=== PATIENT | female | born 1970 | race Caucasian/White ===

== ENCOUNTER → 2016-11-18 | Outpatient (CLI) | payer OTHER ==
[2016-11-18 16:31] LABS: CHLORIDE,CL 104 mmol/L (98-110); SODIUM,NA 137 mmol/L (136-146)
== END ==
LOC: MW.CHFP 15:36
PROVIDERS: ATTEND Nurse Practitioner Family
DX: R10.9 Unspecified abdominal pain (principal)
CPT/HCPCS: 36415; 80053; 85025; 86677

== ENCOUNTER 2016-12-17 18:25 | Emergency (ER) | payer OTHER ==
[2016-12-17 18:40] VITALS: BP 137/93
[2016-12-17] MEDS ORDERED: traMADol 50 MG Tab PO ONE (19:25)
--- NOTE | 2016-12-17 19:26 | EDM.PDOC ---
ED HPI Skin/Rash - General Chief Complaint: Skin Complaint Stated Complaint: PT HAS SWOLLEN RT FOOT Time Seen by Provider: 12/17/16 19:21 - History of Present Illness INITIAL COMMENTS - FREE TEXT/NARRATIVE: HISTORY AND PHYSICAL: History of present illness: The patient is a 46-year-old female with a history of diabetes using both insulin and oral meds who presents with complaints of right foot pain after she stepped on a sharp piece of wood 2 days ago while she was in the park walking barefoot. Patient states she's up-to-date on her tetanus shot and when this occurred she pulled a piece of wood out of her foot and did not step on any glass or metal that she is aware of. She complains of pain at the site and is concerned that it is getting infected. She has no systemic complaints of fever chills streaking up her leg or lower leg pain. She said initially looked scab- like and then looked more red. Review of systems: As per history of present illness and below otherwise all systems reviewed and negative. Past medical history: As per history of present illness and as reviewed below otherwise noncontributory. Surgical history: As per history of present illness and as reviewed below otherwise noncontributory. Social history: No reported history of drug or alcohol abuse. Family history: As per history of present illness and as reviewed below otherwise noncontributory. Physical exam: General: Well-developed well-nourished female who is nontoxic and speaking clearly and easily in ED. Vital signs have been noted by me HEENT: Atraumatic, normocephalic, negative for conjunctival pallor or scleral icterus, mucous membranes moist, throat clear, neck supple, nontender, trachea midline. Lungs: Clear to auscultation, breath sounds equal bilaterally, chest nontender. Heart: S1S2, regular, negative for clicks, rubs, or JVD. Abdomen: Soft, nondistended, nontender. NABS Pelvis: Stable nontender. Genitourinary: Deferred. Rectal: Deferred. Extremities: Atraumatic except for the soft tissue sole surface of the mid foot near the arch where there is a 0.75 cm open wound with surrounding erythema and a slight area of red streaking that does not extend up to the proximal foot. There is no soft tissue tenderness or crepitus and no foreign body palpated. There is tenderness in this region and the remainder of the foot is within normal limits. The legs are, negative for cords or calf pain. Neurovascular unremarkable. Neuro: Awake, alert, oriented. Cranial nerves II through XII unremarkable. Cerebellum unremarkable. Motor and sensory unremarkable throughout. Exam nonfocal. Diagnostics: X-ray right foot Accu-Chek Please note that after I ordered the x-ray the patient had a phone conversation with her and now will refuse the x-ray. She's aware of my concerns and accepts those. Therapeutics: Tramadol wound care Impression: Puncture wound to right foot with cellulitis Definitive disposition and diagnosis as appropriate pending reevaluation and review of above. - Related Data Allergies Allergy/AdvReac Type Severity Reaction Status Date / Time hydroxyzine HCl Allergy Hives Verified 12/17/16 18:40 [From Vistaril] hydroxyzine pamoate Allergy Hives Verified 12/17/16 18:40 [From Vistaril] ketorolac tromethamine Allergy Hives Verified 12/17/16 18:40 [From Toradol] coconuts Allergy unknown Uncoded 07/02/16 13:21 Home Meds: Ambulatory Orders Medication Instructions Recorded Confirmed metFORMIN [Glucophage] 1,000 mg PO BID 06/12/14 10/16/16 Ondansetron [Zofran ODT] 1 tab PO ASDIRECTED PRN 08/06/15 10/16/16 Rizatriptan Benzoate [Maxalt] 10 mg PO ASDIRECTED PRN 08/06/15 10/16/16 Diclofenac Sodium [Voltaren 1% Gel] 1 applic TOP ASDIRECTED PRN 10/16/16 Lidocaine/Prilocaine 1 applic TOP ASDIRECTED PRN 10/16/16 10/16/16 [Lidocaine-Prilocaine Cream] Lisinopril 10 mg PO DAILY 10/16/16 10/16/16 Orphenadrine Citrate 100 mg PO BID PRN 10/16/16 10/16/16 Tresiba Flex Touch 40 units SUBCUT DAILY 10/16/16 atorvaSTATin Calcium [Atorvastatin 1 tab PO BEDTIME 10/16/16 10/16/16 Calcium] rOPINIRole [Requip] 1 mg PO BEDTIME 10/16/16 10/16/16 traZODone HCl [Trazodone HCl] 100 mg PO BEDTIME PRN 10/16/16 10/16/16 Acetaminophen/HYDROcodone [Soso 1 - 2 tab PO Q4H PRN #80 tablet 10/21/16 325-10 MG] Past Medical History - Past Health History Medical/Surgical History: Denies Medical/Surgical History Cardiovascular History: Reports: High cholesterol, Hypertension Respiratory History: Reports: None, TB Other Respiratory History: states "treated for tuberculin positive test in 2002 - no lung lesions Gastrointestinal History: Reports: GERD Genitourinary History: Reports: None [employer] History: Reports: Musculoskeletal History: Reports: Other (see below) Other Musculoskeletal History: chronic shoulder pain Neurological History: Reports: Migraines Psychiatric History: Reports: Depression Endocrine/Metabolic History: Reports: Diabetes, type II Hematologic History: Reports: None Dermatologic History: Reports: None - Infectious Disease History Infectious Disease History: Reports: TB Other Infectious Disease History: TB 2001 - Past Surgical History Head Surgeries/Procedures: Reports: None HEENT Surgical History: Reports: Adenoidectomy, Tonsillectomy Female Surgical History: Reports: Hysterectomy, Tubal ligation Musculoskeletal Surgical History: Reports: Arthroscopic knee Other Musculoskeletal Surgeries/Procedures:: 2x knee surgery left Social & Family History - Family History Family Medical History: Noncontributory - Tobacco Use Smoking Status *Q: Current Every Day Smoker Years of Tobacco use: 10 Packs/Tins Daily: 0.5 Month Tobacco Last Used: smokes 1/2 pk of cigarettes per day Second Hand Smoke Exposure: No - Caffeine Use Caffeine Use: Reports: Soda, Tea - Alcohol Use Days Per Week of Alcohol Use: 0 - Recreational Drug Use Recreational Drug Use: No ED ROS GENERAL - Review of Systems Review Of Systems: ROS reveals no pertinent complaints other than HPI. ED EXAM, SKIN/RASH Exam: See Below (See dictation) Course - Vital Signs Last Recorded V/S: Last Vital Signs Temp 37.1 C 12/17/16 18:37 Pulse 107 H 12/17/16 18:37 Resp 16 12/17/16 18:37 BP 137/93 H 12/17/16 18:37 Pulse Ox 96 12/17/16 18:37 - Orders/Labs/Meds Orders: Active Orders 24 hr Category Date Time Status Blood Glucose Check, Bedside [RC] ONETIME Care 04/13/17 19:26 Active Communication Order [RC] STAT Care 12/17/16 19:29 Active Foot 2V Rt [CR] Stat Exams 12/17/16 19:25 Stop Req Meds: Medications Discontinued Medications Generic Name Dose Route Start Last Admin Trade Name Magali PRN Reason Stop Dose Admin Bacitracin 1 dose 12/17/16 19:29 Bacitracin Oint 1 Gm TOP 12/17/16 19:30 ONETIME ONE Tramadol HCl 50 mg 12/17/16 19:25 Ultram PO 12/17/16 19:26 ONETIME ONE Departure - Departure Time of Disposition: 20:07 Disposition: Home, Self-Care 01 Condition: good Clinical Impression: Cellulitis Qualifiers: Site of cellulitis: extremity Site of cellulitis of extremity: lower extremity Laterality: right Qualified Code(s): L03.115 - Cellulitis of right lower limb Puncture wound of foot Qualifiers: Encounter type: initial encounter Laterality: right Qualified Code(s): S91.331A - Puncture wound without foreign body, right foot, initial encounter Forms: ED Department Discharge Additional Instructions: The following information is given to patients seen in the emergency department who are being discharged to home. This information is to outline your options for follow-up care. We provide all patients seen in our emergency department with a follow-up referral. The need for follow-up, as well as the timing and circumstances, are variable depending upon the specifics of your emergency department visit. If you don't have a primary care physician on staff, we will provide you with a referral. We always advise you to contact your personal physician following an emergency department visit to inform them of the circumstance of the visit and for follow-up with them and/or the need for any referrals to a consulting specialist. The emergency department will also refer you to a specialist when appropriate. This referral assures that you have the opportunity for followup care with a specialist. All of these measure are taken in an effort to provide you with optimal care, which includes your followup. Under all circumstances we always encourage you to contact your private physician who remains a resource for coordinating your care. When calling for followup care, please make the office aware that this follow-up is from your recent emergency room visit. If for any reason you are refused follow-up, please contact the [facility] emergency department at and ask to speak to the emergency department charge nurse. [facility]- [facility] [address] [place] [address] [id number] [facility] Specialty clinic- Podiatry [address] [place] [id number] Fax: [phone] Dr Merline Bailey [address] [address] Please call and followup with primary care or one of our beverage specialist using resources given to above. Please take antibiotics until they're finished and keep area clean and dry oozing [id number] bacitracin or Neosporin. Return to ER as needed and as discussed. Please note that the redness may increase over the next 24 hours but then should start to decrease once the antibiotics start working. Please monitor your blood sugar at home and followup in the clinic if it starts to become more elevated - My Orders Last 24 Hours: My Active Orders 12/17/16 19:25 Foot 2V Rt [CR] Stat 12/17/16 19:26 Blood Glucose Check, Bedside [RC] ONETIME 12/17/16 19:29 Communication Order [RC] STAT - Assessment/Plan Last 24 Hours: My Active Orders 12/17/16 19:25 Foot 2V Rt [CR] Stat 12/17/16 19:26 Blood Glucose Check, Bedside [RC] ONETIME 12/17/16 19:29 Communication Order [RC] STAT
[2016-12-17] MEDS ORDERED: Bacitracin Oint 1 GM U/D Packet TOP ONE (19:29)
== END 2016-12-17 20:38 | disposition home or self-care (01) ==
LOC: MW.ED 18:25
DX: L03.115 Cellulitis of right lower limb (principal); S91.331A Puncture wound without foreign body, right foot, initial encounter; E11.9 Type 2 diabetes mellitus without complications; E78.00 Pure hypercholesterolemia, unspecified; I10 Essential (primary) hypertension; F17.210 Nicotine dependence, cigarettes, uncomplicated; K21.9 Gastro-esophageal reflux disease without esophagitis; F32.9 Major depressive disorder, single episode, unspecified; Z90.710 Acquired absence of both cervix and uterus; Z98.890 Other specified postprocedural states; Z79.4 Long term (current) use of insulin; Z88.5 Allergy status to narcotic agent; Z88.8 Allergy status to other drugs, medicaments and biological substances; Z91.018 Allergy to other foods; X58.XXXA Exposure to other specified factors, initial encounter
CPT/HCPCS: 82962; 99283; A9270

== ENCOUNTER 2017-01-03 19:13 | Emergency (ER) | payer OTHER ==
[2017-01-03] MEDS ORDERED: Morphine 2 MG/ML Syringe IVPUSH ONE (19:27)
[2017-01-03] MEDS ORDERED: Ondansetron 4 MG/2 ML SDV IVPUSH ONE (19:27)
[2017-01-03] MEDS ORDERED: Sodium Chloride 0.9% 1,000 ML IV ONE (19:27)
--- NOTE | 2017-01-03 19:43 | EDM.PDOC ---
ED HPI LOWER BACK PAIN/INJURY - General Chief Complaint: Back Pain or Injury Stated Complaint: LT SIDE HIP PAIN/BACK Time Seen by Provider: 01/03/17 19:25 Source of Information: Reports: Patient History Limitations: Reports: No limitations - History of Present Illness INITIAL COMMENTS - FREE TEXT/NARRATIVE: History of present illness: [46-year-old female coming in complaining of back pain. Patient indicates this is acute on chronic situation and that she has not had a sciatic flare for approximately 3 years. Patient does have significant chronic pain issues and indicated that she had steroid injections in her back approximately 3 years ago which has given her pain relief until now. Of note patient has significant pain medication allergies as well as currently has a prescription for opiate analgesics.] Review of systems: As per history of present illness and below otherwise all systems reviewed and negative. Past medical history: As per history of present illness and as reviewed below otherwise noncontributory. Surgical history: As per history of present illness and as reviewed below otherwise noncontributory. Social history: No reported history of drug or alcohol abuse. Family history: As per history of present illness and as reviewed below otherwise noncontributory. Physical exam: HEENT: Atraumatic, normocephalic, pupils reactive, negative for conjunctival pallor or scleral icterus, mucous membranes moist, throat clear, neck supple, nontender, trachea midline. Lungs: Clear to auscultation, breath sounds equal bilaterally, chest nontender. Heart: S1S2, regular, negative for clicks, rubs, or JVD. Abdomen: Soft, nondistended, nontender. Negative for masses or hepatosplenomegaly. Negative for costovertebral tenderness. Pelvis: Stable nontender. Genitourinary: Deferred. Rectal: Deferred. Extremities: Atraumatic, negative for cords or calf pain. Neurovascular unremarkable. Neuro: Awake, alert, oriented. Cranial nerves II through XII unremarkable. Cerebellum unremarkable. Motor and sensory unremarkable throughout. Exam nonfocal. Global assessment was benign save some significant guarding when attempting to evaluate range of motion in bilateral lower extremities. Patient indicates is to painful to fully evaluate with active and/or passive range of motion. Diagnostics: [] Therapeutics: [Morphine, Zofran, Neurontin] Impression: [Chronic low back pain with acute flare/sciatic] Plan: [Followup with PCP] Definitive disposition and diagnosis as appropriate pending reevaluation and review of above. - Related Data Allergies/ADRs: Allergies Allergy/AdvReac Type Severity Reaction Status Date / Time hydroxyzine HCl Allergy Hives Verified 01/03/17 19:20 [From Vistaril] hydroxyzine pamoate Allergy Hives Verified 01/03/17 19:20 [From Vistaril] ketorolac tromethamine Allergy Hives Verified 01/03/17 19:20 [From Toradol] coconuts Allergy unknown Uncoded 07/02/16 13:21 Home Meds: Home Meds metFORMIN [Glucophage] 1,000 mg PO BID 06/12/14 [History] Ondansetron [Zofran ODT] 1 tab PO ASDIRECTED PRN 08/06/15 [History] Rizatriptan Benzoate [Maxalt] 10 mg PO ASDIRECTED PRN 08/06/15 [History] Diclofenac Sodium [Voltaren 1% Gel] 1 applic TOP ASDIRECTED PRN 10/16/16 [ History] Lidocaine/Prilocaine [Lidocaine-Prilocaine Cream] 1 applic TOP ASDIRECTED PRN [History] Lisinopril 10 mg PO DAILY 10/16/16 [History] Orphenadrine Citrate 100 mg PO BID PRN 10/16/16 [History] Tresiba Flex Touch 40 units SUBCUT DAILY 10/16/16 [History] atorvaSTATin Calcium [Atorvastatin Calcium] 1 tab PO BEDTIME 10/16/16 [History] rOPINIRole [Requip] 1 mg PO BEDTIME 10/16/16 [History] traZODone HCl [Trazodone HCl] 100 mg PO BEDTIME PRN 10/16/16 [History] Acetaminophen/HYDROcodone [[place] 325-10 MG] 1 - 2 tab PO Q4H PRN #80 tablet [Rx] Gabapentin [Neurontin] 100 mg PO TID #30 capsule 01/03/17 [Rx] Past Medical History - Past Health History Medical/Surgical History: Denies Medical/Surgical History Cardiovascular History: Reports: High cholesterol, Hypertension Respiratory History: Reports: None, TB Other Respiratory History: states "treated for tuberculin positive test in 2002 - no lung lesions Gastrointestinal History: Reports: GERD Genitourinary History: Reports: None [employer] History: Reports: Musculoskeletal History: Reports: Other (see below) Other Musculoskeletal History: chronic shoulder pain Neurological History: Reports: Migraines Psychiatric History: Reports: Depression Endocrine/Metabolic History: Reports: Diabetes, type II Hematologic History: Reports: None Dermatologic History: Reports: None - Infectious Disease History Infectious Disease History: Reports: TB Other Infectious Disease History: TB 2001 - Past Surgical History Head Surgeries/Procedures: Reports: None HEENT Surgical History: Reports: Adenoidectomy, Tonsillectomy Female Surgical History: Reports: Hysterectomy, Tubal ligation Musculoskeletal Surgical History: Reports: Arthroscopic knee Other Musculoskeletal Surgeries/Procedures:: 2x knee surgery left Social & Family History - Family History Family Medical History: Noncontributory - Tobacco Use Smoking Status *Q: Current Every Day Smoker Years of Tobacco use: 10 Packs/Tins Daily: 1 Month Tobacco Last Used: smokes 1/2 pk of cigarettes per day Second Hand Smoke Exposure: No - Caffeine Use Caffeine Use: Reports: Soda, Tea - Alcohol Use Days Per Week of Alcohol Use: 0 - Recreational Drug Use Recreational Drug Use: No ED ROS GENERAL - Review of Systems Review Of Systems: See Below (See history of present illness) ED EXAM,LOWER BACK PAIN/INJURY - Physical Exam Exam: See Below (History of present illness) Course - Vital Signs Last Recorded V/S: Last Vital Signs Temp 36.7 C 01/03/17 20:35 Pulse 83 01/03/17 20:35 Resp 18 01/03/17 20:35 BP 135/71 01/03/17 20:35 Pulse Ox 96 01/03/17 20:35 - Orders/Labs/Meds Meds: Medications Discontinued Medications Generic Name Dose Route Start Last Admin Trade Name Magali PRN Reason Stop Dose Admin Gabapentin 300 mg 01/03/17 21:01 01/03/17 21:34 Neurontin PO 01/03/17 21:02 300 mg ONETIME ONE Administration Sodium Chloride 1,000 mls @ 999 mls/hr 01/03/17 19:27 01/03/17 19:41 Normal Saline IV 01/03/17 20:27 999 mls/hr STAT ONE Administration Morphine Sulfate 2 mg 01/03/17 19:27 01/03/17 19:45 Morphine IVPUSH 01/03/17 19:28 2 mg ONETIME ONE Administration Ondansetron HCl 8 mg 01/03/17 19:27 01/03/17 19:45 Zofran IVPUSH 01/03/17 19:28 8 mg ONETIME ONE Administration Orphenadrine Citrate 60 mg 01/03/17 19:45 01/03/17 20:04 Norflex IM 01/03/17 19:46 60 mg NOW STA Administration Departure - Departure Time of Disposition: 22:30 Disposition: Home, Self-Care 01 Condition: good Clinical Impression: Back pain with left-sided sciatica Instructions: Back Pain, Adult, [id number] Forms: ED Department Discharge Additional Instructions: The following information is given to patients seen in the emergency department who are being discharged to home. This information is to outline your options for follow-up care. We provide all patients seen in our emergency department with a follow-up referral. The need for follow-up, as well as the timing and circumstances, are variable depending upon the specifics of your emergency department visit. If you don't have a primary care physician on staff, we will provide you with a referral. We always advise you to contact your personal physician following an emergency department visit to inform them of the circumstance of the visit and for follow-up with them and/or the need for any referrals to a consulting specialist. The emergency department will also refer you to a specialist when appropriate. This referral assures that you have the opportunity for follow-up care with a specialist. All of these measure are taken in an effort to provide you with optimal care, which includes your follow-up. Under all circumstances we always encourage you to contact your private physician who remains a resource for coordinating your care. When calling for follow-up care, please make the office aware that this follow-up is from your recent emergency room visit. If for any reason you are refused follow-up, please contact the [facility] Emergency Department at and asked to speak to the emergency department charge nurse. Take medication as directed Follow up with primary care provider one to 2 days Return to ED as needed as discussed
[2017-01-03] MEDS ORDERED: Gabapentin 300 MG Cap PO ONE (21:01)
[2017-01-03 22:49] VITALS: BP 142/102
== END 2017-01-03 22:46 | disposition home or self-care (01) ==
LOC: MW.ED 19:13
DX: M54.32 Sciatica, left side (principal); E78.00 Pure hypercholesterolemia, unspecified; I10 Essential (primary) hypertension; K21.9 Gastro-esophageal reflux disease without esophagitis; F32.9 Major depressive disorder, single episode, unspecified; E11.9 Type 2 diabetes mellitus without complications; F17.210 Nicotine dependence, cigarettes, uncomplicated; Z79.899 Other long term (current) drug therapy; Z98.890 Other specified postprocedural states; Z90.710 Acquired absence of both cervix and uterus; Z98.51 Tubal ligation status; Z88.8 Allergy status to other drugs, medicaments and biological substances; Z88.5 Allergy status to narcotic agent; Z91.018 Allergy to other foods; Z79.84 Long term (current) use of oral hypoglycemic drugs
CPT/HCPCS: 96361; 96372; 96374; 96375; 99283; A9270; J2270; J2360; J2405; J7040; 99284

== ENCOUNTER → 2017-01-12 | Outpatient (CLI) | payer OTHER ==
--- NOTE | 2017-01-13 15:45 | MR ---
EXAM DATE: 01/12/17 PATIENT'S AGE: 46 Patient: JOE LERNER Facility: [place], [place] Site . Site : 1970 Study: MRI Spine Lumbar [id number] 5:25:15 PM Ordering Physician: Sadia Pérez Final Report: Indication: Low back pain. Comparison: None. Technique: Sagittal T1, T2, and STIR sequences. Axial T1 and T2 weighted sequences. Findings: Trace degenerative anterolisthesis of L4 on L5 measures approximately 4 mm. Otherwise, normal vertebral body alignment. No acute fractures. No vertebral body loss of height. No ligamentous injury. Normal marrow signal. Normal conus terminates at L1. T12-L1 L1-2: No spinal canal or neural foraminal narrowing. L2-3: No spinal canal or neural foraminal narrowing. L3-4: No spinal canal or neural foraminal narrowing. L3-4: Mild disc degeneration. Shallow left foraminal to extra foraminal disc herniation measuring approximately 3 mm in short axis. No narrowing of spinal canal. Mild narrowing of the left neural foramen. No narrowing of the right neural foramen. L4-5: Grade 1 anterolisthesis. Disc degeneration with posterior disc bulge. Combined with ligamentum flavum facet hypertrophy, there is moderate severe narrowing of spinal canal. Oblique orientation of the bilateral neural foramina with mild narrowing of the right neural foramen. No narrowing of the left neural foramen. Mild bilateral facet arthropathy. Small right facet joint effusion which may indicate joint instability. L5-S1: No spinal canal or neural foraminal narrowing. Mild bilateral facet arthropathy. Normal paraspinal soft tissues. Impression: 1. Mild degenerative anterolisthesis of L4 on L5. 2. Otherwise, normal alignment. No fractures. 3. At L3-4, shallow left foraminal/foraminal disc herniation. Mild narrowing of the left neural foramen. 4. At L4-5, disk degeneration with posterior disk bulge. Moderate to severe narrowing of the spinal canal. Mild narrowing of the right neural foramen. 5. No spinal canal or neural foramina narrowing at the remaining levels Dictated by Yunior Alford MD @ Jan 12 2017 5:40PM (Electronic Signature) Report Signed by Proxy. [facility]ERS[facility] HOSPITALCarmen
== END ==
LOC: MW.MRI 16:43
PROVIDERS: ATTEND Anesthesiology
DX: M54.5 Low back pain (principal); M51.86 Other intervertebral disc disorders, lumbar region
CPT/HCPCS: 72148; 72148-26

== ENCOUNTER 2017-01-19 11:40 | Day surgery (SDC) | payer OTHER ==
[~2017-01-19 11:40] MED LIST: Betamethasone Acetate/Betamethasone Sod Phosphate 30 MG/5 ML MDV ONE; Lidocaine 2% 5 ML SDV ONE; Ropivacaine 0.5% 5 MG/ML 30 ML SDV ONE
[2017-01-19] MEDS ORDERED: Iopamidol 408 MG/ML 200 ML SDV IV ONE (14:34)
--- NOTE | 2017-01-19 19:00 | OR ---
SURGEON: Elisa Mccullough D.O. DATE OF PROCEDURE: 01/19/2017 OR STAFF PRESENT: 1. Maryse Lancaster RN. 2. Babak Person RN. 3. RT Afia. WOUND CLASSIFICATION: I. PREOPERATIVE DIAGNOSES: 1. Lumbar radiculopathy, left lower extremity. 2. Lumbar herniated disk. 3. Lumbar spinal stenosis. POSTOPERATIVE DIAGNOSES: 1. Lumbar radiculopathy, left lower extremity. 2. Lumbar herniated disk. 3. Lumbar spinal stenosis. PROCEDURE PERFORMED: 1. Lumbar epidural steroid injection, interlaminar at L3-4. 2. Fluoroscopic guidance for needle placement. 3. Local with oral Valium for sedation. SCREENING QUESTIONS: The patient answered "no" to all of the following questions: 1. Are you allergic to latex? 2. Do you have a bleeding disorder? 3. Do you have any current local or systemic infections? 4. Are you taking any anti-inflammatories or blood thinners? 5. Do you have any joint replacements, heart valve replacements, or a pacemaker? DESCRIPTION OF PROCEDURE: The patient had the procedure thoroughly explained including all possible risks, benefits and alternatives. Consent was signed in my clinic indicating understanding and willingness to proceed. The patient presented to [facility] and was escorted to the dressing room to disrobe and change into a hospital gown. Preoperative vital signs were taken and stable. The patient reported that Valium was taken prior to the procedure. The patient was brought back to the procedure room and placed in the prone position on the procedure room table. A pillow was placed under the hips in order to flatten the lumbar lordosis. The back was prepped with ChloraPrep and sterilely draped. All personnel in the operating room were dressed in appropriate attire including surgical scrubs, head and shoe covers. This was to ensure sterility while in the treatment room. During the time fluoroscopy was in use, all personnel in the operating room wore lead whaley with thyroid collars. Sterile technique was used throughout the procedure. The patient was awake and conversant throughout the procedure. There was no evidence of infection at the site of needle insertion. Skeletal landmarks were identified under fluoroscopy for the lumbar epidural. Skin was anesthetized with 2% lidocaine with a sterile 27-gauge 1.5 inch needle. Then a 20-gauge Tuohy epidural needle was placed in the epidural space with loss of resistance technique under fluoroscopic guidance. No heme, cerebrospinal fluid, or paresthesias were noted. Isovue-200 contrast dye was injected in 0.2 cubic centimeter increments and seen to outline the epidural space in both AP and lateral views. There was no intravascular flow pattern observed under live fluoroscopy. Then 12 milligrams of Celestone was slowly injected after negative aspiration. The patient tolerated the procedure well. Vital signs were stable during and after the procedure. The staff escorted the patient to the recovery area and the patient was released in stable condition after a brief stay in the recovery room monitored by the nurse. The patient was given both oral and written discharge and follow up instructions with recommendation to follow up given for 2-3 weeks. The patient voiced understanding including understanding of those signs and symptoms that would require emergency care. The patient knows how to contact the office if there are any additional problems or questions in the meantime. PREOPERATIVE PAIN: 10/10. POSTOPERATIVE PAIN: 6/10. FOLLOWUP: Follow up in the Pain Clinic in 2 weeks. CAREN / FRANCISCO JAVIER /[id number]
== END 2017-01-19 13:17 | disposition home or self-care (01) ==
LOC: MW.SDS 11:40
PROVIDERS: ATTEND Anesthesiology
DX: M51.16 Intervertebral disc disorders with radiculopathy, lumbar region (principal); M48.06 Spinal stenosis, lumbar region; Z88.8 Allergy status to other drugs, medicaments and biological substances; Z91.018 Allergy to other foods; F32.9 Major depressive disorder, single episode, unspecified; Z79.891 Long term (current) use of opiate analgesic; E78.00 Pure hypercholesterolemia, unspecified; E11.9 Type 2 diabetes mellitus without complications; Z79.899 Other long term (current) drug therapy; Z90.710 Acquired absence of both cervix and uterus; Z98.890 Other specified postprocedural states; Z98.51 Tubal ligation status; F17.210 Nicotine dependence, cigarettes, uncomplicated; Z72.0 Tobacco use; Z77.22 Contact with and (suspected) exposure to environmental tobacco smoke (acute) (chronic)
CPT/HCPCS: 62323; J0702; J2795; Q9966

== ENCOUNTER 2017-02-02 10:47 | Day surgery (SDC) | payer OTHER ==
[~2017-02-02 10:47] MED LIST changes: +Iopamidol 408 MG/ML 50 ML SDV ONE
--- NOTE | 2017-02-02 19:12 | OR ---
SURGEON: Elisa Mccullough D.O. DATE OF PROCEDURE: 02/02/2017 OR STAFF PRESENT: 1. Trina Bella. 2. Maryse Lancaster. PULP MAKER: Yudelka Sherwood. WOUND CLASSIFICATION: I. PREOPERATIVE DIAGNOSES: 1. Lumbar herniated disk. 2. Lumbar radiculopathy. POSTOPERATIVE DIAGNOSES: 1. Lumbar herniated disk. 2. Lumbar radiculopathy. PROCEDURE PERFORMED: 1. Lumbar intralaminar epidural at L3-4. 2. Fluoroscopic guidance for needle placement. 3. Local with oral Valium for sedation. SCREENING QUESTIONS: The patient answered "no" to all of the following questions: 1. Are you allergic to latex? 2. Do you have a bleeding disorder? 3. Do you have any current local or systemic infections? 4. Are you taking any anti-inflammatories or blood thinners? 5. Do you have any joint replacements, heart valve replacements, or a pacemaker? DESCRIPTION OF PROCEDURE: The patient had the procedure thoroughly explained including all possible risks, benefits and alternatives. Consent was signed in my clinic indicating understanding and willingness to proceed. The patient presented to [facility] and was escorted to the dressing room to disrobe and change into a hospital gown. Preoperative vital signs were taken and stable. The patient reported that Valium was taken prior to the procedure. The patient was brought back to the procedure room and placed in the prone position on the procedure room table. A pillow was placed under the hips in order to flatten the lumbar lordosis. The back was prepped with ChloraPrep and sterilely draped. All personnel in the operating room were dressed in appropriate attire including surgical scrubs, head and shoe covers. This was to ensure sterility while in the treatment room. During the time fluoroscopy was in use, all personnel in the operating room wore lead whaley with thyroid collars. Sterile technique was used throughout the procedure. The patient was awake and conversant throughout the procedure. There was no evidence of infection at the site of needle insertion. Skeletal landmarks were identified under fluoroscopy for the lumbar epidural. Skin was anesthetized with 2% lidocaine with a sterile 27-gauge 1.5 inch needle. Then a 20-gauge Tuohy epidural needle was placed in the epidural space with loss of resistance technique under fluoroscopic guidance. No heme, cerebrospinal fluid, or paresthesias were noted. Isovue-200 contrast dye was injected in 0.2 cubic centimeter increments and seen to outline the epidural space in both AP and lateral views. There was no intravascular flow pattern observed under live fluoroscopy. Then 12 milligrams of Celestone was slowly injected after negative aspiration. The patient tolerated the procedure well. Vital signs were stable during and after the procedure. The staff escorted the patient to the recovery area and the patient was released in stable condition after a brief stay in the recovery room monitored by the nurse. The patient was given both oral and written discharge and follow up instructions with recommendation to follow up given for 2-3 weeks. The patient voiced understanding including understanding of those signs and symptoms that would require emergency care. The patient knows how to contact the office if there are any additional problems or questions in the meantime. PREOPERATIVE PAIN: 8/10. POSTOPERATIVE PAIN: 3/10. PLAN: Followup in the Pain Clinic in one month. HOGOPAL / FRANCISCO JAVIER /[id number]
== END 2017-02-02 14:06 | disposition home or self-care (01) ==
LOC: MW.SDS 10:47
PROVIDERS: ATTEND Anesthesiology
DX: M51.16 Intervertebral disc disorders with radiculopathy, lumbar region (principal); M48.06 Spinal stenosis, lumbar region; G89.29 Other chronic pain; M54.2 Cervicalgia; F17.200 Nicotine dependence, unspecified, uncomplicated; F41.9 Anxiety disorder, unspecified; F32.9 Major depressive disorder, single episode, unspecified; E11.9 Type 2 diabetes mellitus without complications; E78.00 Pure hypercholesterolemia, unspecified; M75.40 Impingement syndrome of unspecified shoulder; G47.00 Insomnia, unspecified; G43.909 Migraine, unspecified, not intractable, without status migrainosus; M75.111 Incomplete rotator cuff tear or rupture of right shoulder, not specified as traumatic; G25.81 Restless legs syndrome; I10 Essential (primary) hypertension; M19.011 Primary osteoarthritis, right shoulder; Z88.8 Allergy status to other drugs, medicaments and biological substances; Z88.6 Allergy status to analgesic agent; Z79.84 Long term (current) use of oral hypoglycemic drugs; Z91.19 Patient's noncompliance with other medical treatment and regimen; Z90.710 Acquired absence of both cervix and uterus; Z98.51 Tubal ligation status; Z79.899 Other long term (current) drug therapy; Z79.891 Long term (current) use of opiate analgesic; Z98.890 Other specified postprocedural states
CPT/HCPCS: 62323; J0702; J2795; Q9966

== ENCOUNTER 2017-02-27 17:44 | Emergency (ER) | payer OTHER ==
[2017-02-27] MEDS ORDERED: Ondansetron 4 MG/2 ML SDV IVPUSH ONE ×2 (18:32→19:24)
[2017-02-27] MEDS ORDERED: Sodium Chloride 0.9% 1,000 ML IV ONE ×2 (18:32→19:24)
--- NOTE | 2017-02-27 18:33 | EDM.PDOC ---
ED HPI GENERAL MEDICAL PROBLEM - General Chief Complaint: Gastrointestinal Problem Stated Complaint: VOMITING/DIABETIC Time Seen by Provider: 02/27/17 18:20 Source of Information: Reports: Patient History Limitations: Reports: No Limitations - History of Present Illness INITIAL COMMENTS - FREE TEXT/NARRATIVE: HISTORY AND PHYSICAL: History of present illness: [Comes emergency room complaining of not feeling well for the past 3 days. She' s been vomiting for 3 days and just overall not feeling well. She has some generalized muscle aches and pains. She has a history of type 2 diabetes for which she takes metformin and Lantus. Her sugars have been running in the 200s for the past couple of days. She complains of nausea at this time. She denies any overt pain but is experiencing generalized aches to her upper or lower extremities back and trunk. She has not taken any medications for her symptoms. One episode of diarrhea earlier today. None since. Is not drinking much fluids due to the nausea. She took zofran that she had at home for nausea which did not help. She follows regularly with Dorie Espinosa.] Review of systems: As per history of present illness and below otherwise all systems reviewed and negative. Past medical history: As per history of present illness and as reviewed below otherwise noncontributory. Surgical history: As per history of present illness and as reviewed below otherwise noncontributory. Social history: No reported history of drug or alcohol abuse. Family history: As per history of present illness and as reviewed below otherwise noncontributory. Physical exam: Gen.: Well-developed well-nourished female in no acute distress. She appears to not be feeling well and is not in any significant pain that is appreciated. HEENT: Atraumatic, normocephalic. Oral mucous membranes moist. throat clear, neck supple, no lymphadenopathy. Lungs: Clear to auscultation, breath sounds equal bilaterally. No wheezing crackles or rales. Heart: S1S2, regular rate and rhythm. No murmur.. Abdomen: Soft, nondistended, nontender. Negative for masses guarding and rebound. Negative for costovertebral tenderness. Pelvis: Stable nontender. Genitourinary: Deferred. Rectal: Deferred. Extremities: Atraumatic, negative for cords or calf pain. No cyanosis or edema to feet or lower legs. Neurovascular unremarkable. Neuro: Awake, alert, oriented. Motor and sensory unremarkable throughout. Exam nonfocal. Skin: Appears flushed. Warm dry pink and intact. Diagnostics: [CBC, CMP, UA, lipase, urine Hcg] Therapeutics: [2 L normal saline, Zofran 4 mg IV x2] Impression: [nausea and vomiting Type 2 diabetes] Plan: [Discussed with patient that her lab results show a cause for her nausea or vomiting. Recommend rest, push fluids, take Zofran as needed. He is in agreement with today's plan of her questions are answered and concerns addressed.. Rx for Zofran ODT 4 mg #10 sig 1 by mouth 3 times a day when necessary nausea and vomiting 0 refills sent to [facility].] Definitive disposition and diagnosis as appropriate pending reevaluation and review of above. generalized Pain Score (Numeric/FACES): 8 - Related Data Allergies Allergy/AdvReac Type Severity Reaction Status Date / Time hydroxyzine HCl Allergy Hives Verified 02/27/17 17:52 [From Vistaril] hydroxyzine pamoate Allergy Hives Verified 02/27/17 17:52 [From Vistaril] ketorolac tromethamine Allergy Hives Verified 02/27/17 17:52 [From Toradol] Home Meds: Home Meds metFORMIN [Glucophage] 1,000 mg PO BID 06/12/14 [History] Ondansetron [Zofran ODT] 1 tab PO ASDIRECTED PRN 08/06/15 [History] Rizatriptan Benzoate [Maxalt] 10 mg PO ASDIRECTED PRN 08/06/15 [History] Diclofenac Sodium [Voltaren 1% Gel] 1 applic TOP ASDIRECTED PRN 10/16/16 [ History] Lidocaine/Prilocaine [Lidocaine-Prilocaine Cream] 1 applic TOP ASDIRECTED PRN [History] Lisinopril 10 mg PO DAILY 10/16/16 [History] Orphenadrine Citrate 100 mg PO BID PRN 10/16/16 [History] Tresiba Flex Touch 40 units SUBCUT DAILY 10/16/16 [History] atorvaSTATin Calcium [Atorvastatin Calcium] 1 tab PO BEDTIME 10/16/16 [History] rOPINIRole [Requip] 1 mg PO BEDTIME 10/16/16 [History] traZODone HCl [Trazodone HCl] 100 mg PO BEDTIME PRN 10/16/16 [History] Acetaminophen/HYDROcodone [[place] 325-10 MG] 1 - 2 tab PO Q4H PRN #80 tablet [Rx] Gabapentin [Neurontin] 100 mg PO TID #30 capsule 01/03/17 [Rx] Past Medical History - Past Health History Medical/Surgical History: Denies Medical/Surgical History Cardiovascular History: Reports: High Cholesterol, Hypertension Respiratory History: Reports: None, TB Other Respiratory History: reports treatment for positive tuberculin test in 2002 - no lung lesions Gastrointestinal History: Reports: GERD Genitourinary History: Reports: None 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: Reports: Musculoskeletal History: Reports: None Other Musculoskeletal History: chronic shoulder pain Neurological History: Reports: Migraines Psychiatric History: Reports: Anxiety Endocrine/Metabolic History: Reports: Diabetes, Type II Hematologic History: Reports: None Dermatologic History: Reports: None - Infectious Disease History Infectious Disease History: Reports: TB Other Infectious Disease History: TB 2001 - Past Surgical History Head Surgeries/Procedures: Reports: None HEENT Surgical History: Reports: Adenoidectomy, Tonsillectomy Female Surgical History: Reports: Hysterectomy, Tubal Ligation Musculoskeletal Surgical History: Reports: Arthroscopic Knee, Shoulder Surgery Social & Family History - Family History Family Medical History: Noncontributory - Tobacco Use Smoking Status *Q: Current Every Day Smoker Years of Tobacco use: 10 Packs/Tins Daily: 0.5 Month Tobacco Last Used: smokes 1/2 pk of cigarettes per day Second Hand Smoke Exposure: No - Caffeine Use Caffeine Use: Reports: Soda Caffeine Use Comment: 3-4drinks/day - Alcohol Use Days Per Week of Alcohol Use: 0 - Recreational Drug Use Recreational Drug Use: No ED ROS GENERAL - Review of Systems Review Of Systems: ROS reveals no pertinent complaints other than HPI. ED EXAM, GI/ABD - Physical Exam Exam: See Below Course - Vital Signs Last Recorded V/S: Last Vital Signs Temp 98 F 02/27/17 21:06 Pulse 80 02/27/17 21:06 Resp 20 02/27/17 21:06 BP 141/87 H 02/27/17 21:06 Pulse Ox 99 02/27/17 21:06 - Orders/Labs/Meds Labs: Laboratory Tests 02/27/17 02/27/17 02/27/17 Range/Units 17:52 17:57 17:57 WBC 11.85 H (4.0-11.0) K/uL RBC 4.84 (4.30-5.90) M/uL Hgb 15.3 (12.0-16.0) g/dL Hct 45.2 (36.0-46.0) % MCV 93.4 (80.0-98.0) fL MCH 31.6 (27.0-32.0) pg MCHC 33.8 (31.0-37.0) g/dL RDW Std Deviation 43.7 (28.0-62.0) fl RDW Coeff of Haley 13 (11.0-15.0) % Plt Count 386 (150-400) K/uL MPV 10.20 (7.40-12.00) fL Neut % (Auto) 62.9 (48.0-80.0) % Lymph % (Auto) 29.9 (16.0-40.0) % [place] % (Auto) 6.9 (0.0-15.0) % Eos % (Auto) 0.2 (0.0-7.0) % Baso % (Auto) 0.1 (0.0-1.5) % Neut # (Auto) 7.5 H (1.4-5.7) K/uL Lymph # (Auto) 3.5 H (0.6-2.4) K/uL [place] # (Auto) 0.8 (0.0-0.8) K/uL Eos # (Auto) 0.0 (0.0-0.7) K/uL Baso # (Auto) 0.0 (0.0-0.1) K/uL Sodium 140 (136-146) mmol/L Potassium 3.8 (3.5-5.1) mmol/L Chloride 106 (98-110) mmol/L Carbon Dioxide 21 (21-31) mmol/L BUN 15 (6.0-23.0) mg/dL Creatinine 0.9 (0.6-1.5) mg/dL Est Cr Clr Drug Dosing 65.30 mL/min Estimated GFR (MDRD) > 60.0 ml/min Glucose 207 H (60-110) mg/dL POC Glucose 206 H (60-110) mg/dL Calcium 9.5 (8.8-10.8) mg/dL Total Bilirubin 0.3 (0.1-1.5) mg/dL AST 12 (5-40) IU/L ALT 17 (8-54) IU/L Alkaline Phosphatase 47 (40-150) Total Protein 7.5 (6.0-8.0) g/dL Albumin 4.2 (3.5-5.0) g/dL Globulin 3.3 (2.0-3.5) g/dL Albumin/Globulin Ratio 1.3 (1.3-2.8) Lipase 16 (7-80) U/L Urine Color Urine Appearance Urine pH (5.0-8.0) Ur Specific [place] (1.001-1.035) Urine Protein (NEGATIVE) mg/dL Urine Glucose (UA) (NEGATIVE) mg/dL Urine Ketones (NEGATIVE) mg/dL Urine Occult Blood (NEGATIVE) Urine Nitrite (NEGATIVE) Urine Bilirubin (NEGATIVE) Urine Ictotest Urine Urobilinogen (<2.0) EU/dL Ur Leukocyte Esterase (NEGATIVE) Urine RBC (0-2/HPF) Urine WBC (0-5/HPF) Ur Epithelial Cells (NONE-FEW) Amorphous Sediment (NEGATIVE) Urine Bacteria (NEGATIVE) Urine HCG, Qual (NEGATIVE) 02/27/17 02/27/17 Range/Units 18:05 18:05 WBC (4.0-11.0) K/uL RBC (4.30-5.90) M/uL Hgb (12.0-16.0) g/dL Hct (36.0-46.0) % MCV (80.0-98.0) fL MCH (27.0-32.0) pg MCHC (31.0-37.0) g/dL RDW Std Deviation (28.0-62.0) fl RDW Coeff of Haley (11.0-15.0) % Plt Count (150-400) K/uL MPV (7.40-12.00) fL Neut % (Auto) (48.0-80.0) % Lymph % (Auto) (16.0-40.0) % [place] % (Auto) (0.0-15.0) % Eos % (Auto) (0.0-7.0) % Baso % (Auto) (0.0-1.5) % Neut # (Auto) (1.4-5.7) K/uL Lymph # (Auto) (0.6-2.4) K/uL [place] # (Auto) (0.0-0.8) K/uL Eos # (Auto) (0.0-0.7) K/uL Baso # (Auto) (0.0-0.1) K/uL Sodium (136-146) mmol/L Potassium (3.5-5.1) mmol/L Chloride (98-110) mmol/L Carbon Dioxide (21-31) mmol/L BUN (6.0-23.0) mg/dL Creatinine (0.6-1.5) mg/dL Est Cr Clr Drug Dosing mL/min Estimated GFR (MDRD) ml/min Glucose (60-110) mg/dL POC Glucose (60-110) mg/dL Calcium (8.8-10.8) mg/dL Total Bilirubin (0.1-1.5) mg/dL AST (5-40) IU/L ALT (8-54) IU/L Alkaline Phosphatase (40-150) Total Protein (6.0-8.0) g/dL Albumin (3.5-5.0) g/dL Globulin (2.0-3.5) g/dL Albumin/Globulin Ratio (1.3-2.8) Lipase (7-80) U/L Urine Color YELLOW Urine Appearance CLOUDY Urine pH 6.0 (5.0-8.0) Ur Specific [place] >= 1.030 (1.001-1.035) Urine Protein TRACE (NEGATIVE) mg/dL Urine Glucose (UA) 500 H (NEGATIVE) mg/dL Urine Ketones NEGATIVE (NEGATIVE) mg/dL Urine Occult Blood NEGATIVE (NEGATIVE) Urine Nitrite NEGATIVE (NEGATIVE) Urine Bilirubin SMALL H (NEGATIVE) Urine Ictotest NEGATIVE Urine Urobilinogen 0.2 (<2.0) EU/dL Ur Leukocyte Esterase NEGATIVE (NEGATIVE) Urine RBC 0-3 (0-2/HPF) Urine WBC 0-2 (0-5/HPF) Ur Epithelial Cells FEW (NONE-FEW) Amorphous Sediment MANY (NEGATIVE) Urine Bacteria FEW (NEGATIVE) Urine HCG, Qual NEGATIVE (NEGATIVE) Meds: Medications Discontinued Medications Generic Name Dose Route Start Last Admin Trade Name Freq PRN Reason Stop Dose Admin Sodium Chloride 1,000 mls @ 999 mls/hr 02/27/17 18:32 02/27/17 18:43 Normal Saline IV 02/27/17 19:32 999 mls/hr STAT ONE Administration Sodium Chloride 1,000 mls @ 999 mls/hr 02/27/17 19:24 02/27/17 19:38 Normal Saline IV 02/27/17 20:24 999 mls/hr STAT ONE Administration Ondansetron HCl 4 mg 02/27/17 18:32 02/27/17 18:43 Zofran IVPUSH 02/27/17 18:33 4 mg ONETIME ONE Administration Ondansetron HCl 4 mg 02/27/17 19:24 02/27/17 19:38 Zofran IVPUSH 02/27/17 19:25 4 mg ONETIME ONE Administration Promethazine HCl 25 mg 02/27/17 20:44 02/27/17 20:56 Phenergan IM 02/27/17 20:45 25 mg ONETIME ONE Administration Departure - Departure Time of Disposition: 21:00 Disposition: Home, Self-Care 01 Clinical Impression: Nausea & vomiting Qualifiers: Vomiting type: unspecified Vomiting Intractability: non-intractable Qualified Code(s): R11.2 - Nausea with vomiting, unspecified - Discharge Information Instructions: Nausea and Vomiting, Adult Referrals: Aby Espinosa BENEFIT AUTHORIZER [Primary Care Provider] - Forms: ED Department Discharge
[2017-02-27 18:42] LABS: CHLORIDE,CL 106 mmol/L (98-110); SODIUM,NA 140 mmol/L (136-146)
[2017-02-27] MEDS ORDERED: Promethazine 25 MG/ML SDV IM ONE (20:44)
[2017-02-27 21:07] VITALS: BP 141/87
== END 2017-02-27 21:06 | disposition home or self-care (01) ==
LOC: MW.ED 17:44
DX: R11.2 Nausea with vomiting, unspecified (principal); E11.9 Type 2 diabetes mellitus without complications; E78.00 Pure hypercholesterolemia, unspecified; I10 Essential (primary) hypertension; K21.9 Gastro-esophageal reflux disease without esophagitis; G43.909 Migraine, unspecified, not intractable, without status migrainosus; F41.9 Anxiety disorder, unspecified; F17.210 Nicotine dependence, cigarettes, uncomplicated; Z88.8 Allergy status to other drugs, medicaments and biological substances; Z79.84 Long term (current) use of oral hypoglycemic drugs; Z79.899 Other long term (current) drug therapy; Z90.710 Acquired absence of both cervix and uterus
CPT/HCPCS: 36415; 80053; 81001; 81025; 82962; 83690; 85025; 96361; 96372; 96374; 96376; 99284; J2405; J2550; J7040

== ENCOUNTER 2017-06-04 08:08 | Emergency (ER) | payer OTHER ==
[2017-06-04] MEDS ORDERED: ALPRAZolam 0.5 MG Tab PO ONE (08:52)
--- NOTE | 2017-06-04 09:01 | EDM.PDOC ---
ED HPI GENERAL MEDICAL PROBLEM - General Chief Complaint: General Stated Complaint: ANXIETY ATTACK Time Seen by Provider: 06/04/17 08:47 Source of Information: Reports: Patient History Limitations: Reports: No Limitations - History of Present Illness INITIAL COMMENTS - FREE TEXT/NARRATIVE: HISTORY AND PHYSICAL: History of present illness: [47-year-old female with a history of anxiety and extensive tobacco abuse now complaining of attack of her anxiety. Patient is out of her medications. She has not overdosed or herself in any way she has no intent to.] Review of systems: As per history of present illness and below otherwise all systems reviewed and negative. Past medical history: As per history of present illness and as reviewed below otherwise noncontributory. Surgical history: As per history of present illness and as reviewed below otherwise noncontributory. Social history: No reported history of drug or alcohol abuse. Family history: As per history of present illness and as reviewed below otherwise noncontributory. Physical exam: Mildly anxious appearing 47-year-old female who appears much older than her stated age. No acute distress alert communicative cheerful but visibly mild anxiety supple Lungs regular rhythm nontender abdomen nonfocal HEENT: Atraumatic, normocephalic, pupils reactive, negative for conjunctival pallor or scleral icterus, mucous membranes moist, throat clear, neck supple, nontender, trachea midline. Lungs: Clear to auscultation, breath sounds equal bilaterally, chest nontender. Heart: S1S2, regular, negative for clicks, rubs, or JVD. Abdomen: Soft, nondistended, nontender. Negative for masses or hepatosplenomegaly. Negative for costovertebral tenderness. Pelvis: Stable nontender. Genitourinary: Deferred. Rectal: Deferred. Extremities: Atraumatic, negative for cords or calf pain. Neurovascular unremarkable. Neuro: Awake, alert, oriented. Cranial nerves II through XII unremarkable. Cerebellum unremarkable. Motor and sensory unremarkable throughout. Exam nonfocal. Diagnostics: [] Therapeutics: [Xanax by mouth] Impression: [] Plan: [Patient with clearly identifiable mild exacerbation of anxiety. She is alert communicative and functional with a nonfocal exam. She simply ran out of her medications and has not made up her vision to get a new prescription. Single dose of Xanax given in ED. Patient will follow up with [facility] today. She and her significant other agree with outpatient follow-up and strict return precautions given Definitive disposition and diagnosis as appropriate pending reevaluation and review of above. - Related Data Allergies Allergy/AdvReac Type Severity Reaction Status Date / Time coconut Allergy Difficulty Verified 06/04/17 08:26 Breathing hydroxyzine HCl Allergy Hives Verified 02/27/17 17:52 [From Vistaril] hydroxyzine pamoate Allergy Hives Verified 02/27/17 17:52 [From Vistaril] ketorolac tromethamine Allergy Hives Verified 02/27/17 17:52 [From Toradol] Home Meds: Home Meds metFORMIN [Glucophage] 1,000 mg PO BID 06/12/14 [History] Ondansetron [Zofran ODT] 1 tab PO ASDIRECTED PRN 08/06/15 [History] Rizatriptan Benzoate [Maxalt] 10 mg PO ASDIRECTED PRN 08/06/15 [History] Diclofenac Sodium [Voltaren 1% Gel] 1 applic TOP ASDIRECTED PRN 10/16/16 [ History] Lidocaine/Prilocaine [Lidocaine-Prilocaine Cream] 1 applic TOP ASDIRECTED PRN [History] Lisinopril 10 mg PO DAILY 10/16/16 [History] Orphenadrine Citrate 100 mg PO BID PRN 10/16/16 [History] Tresiba Flex Touch 40 units SUBCUT DAILY 10/16/16 [History] atorvaSTATin Calcium [Atorvastatin Calcium] 1 tab PO BEDTIME 10/16/16 [History] rOPINIRole [Requip] 1 mg PO BEDTIME 10/16/16 [History] traZODone HCl [Trazodone HCl] 100 mg PO BEDTIME PRN 10/16/16 [History] Gabapentin [Neurontin] 100 mg PO TID #30 capsule 01/03/17 [Rx] Insulin Aspart [Novolog Flexpen] 1 unit SUBCNJ ASDIRECTED 06/04/17 [History] Past Medical History - Past Health History Medical/Surgical History: Denies Medical/Surgical History Cardiovascular History: Reports: High Cholesterol, Hypertension Respiratory History: Reports: None, TB Other Respiratory History: reports treatment for positive tuberculin test in 2002 - no lung lesions Gastrointestinal History: Reports: GERD Genitourinary History: Reports: None [employer] History: Reports: Musculoskeletal History: Reports: None Other Musculoskeletal History: chronic shoulder pain Neurological History: Reports: Migraines Psychiatric History: Reports: Anxiety Endocrine/Metabolic History: Reports: Diabetes, Type II Hematologic History: Reports: None Dermatologic History: Reports: None - Infectious Disease History Infectious Disease History: Reports: TB Other Infectious Disease History: TB 2001 - Past Surgical History Head Surgeries/Procedures: Reports: None HEENT Surgical History: Reports: Adenoidectomy, Tonsillectomy Female Surgical History: Reports: Hysterectomy, Tubal Ligation Musculoskeletal Surgical History: Reports: Arthroscopic Knee, Shoulder Surgery Social & Family History - Family History Family Medical History: Noncontributory - Tobacco Use Smoking Status *Q: Current Every Day Smoker Years of Tobacco use: 10 Packs/Tins Daily: 0.5 Month Tobacco Last Used: smokes 1/2 pk of cigarettes per day Second Hand Smoke Exposure: No - Caffeine Use Caffeine Use: Reports: Soda Caffeine Use Comment: 3-4drinks/day - Alcohol Use Days Per Week of Alcohol Use: 0 - Recreational Drug Use Recreational Drug Use: No ED ROS GENERAL - Review of Systems Review Of Systems: See Below (History of present illness) ED EXAM, GENERAL - Physical Exam Exam: See Below (History of present illness) Course - Vital Signs Last Recorded V/S: Last Vital Signs Temp 36.1 C 06/04/17 08:17 Pulse 113 H 06/04/17 08:17 Resp 16 06/04/17 08:17 BP 102/73 06/04/17 08:17 Pulse Ox 99 06/04/17 08:17 - Orders/Labs/Meds Meds: Medications Discontinued Medications Generic Name Dose Route Start Last Admin Trade Name Magali PRN Reason Stop Dose Admin Alprazolam 1 mg 06/04/17 08:52 Xanax PO 06/04/17 08:53 NOW ONE Departure - Departure Time of Disposition: 08:54 Disposition: Home, Self-Care 01 Condition: Good Clinical Impression: Anxiety - Discharge Information Referrals: Aby Espinosa, [employer]OR[employer] INTERN [Primary Care Provider] - Additional Instructions: As you know you suffer from an anxiety disorder. It's important to discuss this with your Dr. to have some plan in place to address attacks of anxiety. We have given you a single dose of Xanax this morning. Follow-up with your doctor today for reevaluation and to discuss ongoing therapy as needed. Return immediately for new severe or worsening symptoms
[2017-06-04 09:26] VITALS: BP 112/77
== END 2017-06-04 09:10 | disposition home or self-care (01) ==
LOC: MW.ED 08:08
DX: F41.9 Anxiety disorder, unspecified (principal); E11.9 Type 2 diabetes mellitus without complications; I10 Essential (primary) hypertension; E78.00 Pure hypercholesterolemia, unspecified; F17.210 Nicotine dependence, cigarettes, uncomplicated; K21.9 Gastro-esophageal reflux disease without esophagitis; G43.909 Migraine, unspecified, not intractable, without status migrainosus; Z79.84 Long term (current) use of oral hypoglycemic drugs; Z91.018 Allergy to other foods; Z88.6 Allergy status to analgesic agent; Z88.8 Allergy status to other drugs, medicaments and biological substances; Z79.899 Other long term (current) drug therapy; Z79.4 Long term (current) use of insulin
CPT/HCPCS: 99283; A9270

== ENCOUNTER 2017-06-22 06:52 | Emergency (ER) | payer OTHER ==
--- NOTE | 2017-06-22 07:28 | EDM.PDOC ---
ED HPI GENERAL MEDICAL PROBLEM - General Chief Complaint: Diabetic Complaint Stated Complaint: AMBULANCE Time Seen by Provider: 06/22/17 07:21 - History of Present Illness INITIAL COMMENTS - FREE TEXT/NARRATIVE: HISTORY AND PHYSICAL: History of present illness: Patient's 47-year-old female with history insulin diabetes presents with a concern of hypoglycemic episode paramedics were called patient's decreased level consciousness noted a blood sugar that was in the 40s A give glucagon upon arrival here her blood sugar now is 120 she's awake alert slightly cold denies any other concern Review of systems: As per history of present illness and below otherwise all systems reviewed and negative. Past medical history: As per history of present illness and as reviewed below otherwise noncontributory. Surgical history: As per history of present illness and as reviewed below otherwise noncontributory. Social history: No reported history of drug or alcohol abuse. Family history: As per history of present illness and as reviewed below otherwise noncontributory. Physical exam: HEENT: Atraumatic, normocephalic, pupils reactive, negative for conjunctival pallor or scleral icterus, mucous membranes moist, throat clear, neck supple, nontender, trachea midline. Lungs: Clear to auscultation, breath sounds equal bilaterally, chest nontender. Heart: S1S2, regular, negative for clicks, rubs, or JVD. Abdomen: Soft, nondistended, nontender. Negative for masses or hepatosplenomegaly. Negative for costovertebral tenderness. Pelvis: Stable nontender. Genitourinary: Deferred. Rectal: Deferred. Extremities: Atraumatic, negative for cords or calf pain. Neurovascular unremarkable. Neuro: Awake, alert, oriented. Cranial nerves II through XII unremarkable. Cerebellum unremarkable. Motor and sensory unremarkable throughout. Exam nonfocal. Diagnostics: CBC CMP Therapeutics: Normal saline 1 L bolus Impression: #1 hypoglycemic episode (insulin reaction) Definitive disposition and diagnosis as appropriate pending reevaluation and review of above. Treatments FOIL SPINNER: Reports: Glucagon - Related Data Allergies Allergy/AdvReac Type Severity Reaction Status Date / Time coconut Allergy Difficulty Verified 06/04/17 08:26 Breathing hydroxyzine HCl Allergy Hives Verified 02/27/17 17:52 [From Vistaril] hydroxyzine pamoate Allergy Hives Verified 02/27/17 17:52 [From Vistaril] ketorolac tromethamine Allergy Hives Verified 02/27/17 17:52 [From Toradol] Home Meds: Home Meds metFORMIN [Glucophage] 1,000 mg PO BID 06/12/14 [History] Ondansetron [Zofran ODT] 1 tab PO ASDIRECTED PRN 08/06/15 [History] Rizatriptan Benzoate [Maxalt] 10 mg PO ASDIRECTED PRN 08/06/15 [History] Diclofenac Sodium [Voltaren 1% Gel] 1 applic TOP ASDIRECTED PRN 10/16/16 [ History] Lidocaine/Prilocaine [Lidocaine-Prilocaine Cream] 1 applic TOP ASDIRECTED PRN [History] Lisinopril 10 mg PO DAILY 10/16/16 [History] Orphenadrine Citrate 100 mg PO BID PRN 10/16/16 [History] Tresiba Flex Touch 40 units SUBCUT DAILY 10/16/16 [History] atorvaSTATin Calcium [Atorvastatin Calcium] 1 tab PO BEDTIME 10/16/16 [History] rOPINIRole [Requip] 1 mg PO BEDTIME 10/16/16 [History] traZODone HCl [Trazodone HCl] 100 mg PO BEDTIME PRN 10/16/16 [History] Gabapentin [Neurontin] 100 mg PO TID #30 capsule 01/03/17 [Rx] Insulin Aspart [Novolog Flexpen] 1 unit SUBCNJ ASDIRECTED 06/04/17 [History] Past Medical History - Past Health History Medical/Surgical History: Denies Medical/Surgical History Cardiovascular History: Reports: High Cholesterol, Hypertension Respiratory History: Reports: TB Other Respiratory History: reports treatment for positive tuberculin test in 2002 - no lung lesions Gastrointestinal History: Reports: GERD Genitourinary History: Reports: None 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: Musculoskeletal History: Reports: None Other Musculoskeletal History: chronic shoulder pain Neurological History: Reports: Migraines Psychiatric History: Reports: Anxiety Endocrine/Metabolic History: Reports: Diabetes, Type II Hematologic History: Reports: None Dermatologic History: Reports: None - Infectious Disease History Infectious Disease History: Reports: Chicken Pox, TB Other Infectious Disease History: TB 2001 - Past Surgical History Head Surgeries/Procedures: Reports: None HEENT Surgical History: Reports: Adenoidectomy, Tonsillectomy Female Surgical History: Reports: Hysterectomy, Tubal Ligation Musculoskeletal Surgical History: Reports: Arthroscopic Knee, Shoulder Surgery, Other (See Below) Other Musculoskeletal Surgeries/Procedures:: L4 - L5 fusion one month ago Social & Family History - Family History Family Medical History: Noncontributory Neurological: Reports: Migraines Psychiatric: Reports: Anxiety Endocrine/Metabolic: Reports: Diabetes, type II - Tobacco Use Smoking Status *Q: Current Every Day Smoker Years of Tobacco use: 20 Packs/Tins Daily: 0.5 Month Tobacco Last Used: smokes 1/2 pk of cigarettes per day Second Hand Smoke Exposure: No - Caffeine Use Caffeine Use: Reports: Coffee Caffeine Use Comment: 3-4drinks/day - Alcohol Use Days Per Week of Alcohol Use: 0 - Recreational Drug Use Recreational Drug Use: No ED ROS GENERAL - Review of Systems Review Of Systems: ROS reveals no pertinent complaints other than HPI. ED EXAM GENERAL NO PERIP PULSE - Physical Exam Exam: See Below (See dictation) Course - Vital Signs Last Recorded V/S: Last Vital Signs Temp 35.8 C 06/22/17 07:00 Pulse 93 06/22/17 07:00 Resp 22 H 06/22/17 07:00 BP 130/80 06/22/17 07:00 Pulse Ox 94 L 06/22/17 07:00 Departure - Departure Time of Disposition: 07:27 Disposition: Home, Self-Care 01 Condition: Good Clinical Impression: Hypoglycemia, Adverse reaction to drug - Discharge Information Referrals: PCP,None [Primary Care Provider] - Additional Instructions: The following information is given to patients seen in the emergency department who are being discharged to home. This information is to outline your options for follow-up care. We provide all patients seen in our emergency department with a follow-up referral. The need for follow-up, as well as the timing and circumstances, are variable depending upon the specifics of your emergency department visit. If you don't have a primary care physician on staff, we will provide you with a referral. We always advise you to contact your personal physician following an emergency department visit to inform them of the circumstance of the visit and for follow-up with them and/or the need for any referrals to a consulting specialist. The emergency department will also refer you to a specialist when appropriate. This referral assures that you have the opportunity for followup care with a specialist. All of these measure are taken in an effort to provide you with optimal care, which includes your followup. Under all circumstances we always encourage you to contact your private physician who remains a resource for coordinating your care. When calling for followup care, please make the office aware that this follow-up is from your recent emergency room visit. If for any reason you are refused follow-up, please contact the [facility] emergency department at and asked to speak to the emergency department charge nurse. Accu-Chek 4 times a day eat regularly as discussed follow-up primary medical doctor 24-48hours return as needed as discussed
[2017-06-22] MEDS ORDERED: Ondansetron 4 MG/2 ML SDV IVPUSH ONE (07:37)
[2017-06-22] MEDS ORDERED: Sodium Chloride 0.9% 1,000 ML IV STA (07:37)
[2017-06-22 08:13] LABS: CHLORIDE,CL 105 mmol/L (98-110); SODIUM,NA 139 mmol/L (136-146)
[2017-06-22 10:09] VITALS: BP 124/76
== END 2017-06-22 09:55 | disposition home or self-care (01) ==
LOC: MW.ED 06:52
DX: E11.649 Type 2 diabetes mellitus with hypoglycemia without coma (principal); T38.3X5A Adverse effect of insulin and oral hypoglycemic [antidiabetic] drugs, initial encounter; I10 Essential (primary) hypertension; E78.00 Pure hypercholesterolemia, unspecified; K21.9 Gastro-esophageal reflux disease without esophagitis; F17.210 Nicotine dependence, cigarettes, uncomplicated; Z90.710 Acquired absence of both cervix and uterus; Z98.1 Arthrodesis status; Z98.890 Other specified postprocedural states; Z79.4 Long term (current) use of insulin; Z79.899 Other long term (current) drug therapy; Z88.6 Allergy status to analgesic agent; Z88.8 Allergy status to other drugs, medicaments and biological substances; Z91.018 Allergy to other foods
CPT/HCPCS: 80053; 81001; 82962; 85025; 96360; 99284; J2405; J7040; 99283

== ENCOUNTER 2017-06-26 02:46 | Observation (INO) | payer OTHER ==
[2017-06-26] MEDS ORDERED: 50% Dextrose in Water 50 ML Syringe ONE ×2 (02:59→03:51)
[2017-06-26] MEDS: Dextrose 5%-0.9% NaCl 1,000 ML IV SCH ×2 (03:07→12:46)
--- NOTE | 2017-06-26 03:10 | EDM.PDOC ---
ED HPI GENERAL MEDICAL PROBLEM - General Chief Complaint: Neurological Problem Stated Complaint: SEIZURE Time Seen by Provider: 06/26/17 03:07 Source of Information: Reports: Patient - History of Present Illness INITIAL COMMENTS - FREE TEXT/NARRATIVE: HISTORY AND PHYSICAL: History of present illness: [Talia Eagle was found on the floor tonight after taking her insulin, her was in bed and awoke from sleep found her face down on the floor, last seen at 10:30 while she is taking her blood sugar and insulin. She was able to stand and transfer herself to the bed although twitching of hands and feet, shortly after she was nonverbal, Accu-Chek revealed a glucose of less than 20. One amp of D50 was provided she immediately woke up and began to answer questions No fever nausea vomiting chills sweats no chest pain shortness breath headache dizziness palpitation about a urine symptoms ] Review of systems: As per history of present illness and below otherwise all systems reviewed and negative. Past medical history: As per history of present illness and as reviewed below otherwise noncontributory. Surgical history: As per history of present illness and as reviewed below otherwise noncontributory. Social history: No reported history of drug or alcohol abuse. Family history: As per history of present illness and as reviewed below otherwise noncontributory. Physical exam: HEENT: Atraumatic, normocephalic, pupils reactive, negative for conjunctival pallor or scleral icterus, mucous membranes moist, throat clear, neck supple, nontender, trachea midline. Lungs: Clear to auscultation, breath sounds equal bilaterally, chest nontender. Heart: S1S2, regular, negative for clicks, rubs, or JVD. Abdomen: Soft, nondistended, nontender. Negative for masses or hepatosplenomegaly. Negative for costovertebral tenderness. Pelvis: Stable nontender. Genitourinary: Deferred. Rectal: Deferred. Extremities: Atraumatic, negative for cords or calf pain. Neurovascular unremarkable. Neuro: Awake, alert, oriented. Cranial nerves II through XII unremarkable. Cerebellum unremarkable. Motor and sensory unremarkable throughout. Exam nonfocal. Diagnostics: [Lab as below EKG Chest 1 view ] Therapeutics: [D5 normal saline 1 25 mL per hour One amp D50 provided on arrival ] Impression: [Hypoglycemia Insulin reaction ] Definitive disposition and diagnosis as appropriate pending reevaluation and review of above. Generalized Pain Score (Numeric/FACES): 10 - Related Data Allergies Allergy/AdvReac Type Severity Reaction Status Date / Time coconut Allergy Difficulty Verified 06/26/17 02:57 Breathing hydroxyzine HCl Allergy Hives Verified 06/26/17 02:57 [From Vistaril] hydroxyzine pamoate Allergy Hives Verified 06/26/17 02:57 [From Vistaril] ketorolac tromethamine Allergy Hives Verified 06/26/17 02:57 [From Toradol] Home Meds: Home Meds Ondansetron [Zofran ODT] 1 tab PO ASDIRECTED PRN 08/06/15 [History] Rizatriptan Benzoate [Maxalt] 10 mg PO ASDIRECTED PRN 08/06/15 [History] Lisinopril 10 mg PO DAILY 10/16/16 [History] rOPINIRole [Requip] 1 mg PO BEDTIME 10/16/16 [History] traZODone HCl [Trazodone HCl] 100 mg PO BEDTIME PRN 10/16/16 [History] Insulin Aspart [Novolog Flexpen] 1 unit SUBCNJ ASDIRECTED 06/04/17 [History] ALPRAZolam [Alprazolam ER] 0.5 mg PO ASDIRECTED PRN 06/22/17 [History] Baclofen 10 mg PO ASDIRECTED PRN 06/22/17 [History] Cholecalciferol (Vitamin D3) [Vitamin D3] 1,000 unit PO DAILY 06/22/17 [History] ClonazePAM [KlonoPIN] 0.5 mg PO BID 06/22/17 [History] Gabapentin [Neurontin] 300 mg PO TID 06/22/17 [History] Hydrocodone/Acetaminophen [Hydrocodon-Acetaminophen 5-325] 1 - 2 tab PO Q4HR PRN 06/22/17 [History] Ibuprofen 800 mg PO ASDIRECTED PRN 06/22/17 [History] Insulin Glarg,Human.Rec.Analog [LantUS Solostar] 40 units SUBCUT DAILY 06/22/17 [History] PARoxetine [Paxil] 20 mg PO DAILY 06/22/17 [History] Rosuvastatin [Crestor] 10 mg PO DAILY 06/22/17 [History] busPIRone [Buspar] 10 mg PO DAILY 06/22/17 [History] Past Medical History - Past Health History Medical/Surgical History: Denies Medical/Surgical History Cardiovascular History: Reports: High Cholesterol, Hypertension Respiratory History: Reports: TB Other Respiratory History: reports treatment for positive tuberculin test in 2002 - no lung lesions Gastrointestinal History: Reports: GERD Genitourinary History: Reports: 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: Musculoskeletal History: Reports: None Other Musculoskeletal History: chronic shoulder pain Neurological History: Reports: Migraines Psychiatric History: Reports: Anxiety Endocrine/Metabolic History: Reports: Diabetes, Type II Hematologic History: Reports: None Dermatologic History: Reports: None - Infectious Disease History Infectious Disease History: Reports: Chicken Pox, TB Other Infectious Disease History: TB 2001 - Past Surgical History Head Surgeries/Procedures: Reports: None HEENT Surgical History: Reports: Adenoidectomy, Tonsillectomy Female Surgical History: Reports: Hysterectomy, Tubal Ligation Musculoskeletal Surgical History: Reports: Arthroscopic Knee, Shoulder Surgery, Other (See Below) Other Musculoskeletal Surgeries/Procedures:: L4 - L5 fusion one month ago Social & Family History - Family History Family Medical History: Noncontributory Neurological: Reports: Migraines Psychiatric: Reports: Anxiety Endocrine/Metabolic: Reports: Diabetes, type II - Tobacco Use Smoking Status *Q: Current Every Day Smoker Years of Tobacco use: 20 Packs/Tins Daily: 0.5 Month Tobacco Last Used: smokes 1/2 pk of cigarettes per day Second Hand Smoke Exposure: No - Caffeine Use Caffeine Use: Reports: Coffee Caffeine Use Comment: 3-4drinks/day - Alcohol Use Days Per Week of Alcohol Use: 0 - Recreational Drug Use Recreational Drug Use: No ED ROS GENERAL - Review of Systems Review Of Systems: ROS reveals no pertinent complaints other than HPI. ED EXAM, GENERAL - Physical Exam Exam: See Below Course - Vital Signs Last Recorded V/S: Last Vital Signs Temp 36.8 C 06/26/17 02:49 Pulse 87 06/26/17 03:55 Resp 20 06/26/17 03:55 BP 125/66 06/26/17 03:55 Pulse Ox 98 06/26/17 03:55 - Orders/Labs/Meds Orders: Active Orders 24 hr Category Date Time Status EKG Documentation Completion [RC] STAT Care 06/26/17 03:01 Active Chest 1V Frontal [CR] Stat Exams 06/26/17 03:01 Taken UA W/MICROSCOPIC [URIN] Stat Lab 06/26/17 03:01 Uncollected Dextrose 5%-0.9% NaCl [Dextrose 5%-Normal Saline] 1,000 Med 06/26/17 03:15 Active ml IV ASDIRECTED Sodium Chloride 0.9% [Normal Saline] 1,000 ml Med 06/26/17 03:15 Active IV STAT Medication Orders Sodium Chloride (Normal Saline) 1,000 mls @ 125 mls/hr IV STAT CARRIE Dextrose/Sodium Chloride (Dextrose 5%-Normal Saline) 1,000 mls @ 125 mls/hr IV ASDIRECTED CARRIE Last Admin: 06/26/17 03:07 Dose: 125 mls/hr Labs: Laboratory Tests 06/26/17 06/26/17 06/26/17 Range/Units 02:58 03:00 03:00 WBC 19.74 H (4.0-11.0) K/uL RBC 4.15 L (4.30-5.90) M/uL Hgb 13.1 (12.0-16.0) g/dL Hct 39.8 (36.0-46.0) % MCV 95.9 (80.0-98.0) fL MCH 31.6 (27.0-32.0) pg MCHC 32.9 (31.0-37.0) g/dL RDW Std Deviation 50.7 (28.0-62.0) fl RDW Coeff of Haley 15 (11.0-15.0) % Plt Count 458 H (150-400) K/uL MPV 9.30 (7.40-12.00) fL Add Manual Diff YES Neutrophils % (Manual) 50 (48.0-80.0) % Band Neutrophils % 3 % Lymphocytes % (Manual) 40 (16.0-40.0) % Monocytes % (Manual) 7 (0.0-15.0) % Nucleated RBC % 0.0 /100WBC Absolute Seg Neuts 9.9 H (1.4-5.7) Band Neutrophils # 0.6 Lymphocytes # (Manual) 7.9 H (0.6-2.4) Monocytes # (Manual) 1.4 H (0.0-0.8) Nucleated RBCs # 0 K/uL Sodium 142 (136-146) mmol/L Potassium 3.2 L (3.5-5.1) mmol/L Chloride 108 (98-110) mmol/L Carbon Dioxide 22 (21-31) mmol/L BUN 15 (6.0-23.0) mg/dL Creatinine 0.7 (0.6-1.5) mg/dL Est Cr Clr Drug Dosing 80.27 mL/min Estimated GFR (MDRD) > 60.0 ml/min Glucose 21 L* (60-110) mg/dL POC Glucose < 20 L (60-110) mg/dL Calcium 9.4 (8.8-10.8) mg/dL Total Bilirubin 0.2 (0.1-1.5) mg/dL AST 15 (5-40) IU/L ALT 13 (8-54) IU/L Alkaline Phosphatase 44 (40-150) Total Protein 7.4 (6.0-8.0) g/dL Albumin 4.1 (3.5-5.0) g/dL Globulin 3.3 (2.0-3.5) g/dL Albumin/Globulin Ratio 1.2 L (1.3-2.8) 06/26/17 Range/Units 03:15 WBC (4.0-11.0) K/uL RBC (4.30-5.90) M/uL Hgb (12.0-16.0) g/dL Hct (36.0-46.0) % MCV (80.0-98.0) fL MCH (27.0-32.0) pg MCHC (31.0-37.0) g/dL RDW Std Deviation (28.0-62.0) fl RDW Coeff of Haley (11.0-15.0) % Plt Count (150-400) K/uL MPV (7.40-12.00) fL Add Manual Diff Neutrophils % (Manual) (48.0-80.0) % Band Neutrophils % % Lymphocytes % (Manual) (16.0-40.0) % Monocytes % (Manual) (0.0-15.0) % Nucleated RBC % /100WBC Absolute Seg Neuts (1.4-5.7) Band Neutrophils # Lymphocytes # (Manual) (0.6-2.4) Monocytes # (Manual) (0.0-0.8) Nucleated RBCs # K/uL Sodium (136-146) mmol/L Potassium (3.5-5.1) mmol/L Chloride (98-110) mmol/L Carbon Dioxide (21-31) mmol/L BUN (6.0-23.0) mg/dL Creatinine (0.6-1.5) mg/dL Est Cr Clr Drug Dosing mL/min Estimated GFR (MDRD) ml/min Glucose (60-110) mg/dL POC Glucose 170 H (60-110) mg/dL Calcium (8.8-10.8) mg/dL Total Bilirubin (0.1-1.5) mg/dL AST (5-40) IU/L ALT (8-54) IU/L Alkaline Phosphatase (40-150) Total Protein (6.0-8.0) g/dL Albumin (3.5-5.0) g/dL Globulin (2.0-3.5) g/dL Albumin/Globulin Ratio (1.3-2.8) Meds: Medications Generic Name Dose Route Start Last Admin Trade Name Freq PRN Reason Stop Dose Admin Sodium Chloride 1,000 mls @ 125 mls/hr 06/26/17 03:15 Normal Saline IV STAT CARRIE Dextrose/Sodium Chloride 1,000 mls @ 125 mls/hr 06/26/17 03:15 06/26/17 03:07 Dextrose 5%-Normal Saline IV 125 mls/hr ASDIRECTED CARRIE Administration Discontinued Medications Generic Name Dose Route Start Last Admin Trade Name Freq PRN Reason Stop Dose Admin Dextrose/Water Confirm 06/26/17 02:59 06/26/17 03:05 Dextrose 50% In Water Administered 06/26/17 03:00 50 ml Dose Administration 50 ml .ROUTE .STK-MED ONE Dextrose/Water 50 ml 06/26/17 03:22 06/26/17 03:24 Dextrose 50% In Water IVPUSH 06/26/17 03:23 Not Given ONETIME ONE Dextrose/Water Confirm 06/26/17 03:51 06/26/17 03:54 Dextrose 50% In Water Administered 06/26/17 03:52 50 ml Dose Administration 50 ml .ROUTE .STK-MED ONE Dextrose/Water 50 ml 06/26/17 03:53 06/26/17 03:55 Dextrose 50% In Water IVPUSH 06/26/17 03:54 Not Given ONETIME ONE Departure - Departure Time of Disposition: 04:00 Disposition: Refer to Observation Condition: Fair Clinical Impression: Insulin reaction - Discharge Information Referrals: Aby Espinosa NP [Primary Care Provider] - Forms: ED Department Discharge - My Orders Last 24 Hours: My Active Orders 06/26/17 03:01 EKG Documentation Completion [RC] STAT Chest 1V Frontal [CR] Stat UA W/MICROSCOPIC [URIN] Stat 06/26/17 03:15 Dextrose 5%-0.9% NaCl [Dextrose 5%-Normal Saline] 1,000 ml IV ASDIRECTED Sodium Chloride 0.9% [Normal Saline] 1,000 ml IV STAT - Assessment/Plan Last 24 Hours: My Active Orders 06/26/17 03:01 EKG Documentation Completion [RC] STAT Chest 1V Frontal [CR] Stat UA W/MICROSCOPIC [URIN] Stat 06/26/17 03:15 Dextrose 5%-0.9% NaCl [Dextrose 5%-Normal Saline] 1,000 ml IV ASDIRECTED Sodium Chloride 0.9% [Normal Saline] 1,000 ml IV STAT
[2017-06-26] MEDS ORDERED: Sodium Chloride 0.9% 1,000 ML IV SCH (03:15)
[2017-06-26] MEDS ORDERED: 50% Dextrose in Water 50 ML Syringe IVPUSH ONE ×3 (03:22→04:31)
[2017-06-26 03:34] LABS: CHLORIDE,CL 108 mmol/L (98-110); SODIUM,NA 142 mmol/L (136-146)
[2017-06-26] MEDS ORDERED: Sodium Chloride 0.9% 1,000 ML IV ONE (05:21)
[2017-06-26] MEDS: 50% Dextrose in Water 50 ML Syringe IVPUSH SCH ×2 (05:37→07:09)
[2017-06-26 06:19] LABS: CHLORIDE,CL 111 mmol/L (98-110); SODIUM,NA 141 mmol/L (136-146)
[2017-06-26] MEDS ORDERED: Ondansetron 4 MG/2 ML SDV IVPUSH PRN (06:54)
[2017-06-26] MEDS ORDERED: cefTRIAXone 1,000 MG VIAL IVPUSH SCH (07:00)
--- NOTE | 2017-06-26 07:04 | PCM.HP ---
H&P History of Present Illness - General Admit Problem/Dx: Admission Diagnosis/Problem Admission Diagnosis/Problem Insulin reaction due to improper use of drug - History of Present Illness Initial Comments - Free Text/Narative: 47 yo female with pmh of DM who was found face down on the floor by who was sleeping in Bed. She was transfered to bed then became unresponsive. She was last known to be awake at 10:30 when she was taking her insulin. Accucheck showed blood sugar of 20 and was given an amp of D50 and became responsive. While in the ED she has required several boluses of D50. She has had intermittent episodes of lethargy. She reports she takes 42 units of lantus at night and sliding scale novolog with meals. She does not remember taking her insulin last night or whether she ate dinner. She denies any pain, fevers or chills. She had a spinal fusion surgery last April. Nurses noted small draining ulcer at base of back surgical wound. She has not noted any drainage or wound from the site herself. Generalized Pain Score (Numeric/FACES): 10 - Related Data Allergies/Adverse Reactions: Allergies Allergy/AdvReac Type Severity Reaction Status Date / Time coconut Allergy Difficulty Verified 06/26/17 02:57 Breathing hydroxyzine HCl Allergy Hives Verified 06/26/17 02:57 [From Vistaril] hydroxyzine pamoate Allergy Hives Verified 06/26/17 02:57 [From Vistaril] ketorolac tromethamine Allergy Hives Verified 06/26/17 02:57 [From Toradol] Home Medications: Home Meds Ondansetron [Zofran ODT] 1 tab PO ASDIRECTED PRN 08/06/15 [History] Rizatriptan Benzoate [Maxalt] 10 mg PO ASDIRECTED PRN 08/06/15 [History] Lisinopril 10 mg PO DAILY 10/16/16 [History] rOPINIRole [Requip] 1 mg PO BEDTIME 10/16/16 [History] traZODone HCl [Trazodone HCl] 100 mg PO BEDTIME PRN 10/16/16 [History] Insulin Aspart [Novolog Flexpen] 1 unit SUBCNJ ASDIRECTED 06/04/17 [History] ALPRAZolam [Alprazolam ER] 0.5 mg PO ASDIRECTED PRN 06/22/17 [History] Baclofen 10 mg PO ASDIRECTED PRN 06/22/17 [History] Cholecalciferol (Vitamin D3) [Vitamin D3] 1,000 unit PO DAILY 06/22/17 [History] ClonazePAM [KlonoPIN] 0.5 mg PO BID 06/22/17 [History] Gabapentin [Neurontin] 300 mg PO TID 06/22/17 [History] Hydrocodone/Acetaminophen [Hydrocodon-Acetaminophen 5-325] 1 - 2 tab PO Q4HR PRN 06/22/17 [History] Ibuprofen 800 mg PO ASDIRECTED PRN 06/22/17 [History] Insulin Glarg,Human.Rec.Analog [LantUS Solostar] 40 units SUBCUT DAILY 06/22/17 [History] PARoxetine [Paxil] 20 mg PO DAILY 06/22/17 [History] Rosuvastatin [Crestor] 10 mg PO DAILY 06/22/17 [History] busPIRone [Buspar] 10 mg PO DAILY 06/22/17 [History] Past Medical History - Past Health History Medical/Surgical History: Denies Medical/Surgical History HEENT History: Reports: None Cardiovascular History: Reports: High Cholesterol, Hypertension Respiratory History: Reports: TB Other Respiratory History: reports treatment for positive tuberculin test in 2002 - no lung lesions Gastrointestinal History: Reports: GERD Genitourinary History: Reports: None 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: Musculoskeletal History: Reports: None Other Musculoskeletal History: chronic shoulder pain Neurological History: Reports: Migraines Psychiatric History: Reports: Anxiety Endocrine/Metabolic History: Reports: Diabetes, Type II Hematologic History: Reports: None Dermatologic History: Reports: None - Infectious Disease History Infectious Disease History: Reports: Chicken Pox, TB Other Infectious Disease History: TB 2001 - Past Surgical History Head Surgeries/Procedures: Reports: None HEENT Surgical History: Reports: Adenoidectomy, Tonsillectomy Female Surgical History: Reports: Hysterectomy, Tubal Ligation Musculoskeletal Surgical History: Reports: Arthroscopic Knee, Shoulder Surgery, Other (See Below) Other Musculoskeletal Surgeries/Procedures:: L4 - L5 fusion one month ago Social & Family History - Family History Family Medical History: Noncontributory Neurological: Reports: Migraines Psychiatric: Reports: Anxiety Endocrine/Metabolic: Reports: Diabetes, type II - Tobacco Use Smoking Status *Q: Current Every Day Smoker Years of Tobacco use: 10 Packs/Tins Daily: 1 Used Tobacco, but Quit: No Month Tobacco Last Used: smokes 1/2 pk of cigarettes per day Second Hand Smoke Exposure: Yes - Caffeine Use Caffeine Use: Reports: None Caffeine Use Comment: 3-4drinks/day - Alcohol Use Days Per Week of Alcohol Use: 0 - Recreational Drug Use Recreational Drug Use: No H&P Review of Systems - Review of Systems: Review Of Systems: ROS reveals no pertinent complaints other than HPI. Exam - Exam Exam: See Below - Vital Signs Vital Signs: Last Vital Signs Temp 36.9 C 06/26/17 05:07 Pulse 88 06/26/17 04:49 Resp 20 06/26/17 06:00 BP 120/90 06/26/17 06:00 Pulse Ox 99 06/26/17 06:00 Weight: 74.5 kg - Exam General: Alert, Cooperative HEENT: Mucosa Moist & Bow Lungs: Clear to Auscultation, Normal Respiratory Effort Cardiovascular: Regular Rate, Regular Rhythm GI/Abdominal Exam: Soft, Non-Tender, No Distention Back Exam: Other (about 3 mm wide and 3mm deep wound at end of surgical scar that has some purulent drainage) Neurological: No: Focal Deficit - Patient Data Lab Results Last 24 hrs: Laboratory Results - last 24 hr 06/26/17 06/26/17 06/26/17 Range/Units 04:14 05:08 05:32 Sodium (136-146) mmol/L Potassium (3.5-5.1) mmol/L Chloride (98-110) mmol/L Carbon Dioxide (21-31) mmol/L BUN (6.0-23.0) mg/dL Creatinine (0.6-1.5) mg/dL Est Cr Clr Drug Dosing mL/min Estimated GFR (MDRD) ml/min Glucose (60-110) mg/dL POC Glucose 87 113 H 64 (60-110) mg/dL Calcium (8.8-10.8) mg/dL Urine Color Urine Appearance Urine pH (5.0-8.0) Ur Specific [place] (1.001-1.035) Urine Protein (NEGATIVE) mg/dL Urine Glucose (UA) (NEGATIVE) mg/dL Urine Ketones (NEGATIVE) mg/dL Urine Occult Blood (NEGATIVE) Urine Nitrite (NEGATIVE) Urine Bilirubin (NEGATIVE) Urine Urobilinogen (<2.0) EU/dL Ur Leukocyte Esterase (NEGATIVE) Urine RBC (0-2/HPF) Urine WBC (0-5/HPF) Ur Epithelial Cells (NONE-FEW) Urine Bacteria (NEGATIVE) Urine Opiates Screen (NEGATIVE) Ur Oxycodone Screen (NEGATIVE) Urine Methadone Screen (NEGATIVE) Ur Barbiturates Screen (NEGATIVE) Ur Phencyclidine Scrn (NEGATIVE) Ur Amphetamine Screen (NEGATIVE) U Methamphetamines Scrn (NEGATIVE) U Benzodiazepines Scrn (NEGATIVE) U Cocaine Metab Screen (NEGATIVE) U Marijuana (THC) Screen (NEGATIVE) 06/26/17 06/26/17 06/26/17 Range/Units 05:45 05:45 05:56 Sodium 141 (136-146) mmol/L Potassium 4.0 (3.5-5.1) mmol/L Chloride 111 H (98-110) mmol/L Carbon Dioxide 22 (21-31) mmol/L BUN 12 (6.0-23.0) mg/dL Creatinine 0.7 (0.6-1.5) mg/dL Est Cr Clr Drug Dosing 79.57 mL/min Estimated GFR (MDRD) > 60.0 ml/min Glucose 132 H (60-110) mg/dL POC Glucose (60-110) mg/dL Calcium 8.5 L (8.8-10.8) mg/dL Urine Color YELLOW Urine Appearance CLEAR Urine pH 6.0 (5.0-8.0) Ur Specific [place] 1.010 (1.001-1.035) Urine Protein NEGATIVE (NEGATIVE) mg/dL Urine Glucose (UA) 100 H (NEGATIVE) mg/dL Urine Ketones NEGATIVE (NEGATIVE) mg/dL Urine Occult Blood NEGATIVE (NEGATIVE) Urine Nitrite NEGATIVE (NEGATIVE) Urine Bilirubin NEGATIVE (NEGATIVE) Urine Urobilinogen 0.2 (<2.0) EU/dL Ur Leukocyte Esterase NEGATIVE (NEGATIVE) Urine RBC 0-1 (0-2/HPF) Urine WBC 0-2 (0-5/HPF) Ur Epithelial Cells FEW (NONE-FEW) Urine Bacteria FEW (NEGATIVE) Urine Opiates Screen NEGATIVE (NEGATIVE) Ur Oxycodone Screen NEGATIVE (NEGATIVE) Urine Methadone Screen NEGATIVE (NEGATIVE) Ur Barbiturates Screen NEGATIVE (NEGATIVE) Ur Phencyclidine Scrn NEGATIVE (NEGATIVE) Ur Amphetamine Screen NEGATIVE (NEGATIVE) U Methamphetamines Scrn NEGATIVE (NEGATIVE) U Benzodiazepines Scrn NEGATIVE (NEGATIVE) U Cocaine Metab Screen NEGATIVE (NEGATIVE) U Marijuana (THC) Screen NEGATIVE (NEGATIVE) 06/26/17 06/26/17 Range/Units 06:05 06:31 Sodium (136-146) mmol/L Potassium (3.5-5.1) mmol/L Chloride (98-110) mmol/L Carbon Dioxide (21-31) mmol/L BUN (6.0-23.0) mg/dL Creatinine (0.6-1.5) mg/dL Est Cr Clr Drug Dosing mL/min Estimated GFR (MDRD) ml/min Glucose (60-110) mg/dL POC Glucose 119 H 91 (60-110) mg/dL Calcium (8.8-10.8) mg/dL Urine Color Urine Appearance Urine pH (5.0-8.0) Ur Specific [place] (1.001-1.035) Urine Protein (NEGATIVE) mg/dL Urine Glucose (UA) (NEGATIVE) mg/dL Urine Ketones (NEGATIVE) mg/dL Urine Occult Blood (NEGATIVE) Urine Nitrite (NEGATIVE) Urine Bilirubin (NEGATIVE) Urine Urobilinogen (<2.0) EU/dL Ur Leukocyte Esterase (NEGATIVE) Urine RBC (0-2/HPF) Urine WBC (0-5/HPF) Ur Epithelial Cells (NONE-FEW) Urine Bacteria (NEGATIVE) Urine Opiates Screen (NEGATIVE) Ur Oxycodone Screen (NEGATIVE) Urine Methadone Screen (NEGATIVE) Ur Barbiturates Screen (NEGATIVE) Ur Phencyclidine Scrn (NEGATIVE) Ur Amphetamine Screen (NEGATIVE) U Methamphetamines Scrn (NEGATIVE) U Benzodiazepines Scrn (NEGATIVE) U Cocaine Metab Screen (NEGATIVE) U Marijuana (THC) Screen (NEGATIVE) Result Diagrams: 06/26/17 03:00 06/26/17 05:56 *Q Meaningful Use (ADM) - VTE *Q VTE Criteria *Q: - Stroke *Q Stroke Criteria *Q: - AMI *Q AMI Criteria *Q: Problem List Initiated/Reviewed/Updated: Yes Orders Last 24hrs: Active Orders 24 hr Category Date Time Status Antiembolic Devices [RC] PER UNIT ROUTINE Care 06/26/17 06:55 Active Communication Order [RC] ASDIRECTED Care 06/26/17 05:30 Active Communication Order [RC] ROUTINE Care 06/26/17 05:26 Active Intake and Output [RC] QSHIFT Care 06/26/17 06:54 Active Oxygen Therapy [RC] PRN Care 06/26/17 06:54 Active VTE/DVT Education [RC] PER UNIT ROUTINE Care 06/26/17 06:54 Active Vital Signs [RC] Q4H Care 06/26/17 06:54 Active NPO Now [Nothing per Oral Now Diet] [DIET] Diet 06/26/17 Breakfast Active BASIC METABOLIC PANEL,BMP [CHEM] AM Lab 06/27/17 05:11 Ordered CBC WITH AUTO DIFF [HEME] AM Lab 06/27/17 05:11 Ordered Dextrose 50% in Water Med 06/26/17 05:30 Active 50 ml IVPUSH ASDIRECTED Enoxaparin [Lovenox] Med 06/26/17 09:00 Ordered 40 mg SUBCUT DAILY Ondansetron [Zofran] Med 06/26/17 06:54 Ordered 4 mg IVPUSH Q4H PRN cefTRIAXone [Rocephin] Med 06/26/17 07:00 Ordered 1,000 mg IVPUSH Q24H Sequential Compression Device [OM.PC] Per Unit Routine Oth 06/26/17 06:54 Ordered Resuscitation Status Routine Resus Stat 06/26/17 06:54 Ordered Medication Orders Ceftriaxone Sodium (Rocephin) 1,000 mg IVPUSH Q24H [facility] Dextrose/Water (Dextrose 50% In Water) 50 ml IVPUSH ASDIRECTED [facility] Last Admin: 06/26/17 05:37 Dose: 50 ml Enoxaparin Sodium (Lovenox) 40 mg SUBCUT DAILY [facility] Sodium Chloride (Normal Saline) 1,000 mls @ 125 mls/hr IV STAT [facility] Dextrose/Sodium Chloride (Dextrose 5%-Normal Saline) 1,000 mls @ 125 mls/hr IV ASDIRECTED [facility] Last Admin: 06/26/17 03:07 Dose: 125 mls/hr Ondansetron HCl (Zofran) 4 mg IVPUSH Q4H PRN PRN Reason: Nausea Assessment/Plan Comment:: 47 yo female who presents with hypoglycemia, likely from unintentional insulin overdose. We will keep on D5 NS with frequent accuchecks. Rocephin was given for small draining back abscess. We will hold sedating home medications.
[2017-06-26] MEDS: cefTRIAXone 1 GM in Premix Bag 1 BAG IV SCH (09:04)
[2017-06-26] MEDS: Enoxaparin 40 MG/0.4 ML Syringe SUBCUT SCH (09:04)
[2017-06-26] MEDS: ACETAMINOPHEN PO PRN ×2 (12:07→20:49)
[2017-06-26] MEDS: TRAMADOL HCL PO PRN ×2 (12:07→20:49)
[2017-06-27 06:24] LABS: CHLORIDE,CL 105 mmol/L (98-110); SODIUM,NA 138 mmol/L (136-146)
[2017-06-27 07:12] VITALS: BP 125/77
[2017-06-27] MEDS: cefTRIAXone 1 GM in Premix Bag 1 BAG IV SCH (08:07)
--- NOTE | 2017-06-27 08:08 | PCM.DCSUM1 ---
Discharge Summary - Discharge Data Discharge Date: 06/27/17 Discharge Disposition: Home, Self-Care 01 Condition: Good - Patient Summary/Data Hospital Course: Admission diagnosis Hypoglycemia Skin abscess of back Hospital course: 47 yo female who was found on floor by . Presented to ED unresposive with blood sugar of 20. She became responsive after receiving amp of D50. She was placed on D5 normal salin and watch in ICU and required several boluses of D50 on admission. Her insulin was held during her hospital stay. PAtient believes she likely gave herself to much novolg on her sliding scale. She was watch overnight and today patient is requesting discharge. She was instructed to half her lantus to 20 units and check her blood sugars more frequently until follow up with [facility]. She was given Rocephin for small abscess/ulcer that was located at posterior end of surgical scar on her back. She was discharged on Keflex - Discharge Plan Prescriptions/Med Rec: Cephalexin [Keflex] 500 mg PO Q12H #10 cap Home Medications: Home Meds Ondansetron [Zofran ODT] 8 mg PO ASDIRECTED PRN 08/06/15 [History] Rizatriptan Benzoate [Maxalt] 10 mg PO ASDIRECTED PRN 08/06/15 [History] Lisinopril 10 mg PO DAILY 10/16/16 [History] rOPINIRole [Requip] 1 mg PO BEDTIME 10/16/16 [History] traZODone HCl [Trazodone HCl] 100 mg PO BEDTIME PRN 10/16/16 [History] Insulin Aspart [Novolog Flexpen] 1 unit SUBCNJ ASDIRECTED 06/04/17 [History] Baclofen 10 mg PO TID PRN 06/22/17 [History] Cholecalciferol (Vitamin D3) [Vitamin D3] 1,000 unit PO DAILY 06/22/17 [History] ClonazePAM [KlonoPIN] 1 tab PO BID PRN 06/22/17 [History] Gabapentin [Neurontin] 600 mg PO TID 06/22/17 [History] Hydrocodone/Acetaminophen [Hydrocodon-Acetaminophen 5-325] 1 - 2 tab PO Q4HR PRN 06/22/17 [History] Ibuprofen 800 mg PO ASDIRECTED PRN 06/22/17 [History] PARoxetine [Paxil] 20 mg PO DAILY 06/22/17 [History] Rosuvastatin [Crestor] 10 mg PO DAILY 06/22/17 [History] busPIRone [Buspar] 10 mg PO DAILY 06/22/17 [History] Cyclobenzaprine [Flexeril] 10 mg PO BEDTIME 06/26/17 [History] Gabapentin [Neurontin] 600 mg PO TID 06/26/17 [History] Ondansetron HCl [Zofran] 8 mg PO 06/26/17 [History] Rizatriptan Benzoate [Rizatriptan] 10 mg PO ASDIRECTED PRN 06/26/17 [History] traMADol Hcl/Acetaminophen [Ultracet Tablet] 37.5 - 325 mg PO ASDIRECTED PRN [History] Cephalexin [Keflex] 500 mg PO Q12H #10 cap 06/27/17 [Rx] Insulin Glarg,Human.Rec.Analog [LantUS Solostar] 20 units SUBCUT DAILY #0 [Rx] Forms: ED Department Discharge Referrals: Aby Espinosa, GANG [employer] OPERATOR [Primary Care Provider] - - Patient Data Vitals - Most Recent: Last Vital Signs Temp 36.2 C 06/27/17 04:00 Pulse 88 06/26/17 04:49 Resp 20 06/27/17 07:00 BP 125/77 06/27/17 07:00 Pulse Ox 95 06/27/17 07:00 Weight - Most Recent: 74 kg I&O - Last 24 hours: Intake & Output 06/26/17 06/27/17 06/27/17 22:59 06:59 14:59 Intake Total 1640 Output Total 1500 Balance 140 Lab Results - Last 24 hrs: Laboratory Results - last 24 hr 06/26/17 06/26/17 06/26/17 Range/Units 08:20 09:03 10:02 WBC (4.0-11.0) K/uL RBC (4.30-5.90) M/uL Hgb (12.0-16.0) g/dL Hct (36.0-46.0) % MCV (80.0-98.0) fL MCH (27.0-32.0) pg MCHC (31.0-37.0) g/dL RDW Std Deviation (28.0-62.0) fl RDW Coeff of Haley (11.0-15.0) % Plt Count (150-400) K/uL MPV (7.40-12.00) fL Neut % (Auto) (48.0-80.0) % Lymph % (Auto) (16.0-40.0) % Ponce % (Auto) (0.0-15.0) % Eos % (Auto) (0.0-7.0) % Baso % (Auto) (0.0-1.5) % Neut # (Auto) (1.4-5.7) K/uL Lymph # (Auto) (0.6-2.4) K/uL Ponce # (Auto) (0.0-0.8) K/uL Eos # (Auto) (0.0-0.7) K/uL Baso # (Auto) (0.0-0.1) K/uL Nucleated RBC % /100WBC Nucleated RBCs # K/uL Sodium (136-146) mmol/L Potassium (3.5-5.1) mmol/L Chloride (98-110) mmol/L Carbon Dioxide (21-31) mmol/L BUN (6.0-23.0) mg/dL Creatinine (0.6-1.5) mg/dL Est Cr Clr Drug Dosing mL/min Estimated GFR (MDRD) ml/min Glucose (60-110) mg/dL POC Glucose 179 H 197 H 139 H (60-110) mg/dL Calcium (8.8-10.8) mg/dL 06/26/17 06/26/17 06/26/17 Range/Units 11:56 13:43 16:18 WBC (4.0-11.0) K/uL RBC (4.30-5.90) M/uL Hgb (12.0-16.0) g/dL Hct (36.0-46.0) % MCV (80.0-98.0) fL MCH (27.0-32.0) pg MCHC (31.0-37.0) g/dL RDW Std Deviation (28.0-62.0) fl RDW Coeff of Haley (11.0-15.0) % Plt Count (150-400) K/uL MPV (7.40-12.00) fL Neut % (Auto) (48.0-80.0) % Lymph % (Auto) (16.0-40.0) % Ponce % (Auto) (0.0-15.0) % Eos % (Auto) (0.0-7.0) % Baso % (Auto) (0.0-1.5) % Neut # (Auto) (1.4-5.7) K/uL Lymph # (Auto) (0.6-2.4) K/uL Ponce # (Auto) (0.0-0.8) K/uL Eos # (Auto) (0.0-0.7) K/uL Baso # (Auto) (0.0-0.1) K/uL Nucleated RBC % /100WBC Nucleated RBCs # K/uL Sodium (136-146) mmol/L Potassium (3.5-5.1) mmol/L Chloride (98-110) mmol/L Carbon Dioxide (21-31) mmol/L BUN (6.0-23.0) mg/dL Creatinine (0.6-1.5) mg/dL Est Cr Clr Drug Dosing mL/min Estimated GFR (MDRD) ml/min Glucose (60-110) mg/dL POC Glucose 128 H 200 H 151 H (60-110) mg/dL Calcium (8.8-10.8) mg/dL 06/26/17 06/26/17 06/26/17 Range/Units 17:31 20:02 22:03 WBC (4.0-11.0) K/uL RBC (4.30-5.90) M/uL Hgb (12.0-16.0) g/dL Hct (36.0-46.0) % MCV (80.0-98.0) fL MCH (27.0-32.0) pg MCHC (31.0-37.0) g/dL RDW Std Deviation (28.0-62.0) fl RDW Coeff of Haley (11.0-15.0) % Plt Count (150-400) K/uL MPV (7.40-12.00) fL Neut % (Auto) (48.0-80.0) % Lymph % (Auto) (16.0-40.0) % Ponce % (Auto) (0.0-15.0) % Eos % (Auto) (0.0-7.0) % Baso % (Auto) (0.0-1.5) % Neut # (Auto) (1.4-5.7) K/uL Lymph # (Auto) (0.6-2.4) K/uL Ponce # (Auto) (0.0-0.8) K/uL Eos # (Auto) (0.0-0.7) K/uL Baso # (Auto) (0.0-0.1) K/uL Nucleated RBC % /100WBC Nucleated RBCs # K/uL Sodium (136-146) mmol/L Potassium (3.5-5.1) mmol/L Chloride (98-110) mmol/L Carbon Dioxide (21-31) mmol/L BUN (6.0-23.0) mg/dL Creatinine (0.6-1.5) mg/dL Est Cr Clr Drug Dosing mL/min Estimated GFR (MDRD) ml/min Glucose (60-110) mg/dL POC Glucose 121 H 170 H 138 H (60-110) mg/dL Calcium (8.8-10.8) mg/dL 06/27/17 06/27/17 06/27/17 Range/Units 01:56 05:43 05:43 WBC 12.30 H (4.0-11.0) K/uL RBC 4.19 L (4.30-5.90) M/uL Hgb 13.1 (12.0-16.0) g/dL Hct 39.7 (36.0-46.0) % MCV 94.7 (80.0-98.0) fL MCH 31.3 (27.0-32.0) pg MCHC 33.0 (31.0-37.0) g/dL RDW Std Deviation 50.6 (28.0-62.0) fl RDW Coeff of Haley 15 (11.0-15.0) % Plt Count 384 (150-400) K/uL MPV 9.20 (7.40-12.00) fL Neut % (Auto) 67.1 (48.0-80.0) % Lymph % (Auto) 22.9 (16.0-40.0) % Ponce % (Auto) 8.4 (0.0-15.0) % Eos % (Auto) 1.5 (0.0-7.0) % Baso % (Auto) 0.1 (0.0-1.5) % Neut # (Auto) 8.3 H (1.4-5.7) K/uL Lymph # (Auto) 2.8 H (0.6-2.4) K/uL Ponce # (Auto) 1.0 H (0.0-0.8) K/uL Eos # (Auto) 0.2 (0.0-0.7) K/uL Baso # (Auto) 0.0 (0.0-0.1) K/uL Nucleated RBC % 0.0 /100WBC Nucleated RBCs # 0 K/uL Sodium 138 (136-146) mmol/L Potassium 3.8 (3.5-5.1) mmol/L Chloride 105 (98-110) mmol/L Carbon Dioxide 24 (21-31) mmol/L BUN 6 (6.0-23.0) mg/dL Creatinine 0.6 (0.6-1.5) mg/dL Est Cr Clr Drug Dosing 92.83 mL/min Estimated GFR (MDRD) > 60.0 ml/min Glucose 126 H (60-110) mg/dL POC Glucose 98 (60-110) mg/dL Calcium 8.9 (8.8-10.8) mg/dL 06/27/17 Range/Units 06:17 WBC (4.0-11.0) K/uL RBC (4.30-5.90) M/uL Hgb (12.0-16.0) g/dL Hct (36.0-46.0) % MCV (80.0-98.0) fL MCH (27.0-32.0) pg MCHC (31.0-37.0) g/dL RDW Std Deviation (28.0-62.0) fl RDW Coeff of Haley (11.0-15.0) % Plt Count (150-400) K/uL MPV (7.40-12.00) fL Neut % (Auto) (48.0-80.0) % Lymph % (Auto) (16.0-40.0) % Ponce % (Auto) (0.0-15.0) % Eos % (Auto) (0.0-7.0) % Baso % (Auto) (0.0-1.5) % Neut # (Auto) (1.4-5.7) K/uL Lymph # (Auto) (0.6-2.4) K/uL Ponce # (Auto) (0.0-0.8) K/uL Eos # (Auto) (0.0-0.7) K/uL Baso # (Auto) (0.0-0.1) K/uL Nucleated RBC % /100WBC Nucleated RBCs # K/uL Sodium (136-146) mmol/L Potassium (3.5-5.1) mmol/L Chloride (98-110) mmol/L Carbon Dioxide (21-31) mmol/L BUN (6.0-23.0) mg/dL Creatinine (0.6-1.5) mg/dL Est Cr Clr Drug Dosing mL/min Estimated GFR (MDRD) ml/min Glucose (60-110) mg/dL POC Glucose 208 H (60-110) mg/dL Calcium (8.8-10.8) mg/dL Med Orders - Current: Current Medications Dextrose/Water (Dextrose 50% In Water) 50 ml IVPUSH ASDIRECTED [facility] Last Admin: 06/26/17 07:09 Dose: 50 ml Enoxaparin Sodium (Lovenox) 40 mg SUBCUT DAILY [facility] Last Admin: 06/26/17 09:04 Dose: 40 mg Ceftriaxone Sodium/Dextrose 1 (gm/ Premix) 50 mls @ 100 mls/hr IV Q24H [facility] Last Admin: 06/26/17 09:04 Dose: 100 mls/hr Ondansetron HCl (Zofran) 4 mg IVPUSH Q4H PRN PRN Reason: Nausea Tramadol Hcl/Acetaminophen 37.5/325 Mg 1 each PO ASDIRECTED PRN PRN Reason: Pain Last Admin: 06/26/17 20:49 Dose: 1 each Discontinued Medications Ceftriaxone Sodium (Rocephin) 1,000 mg IVPUSH Q24H [facility] Last Admin: 06/26/17 09:43 Dose: Not Given Dextrose/Water (Dextrose 50% In Water) Confirm Administered Dose 50 ml .ROUTE .STK-MED ONE Stop: 06/26/17 03:00 Last Admin: 06/26/17 03:05 Dose: 50 ml Dextrose/Water (Dextrose 50% In Water) 50 ml IVPUSH ONETIME ONE Stop: 06/26/17 03:23 Last Admin: 06/26/17 03:24 Dose: Not Given Dextrose/Water (Dextrose 50% In Water) Confirm Administered Dose 50 ml .ROUTE .STK-MED ONE Stop: 06/26/17 03:52 Last Admin: 06/26/17 03:54 Dose: 50 ml Dextrose/Water (Dextrose 50% In Water) 50 ml IVPUSH ONETIME ONE Stop: 06/26/17 03:54 Last Admin: 06/26/17 03:55 Dose: Not Given Dextrose/Water (Dextrose 50% In Water) 25 ml IVPUSH ONETIME ONE Stop: 06/26/17 04:32 Last Admin: 06/26/17 04:34 Dose: 25 ml Sodium Chloride (Normal Saline) 1,000 mls @ 125 mls/hr IV STAT [facility] Dextrose/Sodium Chloride (Dextrose 5%-Normal Saline) 1,000 mls @ 125 mls/hr IV ASDIRECTED [facility] Last Admin: 06/26/17 12:46 Dose: 125 mls/hr Sodium Chloride (Normal Saline) 1,000 mls @ 999 mls/hr IV .BOLUS ONE Stop: 06/26/17 06:21 Last Admin: 06/26/17 05:37 Dose: 999 mls/hr *Q Meaningful Use (DIS) - VTE *Q VTE Criteria *Q: - Stroke *Q Stroke Criteria *Q: - AMI *Q AMI Criteria *Q:
[2017-06-27] MEDS: Enoxaparin 40 MG/0.4 ML Syringe SUBCUT SCH (08:13)
--- NOTE | 2017-06-27 19:05 | CR ---
EXAM DATE: 06/26/17 PATIENT'S AGE: 47 Patient: JOE LERNER Facility: [place], [place] Site . Site : 1970 Study: XRay Chest [id number]/21/2017 3:48:35 AM Ordering Physician: Edd Alvarado Final Report: INDICATION: Chest pain, shortness of breath TECHNIQUE: Chest 1 view. COMPARISON: 04/05/2017 FINDINGS: Cardiovascular and mediastinum: Heart size and vasculature are normal in caliber and appearance. Mediastinum is within normal limits. Lungs and pleural space: Low lung volumes. Lungs are clear. No sign of infiltrate or mass. No sign of pleural effusion. No pneumothorax. Bones and soft tissues: No significant findings. IMPRESSION: Low lung volumes, otherwise unremarkable chest. Dictated by Turner Martino MD @ 06/26/2017 3:50:11 AM Dictated by: Turner Martino MD @ 06/26/2017 03:50:18 (Electronic Signature) Report Signed by Proxy. [facility] SYSTEMCarmen
== END 2017-06-27 10:50 | disposition home or self-care (01) ==
LOC: MW.ED 02:46 → MW.ICU 04:00
PROVIDERS: ADMIT Internal Medicine; ATTEND Internal Medicine
DX: E11.649 Type 2 diabetes mellitus with hypoglycemia without coma (principal); I10 Essential (primary) hypertension; E78.00 Pure hypercholesterolemia, unspecified; F41.9 Anxiety disorder, unspecified; F17.210 Nicotine dependence, cigarettes, uncomplicated; Z86.11 Personal history of tuberculosis; Z79.4 Long term (current) use of insulin; Z79.899 Other long term (current) drug therapy; Z88.8 Allergy status to other drugs, medicaments and biological substances; Z91.018 Allergy to other foods; Z98.51 Tubal ligation status; Z90.710 Acquired absence of both cervix and uterus; Z90.89 Acquired absence of other organs; Z98.890 Other specified postprocedural states
CPT/HCPCS: 36415; 71010; 80048; 80053; 80305; 81001; 82962; 85025; 93005; 96361; 96365; 96372; 96375; 96376; 99285; G0378; J0696; J1650; J7040; J7042; J7060; 96374; 99284

== ENCOUNTER 2017-08-19 09:08 | Emergency (ER) | payer OTHER ==
[2017-08-19] MEDS ORDERED: Sodium Chloride 0.9% 1,000 ML IV ONE (09:43)
--- NOTE | 2017-08-19 09:46 | EDM.PDOC ---
ED HPI GENERAL MEDICAL PROBLEM - General Chief Complaint: General Stated Complaint: DIABETIC, HASNT SLEPT IN 6 DAYS AND FEELING DIZZY Time Seen by Provider: 08/19/17 09:45 Source of Information: Reports: Patient - History of Present Illness INITIAL COMMENTS - FREE TEXT/NARRATIVE: HISTORY AND PHYSICAL: History of present illness: []Patient presents with insomnia for up to 6 days, she does not appear excessively tired there are no bags under her eyes she is allergic complains of some mild dizziness but again does not appear dizzy her balance and coordination are stable no fever nausea vomiting diarrhea constipation chest pain shortness breath headache dizziness or palpitation no bowel or urine symptoms Eyes excessive caffeine intake or illicit drugs Chronic history is at baseline Patient generally has insomnia and takes trazodone for both depression and insomnia, she states this is been on effective for her from the insomnia standpoint Review of systems: As per history of present illness and below otherwise all systems reviewed and negative. Past medical history: As per history of present illness and as reviewed below otherwise noncontributory. Surgical history: As per history of present illness and as reviewed below otherwise noncontributory. Social history: No reported history of drug or alcohol abuse. Family history: As per history of present illness and as reviewed below otherwise noncontributory. Physical exam: HEENT: Atraumatic, normocephalic, pupils reactive, negative for conjunctival pallor or scleral icterus, mucous membranes moist, throat clear, neck supple, nontender, trachea midline. Lungs: Clear to auscultation, breath sounds equal bilaterally, chest nontender. Heart: S1S2, regular, negative for clicks, rubs, or JVD. Abdomen: Soft, nondistended, nontender. Negative for masses or hepatosplenomegaly. Negative for costovertebral tenderness. Pelvis: Stable nontender. Genitourinary: Deferred. Rectal: Deferred. Extremities: Atraumatic, negative for cords or calf pain. Neurovascular unremarkable. Neuro: Awake, alert, oriented. Cranial nerves II through XII unremarkable. Cerebellum unremarkable. Motor and sensory unremarkable throughout. Exam nonfocal. Diagnostics: [Lab as below ] Therapeutics: [1 L normal saline bolus Lunesta 2 mg by mouth daily at bedtime when necessary #3 no refill Follow-up with primary care Patient is not driving herself today her niece will be taking her home ] Impression: [Insomnia Chronic history at baseline] Definitive disposition and diagnosis as appropriate pending reevaluation and review of above. - Related Data Allergies Allergy/AdvReac Type Severity Reaction Status Date / Time coconut Allergy Difficulty Verified 08/19/17 09:29 Breathing hydroxyzine HCl Allergy Hives Verified 08/19/17 09:29 [From Vistaril] hydroxyzine pamoate Allergy Hives Verified 08/19/17 09:29 [From Vistaril] ketorolac tromethamine Allergy Hives Verified 08/19/17 09:29 [From Toradol] Home Meds: Home Meds Ondansetron [Zofran ODT] 8 mg PO ASDIRECTED PRN 08/06/15 [History] Rizatriptan Benzoate [Maxalt] 10 mg PO ASDIRECTED PRN 08/06/15 [History] Lisinopril 10 mg PO DAILY 10/16/16 [History] rOPINIRole [Requip] 1 mg PO BEDTIME 10/16/16 [History] traZODone HCl [Trazodone HCl] 100 mg PO BEDTIME PRN 10/16/16 [History] Insulin Aspart [Novolog Flexpen] 1 unit SUBCNJ ASDIRECTED 06/04/17 [History] Baclofen 10 mg PO TID PRN 06/22/17 [History] Cholecalciferol (Vitamin D3) [Vitamin D3] 1,000 unit PO DAILY 06/22/17 [History] ClonazePAM [KlonoPIN] 1 tab PO BID PRN 06/22/17 [History] Gabapentin [Neurontin] 600 mg PO TID 06/22/17 [History] Hydrocodone/Acetaminophen [Hydrocodon-Acetaminophen 5-325] 1 - 2 tab PO Q4HR PRN 06/22/17 [History] Ibuprofen 800 mg PO ASDIRECTED PRN 06/22/17 [History] PARoxetine [Paxil] 20 mg PO DAILY 06/22/17 [History] Rosuvastatin [Crestor] 10 mg PO DAILY 06/22/17 [History] busPIRone [Buspar] 10 mg PO DAILY 06/22/17 [History] Cyclobenzaprine [Flexeril] 10 mg PO BEDTIME 06/26/17 [History] Gabapentin [Neurontin] 600 mg PO TID 06/26/17 [History] Ondansetron HCl [Zofran] 8 mg PO DAILY 06/26/17 [History] Rizatriptan Benzoate [Rizatriptan] 10 mg PO ASDIRECTED PRN 06/26/17 [History] traMADol Hcl/Acetaminophen [Ultracet Tablet] 37.5 - 325 mg PO ASDIRECTED PRN [History] Cephalexin [Keflex] 500 mg PO Q12H #10 cap 06/27/17 [Rx] Insulin Glarg,Human.Rec.Analog [LantUS Solostar] 20 units SUBCUT DAILY #0 [Rx] Past Medical History - Past Health History Medical/Surgical History: Denies Medical/Surgical History HEENT History: Reports: None Cardiovascular History: Reports: None Respiratory History: Reports: TB Other Respiratory History: reports treatment for positive tuberculin test in 2002 - no lung lesions Gastrointestinal History: Reports: None Genitourinary History: Reports: None [employer] History: Reports: Musculoskeletal History: Reports: None Other Musculoskeletal History: chronic shoulder pain Neurological History: Reports: Migraines Psychiatric History: Reports: Anxiety Endocrine/Metabolic History: Reports: Diabetes, Type II Hematologic History: Reports: None Immunologic History: Reports: None Oncologic (Cancer) History: Reports: None Dermatologic History: Reports: None - Infectious Disease History Infectious Disease History: Reports: TB, Other (See Below) Other Infectious Disease History: 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 - Past Surgical History HEENT Surgical History: Reports: None Cardiovascular Surgical History: Reports: None Respiratory Surgical History: Reports: None GI Surgical History: Reports: None Female Surgical History: Reports: Hysterectomy, Tubal Ligation Neurological Surgical History: Reports: None Musculoskeletal Surgical History: Reports: Arthroscopic Knee, Shoulder Surgery, Other (See Below) Other Musculoskeletal Surgeries/Procedures:: L4 - L5 fusion one month ago Oncologic Surgical History: Reports: None Social & Family History - Family History Family Medical History: Noncontributory Neurological: Reports: Migraines Psychiatric: Reports: Anxiety Endocrine/Metabolic: Reports: Diabetes, type II - Tobacco Use Smoking Status *Q: Current Every Day Smoker Years of Tobacco use: 10 Packs/Tins Daily: 1 Used Tobacco, but Quit: No Month Tobacco Last Used: smokes 1/2 pk of cigarettes per day Second Hand Smoke Exposure: Yes - Caffeine Use Caffeine Use: Reports: Soda Caffeine Use Comment: 3-4drinks/day - Alcohol Use Days Per Week of Alcohol Use: 0 - Recreational Drug Use Recreational Drug Use: No ED ROS GENERAL - Review of Systems Review Of Systems: ROS reveals no pertinent complaints other than HPI. ED EXAM, GENERAL - Physical Exam Exam: See Below Course - Vital Signs Last Recorded V/S: Last Vital Signs Temp 96.2 F 08/19/17 09:32 Pulse 79 08/19/17 09:32 Resp 18 08/19/17 09:32 BP 176/103 H 08/19/17 09:32 Pulse Ox 96 08/19/17 09:32 - Orders/Labs/Meds Orders: Active Orders 24 hr Category Date Time Status COMPREHENSIVE METABOLIC PN,CMP [CHEM] Stat Lab 08/19/17 09:51 Received LIPASE [CHEM] Stat Lab 08/19/17 09:51 Received TROPONIN I [CHEM] Stat Lab 08/19/17 09:51 Received Sodium Chloride 0.9% [Normal Saline] 1,000 ml Med 08/19/17 09:43 Active IV STAT Medication Orders Sodium Chloride (Normal Saline) 1,000 mls @ 999 mls/hr IV STAT ONE Stop: 08/19/17 10:43 Last Admin: 08/19/17 09:55 Dose: 999 mls/hr Labs: Laboratory Tests 08/19/17 08/19/17 08/19/17 Range/Units 09:36 09:40 09:51 WBC 15.39 H (4.0-11.0) K/uL RBC 4.67 (4.30-5.90) M/uL Hgb 14.7 (12.0-16.0) g/dL Hct 43.9 (36.0-46.0) % MCV 94.0 (80.0-98.0) fL MCH 31.5 (27.0-32.0) pg MCHC 33.5 (31.0-37.0) g/dL RDW Std Deviation 46.0 (28.0-62.0) fl RDW Coeff of Haley 14 (11.0-15.0) % Plt Count 413 H (150-400) K/uL MPV 9.90 (7.40-12.00) fL Neut % (Auto) 56.7 (48.0-80.0) % Lymph % (Auto) 32.9 (16.0-40.0) % Eaton % (Auto) 9.2 (0.0-15.0) % Eos % (Auto) 1.1 (0.0-7.0) % Baso % (Auto) 0.1 (0.0-1.5) % Neut # (Auto) 8.7 H (1.4-5.7) K/uL Lymph # (Auto) 5.1 H (0.6-2.4) K/uL Eaton # (Auto) 1.4 H (0.0-0.8) K/uL Eos # (Auto) 0.2 (0.0-0.7) K/uL Baso # (Auto) 0.0 (0.0-0.1) K/uL Nucleated RBC % 0.0 /100WBC Nucleated RBCs # 0 K/uL POC Glucose 108 (60-110) mg/dL Urine Color YELLOW Urine Appearance CLEAR Urine pH 6.0 (5.0-8.0) Ur Specific [place] 1.025 (1.001-1.035) Urine Protein NEGATIVE (NEGATIVE) mg/dL Urine Glucose (UA) 250 H (NEGATIVE) mg/dL Urine Ketones NEGATIVE (NEGATIVE) mg/dL Urine Occult Blood NEGATIVE (NEGATIVE) Urine Nitrite NEGATIVE (NEGATIVE) Urine Bilirubin NEGATIVE (NEGATIVE) Urine Urobilinogen 0.2 (<2.0) EU/dL Ur Leukocyte Esterase NEGATIVE (NEGATIVE) Urine RBC 0-1 (0-2/HPF) Urine WBC 0-1 (0-5/HPF) Ur Epithelial Cells FEW (NONE-FEW) Urine Bacteria RARE (NEGATIVE) Meds: Medications Generic Name Dose Route Start Last Admin Trade Name Freq PRN Reason Stop Dose Admin Sodium Chloride 1,000 mls @ 999 mls/hr 08/19/17 09:43 08/19/17 09:55 Normal Saline IV 08/19/17 10:43 999 mls/hr STAT ONE Administration Departure - Departure Time of Disposition: 10:26 Disposition: Home, Self-Care 01 Condition: Good Clinical Impression: Insomnia - Discharge Information Referrals: PCP,None [Primary Care Provider] - Forms: ED Department Discharge Additional Instructions: Medication as prescribed Return if symptoms persist or worsen Follow-up with primary care in 2 weeks sooner as needed The following information is given to patients seen in the emergency department who are being discharged to home. This information is to outline your options for follow-up care. We provide all patients seen in our emergency department with a follow-up referral. The need for follow-up, as well as the timing and circumstances, are variable depending upon the specifics of your emergency department visit. If you don't have a primary care physician on staff, we will provide you with a referral. We always advise you to contact your personal physician following an emergency department visit to inform them of the circumstance of the visit and for follow-up with them and/or the need for any referrals to a consulting specialist. The emergency department will also refer you to a specialist when appropriate. This referral assures that you have the opportunity for follow-up care with a specialist. All of these measure are taken in an effort to provide you with optimal care, which includes your follow-up. Under all circumstances we always encourage you to contact your private physician who remains a resource for coordinating your care. When calling for follow-up care, please make the office aware that this follow-up is from your recent emergency room visit. If for any reason you are refused follow-up, please contact the [facility] emergency department at and asked to speak to the emergency department charge nurse. - My Orders Last 24 Hours: My Active Orders 08/19/17 09:43 Sodium Chloride 0.9% [Normal Saline] 1,000 ml IV STAT 08/19/17 09:51 COMPREHENSIVE METABOLIC PN,CMP [CHEM] Stat LIPASE [CHEM] Stat TROPONIN I [CHEM] Stat - Assessment/Plan Last 24 Hours: My Active Orders 08/19/17 09:43 Sodium Chloride 0.9% [Normal Saline] 1,000 ml IV STAT 08/19/17 09:51 COMPREHENSIVE METABOLIC PN,CMP [CHEM] Stat LIPASE [CHEM] Stat TROPONIN I [CHEM] Stat
[2017-08-19 10:23] LABS: CHLORIDE,CL 108 mmol/L (98-110); SODIUM,NA 140 mmol/L (136-146)
[2017-08-19 10:57] VITALS: BP 182/105
== END 2017-08-19 10:42 | disposition home or self-care (01) ==
LOC: MW.ED 09:08
DX: G47.00 Insomnia, unspecified (principal); E11.9 Type 2 diabetes mellitus without complications; F17.210 Nicotine dependence, cigarettes, uncomplicated; Z79.4 Long term (current) use of insulin; Z79.899 Other long term (current) drug therapy; Z88.6 Allergy status to analgesic agent; Z88.8 Allergy status to other drugs, medicaments and biological substances
CPT/HCPCS: 36415; 80053; 81001; 82962; 83690; 84484; 85025; 96360; 99283; J7040

== ENCOUNTER 2017-11-13 01:29 | Observation (INO) | payer OTHER ==
[2017-11-13] MEDS ORDERED: Sodium Chloride 0.9% 2.5 ML Syringe FLUSH PRN (01:48)
[2017-11-13] MEDS ORDERED: Sodium Chloride 0.9% 10 ML Syringe FLUSH PRN (01:48)
--- NOTE | 2017-11-13 01:54 | EDM.PDOC ---
ED HPI GENERAL MEDICAL PROBLEM - General Chief Complaint: Diabetic Complaint Stated Complaint: SUGAR LEVELS Time Seen by Provider: 11/13/17 01:40 - History of Present Illness INITIAL COMMENTS - FREE TEXT/NARRATIVE: HISTORY AND PHYSICAL: History of present illness: The patient is a 47-year-old female with a known history of hypertension hypercholesterolemia anxiety chronic pain issues and diabetes who presents with her family after she was noted to have very high blood sugars earlier this evening in the 400s and then about an hour and a half ago she was noted to have a very low blood sugar. According to the significant other at bedside she probably took a large dose of insulin for the high blood sugar and when he checked today was low so he gave her a sugar pill orally. He says this is not a typical for her blood sugar to be all over the place and she has not had very good control. She is currently following in our family practice clinic. Earlier today she was having some nausea and some intermittent vomiting with the high blood sugars and he thinks she may have had some diarrhea but had no recent falls or trauma. She is not complaining specifically of any pain. He is also concerned that she may have taken her medications that she uses for anxiety and pain and the way he answers questions regarding that he says that "she probably took too much again". He says that she has a history of redoing it with her meds as well as with the insulin. Her blood sugar has been poorly controlled over the last several weeks to months. She has a history of chronic back pain for which she has had surgery before and he says that is improved. She is also had a total hysterectomy and has no chance for . She has not had any upper respiratory symptoms or fever that he is aware of but the patient here in the ED prefers to either stare off into space or close her eyes and be unresponsive to my questions. She currently is moving all extremities and is maintaining her airway Please note that the patient's significant other at bedside is unsure of her current med list but does state that she takes "40 or 50 different medications" and he is unsure of how much insulin she gave herself earlier this evening. Review of systems: As per history of present illness and below otherwise all systems reviewed and negative. Past medical history: As per history of present illness and as reviewed below otherwise noncontributory. Surgical history: As per history of present illness and as reviewed below otherwise noncontributory. Social history: No reported history of drug or alcohol abuse. Family history: As per history of present illness and as reviewed below otherwise noncontributory. Physical exam: Gen.: Patient is mildly overweight and vital signs are noted by me. The patient is very purposeful on my evaluation crossing her legs laying back sitting up and will occasionally answer questions with our nurses staff but will not talk to me. Continue her airway HEENT: Atraumatic, normocephalic, pupils reactive and mid range, negative for conjunctival pallor or scleral icterus, mucous membranes moist, throat clear, neck supple, nontender, trachea midline. Lungs: Clear to auscultation, breath sounds equal bilaterally, chest nontender. No worker breathing stridor or wheezing Heart: S1S2, regular, negative for clicks, rubs, or JVD. Abdomen: Soft, nondistended, nontender. Negative for masses or hepatosplenomegaly. Negative for costovertebral tenderness. Pelvis: Stable nontender. Genitourinary: Deferred. Rectal: Deferred. Extremities: Atraumatic, negative for cords or calf pain. Neurovascular unremarkable. Neuro: Awake, alert intermittently depending on the interviewer. Moving all extremities spontaneously and purposefully Motor and sensory unremarkable throughout. Exam nonfocal. Evaluation is difficult due to patient's lack of cooperation with this interviewer Skin: Normal turgor no evidence of any diaphoresis Diagnostics: EKG CBC CMP serum ketones TSH EtOH level UDS UA chest x-ray Accu-Chek Therapeutics: IV O2 monitor IV fluids Our nursing division supervisor was able to pull a current med list and the most recent clinic appointment not from the computer in the clinic. The patient was seen in our clinic on November 05 and had presented for reassessment of a thumb infection. According to the providers note he is trying to reduce her various medications as she has been on long-acting meds for a longer period of time. She's been taking meds for sleep disorder muscle spasm restless leg syndrome generalized anxiety disorders. According to the note because she was stating that she could not get to sleep because of being anxious at night he had asked her to increase her meds for restless leg syndrome as well as taking her short acting benzodiazepine 2 hours before going to bed. According to the note her bilateral thumb infection had been resolved but she was again complaining of the restless leg anxiety insomnia and muscle spasms and he was working to work on her polypharmacy. 0330: Case was discussed with Dr. Rubio and he agrees with observation admission for altered mental status likely secondary to taking too much of her medications and erratic blood sugars at home per history. Testing results with the significant other at bedside and is aware of the admission. The patient remained stable in the ED and is arousable but prefers to sleep and her vitals are stable Impression: Episode of hypoglycemia resolved prior to admission, altered mental status likely secondary to polypharmacy Definitive disposition and diagnosis as appropriate pending reevaluation and review of above. - Related Data Allergies Allergy/AdvReac Type Severity Reaction Status Date / Time coconut Allergy Difficulty Verified 08/19/17 09:29 Breathing hydroxyzine HCl Allergy Hives Verified 08/19/17 09:29 [From Vistaril] hydroxyzine pamoate Allergy Hives Verified 08/19/17 09:29 [From Vistaril] ketorolac tromethamine Allergy Hives Verified 08/19/17 09:29 [From Toradol] Home Meds: Home Meds Ondansetron [Zofran ODT] 8 mg PO ASDIRECTED PRN 08/06/15 [History] Rizatriptan Benzoate [Maxalt] 10 mg PO ASDIRECTED PRN 08/06/15 [History] Lisinopril 10 mg PO DAILY 10/16/16 [History] rOPINIRole [Requip] 1 mg PO BEDTIME 10/16/16 [History] traZODone HCl [Trazodone HCl] 100 mg PO BEDTIME PRN 10/16/16 [History] Insulin Aspart [Novolog Flexpen] 1 unit SUBCNJ ASDIRECTED 06/04/17 [History] Baclofen 10 mg PO TID PRN 06/22/17 [History] Cholecalciferol (Vitamin D3) [Vitamin D3] 1,000 unit PO DAILY 06/22/17 [History] ClonazePAM [KlonoPIN] 1 tab PO BID PRN 06/22/17 [History] Gabapentin [Neurontin] 600 mg PO TID 06/22/17 [History] Hydrocodone/Acetaminophen [Hydrocodon-Acetaminophen 5-325] 1 - 2 tab PO Q4HR PRN 06/22/17 [History] Ibuprofen 800 mg PO ASDIRECTED PRN 06/22/17 [History] PARoxetine [Paxil] 20 mg PO DAILY 06/22/17 [History] Rosuvastatin [Crestor] 10 mg PO DAILY 06/22/17 [History] busPIRone [Buspar] 10 mg PO DAILY 06/22/17 [History] Cyclobenzaprine [Flexeril] 10 mg PO BEDTIME 06/26/17 [History] Gabapentin [Neurontin] 600 mg PO TID 06/26/17 [History] Ondansetron HCl [Zofran] 8 mg PO DAILY 06/26/17 [History] Rizatriptan Benzoate [Rizatriptan] 10 mg PO ASDIRECTED PRN 06/26/17 [History] traMADol Hcl/Acetaminophen [Ultracet Tablet] 37.5 - 325 mg PO ASDIRECTED PRN [History] Cephalexin [Keflex] 500 mg PO Q12H #10 cap 06/27/17 [Rx] Insulin Glarg,Human.Rec.Analog [LantUS Solostar] 20 units SUBCUT DAILY #0 [Rx] Past Medical History - Past Health History Medical/Surgical History: Denies Medical/Surgical History HEENT History: Reports: None Cardiovascular History: Reports: None Respiratory History: Reports: TB Other Respiratory History: reports treatment for positive tuberculin test in 2002 - no lung lesions Gastrointestinal History: Reports: None Genitourinary History: Reports: None [employer] History: Reports: Musculoskeletal History: Reports: None Other Musculoskeletal History: chronic shoulder pain Neurological History: Reports: Migraines Psychiatric History: Reports: Anxiety Endocrine/Metabolic History: Reports: Diabetes, Type II Hematologic History: Reports: None Immunologic History: Reports: None Oncologic (Cancer) History: Reports: None Dermatologic History: Reports: None - Infectious Disease History Infectious Disease History: Reports: TB, Other (See Below) Other Infectious Disease History: 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 - Past Surgical History HEENT Surgical History: Reports: None Cardiovascular Surgical History: Reports: None Respiratory Surgical History: Reports: None GI Surgical History: Reports: None Female Surgical History: Reports: Hysterectomy, Tubal Ligation Neurological Surgical History: Reports: None Musculoskeletal Surgical History: Reports: Arthroscopic Knee, Shoulder Surgery, Other (See Below) Other Musculoskeletal Surgeries/Procedures:: L4 - L5 fusion one month ago Oncologic Surgical History: Reports: None Social & Family History - Family History Family Medical History: Noncontributory Neurological: Reports: Migraines Psychiatric: Reports: Anxiety Endocrine/Metabolic: Reports: Diabetes, type II - Tobacco Use Smoking Status *Q: Current Every Day Smoker Years of Tobacco use: 10 Packs/Tins Daily: 1 Used Tobacco, but Quit: No Month Tobacco Last Used: smokes 1/2 pk of cigarettes per day Second Hand Smoke Exposure: Yes - Caffeine Use Caffeine Use: Reports: Soda Caffeine Use Comment: 3-4drinks/day - Alcohol Use Days Per Week of Alcohol Use: 0 - Recreational Drug Use Recreational Drug Use: No ED ROS GENERAL - Review of Systems Review Of Systems: ROS reveals no pertinent complaints other than HPI. ED EXAM GENERAL NO PERIP PULSE - Physical Exam Exam: See Below (See dictation) Course - Vital Signs Last Recorded V/S: Last Vital Signs Temp 36.4 C 11/13/17 01:44 Pulse 73 11/13/17 03:16 Resp 15 11/13/17 03:16 BP 92/55 L 11/13/17 03:16 Pulse Ox 95 11/13/17 03:16 - Orders/Labs/Meds Orders: Active Orders 24 hr Category Date Time Status Patient Status [ADT] Stat ADT 11/13/17 03:25 Active Blood Glucose Check, Bedside [RC] ONETIME Care 11/13/17 01:47 Active Cardiac Monitoring [RC] . DIRECTED Care 11/13/17 01:45 Active EKG Documentation Completion [RC] STAT Care 11/13/17 01:45 Active Oxygen Therapy, ED [RC] ASDIRECTED Care 11/13/17 01:45 Active Pulse Oximetry [RC] ASDIRECTED Care 11/13/17 01:45 Active Chest 1V Frontal [CR] Stat Exams 11/13/17 01:47 Taken Head wo Cont [CT] Stat Exams 11/13/17 01:58 Taken Sodium Chloride 0.9% [Normal Saline] 1,000 ml Med 11/13/17 02:00 Active IV ASDIRECTED Sodium Chloride 0.9% [Saline Flush] Med 11/13/17 01:48 Active 10 ml FLUSH ASDIRECTED PRN Sodium Chloride 0.9% [Saline Flush] Med 11/13/17 01:48 Active 2.5 ml FLUSH ASDIRECTED PRN Saline Lock Insert [OM.PC] Stat Oth 11/13/17 01:45 Ordered Medication Orders Sodium Chloride (Normal Saline) 1,000 mls @ 100 mls/hr IV ASDIRECTED CARRIE Last Admin: 11/13/17 01:58 Dose: 100 mls/hr Sodium Chloride (Saline Flush) 10 ml FLUSH ASDIRECTED PRN PRN Reason: Keep Vein Open Sodium Chloride (Saline Flush) 2.5 ml FLUSH ASDIRECTED PRN PRN Reason: Keep Vein Open Labs: Laboratory Tests 11/13/17 11/13/17 11/13/17 Range/Units 01:19 01:19 01:19 WBC 12.33 H (4.0-11.0) K/uL RBC 4.62 (4.30-5.90) M/uL Hgb 14.1 (12.0-16.0) g/dL Hct 42.7 (36.0-46.0) % MCV 92.4 (80.0-98.0) fL MCH 30.5 (27.0-32.0) pg MCHC 33.0 (31.0-37.0) g/dL RDW Std Deviation 39.9 (28.0-62.0) fl RDW Coeff of Haley 12 (11.0-15.0) % Plt Count 291 (150-400) K/uL MPV 9.70 (7.40-12.00) fL Neut % (Auto) 57.3 (48.0-80.0) % Lymph % (Auto) 32.4 (16.0-40.0) % [place] % (Auto) 8.8 (0.0-15.0) % Eos % (Auto) 1.3 (0.0-7.0) % Baso % (Auto) 0.2 (0.0-1.5) % Neut # (Auto) 7.1 H (1.4-5.7) K/uL Lymph # (Auto) 4.0 H (0.6-2.4) K/uL [place] # (Auto) 1.1 H (0.0-0.8) K/uL Eos # (Auto) 0.2 (0.0-0.7) K/uL Baso # (Auto) 0.0 (0.0-0.1) K/uL Sodium 141 (136-145) mmol/L Potassium 3.6 (3.5-5.1) mmol/L Chloride 104 (98-107) mmol/L Carbon Dioxide 28.5 (21.0-32.0) mmol/L BUN 14 (7.0-18.0) mg/dL Creatinine 0.9 (0.6-1.0) mg/dL Est Cr Clr Drug Dosing 62.43 mL/min Estimated GFR (MDRD) > 60.0 ml/min Glucose 79 (74-106) mg/dL POC Glucose (60-110) mg/dL Calcium 8.8 (8.5-10.1) mg/dL Total Bilirubin 0.1 L (0.2-1.0) mg/dL AST 12 L (15-37) IU/L ALT 22 (14-63) IU/L Alkaline Phosphatase 46 (46-116) U/L Total Protein 6.9 (6.4-8.2) g/dL Albumin 3.3 L (3.4-5.0) g/dL Globulin 3.6 H (2.0-3.5) g/dL Albumin/Globulin Ratio 0.9 L (1.3-2.8) TSH 3rd Generation 0.88 (0.36-3.74) uIU/mL Urine Color Urine Appearance Urine pH (5.0-8.0) Ur Specific [place] (1.001-1.035) Urine Protein (NEGATIVE) mg/dL Urine Glucose (UA) (NEGATIVE) mg/dL Urine Ketones (NEGATIVE) mg/dL Urine Occult Blood (NEGATIVE) Urine Nitrite (NEGATIVE) Urine Bilirubin (NEGATIVE) Urine Urobilinogen (<2.0) EU/dL Ur Leukocyte Esterase (NEGATIVE) Urine RBC (0-2/HPF) Urine WBC (0-5/HPF) Ur Epithelial Cells (NONE-FEW) Urine Bacteria (NEGATIVE) Urine Mucus (NONE-MOD) Urine Opiates Screen (NEGATIVE) Ur Oxycodone Screen (NEGATIVE) Urine Methadone Screen (NEGATIVE) Ur Barbiturates Screen (NEGATIVE) Ur Phencyclidine Scrn (NEGATIVE) Ur Amphetamine Screen (NEGATIVE) U Methamphetamines Scrn (NEGATIVE) U Benzodiazepines Scrn (NEGATIVE) U Cocaine Metab Screen (NEGATIVE) U Marijuana (THC) Screen (NEGATIVE) Ethyl Alcohol < 3.0 mg/dL Ketones NEGATIVE (NEG) 11/13/17 11/13/17 11/13/17 Range/Units 01:39 01:53 02:41 WBC (4.0-11.0) K/uL RBC (4.30-5.90) M/uL Hgb (12.0-16.0) g/dL Hct (36.0-46.0) % MCV (80.0-98.0) fL MCH (27.0-32.0) pg MCHC (31.0-37.0) g/dL RDW Std Deviation (28.0-62.0) fl RDW Coeff of Haley (11.0-15.0) % Plt Count (150-400) K/uL MPV (7.40-12.00) fL Neut % (Auto) (48.0-80.0) % Lymph % (Auto) (16.0-40.0) % [place] % (Auto) (0.0-15.0) % Eos % (Auto) (0.0-7.0) % Baso % (Auto) (0.0-1.5) % Neut # (Auto) (1.4-5.7) K/uL Lymph # (Auto) (0.6-2.4) K/uL [place] # (Auto) (0.0-0.8) K/uL Eos # (Auto) (0.0-0.7) K/uL Baso # (Auto) (0.0-0.1) K/uL Sodium (136-145) mmol/L Potassium (3.5-5.1) mmol/L Chloride (98-107) mmol/L Carbon Dioxide (21.0-32.0) mmol/L BUN (7.0-18.0) mg/dL Creatinine (0.6-1.0) mg/dL Est Cr Clr Drug Dosing mL/min Estimated GFR (MDRD) ml/min Glucose (74-106) mg/dL POC Glucose 73 71 74 (60-110) mg/dL Calcium (8.5-10.1) mg/dL Total Bilirubin (0.2-1.0) mg/dL AST (15-37) IU/L ALT (14-63) IU/L Alkaline Phosphatase (46-116) U/L Total Protein (6.4-8.2) g/dL Albumin (3.4-5.0) g/dL Globulin (2.0-3.5) g/dL Albumin/Globulin Ratio (1.3-2.8) TSH 3rd Generation (0.36-3.74) uIU/mL Urine Color Urine Appearance Urine pH (5.0-8.0) Ur Specific [place] (1.001-1.035) Urine Protein (NEGATIVE) mg/dL Urine Glucose (UA) (NEGATIVE) mg/dL Urine Ketones (NEGATIVE) mg/dL Urine Occult Blood (NEGATIVE) Urine Nitrite (NEGATIVE) Urine Bilirubin (NEGATIVE) Urine Urobilinogen (<2.0) EU/dL Ur Leukocyte Esterase (NEGATIVE) Urine RBC (0-2/HPF) Urine WBC (0-5/HPF) Ur Epithelial Cells (NONE-FEW) Urine Bacteria (NEGATIVE) Urine Mucus (NONE-MOD) Urine Opiates Screen (NEGATIVE) Ur Oxycodone Screen (NEGATIVE) Urine Methadone Screen (NEGATIVE) Ur Barbiturates Screen (NEGATIVE) Ur Phencyclidine Scrn (NEGATIVE) Ur Amphetamine Screen (NEGATIVE) U Methamphetamines Scrn (NEGATIVE) U Benzodiazepines Scrn (NEGATIVE) U Cocaine Metab Screen (NEGATIVE) U Marijuana (THC) Screen (NEGATIVE) Ethyl Alcohol mg/dL Ketones (NEG) 11/13/17 11/13/17 Range/Units 02:45 02:45 WBC (4.0-11.0) K/uL RBC (4.30-5.90) M/uL Hgb (12.0-16.0) g/dL Hct (36.0-46.0) % MCV (80.0-98.0) fL MCH (27.0-32.0) pg MCHC (31.0-37.0) g/dL RDW Std Deviation (28.0-62.0) fl RDW Coeff of Haley (11.0-15.0) % Plt Count (150-400) K/uL MPV (7.40-12.00) fL Neut % (Auto) (48.0-80.0) % Lymph % (Auto) (16.0-40.0) % [place] % (Auto) (0.0-15.0) % Eos % (Auto) (0.0-7.0) % Baso % (Auto) (0.0-1.5) % Neut # (Auto) (1.4-5.7) K/uL Lymph # (Auto) (0.6-2.4) K/uL [place] # (Auto) (0.0-0.8) K/uL Eos # (Auto) (0.0-0.7) K/uL Baso # (Auto) (0.0-0.1) K/uL Sodium (136-145) mmol/L Potassium (3.5-5.1) mmol/L Chloride (98-107) mmol/L Carbon Dioxide (21.0-32.0) mmol/L BUN (7.0-18.0) mg/dL Creatinine (0.6-1.0) mg/dL Est Cr Clr Drug Dosing mL/min Estimated GFR (MDRD) ml/min Glucose (74-106) mg/dL POC Glucose (60-110) mg/dL Calcium (8.5-10.1) mg/dL Total Bilirubin (0.2-1.0) mg/dL AST (15-37) IU/L ALT (14-63) IU/L Alkaline Phosphatase (46-116) U/L Total Protein (6.4-8.2) g/dL Albumin (3.4-5.0) g/dL Globulin (2.0-3.5) g/dL Albumin/Globulin Ratio (1.3-2.8) TSH 3rd Generation (0.36-3.74) uIU/mL Urine Color YELLOW Urine Appearance CLEAR Urine pH 5.5 (5.0-8.0) Ur Specific [place] >= 1.030 (1.001-1.035) Urine Protein TRACE (NEGATIVE) mg/dL Urine Glucose (UA) NEGATIVE (NEGATIVE) mg/dL Urine Ketones NEGATIVE (NEGATIVE) mg/dL Urine Occult Blood NEGATIVE (NEGATIVE) Urine Nitrite NEGATIVE (NEGATIVE) Urine Bilirubin SMALL H (NEGATIVE) Urine Urobilinogen 0.2 (<2.0) EU/dL Ur Leukocyte Esterase NEGATIVE (NEGATIVE) Urine RBC 0-1 (0-2/HPF) Urine WBC 0-2 (0-5/HPF) Ur Epithelial Cells FEW (NONE-FEW) Urine Bacteria FEW (NEGATIVE) Urine Mucus FEW (NONE-MOD) Urine Opiates Screen NEGATIVE (NEGATIVE) Ur Oxycodone Screen NEGATIVE (NEGATIVE) Urine Methadone Screen POSITIVE (NEGATIVE) Ur Barbiturates Screen NEGATIVE (NEGATIVE) Ur Phencyclidine Scrn POSITIVE (NEGATIVE) Ur Amphetamine Screen NEGATIVE (NEGATIVE) U Methamphetamines Scrn NEGATIVE (NEGATIVE) U Benzodiazepines Scrn POSITIVE (NEGATIVE) U Cocaine Metab Screen NEGATIVE (NEGATIVE) U Marijuana (THC) Screen NEGATIVE (NEGATIVE) Ethyl Alcohol mg/dL Ketones (NEG) Meds: Medications Generic Name Dose Route Start Last Admin Trade Name Freq PRN Reason Stop Dose Admin Sodium Chloride 1,000 mls @ 100 mls/hr 11/13/17 02:00 11/13/17 01:58 Normal Saline IV 100 mls/hr ASDIRECTED CARRIE Administration Sodium Chloride 10 ml 11/13/17 01:48 Saline Flush FLUSH ASDIRECTED PRN Keep Vein Open Sodium Chloride 2.5 ml 11/13/17 01:48 Saline Flush FLUSH ASDIRECTED PRN Keep Vein Open Departure - Departure Time of Disposition: 03:34 Disposition: Refer to Observation Condition: Good (Altered mental status) Clinical Impression: Hypoglycemia, Polypharmacy Altered mental status Qualifiers: Altered mental status type: unspecified Qualified Code(s): R41.82 - Altered mental status, unspecified - Discharge Information Referrals: PCP,None [Primary Care Provider] - Forms: ED Department Discharge - My Orders Last 24 Hours: My Active Orders 11/13/17 01:45 Cardiac Monitoring [RC] . DIRECTED EKG Documentation Completion [RC] STAT Oxygen Therapy, ED [RC] ASDIRECTED Pulse Oximetry [RC] ASDIRECTED Saline Lock Insert [OM.PC] Stat 11/13/17 01:47 Blood Glucose Check, Bedside [RC] ONETIME Chest 1V Frontal [CR] Stat 11/13/17 01:48 Sodium Chloride 0.9% [Saline Flush] 10 ml FLUSH ASDIRECTED PRN Sodium Chloride 0.9% [Saline Flush] 2.5 ml FLUSH ASDIRECTED PRN 11/13/17 01:58 Head wo Cont [CT] Stat 11/13/17 02:00 Sodium Chloride 0.9% [Normal Saline] 1,000 ml IV ASDIRECTED 11/13/17 03:25 Patient Status [ADT] Stat - Assessment/Plan Last 24 Hours: My Active Orders 11/13/17 01:45 Cardiac Monitoring [RC] . DIRECTED EKG Documentation Completion [RC] STAT Oxygen Therapy, ED [RC] ASDIRECTED Pulse Oximetry [RC] ASDIRECTED Saline Lock Insert [OM.PC] Stat 11/13/17 01:47 Blood Glucose Check, Bedside [RC] ONETIME Chest 1V Frontal [CR] Stat 11/13/17 01:48 Sodium Chloride 0.9% [Saline Flush] 10 ml FLUSH ASDIRECTED PRN Sodium Chloride 0.9% [Saline Flush] 2.5 ml FLUSH ASDIRECTED PRN 11/13/17 01:58 Head wo Cont [CT] Stat 11/13/17 02:00 Sodium Chloride 0.9% [Normal Saline] 1,000 ml IV ASDIRECTED 11/13/17 03:25 Patient Status [ADT] Stat
[2017-11-13] MEDS: Sodium Chloride 0.9% 1,000 ML IV SCH ×2 (01:58→04:17)
[2017-11-13 02:36] LABS: CHLORIDE,CL 104 mmol/L (98-107); SODIUM,NA 141 mmol/L (136-145)
[2017-11-13] MEDS ORDERED: Insulin Aspart 100 Units/ML 3 ML Pen SUBCUT SCH (07:30)
--- NOTE | 2017-11-13 09:17 | PCM.HP ---
H&P History of Present Illness - General Date of Service: 11/13/17 Admit Problem/Dx: Admission Diagnosis/Problem Admission Diagnosis/Problem Hypoglycemia Source of Information: Patient History Limitations: Reports: Altered Mental Status - History of Present Illness Initial Comments - Free Text/Narative: Please note this is a admission history and physical as well as a dictation summary Admission H&P: This is a 47-year-old female patient whom I actually follow as a primary care physician any outpatient setting. Patient states that she realized she had a high elevation in her blood glucose levels of greater than 400 last night around 9 PM at that point in time she took both her short acting insulin she believes about 15-20 units she cannot recall along with her long acting insulin of 46 units. Patient also stated that she got confused as far as her restless leg syndrome medication is concerned and took 3 tablets instead of 2. Patient denies taking any of the short acting and long-acting benzodiazepines that she has also been prescribed, patient states that she also took a Flexeril last night. Patient has been advised when in clinic last week to reduce the number of medications that she takes, and that the goal was to decrease her poly- pharmacy that she had been on for quite some time as she has had multiple episodes of confusion when taking her medications. Blood glucose in the emergency department was 73, patient was noted to be confused and not answering a lot of the questions that the ED physician had been asking her. Discharge Summary Date of admission: 11/13/2017 Date of discharge: 11/13/2017 Admitting diagnosis: #1. Altered mental status secondary to likely polypharmacy #2. Possible hypoglycemia episode secondary to large amount of insulin unit intake #3. Leukocytosis likely secondary to the recent cellulitic infection managed outpatient #4. #5. Discharge diagnoses: #1. Altered mental status secondary to polypharmacy now resolved #2. Significant past medical history of polypharmacy, diabetes2, musculoskeletal pain, anxiety, depression, recent cellulitic infection resulting in mild leukocytosis #3. #4. #5. Consultations: None Procedures: None Hospitalization course: Patient was admitted secondary to altered mental status due to appear to be a likely polypharmacy. Patient's urine tox screen was assessed and it was positive for medications that the patient has been prescribed. Patient 1 assessed in the a.m. said that she confused her nighttime dose of her restless leg syndrome medication and took too much, she also states that she had a high blood sugar level at night and ended up taking both her short acting and long-acting insulin at once and stated that her thought that she was hypoglycemic. Patient no longer altered, doing well, denies any shortness of breath, fevers, chills, nausea, vomiting, diarrhea, constipation or any other dysfunction at the moment. Patient has been counseled on the need to reduce her polypharmacy, and she'll follow-up with me in outpatient this upcoming week to further assess her polypharmacy, and also re- emphasize the importance of taking her medication at the appropriate time. Disposition on discharge: Home Condition on discharge: Stable Discharge medications: Continuation of home medication aside from Flexeril which was discontinued Follow-up instructions: Follow-up with primary care physician Dr. Ayala - Related Data Allergies/Adverse Reactions: Allergies Allergy/AdvReac Type Severity Reaction Status Date / Time coconut Allergy Difficulty Verified 08/19/17 09:29 Breathing hydroxyzine HCl Allergy Hives Verified 08/19/17 09:29 [From Vistaril] hydroxyzine pamoate Allergy Hives Verified 08/19/17 09:29 [From Vistaril] ketorolac tromethamine Allergy Hives Verified 08/19/17 09:29 [From Toradol] Home Medications: Home Meds Ondansetron [Zofran ODT] 8 mg PO TID PRN 08/06/15 [History] Lisinopril 10 mg PO DAILY 10/16/16 [History] rOPINIRole [Requip] 2 mg PO BEDTIME 10/16/16 [History] Insulin Aspart [Novolog Flexpen] 1 unit SUBCNJ ASDIRECTED 06/04/17 [History] Baclofen 10 mg PO TID PRN 06/22/17 [History] ClonazePAM [KlonoPIN] 1 tab PO DAILY PRN 06/22/17 [History] PARoxetine [Paxil] 20 mg PO DAILY 06/22/17 [History] busPIRone [Buspar] 5 mg PO DAILY 06/22/17 [History] Gabapentin [Neurontin] 300 mg PO TID 06/26/17 [History] Rizatriptan Benzoate [Rizatriptan] 10 mg PO TID PRN 06/26/17 [History] traMADol Hcl/Acetaminophen [Ultracet Tablet] 37.5 - 325 mg PO Q4H PRN 06/26/17 [ History] Insulin Glarg,Human.Rec.Analog [LantUS Solostar] 40 units SUBCUT BEDTIME [History] Omeprazole 40 mg PO DAILY 11/13/17 [History] Past Medical History - Past Health History Medical/Surgical History: Denies Medical/Surgical History HEENT History: Reports: None Cardiovascular History: Reports: None Respiratory History: Reports: TB Other Respiratory History: reports treatment for positive tuberculin test in 2002 - no lung lesions Gastrointestinal History: Reports: None Genitourinary History: Reports: None 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: Musculoskeletal History: Reports: None Other Musculoskeletal History: chronic shoulder pain Neurological History: Reports: Migraines Psychiatric History: Reports: Anxiety Endocrine/Metabolic History: Reports: Diabetes, Type II Hematologic History: Reports: None Immunologic History: Reports: None Oncologic (Cancer) History: Reports: None Dermatologic History: Reports: None - Infectious Disease History Infectious Disease History: Reports: TB, Other (See Below) Other Infectious Disease History: 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 - Past Surgical History HEENT Surgical History: Reports: None Cardiovascular Surgical History: Reports: None Respiratory Surgical History: Reports: None GI Surgical History: Reports: None Female Surgical History: Reports: Hysterectomy, Tubal Ligation Neurological Surgical History: Reports: None Musculoskeletal Surgical History: Reports: Arthroscopic Knee, Shoulder Surgery, Other (See Below) Other Musculoskeletal Surgeries/Procedures:: L4 - L5 fusion one month ago Oncologic Surgical History: Reports: None Social & Family History - Family History Family Medical History: Noncontributory Neurological: Reports: Migraines Psychiatric: Reports: Anxiety Endocrine/Metabolic: Reports: Diabetes, type II - Tobacco Use Smoking Status *Q: Unknown Ever Smoked Years of Tobacco use: 10 Packs/Tins Daily: 1 Used Tobacco, but Quit: No Month Tobacco Last Used: smokes 1/2 pk of cigarettes per day Tobacco Use Comment: Client was lethargic upon arrival, unable to accurately obtain information. Second Hand Smoke Exposure: Yes - Caffeine Use Caffeine Use: Reports: Soda Caffeine Use Comment: Client was lethargic upon arrival, unable to accurately obtain information. - Alcohol Use Days Per Week of Alcohol Use: 0 - Recreational Drug Use Recreational Drug Use: No H&P Review of Systems - Review of Systems: Review Of Systems: ROS reveals no pertinent complaints other than HPI. Exam - Exam Exam: See Below - Vital Signs Vital Signs: Last Vital Signs Temp 36.7 C 11/13/17 07:50 Pulse 84 11/13/17 07:50 Resp 18 11/13/17 07:50 BP 150/65 H 11/13/17 07:50 Pulse Ox 95 11/13/17 07:50 Weight: 75.5 kg - Exam General: Other (Altered mental status) Lungs: Clear to Auscultation, Normal Respiratory Effort Cardiovascular: Regular Rate, Regular Rhythm GI/Abdominal Exam: Normal Bowel Sounds Extremities: Normal Range of Motion - Patient Data Result Diagrams: 11/13/17 01:19 11/13/17 01:19 *Q Meaningful Use (ADM) - VTE *Q VTE Criteria *Q: - Stroke *Q Stroke Criteria *Q: - AMI *Q AMI Criteria *Q: Problem List Initiated/Reviewed/Updated: Yes Orders Last 24hrs: Active Orders 24 hr Category Date Time Status Blood Glucose Check, Bedside [RC] TIDAC Care 11/13/17 06:30 Active Telemetry Monitoring [Cardiac Monitoring] [RC] Q8H Care 11/13/17 03:44 Active [place] [employer] Diet [DIET] Diet 11/13/17 Breakfast Active Insulin Aspart [NovoLOG] Med 11/13/17 07:30 Active See Protocol SUBCUT TIDAC Medication Orders Sodium Chloride (Normal Saline) 1,000 mls @ 100 mls/hr IV ASDIRECTED [facility] Last Admin: 11/13/17 04:17 Dose: 100 mls/hr Infusion: 11/13/17 04:17 Dose: 100 mls/hr Admin: 11/13/17 01:58 Dose: 100 mls/hr Insulin Aspart (Novolog) 0 unit SUBCUT TIDAC CARRIE PRN Reason: Protocol Last Admin: 11/13/17 06:31 Dose: Not Given Sodium Chloride (Saline Flush) 10 ml FLUSH ASDIRECTED PRN PRN Reason: Keep Vein Open Sodium Chloride (Saline Flush) 2.5 ml FLUSH ASDIRECTED PRN PRN Reason: Keep Vein Open Assessment/Plan Comment:: 47-year-old female presenting with altered mental status likely secondary to polypharmacy, confusion of medication, and possibly increased insulin dose secondary to hyperglycemia seen by the patient on her glucose monitor while at home. Patient was admitted for observation to ensure the a altered mental status is resolved. She'll get a CBC, CMP in the a.m., she'll get a urine tox screen to ensure no illicit drug use, shall monitor the blood glucose levels to ensure no hypoglycemia.
[2017-11-13 12:11] VITALS: BP 124/74
--- NOTE | 2017-11-15 10:55 | CT ---
EXAM DATE: 11/13/17 PATIENT'S AGE: 47 Patient: JOE LERNER Facility: [place], [place] Site . Site : 1970 Study: CT Head [id number]/10/2018 2:43:48 AM Ordering Physician: Tg Knight Final Report: INDICATION: AMS TECHNIQUE: CT Head without contrast. COMPARISON: None. FINDINGS: There is no sign of intracranial hemorrhage or mass effect. The rowland-white differentiation is preserved. No abnormal intra-axial or extra-axial fluid collection. No acute disease of the visualized paranasal sinuses and mastoid air cells. No fracture evident. No scalp hematoma/laceration. IMPRESSION: No acute intracranial process. Dictated by: Lan Carlin MD @ 11/13/2017 02:46:39 (Electronic Signature) Report Signed by Proxy. [facility]
--- NOTE | 2017-11-15 10:56 | CR ---
EXAM DATE: 11/13/17 PATIENT'S AGE: 47 Patient: JOE LERNER Facility: [place], [place] Site . Site : 1970 Study: XRay Chest [id number]/10/2018 2:45:05 AM Ordering Physician: Doctor Montgomery Final Report: INDICATION: AMS TECHNIQUE: Chest 1 view COMPARISON: July 08, 2017 FINDINGS: Cardiovascular and mediastinum: Heart size and vasculature are normal in caliber and appearance. Mediastinum is within normal limits. Lungs and pleural space: No focal consolidation. No sign of pleural effusion. No pneumothorax. Bones and soft tissues: No significant findings. IMPRESSION: No acute cardiopulmonary disease. Dictated by Lan Carlin MD @ 11/13/2017 2:47:21 AM Dictated by: Lan Carlin MD @ 11/13/2017 02:48:10 (Electronic Signature) Report Signed by Proxy. [email or web address]
== END 2017-11-13 12:30 | disposition home or self-care (01) ==
LOC: MW.ED 01:29 → MW.MS 03:25
PROVIDERS: ADMIT Family Medicine; ATTEND Family Medicine
DX: R41.82 Altered mental status, unspecified (principal); T38.3X5A Adverse effect of insulin and oral hypoglycemic [antidiabetic] drugs, initial encounter; E11.9 Type 2 diabetes mellitus without complications; F41.9 Anxiety disorder, unspecified; F32.9 Major depressive disorder, single episode, unspecified; G25.81 Restless legs syndrome; F17.210 Nicotine dependence, cigarettes, uncomplicated; M19.019 Primary osteoarthritis, unspecified shoulder; J30.9 Allergic rhinitis, unspecified; F34.1 Dysthymic disorder; E78.00 Pure hypercholesterolemia, unspecified; G47.00 Insomnia, unspecified; K21.9 Gastro-esophageal reflux disease without esophagitis; Z91.018 Allergy to other foods; Z88.8 Allergy status to other drugs, medicaments and biological substances; Z79.899 Other long term (current) drug therapy; Z79.4 Long term (current) use of insulin; Z79.891 Long term (current) use of opiate analgesic
CPT/HCPCS: 70450; 71045; 80053; 80305; 81001; 82009; 82962; 84443; 85025; 93005; 96360; 96361; 99285; G0480; J7040; G0378

== ENCOUNTER 2018-10-27 14:00 | Emergency (ER) | payer OTHER, BC ==
--- NOTE | 2018-10-27 14:06 | EDM.PDOC ---
ED HPI GENERAL MEDICAL PROBLEM - General Chief Complaint: Chest Pain Stated Complaint: HEART Time Seen by Provider: 10/27/18 14:06 Source of Information: Reports: Patient - History of Present Illness INITIAL COMMENTS - FREE TEXT/NARRATIVE: HISTORY AND PHYSICAL: History of present illness: [Patient presents with epigastric/chest pain which was episodic last night with no radiation arm neck or jaw no shortness of breath diaphoresis or no palpitation She is asymptomatic on arrival however her primary care has recommended that she come in for evaluation ] Review of systems: As per history of present illness and below otherwise all systems reviewed and negative. Past medical history: As per history of present illness and as reviewed below otherwise noncontributory. Surgical history: As per history of present illness and as reviewed below otherwise noncontributory. Social history: No reported history of drug or alcohol abuse. Family history: As per history of present illness and as reviewed below otherwise noncontributory. Physical exam: HEENT: Atraumatic, normocephalic, pupils reactive, negative for conjunctival pallor or scleral icterus, mucous membranes moist, throat clear, neck supple, nontender, trachea midline. Lungs: Clear to auscultation, breath sounds equal bilaterally, chest nontender. Heart: S1S2, regular, negative for clicks, rubs, or JVD. Abdomen: Soft, nondistended, nontender. Negative for masses or hepatosplenomegaly. Negative for costovertebral tenderness. Pelvis: Stable nontender. Genitourinary: Deferred. Rectal: Deferred. Extremities: Atraumatic, negative for cords or calf pain. Neurovascular unremarkable. Neuro: Awake, alert, oriented. Cranial nerves II through XII unremarkable. Cerebellum unremarkable. Motor and sensory unremarkable throughout. Exam nonfocal. Diagnostics: [CBC CMP troponin lipase UA EKG Chest 1 view Right upper quadrant ultrasound ] Therapeutics: insulin 5 units subcutaneous ] Impression: Hyperglycemia Pain resolved Patient does have history of anxiety which may have contributed Medical screening exam History Baseline definitive disposition and diagnosis as appropriate pending reevaluation and review of above. Left Chest Pain Score (Numeric/FACES): 2 - Related Data Allergies Allergy/AdvReac Type Severity Reaction Status Date / Time coconut Allergy Difficulty Verified 10/27/18 14:08 Breathing hydroxyzine HCl Allergy Hives Verified 10/27/18 14:08 [From Vistaril] hydroxyzine pamoate Allergy Hives Verified 10/27/18 14:08 [From Vistaril] ketorolac tromethamine Allergy Hives Verified 10/27/18 14:08 [From Toradol] Home Meds: Home Meds Insulin Aspart [Novolog Flexpen] 2 - 10 unit SQ TIDAC 06/04/17 [History] Insulin Glarg,Human.Rec.Analog [LantUS Solostar] 52 units SUBCUT BEDTIME [History] Baclofen 10 mg PO TID 10/27/18 [History] Cyclobenzaprine [Flexeril] 10 mg PO DAILY 10/27/18 [History] traMADol HCl [Tramadol HCl] 50 mg PO Q6H 10/27/18 [History] traZODone HCl [Trazodone HCl] 100 mg PO BEDTIME 10/27/18 [History] Past Medical History - Past Health History Medical/Surgical History: Denies Medical/Surgical History HEENT History: Reports: None Other HEENT History: wears glasses Cardiovascular History: Reports: None Respiratory History: Reports: TB Other Respiratory History: reports treatment for positive tuberculin test in 2002 - no lung lesions Gastrointestinal History: Reports: None Genitourinary History: Reports: 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: Musculoskeletal History: Reports: None Other Musculoskeletal History: chronic shoulder pain Neurological History: Reports: Migraines Psychiatric History: Reports: Anxiety Endocrine/Metabolic History: Reports: Diabetes, Type II Hematologic History: Reports: None Immunologic History: Reports: None Oncologic (Cancer) History: Reports: None Dermatologic History: Reports: None - Infectious Disease History Infectious Disease History: Reports: TB, Other (See Below) Other Infectious Disease History: 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 - Past Surgical History HEENT Surgical History: Reports: None Cardiovascular Surgical History: Reports: None Respiratory Surgical History: Reports: None GI Surgical History: Reports: None Female Surgical History: Reports: Hysterectomy, Tubal Ligation Neurological Surgical History: Reports: None Musculoskeletal Surgical History: Reports: Arthroscopic Knee, Shoulder Surgery, Other (See Below) Other Musculoskeletal Surgeries/Procedures:: L4 - L5 fusion one month ago Oncologic Surgical History: Reports: None Social & Family History - Family History Family Medical History: Noncontributory Neurological: Reports: Migraines Psychiatric: Reports: Anxiety Endocrine/Metabolic: Reports: Diabetes, type II - Caffeine Use Caffeine Use: Reports: Soda Caffeine Use Comment: Client was lethargic upon arrival, unable to accurately obtain information. ED ROS GENERAL - Review of Systems Review Of Systems: See Below ED EXAM, GENERAL - Physical Exam Exam: See Below Course - Vital Signs Last Recorded V/S: Last Vital Signs Temp 97.2 F 10/27/18 14:04 Pulse 96 10/27/18 14:04 Resp 18 10/27/18 14:04 BP 147/92 H 10/27/18 14:04 Pulse Ox 94 L 10/27/18 14:04 - Orders/Labs/Meds Orders: Active Orders 24 hr Category Date Time Status EKG Documentation Completion [RC] STAT Care 10/27/18 14:06 Active UA RFX ALEXANDRA AND CULT IF INDIC [URIN] Stat Lab 10/27/18 14:05 Ordered Labs: Laboratory Tests 10/27/18 10/27/18 Range/Units 14:27 14:27 WBC 10.61 (4.0-11.0) K/uL RBC 4.73 (4.30-5.90) M/uL Hgb 14.6 (12.0-16.0) g/dL Hct 42.7 (36.0-46.0) % MCV 90.3 (80.0-98.0) fL MCH 30.9 (27.0-32.0) pg MCHC 34.2 (31.0-37.0) g/dL RDW Std Deviation 41.7 (28.0-62.0) fl RDW Coeff of Haley 13 (11.0-15.0) % Plt Count 326 (150-400) K/uL MPV 10.20 (7.40-12.00) fL Neut % (Auto) 64.0 (48.0-80.0) % Lymph % (Auto) 29.0 (16.0-40.0) % [place] % (Auto) 6.0 (0.0-15.0) % Eos % (Auto) 0.8 (0.0-7.0) % Baso % (Auto) 0.2 (0.0-1.5) % Neut # (Auto) 6.8 H (1.4-5.7) K/uL Lymph # (Auto) 3.1 H (0.6-2.4) K/uL [place] # (Auto) 0.6 (0.0-0.8) K/uL Eos # (Auto) 0.1 (0.0-0.7) K/uL Baso # (Auto) 0.0 (0.0-0.1) K/uL Nucleated RBC % 0.0 /100WBC Nucleated RBCs # 0 K/uL Sodium 133 L (136-145) mmol/L Potassium 4.0 (3.5-5.1) mmol/L Chloride 98 (98-107) mmol/L Carbon Dioxide 25.8 (21.0-32.0) mmol/L BUN 12 (7.0-18.0) mg/dL Creatinine 0.8 (0.6-1.0) mg/dL Est Cr Clr Drug Dosing TNP Estimated GFR (MDRD) > 60.0 ml/min Glucose 361 H (74-106) mg/dL Calcium 8.6 (8.5-10.1) mg/dL Total Bilirubin 0.4 (0.2-1.0) mg/dL AST 15 (15-37) IU/L ALT 23 (14-63) IU/L Alkaline Phosphatase 48 (46-116) U/L Troponin I < 0.050 (0.000-0.056) ng/mL Total Protein 7.0 (6.4-8.2) g/dL Albumin 3.3 L (3.4-5.0) g/dL Globulin 3.7 (2.6-4.0) g/dL Albumin/Globulin Ratio 0.9 (0.9-1.6) Lipase 80 (73-393) U/L Meds: Medications Discontinued Medications Generic Name Dose Route Start Last Admin Trade Name Freq PRN Reason Stop Dose Admin Al Hydroxide/Mg Hydroxide 15 0 ml 10/27/18 15:10 10/27/18 15:36 ml/ Metoclopramide HCl 5 mg/ PO 10/27/18 15:11 1 each Lidocaine HCl 5 ml ONETIME ONE Administration Insulin Human Isoph/Insulin Regular 5 unit 10/27/18 15:41 10/27/18 16:04 Novolin 70-30 SUBCUT 10/27/18 15:42 5 unit ONETIME ONE Administration Departure - Departure Time of Disposition: 16:16 Disposition: Home, Self-Care 01 Condition: Good Clinical Impression: Hyperglycemia, Encounter for medical screening examination - Discharge Information Referrals: PCP,Unknown [Primary Care Provider] - Forms: ED Department Discharge Additional Instructions: The following information is given to patients seen in the emergency department who are being discharged to home. This information is to outline your options for follow-up care. We provide all patients seen in our emergency department with a follow-up referral. The need for follow-up, as well as the timing and circumstances, are variable depending upon the specifics of your emergency department visit. If you don't have a primary care physician on staff, we will provide you with a referral. We always advise you to contact your personal physician following an emergency department visit to inform them of the circumstance of the visit and for follow-up with them and/or the need for any referrals to a consulting specialist. The emergency department will also refer you to a specialist when appropriate. This referral assures that you have the opportunity for follow-up care with a specialist. All of these measure are taken in an effort to provide you with optimal care, which includes your follow-up. Under all circumstances we always encourage you to contact your private physician who remains a resource for coordinating your care. When calling for follow-up care, please make the office aware that this follow-up is from your recent emergency room visit. If for any reason you are refused follow-up, please contact the [facility] emergency department at and asked to speak to the emergency department charge nurse. - My Orders Last 24 Hours: My Active Orders 10/27/18 14:05 UA RFX ALEXANDRA AND CULT IF INDIC [URIN] Stat 10/27/18 14:06 EKG Documentation Completion [RC] STAT - Assessment/Plan Last 24 Hours: My Active Orders 10/27/18 14:05 UA RFX ALEXANDRA AND CULT IF INDIC [URIN] Stat 10/27/18 14:06 EKG Documentation Completion [RC] STAT
--- NOTE | 2018-10-27 14:59 | US ---
EXAMINATION: Right upper quadrant ultrasound HISTORY: Pain COMPARISON: None TECHNIQUE: Grayscale and color Doppler imaging obtained of the right upper quadrant. FINDINGS: The liver appears minimally increased in generalized echotexture without a focal hepatic mass. Gallbladder wall thickness is normal. No pericholecystic fluid or shadowing gallstones. Common bile duct measures 4 mm. Right kidney measures 10.2 cm [id number] without evidence of hydronephrosis. The sonographic Combs sign is negative. IMPRESSION: 1. Minimal/mild fatty infiltration of liver, otherwise unremarkable right upper quadrant.
[2018-10-27] MEDS ORDERED: Alum Hydrox/Mag Hydrox/Simeth 15 ML, Metoclopramide 5 MG, Lidocaine 2% 5 ML PO ONE ×3 (15:10)
--- NOTE | 2018-10-27 15:26 | CR ---
EXAMINATION: Portable chest radiograph. HISTORY: Pain. FINDINGS: The trachea is midline. The cardiomediastinal silhouette is within normal limits. No pulmonary infiltrates, effusions or pneumothorax. Osseous structures appear unremarkable. IMPRESSION: No acute cardiopulmonary process.
[2018-10-27 15:30] LABS: CHLORIDE,CL 98 mmol/L (98-107); SODIUM,NA 133 mmol/L (136-145)
[2018-10-27] MEDS ORDERED: Insulin NPH/Insulin Regular,Human 70-30 100 Units/ML 10 ML Vial SUBCUT ONE (15:41)
[2018-10-27 17:06] VITALS: BP 129/69
== END 2018-10-27 16:55 | disposition home or self-care (01) ==
LOC: MW.ED 14:00
DX: E11.65 Type 2 diabetes mellitus with hyperglycemia (principal); Z79.4 Long term (current) use of insulin; Z91.018 Allergy to other foods; Z88.6 Allergy status to analgesic agent; Z79.899 Other long term (current) drug therapy
CPT/HCPCS: 36415; 71045; 76705; 80053; 83690; 84484; 85025; 93005; 99285; A9270; J1815; 99283

== ENCOUNTER 2020-06-23 21:18 | Inpatient (IN) | payer OTHER ==
[2020-06-23] MEDS ORDERED: Ondansetron 4 MG/2 ML SDV IVPUSH ONE (21:55)
[2020-06-23] MEDS ORDERED: Morphine 4 MG/ML Syringe IVPUSH ONE (21:55)
[2020-06-23] MEDS ORDERED: Lactated Ringers 1,000 ML IV ONE ×2 (21:57)
[2020-06-23 22:21] LABS: BLOOD UREA NITROGEN,BUN 9 mg/dL (7.0-18.0); CARBON DIOXIDE,CO2 26.7 mmol/L (21.0-32.0); CHLORIDE,CL 96 mmol/L (98-107); GLUCOSE RANDOM 299 mg/dL (74-106); POTASSIUM,K 3.5 mmol/L (3.5-5.1); SODIUM,NA 133 mmol/L (136-145)
[2020-06-23] MEDS ORDERED: cefTRIAXone 2 GM in Premix Bag 1 BAG IV ONE (22:33)
[2020-06-23] MEDS ORDERED: metroNIDAZOLE/Normal Saline 500 MG in Premix Bag 1 BAG IV ONE (22:34)
[2020-06-23] MEDS ORDERED: Iopamidol 755 MG/ML 500 ML Multipack Bottle IVPUSH STA (23:00)
[2020-06-23] MEDS ORDERED: HYDROmorphone 1 MG/ML Syringe IVPUSH ONE (23:07)
--- NOTE | 2020-06-23 23:23 | CT ---
INDICATION: Right lower quadrant abdominal pain. TECHNIQUE: Multiple axial images were obtained from the diaphragm to the symphysis pubis after administration of 80 mL of Isovue-370 intravenously. Sagittal and coronal re-formatted images were obtained. COMPARISON: None. FINDINGS: The visualized portion of the lung bases are clear. There is no focal liver lesion. The spleen, pancreas, gallbladder and adrenal glands are unremarkable. There is no mass or hydronephrosis in the kidneys. There is no evidence of a bowel obstruction. There is enlarged appendix with surrounding inflammation in the right lower quadrant consistent with an acute appendicitis. The appendix measures up to 1.2 cm in diameter. There is a small amount of fluid in the right pericolic gutter and in the pelvis. There is an air-fluid level in the ascending colon. There is no free intraperitoneal air. There is no definite abscess seen. The abdominal aorta he is normal in caliber. There are atherosclerotic calcifications. There is no adenopathy. There is fusion at L4-5. There are degenerative changes in the spine. IMPRESSION: Acute appendicitis with enlarged appendix in right lower quadrant and surrounding inflammation. Fluid in the right pericolic gutter. No abscess or free intraperitoneal air seen. Please note that all CT scans at this facility use dose modulation, iterative reconstruction, and/or weight-based dosing when appropriate to reduce radiation dose to as low as reasonably achievable. Dictated by Jacob Zhang MD @ Jun 23 2020 11:15PM Signed by Dr. Jacob Zhang @ Jun 23 2020 11:21PM
[2020-06-24] MEDS ORDERED: Acetaminophen 325 MG Tab PO PRN (00:03)
[2020-06-24] MEDS ORDERED: diphenhydrAMINE 50 MG/ML SDV IVPUSH PRN (00:05)
[2020-06-24] MEDS ORDERED: 50% Dextrose in Water 50 ML Syringe IV PRN (00:09)
[2020-06-24] MEDS ORDERED: Glucagon,Human Recombinant 1 MG Vial IM PRN (00:09)
[2020-06-24] MEDS ORDERED: HYDROmorphone 1 MG/ML Syringe IVPUSH ONE (00:44)
[2020-06-24] MEDS: Ondansetron 4 MG/2 ML SDV IVPUSH PRN ×4 (00:56→21:50)
[2020-06-24 00:58] LABS: HEMOGLOBIN A1C 11.2 % (4.5-6.2)
[2020-06-24] MEDS: Lactated Ringers 1,000 ML IV SCH ×2 (01:24→08:32)
[2020-06-24] MEDS: HYDROmorphone 1 MG/ML Syringe IVPUSH PRN ×8 (02:56→23:41)
--- NOTE | 2020-06-24 03:03 | EDM.PDOC ---
ED HPI GENERAL MEDICAL PROBLEM - General Chief Complaint: Abdominal Pain Stated Complaint: SICK Time Seen by Provider: 06/23/20 21:48 - History of Present Illness INITIAL COMMENTS - FREE TEXT/NARRATIVE: CHIEF COMPLAINT(S): Abdominal pain HISTORY OF PRESENT ILLNESS: This is a 50-year-old woman with a past medical history of who comes to the emergency department with a chief complaint of abdominal pain. The patient states that for the past 3 days she has been experiencing right lower quadrant pain which has worsened. She describes her pain as sharp and 10 out of 10 without any radiation. She states that initially was intermittent but now it is constant. She states that she has had associated nausea and vomiting without any bilious emesis or hematemesis. She states that she has not been able to tolerate p.o. or medication. She denies any vaginal bleeding or discharge. She denies any history of ovarian cyst. She denies any fevers or chills. She states that she is worried about appendicitis REVIEW OF SYSTEMS: Constitutional: Denies fever, chills. Eyes: Denies eye pain Ears, Nose, Mouth, & Throat: Denies earache Cardiovascular: Denies chest pain Respiratory: Denies shortness of breath Gastrointestinal: Positive for right lower quadrant abdominal pain, nausea, vomiting. Denies diarrhea, hematochezia, hematemesis, bilious emesis Genitourinary: Denies hematuria, vaginal bleeding, vaginal discharge Skin:Denies a rash Neurological: Denies blurred vision Psychiatric: Denies depression PAST MEDICAL HISTORY: As per history of present illness and as reviewed below otherwise noncontributory. SURGICAL HISTORY: As per history of present illness and as reviewed below otherwise noncontributory. SOCIAL HISTORY: As per history of present illness and as reviewed below otherwise noncontributory. FAMILY HISTORY: As per history of present illness and as reviewed below otherwise noncontributory. EXAMINATION OF ORGAN SYSTEMS/BODY AREAS: Constitutional: Blood pressure was 141/81, heart rate 110, respiratory rate 18 with an oxygen saturation 95% on room air. Temperature 36.0 oral General: Middle-aged woman who does appear to be in pain. Psychiatric: Appropriate mood and affect. Eyes: No scleral icterus or conjunctival erythema ENMT: Dry mucous membranes. No pharyngeal erythema Cardiovascular: Tachycardic but regular no gallops, murmurs, or rubs. Bilateral upper extremity pulses symmetric and intact. No peripheral edema. No JVD. Respiratory: Lungs clear to auscultation bilaterally. No wheezes, rales, or rhonchi. Gastrointestinal: Soft, tenderness to palpation in the right lower quadrant with positive McBurney sign. Nondistended. Guarding. Normoactive bowel sounds Genitourinary: No suprapubic tenderness Musculoskeletal: Normal range of motion. Skin: No lesions or abrasions. Neurological: Alert, GCS 15 MEDICAL DECISION MAKING AND COURSE IN THE ED WITH INTERPRETATION/REVIEW OF DIAGNOSTIC STUDIES: This is a 50-year-old woman with a past medical history of diabetes mellitus who comes to the emergency department with 3 days of worsening right lower quadrant abdominal pain with a positive McBurney sign who is tachycardic. At this time I do suspect the possibility of acute appendicitis. We will obtain a CT abdomen pelvis with IV contrast. We will provide the patient with the equivalent of 30 cc/kg of lactated Ringer's bolus and provide the patient with morphine IV 4 mg for pain control. Will obtain CBC, CMP, [id number] glucose and place the patient on cardiac monitoring and pulse oximetry. We will obtain a urinalysis, lactic acid. We will also obtain pr esurgical labs. Laboratory: CBC reveals a leukocytosis of 21.1 with neutrophilic predominance. Coags are within normal limits. Lactic acid is 1.6. CMP reveals hyponatremia at 133, hypochloremia at 96 without metabolic acidosis. There is no anion gap. There is hyperglycemia. Urinaylysis was a clean catch and was negative for leukocyte esterase, negative for nitrites, and negative for blood. Interpretation: negative. After labs I did order blood cultures and started the patient on ceftriaxone and Flagyl for presumed intra-abdominal infection as she is meeting SIRS criteria and there is concern for sepsis. We will obtain a lactic acid in 2 hours after initial. At this time I did have to redose the patient with Dilaudid 1 mg IV for pain control. The radiological images were viewed by myself along with reading the report from the radiologist. CT abdomen pelvis with contrast reveals acute appendicitis with enlarged appendix in the right lower quadrant and surrounding inflammation. There is fluid in the right pericolic gutter but no abscess or free intraperitoneal air is seen. After imaging I did discuss results with the patient. I contacted general surgery Dr. Avila who accepted the patient for admission. She did request a hemoglobin A1c. The patient will be taken to surgery in the morning. Given screening for surgery I did obtain a coronavirus swab which was found to be negative. Repeat lactic acid is 1.3. DISPOSITION: Patient was [facility] in stable condition CONDITION: Serious PROCEDURES: None FINAL IMPRESSION(S)/DIAGNOSES: 1. Acute appendicitis 2. Acute sepsis secondary to #1 Torey Thomas M.D. rlq Pain Score (Numeric/FACES): 8 - Related Data Allergies Allergy/AdvReac Type Severity Reaction Status Date / Time coconut Allergy Difficulty Verified 06/24/20 01:19 Breathing hydroxyzine HCl Allergy Hives Verified 06/24/20 01:19 [From Vistaril] hydroxyzine pamoate Allergy Hives Verified 06/24/20 01:19 [From Vistaril] ketorolac tromethamine Allergy Hives Verified 06/24/20 01:19 [From Toradol] Home Meds: Home Meds Insulin Aspart [Novolog Flexpen] 20 unit SQ TIDAC 06/04/17 [History] Insulin Glarg,Human.Rec.Analog [LantUS Solostar] 52 units SUBCUT BEDTIME 11/13/17 [History] traMADol HCl [Tramadol HCl] 50 mg PO Q6H PRN 10/27/18 [History] traZODone HCl [Trazodone HCl] 100 mg PO BEDTIME 10/27/18 [History] Non-Formulary Medication [NF Drug] 06/23/20 [History] lisinopriL [Lisinopril] 10 mg PO DAILY 06/23/20 [History] Past Medical History - Past Health History Medical/Surgical History: Denies Medical/Surgical History HEENT History: Reports: None Other HEENT History: wears glasses Cardiovascular History: Reports: High Cholesterol, Hypertension Respiratory History: Reports: TB Other Respiratory History: reports treatment for positive tuberculin test in 2002 - no lung lesions Gastrointestinal History: Reports: None Genitourinary History: Reports: None 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 MANAGER 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 Musculoskeletal History: Reports: Other (See Below) Other Musculoskeletal History: chronic shoulder pain Neurological History: Reports: Migraines Psychiatric History: Reports: Anxiety, Panic Attack Endocrine/Metabolic History: Reports: Diabetes, Type II Hematologic History: Reports: None Immunologic History: Reports: None Oncologic (Cancer) History: Reports: None Dermatologic History: Reports: None - Infectious Disease History Infectious Disease History: Reports: TB Other Infectious Disease History: 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 - Past Surgical History HEENT Surgical History: Reports: None Cardiovascular Surgical History: Reports: None Respiratory Surgical History: Reports: None GI Surgical History: Reports: None Female Surgical History: Reports: Hysterectomy Neurological Surgical History: Reports: None Musculoskeletal Surgical History: Reports: Arthroscopic Knee, Shoulder Surgery, Other (See Below) Other Musculoskeletal Surgeries/Procedures:: L4 - L5 fusion 4 years ago Oncologic Surgical History: Reports: None Social & Family History - Family History Family Medical History: Noncontributory Neurological: Reports: Migraines Psychiatric: Reports: Anxiety Endocrine/Metabolic: Reports: Diabetes, type II - Tobacco Use Tobacco Use Status *Q: Current Some Day Tobacco User Years of Tobacco use: 10 Packs/Tins Daily: 0.5 Used Tobacco, but Quit: No Second Hand Smoke Exposure: Yes - Caffeine Use Caffeine Use: Reports: None Caffeine Use Comment: Client was lethargic upon arrival, unable to accurately obtain information. - Recreational Drug Use Recreational Drug Use: No ED ROS GENERAL - Review of Systems Review Of Systems: See Below ED EXAM, GENERAL - Physical Exam Exam: See Below Course - Vital Signs Last Recorded V/S: Last Vital Signs Temp 37.3 C 06/24/20 01:12 Pulse 116 H 06/24/20 01:12 Resp 18 06/24/20 01:12 BP 120/79 06/24/20 01:12 Pulse Ox 96 06/24/20 01:12 - Orders/Labs/Meds Orders: Active Orders 24 hr Category Date Time Status Cardiac Monitoring [RC] . DIRECTED Care 06/23/20 21:55 Active Pulse Oximetry [RC] ASDIRECTED Care 06/23/20 21:55 Active CULTURE BLOOD [BC] Stat Lab 06/23/20 23:00 Received CULTURE BLOOD [BC] Stat Lab 06/23/20 23:10 Received Blood Culture x2 Reflex Set [OM.PC] Stat Oth 06/23/20 22:33 Ordered Medication Orders Acetaminophen (Tylenol) 650 mg PO Q6H PRN PRN Reason: Fever Dextrose/Water (Dextrose 50% In Water) 50 ml IV ASDIRECTED PRN PRN Reason: Hypoglycemia Diphenhydramine HCl (Benadryl) 50 mg IVPUSH Q6H PRN PRN Reason: Itching Glucagon (Glucagen) 1 mg IM ASDIRECTED PRN PRN Reason: Hypoglycemia Hydromorphone HCl (Dilaudid) 0.5 mg IVPUSH Q1H PRN PRN Reason: Pain Last Admin: 06/24/20 02:56 Dose: 0.5 mg Documented by: JUNIOR Piperacillin Sod/Tazobactam (Sod 3.375 gm/ Sodium Chloride) 50 mls @ 100 mls/hr IV Q6H CARRIE Lactated Ringer's (Ringers, Lactated) 1,000 mls @ 150 mls/hr IV ASDIRECTED CARRIE Last Admin: 06/24/20 01:24 Dose: 150 mls/hr Documented by: NIKKI Influenza Virus Vaccine (Afluria Quad (3yr Up)) 60 mcg IM .ONCE ONE Stop: 06/24/20 10:01 Insulin Aspart (Novolog) 0 unit SUBCUT TIDAC [facility]; Protocol Ondansetron HCl (Zofran) 4 mg IVPUSH Q6H PRN PRN Reason: Nausea/Vomiting Last Admin: 06/24/20 00:56 Dose: 4 mg Documented by: SHAHNAZ Labs: Laboratory Tests 06/23/20 06/23/20 06/23/20 Range/Units 19:47 19:47 19:47 WBC 21.10 H (4.0-11.0) K/uL RBC 4.99 (4.30-5.90) M/uL Hgb 15.7 (12.0-16.0) g/dL Hct 46.1 H (36.0-46.0) % MCV 92.4 (80.0-98.0) fL MCH 31.5 (27.0-32.0) pg MCHC 34.1 (31.0-37.0) g/dL RDW Std Deviation 41.7 (28.0-62.0) fl RDW Coeff of Haley 13 (11.0-15.0) % Plt Count 340 (150-400) K/uL MPV 10.30 (7.40-12.00) fL Neut % (Auto) 79.1 (48.0-80.0) % Lymph % (Auto) 11.8 L (16.0-40.0) % Crawford % (Auto) 9.1 (0.0-15.0) % Eos % (Auto) 0.0 (0.0-7.0) % Baso % (Auto) 0.0 (0.0-1.5) % Neut # (Auto) 16.7 H (1.4-5.7) K/uL Lymph # (Auto) 2.5 H (0.6-2.4) K/uL Crawford # (Auto) 1.9 H (0.0-0.8) K/uL Eos # (Auto) 0.0 (0.0-0.7) K/uL Baso # (Auto) 0.0 (0.0-0.1) K/uL Nucleated RBC % 0.0 /100WBC Nucleated RBCs # 0 K/uL INR 1.06 Lactate 1.6 (0.20-2.00) mmol/L Sodium (136-145) mmol/L Potassium (3.5-5.1) mmol/L Chloride (98-107) mmol/L Carbon Dioxide (21.0-32.0) mmol/L BUN (7.0-18.0) mg/dL Creatinine (0.6-1.0) mg/dL Est Cr Clr Drug Dosing mL/min Estimated GFR (MDRD) ml/min Glucose (74-106) mg/dL Calcium (8.5-10.1) mg/dL Total Bilirubin (0.2-1.0) mg/dL AST (15-37) IU/L ALT (14-63) IU/L Alkaline Phosphatase (46-116) U/L Total Protein (6.4-8.2) g/dL Albumin (3.4-5.0) g/dL Globulin (2.6-4.0) g/dL Albumin/Globulin Ratio (0.9-1.6) Urine Color Urine Appearance Urine pH (5.0-8.0) Ur Specific Hannah (1.001-1.035) Urine Protein (NEGATIVE) mg/dL Urine Glucose (UA) (NEGATIVE) mg/dL Urine Ketones (NEGATIVE) mg/dL Urine Occult Blood (NEGATIVE) Urine Nitrite (NEGATIVE) Urine Bilirubin (NEGATIVE) Urine Urobilinogen (<2.0) EU/dL Ur Leukocyte Esterase (NEGATIVE) SARS-CoV-2 RNA (JUAN) (NEGATIVE) Blood Type Antibody Screen 06/23/20 06/23/20 06/23/20 Range/Units 19:47 22:14 23:10 WBC (4.0-11.0) K/uL RBC (4.30-5.90) M/uL Hgb (12.0-16.0) g/dL Hct (36.0-46.0) % MCV (80.0-98.0) fL MCH (27.0-32.0) pg MCHC (31.0-37.0) g/dL RDW Std Deviation (28.0-62.0) fl RDW Coeff of Haley (11.0-15.0) % Plt Count (150-400) K/uL MPV (7.40-12.00) fL Neut % (Auto) (48.0-80.0) % Lymph % (Auto) (16.0-40.0) % Crawford % (Auto) (0.0-15.0) % Eos % (Auto) (0.0-7.0) % Baso % (Auto) (0.0-1.5) % Neut # (Auto) (1.4-5.7) K/uL Lymph # (Auto) (0.6-2.4) K/uL Crawford # (Auto) (0.0-0.8) K/uL Eos # (Auto) (0.0-0.7) K/uL Baso # (Auto) (0.0-0.1) K/uL Nucleated RBC % /100WBC Nucleated RBCs # K/uL INR Lactate (0.20-2.00) mmol/L Sodium 133 L (136-145) mmol/L Potassium 3.5 (3.5-5.1) mmol/L Chloride 96 L (98-107) mmol/L Carbon Dioxide 26.7 (21.0-32.0) mmol/L BUN 9 (7.0-18.0) mg/dL Creatinine 0.9 (0.6-1.0) mg/dL Est Cr Clr Drug Dosing 71.56 mL/min Estimated GFR (MDRD) > 60.0 ml/min Glucose 299 H (74-106) mg/dL Calcium 8.8 (8.5-10.1) mg/dL Total Bilirubin 0.7 (0.2-1.0) mg/dL AST 6 L (15-37) IU/L ALT 21 (14-63) IU/L Alkaline Phosphatase 49 (46-116) U/L Total Protein 7.5 (6.4-8.2) g/dL Albumin 3.7 (3.4-5.0) g/dL Globulin 3.8 (2.6-4.0) g/dL Albumin/Globulin Ratio 1.0 (0.9-1.6) Urine Color YELLOW Urine Appearance CLEAR Urine pH 6.5 (5.0-8.0) Ur Specific Hannah <= 1.005 (1.001-1.035) Urine Protein NEGATIVE (NEGATIVE) mg/dL Urine Glucose (UA) 500 H (NEGATIVE) mg/dL Urine Ketones 40 H (NEGATIVE) mg/dL Urine Occult Blood NEGATIVE (NEGATIVE) Urine Nitrite NEGATIVE (NEGATIVE) Urine Bilirubin NEGATIVE (NEGATIVE) Urine Urobilinogen 0.2 (<2.0) EU/dL Ur Leukocyte Esterase NEGATIVE (NEGATIVE) SARS-CoV-2 RNA (JUAN) (NEGATIVE) Blood Type A POSITIVE Antibody Screen NEGATIVE 06/23/20 Range/Units 23:30 WBC (4.0-11.0) K/uL RBC (4.30-5.90) M/uL Hgb (12.0-16.0) g/dL Hct (36.0-46.0) % MCV (80.0-98.0) fL MCH (27.0-32.0) pg MCHC (31.0-37.0) g/dL RDW Std Deviation (28.0-62.0) fl RDW Coeff of Haley (11.0-15.0) % Plt Count (150-400) K/uL MPV (7.40-12.00) fL Neut % (Auto) (48.0-80.0) % Lymph % (Auto) (16.0-40.0) % Crawford % (Auto) (0.0-15.0) % Eos % (Auto) (0.0-7.0) % Baso % (Auto) (0.0-1.5) % Neut # (Auto) (1.4-5.7) K/uL Lymph # (Auto) (0.6-2.4) K/uL Crawford # (Auto) (0.0-0.8) K/uL Eos # (Auto) (0.0-0.7) K/uL Baso # (Auto) (0.0-0.1) K/uL Nucleated RBC % /100WBC Nucleated RBCs # K/uL INR Lactate (0.20-2.00) mmol/L Sodium (136-145) mmol/L Potassium (3.5-5.1) mmol/L Chloride (98-107) mmol/L Carbon Dioxide (21.0-32.0) mmol/L BUN (7.0-18.0) mg/dL Creatinine (0.6-1.0) mg/dL Est Cr Clr Drug Dosing mL/min Estimated GFR (MDRD) ml/min Glucose (74-106) mg/dL Calcium (8.5-10.1) mg/dL Total Bilirubin (0.2-1.0) mg/dL AST (15-37) IU/L ALT (14-63) IU/L Alkaline Phosphatase (46-116) U/L Total Protein (6.4-8.2) g/dL Albumin (3.4-5.0) g/dL Globulin (2.6-4.0) g/dL Albumin/Globulin Ratio (0.9-1.6) Urine Color Urine Appearance Urine pH (5.0-8.0) Ur Specific Hannah (1.001-1.035) Urine Protein (NEGATIVE) mg/dL Urine Glucose (UA) (NEGATIVE) mg/dL Urine Ketones (NEGATIVE) mg/dL Urine Occult Blood (NEGATIVE) Urine Nitrite (NEGATIVE) Urine Bilirubin (NEGATIVE) Urine Urobilinogen (<2.0) EU/dL Ur Leukocyte Esterase (NEGATIVE) SARS-CoV-2 RNA (JUAN) NEGATIVE (NEGATIVE) Blood Type Antibody Screen Meds: Medications Generic Name Dose Route Start Last Admin Trade Name Freq PRN Reason Stop Dose Admin Acetaminophen 650 mg 06/24/20 00:03 Tylenol PO Q6H PRN Fever Dextrose/Water 50 ml 06/24/20 00:09 Dextrose 50% In Water IV ASDIRECTED PRN Hypoglycemia Diphenhydramine HCl 50 mg 06/24/20 00:05 Benadryl IVPUSH Q6H PRN Itching Glucagon 1 mg 10/19/20 00:09 Glucagen IM ASDIRECTED PRN Hypoglycemia Hydromorphone HCl 0.5 mg 06/24/20 00:05 06/24/20 02:56 Dilaudid IVPUSH 0.5 mg Q1H PRN Administration Pain Piperacillin Sod/Tazobactam 50 mls @ 100 mls/hr 06/24/20 05:00 Sod 3.375 gm/ Sodium Chloride IV Q6H [facility] Lactated Ringer's 1,000 mls @ 150 mls/hr 06/24/20 00:15 06/24/20 01:24 Ringers, Lactated IV 150 mls/hr ASDIRECTED [facility] Administration Influenza Virus Vaccine 60 mcg 06/24/20 10:00 Afluria Quad 2020-21 (3yr Up) IM 06/24/20 10:01 .ONCE ONE Insulin Aspart 0 unit 06/24/20 07:30 Novolog SUBCUT TIDAC [facility] Protocol Ondansetron HCl 4 mg 06/24/20 00:04 06/24/20 00:56 Zofran IVPUSH 4 mg Q6H PRN Administration Nausea/Vomiting Discontinued Medications Generic Name Dose Route Start Last Admin Trade Name Freq PRN Reason Stop Dose Admin Hydromorphone HCl 1 mg 06/23/20 23:07 06/23/20 23:10 Dilaudid IVPUSH 06/23/20 23:08 1 mg ONETIME ONE Administration Hydromorphone HCl 1 mg 06/24/20 00:44 06/24/20 00:52 Dilaudid IVPUSH 06/24/20 00:45 1 mg ONETIME ONE Administration Lactated Ringer's 1,000 mls @ 999 mls/hr 06/23/20 21:57 06/23/20 22:22 Ringers, Lactated IV 06/23/20 22:57 999 mls/hr .BOLUS ONE Administration Lactated Ringer's 1,000 mls @ 999 mls/hr 06/23/20 21:57 06/23/20 22:30 Ringers, Lactated IV 06/23/20 22:57 999 mls/hr .BOLUS ONE Administration Ceftriaxone Sodium/Dextrose 2 50 mls @ 100 mls/hr 06/23/20 22:33 06/23/20 23:03 gm/ Premix IV 06/23/20 23:02 100 mls/hr ONETIME ONE Administration Metronidazole 500 mg/ Premix 100 mls @ 100 mls/hr 06/23/20 22:34 06/23/20 23:02 IV 06/23/20 23:33 100 mls/hr ONETIME ONE Administration Influenza Virus Vaccine 1 each 06/24/20 01:40 Pharmacy To Dose - Influenza Vaccine IM 06/24/20 01:41 ONETIME ONE Iopamidol 80 ml 06/23/20 23:00 06/23/20 23:01 Isovue Multipack-370 (76%) IVPUSH 06/23/20 23:01 80 ml ONETIME STA Administration Morphine Sulfate 4 mg 06/23/20 21:55 06/23/20 22:23 Morphine IVPUSH 06/23/20 21:56 4 mg ONETIME ONE Administration Ondansetron HCl 4 mg 06/23/20 21:55 06/23/20 22:23 Zofran IVPUSH 06/23/20 21:56 4 mg ONETIME ONE Administration Departure - Departure Time of Disposition: 23:31 Disposition: Admitted As Inpatient 68 Condition: Serious Clinical Impression: Appendicitis Qualifiers: Appendicitis type: acute appendicitis Acute appendicitis type: with localized peritonitis Appendicitis gangrene presence: unspecified whether gangrene present Appendicitis perforation presence: without perforation Appendicitis abscess presence: without abscess Qualified Code(s): K35.30 - Acute appendicitis with localized peritonitis, without perforation or gangrene - Discharge Information Sepsis Event Note (ED) - Evaluation Sepsis Screening Result: No Definite Risk - Focused Exam Vital Signs: Vital Signs Temp Pulse Resp BP Pulse Ox 06/23/20 22:26 99 18 132/83 95 06/23/20 21:37 36.0 C L 110 H 18 141/81 H 95 - My Orders Last 24 Hours: My Active Orders 06/23/20 21:55 Cardiac Monitoring [RC] . DIRECTED Pulse Oximetry [RC] ASDIRECTED 06/23/20 22:33 Blood Culture x2 Reflex Set [OM.PC] Stat 06/23/20 23:00 CULTURE BLOOD [BC] Stat 06/23/20 23:10 CULTURE BLOOD [BC] Stat - Assessment/Plan Last 24 Hours: My Active Orders 06/23/20 21:55 Cardiac Monitoring [RC] . DIRECTED Pulse Oximetry [RC] ASDIRECTED 06/23/20 22:33 Blood Culture x2 Reflex Set [OM.PC] Stat 06/23/20 23:00 CULTURE BLOOD [BC] Stat 06/23/20 23:10 CULTURE BLOOD [BC] Stat
[2020-06-24] MEDS: Piperacillin/Tazobactam 3.375 GM in Sodium Chloride 0.9% 50 ML IV SCH ×4 (05:05→22:14)
[2020-06-24 05:42] LABS: BLOOD UREA NITROGEN,BUN 7 mg/dL (7.0-18.0); CARBON DIOXIDE,CO2 26.6 mmol/L (21.0-32.0); CHLORIDE,CL 99 mmol/L (98-107); GLUCOSE RANDOM 283 mg/dL (74-106); POTASSIUM,K 3.6 mmol/L (3.5-5.1); SODIUM,NA 136 mmol/L (136-145)
[2020-06-24] MEDS: Insulin Aspart 100 Units/ML 3 ML Pen SUBCUT SCH ×5 (07:00→17:21)
[2020-06-24] MEDS ORDERED: Lidocaine 2% 5 ML SDV ONE (07:21)
[2020-06-24] MEDS ORDERED: Glycopyrrolate 0.2 MG/ML SDV ONE (07:21)
[2020-06-24] MEDS ORDERED: Propofol 200 MG/20 ML SDV ONE (07:21)
[2020-06-24] MEDS ORDERED: Ondansetron 4 MG/2 ML SDV ONE (07:21)
[2020-06-24] MEDS ORDERED: Rocuronium Bromide 50 MG/5 ML Syringe ONE (07:22)
[2020-06-24] MEDS ORDERED: Midazolam 1 MG/ML 2 ML SDV ONE (07:22)
[2020-06-24] MEDS ORDERED: fentaNYL 250 MCG/5 ML SDV ONE (07:22)
--- NOTE | 2020-06-24 07:46 | PCM.PREANE ---
Preanesthetic Assessment - Anesthesia/Transfusion/Family Hx Anesthesia History: Prior Anesthesia Without Reaction Family History of Anesthesia Reaction: No Transfusion History: No Prior Transfusion(s) Intubation History: Unknown - Review of Systems General: No Symptoms Pulmonary: No Symptoms Cardiovascular: No Symptoms Gastrointestinal: Abdominal Pain Neurological: No Symptoms Other: Reports: None - Physical Assessment Vital Signs: Last Vital Signs Temp 36.6 C 06/24/20 07:32 Pulse 84 06/24/20 07:32 Resp 16 06/24/20 07:32 BP 94/56 L 06/24/20 07:32 Pulse Ox 95 06/24/20 07:32 Height: 5 ft 2 in Weight: 62.097 kg ASA Class: 3E Mental Status: Alert & Oriented x3 Airway Class: Mallampati = 2 Dentition: Reports: Edentulous (upper), Missing Tooth/Teeth (4 front teeth left) Thyro-Mental Finger Breadths: 3 Mouth Opening Finger Breadths: 3 ROM/Head Extension: Limited/Partial Lungs: Clear to Auscultation, Normal Respiratory Effort Cardiovascular: Regular Rate, Regular Rhythm - Lab Values: Laboratory Last Values WBC 20.62 K/uL (4.0-11.0) H 06/24/20 04:48 RBC 4.33 M/uL (4.30-5.90) 06/24/20 04:48 Hgb 13.3 g/dL (12.0-16.0) 06/24/20 04:48 Hct 40.3 % (36.0-46.0) 06/24/20 04:48 MCV 93.1 fL (80.0-98.0) 06/24/20 04:48 MCH 30.7 pg (27.0-32.0) 06/24/20 04:48 MCHC 33.0 g/dL (31.0-37.0) 06/24/20 04:48 RDW Std Deviation 42.5 fl (28.0-62.0) 06/24/20 04:48 RDW Coeff of Haley 13 % (11.0-15.0) 06/24/20 04:48 Plt Count 280 K/uL (150-400) 06/24/20 04:48 MPV 10.60 fL (7.40-12.00) 06/24/20 04:48 Neut % (Auto) 83.5 % (48.0-80.0) H 06/24/20 04:48 Lymph % (Auto) 8.0 % (16.0-40.0) L 06/24/20 04:48 [place] % (Auto) 8.5 % (0.0-15.0) 06/24/20 04:48 Eos % (Auto) 0.0 % (0.0-7.0) 06/24/20 04:48 Baso % (Auto) 0.0 % (0.0-1.5) 06/24/20 04:48 Neut # (Auto) 17.2 K/uL (1.4-5.7) H 06/24/20 04:48 Lymph # (Auto) 1.6 K/uL (0.6-2.4) 06/24/20 04:48 [place] # (Auto) 1.8 K/uL (0.0-0.8) H 06/24/20 04:48 Eos # (Auto) 0.0 K/uL (0.0-0.7) 06/24/20 04:48 Baso # (Auto) 0.0 K/uL (0.0-0.1) 06/24/20 04:48 Nucleated RBC % 0.0 /100WBC 06/24/20 04:48 Nucleated RBCs # 0 K/uL 06/24/20 04:48 INR 1.06 06/23/20 19:47 Lactate 1.3 mmol/L (0.20-2.00) 06/23/20 23:45 Sodium 136 mmol/L (136-145) 06/24/20 04:48 Potassium 3.6 mmol/L (3.5-5.1) 06/24/20 04:48 Chloride 99 mmol/L (98-107) 06/24/20 04:48 Carbon Dioxide 26.6 mmol/L (21.0-32.0) 06/24/20 04:48 BUN 7 mg/dL (7.0-18.0) 06/24/20 04:48 Creatinine 0.7 mg/dL (0.6-1.0) 06/24/20 04:48 Est Cr Clr Drug Dosing 77.73 mL/min 06/24/20 04:48 Estimated GFR (MDRD) > 60.0 ml/min 06/24/20 04:48 Glucose 283 mg/dL (74-106) H 06/24/20 04:48 POC Glucose 267 mg/dL (60-110) H 06/24/20 06:39 Hemoglobin A1c 11.2 % (4.5-6.2) H 06/24/20 00:35 Calcium 8.4 mg/dL (8.5-10.1) L 06/24/20 04:48 Total Bilirubin 0.7 mg/dL (0.2-1.0) 06/24/20 04:48 AST 6 IU/L (15-37) L 06/24/20 04:48 ALT 18 IU/L (14-63) 06/24/20 04:48 Alkaline Phosphatase 40 U/L (46-116) L 06/24/20 04:48 Total Protein 6.0 g/dL (6.4-8.2) L 06/24/20 04:48 Albumin 2.9 g/dL (3.4-5.0) L 06/24/20 04:48 Globulin 3.1 g/dL (2.6-4.0) 06/24/20 04:48 Albumin/Globulin Ratio 0.9 (0.9-1.6) 06/24/20 04:48 Urine Color YELLOW 06/23/20 23:10 Urine Appearance CLEAR 06/23/20 23:10 Urine pH 6.5 (5.0-8.0) 06/23/20 23:10 Ur Specific [place] <= 1.005 (1.001-1.035) 06/23/20 23:10 Urine Protein NEGATIVE mg/dL (NEGATIVE) 06/23/20 23:10 Urine Glucose (UA) 500 mg/dL (NEGATIVE) H 06/23/20 23:10 Urine Ketones 40 mg/dL (NEGATIVE) H 06/23/20 23:10 Urine Occult Blood NEGATIVE (NEGATIVE) 06/23/20 23:10 Urine Nitrite NEGATIVE (NEGATIVE) 06/23/20 23:10 Urine Bilirubin NEGATIVE (NEGATIVE) 06/23/20 23:10 Urine Urobilinogen 0.2 EU/dL (<2.0) 06/23/20 23:10 Ur Leukocyte Esterase NEGATIVE (NEGATIVE) 06/23/20 23:10 SARS-CoV-2 RNA (JUAN) NEGATIVE (NEGATIVE) 06/23/20 23:30 Blood Type A POSITIVE 06/23/20 22:14 Antibody Screen NEGATIVE 06/23/20 22:14 - Allergies Allergies/Adverse Reactions: Allergies Allergy/AdvReac Type Severity Reaction Status Date / Time coconut Allergy Difficulty Verified 06/24/20 01:19 Breathing hydroxyzine HCl Allergy Hives Verified 06/24/20 01:19 [From Vistaril] hydroxyzine pamoate Allergy Hives Verified 06/24/20 01:19 [From Vistaril] ketorolac tromethamine Allergy Hives Verified 06/24/20 01:19 [From Toradol] - Blood Blood Available: No - Anesthesia Plan Pre-Op Medication Ordered: None - Acknowledgements Anesthesia Type Planned: General Anesthesia Pt an Appropriate Candidate for the Planned Anesthesia: Yes Alternatives and Risks of Anesthesia Discussed w Pt/Guardian: Yes Pt/Guardian Understands and Agrees with Anesthesia Plan: Yes PreAnesthesia Questionnaire - Past Health History Medical/Surgical History: Denies Medical/Surgical History HEENT History: Reports: None Other HEENT History: wears glasses Cardiovascular History: Reports: High Cholesterol, Hypertension Respiratory History: Reports: TB Other Respiratory History: reports treatment for positive tuberculin test in 2002 - no lung lesions Gastrointestinal History: Reports: Other (See Below) (acute appendicitis) Genitourinary History: Reports: None [employer] History: Reports: Other OB/BYN History: x2 Musculoskeletal History: Reports: Other (See Below) Other Musculoskeletal History: chronic shoulder pain Neurological History: Reports: Migraines Psychiatric History: Reports: Anxiety, Panic Attack Endocrine/Metabolic History: Reports: Diabetes, Type II (A1c around 11 per patient) Hematologic History: Reports: None Immunologic History: Reports: None Oncologic (Cancer) History: Reports: None Dermatologic History: Reports: None - Infectious Disease History Infectious Disease History: Reports: TB Other Infectious Disease History: 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 - Past Surgical History HEENT Surgical History: Reports: None Cardiovascular Surgical History: Reports: None Respiratory Surgical History: Reports: None GI Surgical History: Reports: None Female Surgical History: Reports: Hysterectomy, Tubal Ligation Neurological Surgical History: Reports: None Musculoskeletal Surgical History: Reports: Arthroscopic Knee (bilateral), Shoulder Surgery (right), Other (See Below) Other Musculoskeletal Surgeries/Procedures:: L4 - L5 fusion 4 years ago Oncologic Surgical History: Reports: None - SUBSTANCE USE Tobacco Use Status *Q: Current Some Day Tobacco User Tobacco Use Within Last Twelve Months: Cigarettes Second Hand Smoke Exposure: Yes Recreational Drug Use History: No - HOME MEDS Home Medications: Home Meds Insulin Aspart [Novolog Flexpen] 20 unit SQ TIDAC 06/04/17 [History] Insulin Glarg,Human.Rec.Analog [LantUS Solostar] 52 units SUBCUT BEDTIME 11/13/17 [History] traMADol HCl [Tramadol HCl] 50 mg PO Q6H PRN 10/27/18 [History] traZODone HCl [Trazodone HCl] 100 mg PO BEDTIME 10/27/18 [History] Non-Formulary Medication [NF Drug] 06/23/20 [History] lisinopriL [Lisinopril] 10 mg PO DAILY 06/23/20 [History] - CURRENT (IN HOUSE) MEDS Current Meds: Current Medications Acetaminophen (Tylenol) 650 mg PO Q6H PRN PRN Reason: Fever Dextrose/Water (Dextrose 50% In Water) 50 ml IV ASDIRECTED PRN PRN Reason: Hypoglycemia Diphenhydramine HCl (Benadryl) 50 mg IVPUSH Q6H PRN PRN Reason: Itching Glucagon (Glucagen) 1 mg IM ASDIRECTED PRN PRN Reason: Hypoglycemia Hydromorphone HCl (Dilaudid) 0.5 mg IVPUSH Q1H PRN PRN Reason: Pain Last Admin: 06/24/20 07:03 Dose: 0.5 mg Documented by: Piperacillin Sod/Tazobactam (Sod 3.375 gm/ Sodium Chloride) 50 mls @ 100 mls/hr IV Q6H CARRIE Last Admin: 06/24/20 05:05 Dose: 100 mls/hr Documented by: Lactated Ringer's (Ringers, Lactated) 1,000 mls @ 150 mls/hr IV ASDIRECTED CARRIE Last Admin: 06/24/20 01:24 Dose: 150 mls/hr Documented by: Influenza Virus Vaccine (Afluria Quad 2019- (3yr Up)) 60 mcg IM .ONCE ONE Stop: 06/24/20 10:01 Insulin Aspart (Novolog) 0 unit SUBCUT TIDAC [facility]; Protocol Last Admin: 06/24/20 07:00 Dose: 3 units Documented by: Ondansetron HCl (Zofran) 4 mg IVPUSH Q6H PRN PRN Reason: Nausea/Vomiting Last Admin: 06/24/20 07:10 Dose: 4 mg Documented by: Discontinued Medications Fentanyl (Sublimaze) Confirm Administered Dose 250 mcg .ROUTE .STK-MED ONE Stop: 06/24/20 07:23 Glycopyrrolate (Robinul) Confirm Administered Dose 0.4 mg .ROUTE .STK-MED ONE Stop: 06/24/20 07:22 Hydromorphone HCl (Dilaudid) 1 mg IVPUSH ONETIME ONE Stop: 06/23/20 23:08 Last Admin: 06/23/20 23:10 Dose: 1 mg Documented by: Hydromorphone HCl (Dilaudid) 1 mg IVPUSH ONETIME ONE Stop: 06/24/20 00:45 Last Admin: 06/24/20 00:52 Dose: 1 mg Documented by: Lactated Ringer's (Ringers, Lactated) 1,000 mls @ 999 mls/hr IV .BOLUS ONE Stop: 06/23/20 22:57 Last Admin: 06/23/20 22:22 Dose: 999 mls/hr Documented by: Lactated Ringer's (Ringers, Lactated) 1,000 mls @ 999 mls/hr IV .BOLUS ONE Stop: 06/23/20 22:57 Last Admin: 06/23/20 22:30 Dose: 999 mls/hr Documented by: Ceftriaxone Sodium/Dextrose 2 (gm/ Premix) 50 mls @ 100 mls/hr IV ONETIME ONE Stop: 06/23/20 23:02 Last Admin: 06/23/20 23:03 Dose: 100 mls/hr Documented by: Metronidazole 500 mg/ Premix 100 mls @ 100 mls/hr IV ONETIME ONE Stop: 06/23/20 23:33 Last Admin: 06/23/20 23:02 Dose: 100 mls/hr Documented by: Influenza Virus Vaccine (Pharmacy To Dose - Influenza Vaccine) 1 each IM ONETIME ONE Stop: 06/24/20 01:41 Iopamidol (Isovue Multipack-370 (76%)) 80 ml IVPUSH ONETIME STA Stop: 06/23/20 23:01 Last Admin: 06/23/20 23:01 Dose: 80 ml Documented by: Lidocaine (Xylocaine-Mpf 2%) Confirm Administered Dose 5 ml .ROUTE .STK-MED ONE Stop: 06/24/20 07:22 Midazolam HCl (Versed 1 Mg/Ml) Confirm Administered Dose 2 mg .ROUTE .STK-MED ONE Stop: 06/24/20 07:23 Morphine Sulfate (Morphine) 4 mg IVPUSH ONETIME ONE Stop: 06/23/20 21:56 Last Admin: 06/23/20 22:23 Dose: 4 mg Documented by: Ondansetron HCl (Zofran) 4 mg IVPUSH ONETIME ONE Stop: 06/23/20 21:56 Last Admin: 06/23/20 22:23 Dose: 4 mg Documented by: Ondansetron HCl (Zofran) Confirm Administered Dose 4 mg .ROUTE .STK-MED ONE Stop: 06/24/20 07:22 Propofol (Diprivan 20 Ml) Confirm Administered Dose 200 mg .ROUTE .STK-MED ONE Stop: 06/24/20 07:22 Rocuronium [place] (Rocuronium [place]) Confirm Administered Dose 50 mg .ROUTE .STK-MED ONE Stop: 06/24/20 07:23
--- NOTE | 2020-06-24 08:06 | PCM.HP.2 ---
H&P History of Present Illness - General Date of Service: 06/24/20 Admit Problem/Dx: Admission Diagnosis/Problem Admission Diagnosis/Problem Acute appendicitis Source of Information: Patient History Limitations: Reports: No Limitations - History of Present Illness Initial Comments - Free Text/Narative: Patient is a 50 year old female with uncontrolled DM, chronic pain, anxiety, smoker who presented with RLQ abdominal pain. It started 2 days ago. It was sharp and located in the lower abdomen. She c/o chills at home but denied fevers. She then developed nausea and vomiting. She vomited multiple times and presented to the ER. She was tachycardic on arrival to the ER. She was given IVF. Labs revealed hypoglycemia as well as an elevated WBC of 21K. Hgb A1C was 11. Lactate was normal. She did not have an anion gap. Her CT scan showed acute appendicitis with a large amount of inflammation around the appendix and fluid along the right side of the abdomen. She was admitted for further resuscitation and IV antibiotics. This am her WBC is slightly lower. UOP is adequate. Still slightly tachycardic with HR in 90s. rlq Pain Score (Numeric/FACES): 8 - Related Data Allergies/Adverse Reactions: Allergies Allergy/AdvReac Type Severity Reaction Status Date / Time coconut Allergy Difficulty Verified 06/24/20 01:19 Breathing hydroxyzine HCl Allergy Hives Verified 06/24/20 01:19 [From Vistaril] hydroxyzine pamoate Allergy Hives Verified 06/24/20 01:19 [From Vistaril] ketorolac tromethamine Allergy Hives Verified 06/24/20 01:19 [From Toradol] Home Medications: Home Meds Insulin Aspart [Novolog Flexpen] 20 unit SQ TIDAC 06/04/17 [History] Insulin Glarg,Human.Rec.Analog [LantUS Solostar] 52 units SUBCUT BEDTIME 11/13/17 [History] traMADol HCl [Tramadol HCl] 50 mg PO Q6H PRN 10/27/18 [History] traZODone HCl [Trazodone HCl] 100 mg PO BEDTIME 10/27/18 [History] Non-Formulary Medication [NF Drug] 06/23/20 [History] lisinopriL [Lisinopril] 10 mg PO DAILY 06/23/20 [History] Past Medical History - Past Health History Medical/Surgical History: Denies Medical/Surgical History HEENT History: Reports: None Other HEENT History: wears glasses Cardiovascular History: Reports: High Cholesterol, Hypertension Respiratory History: Reports: TB Other Respiratory History: reports treatment for positive tuberculin test in 2002 - no lung lesions Gastrointestinal History: Reports: Other (See Below) (acute appendicitis) Genitourinary History: Reports: None PHARMACISTS History: Reports: Other OB/BYN History: x2 Musculoskeletal History: Reports: Other (See Below) Other Musculoskeletal History: chronic shoulder pain Neurological History: Reports: Migraines Psychiatric History: Reports: Anxiety, Panic Attack Endocrine/Metabolic History: Reports: Diabetes, Type II (A1c around 11 per patient) Hematologic History: Reports: None Immunologic History: Reports: None Oncologic (Cancer) History: Reports: None Dermatologic History: Reports: None - Infectious Disease History Infectious Disease History: Reports: TB Other Infectious Disease History: 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 - Past Surgical History HEENT Surgical History: Reports: None Cardiovascular Surgical History: Reports: None Respiratory Surgical History: Reports: None GI Surgical History: Reports: None Female Surgical History: Reports: Hysterectomy, Tubal Ligation Neurological Surgical History: Reports: None Musculoskeletal Surgical History: Reports: Arthroscopic Knee (bilateral), Shoulder Surgery (right), Other (See Below) Other Musculoskeletal Surgeries/Procedures:: L4 - L5 fusion 4 years ago Oncologic Surgical History: Reports: None Social & Family History - Family History Family Medical History: Noncontributory Neurological: Reports: Migraines Psychiatric: Reports: Anxiety Endocrine/Metabolic: Reports: Diabetes, type II - Tobacco Use Tobacco Use Status *Q: Current Some Day Tobacco User Years of Tobacco use: 10 Packs/Tins Daily: 0.5 Used Tobacco, but Quit: No Second Hand Smoke Exposure: Yes - Caffeine Use Caffeine Use: Reports: None Caffeine Use Comment: Client was lethargic upon arrival, unable to accurately obtain information. - Recreational Drug Use Recreational Drug Use: No H&P Review of Systems - Review of Systems: Review Of Systems: Comprehensive ROS is negative, except as noted in HPI. Exam - Exam Exam: See Below - Vital Signs Vital Signs: Last Vital Signs Temp 36.6 C 06/24/20 07:32 Pulse 84 06/24/20 07:32 Resp 16 06/24/20 07:32 BP 94/56 L 06/24/20 07:32 Pulse Ox 95 06/24/20 07:32 Weight: 62.097 kg - Exam Quality Assessment: Supplemental Oxygen General: Alert, Oriented HEENT: Conjunctiva Clear, Mucosa Moist & [place], Posterior Pharynx Clear, Other (poor dentition ) Neck: Supple, Trachea Midline Lungs: Clear to Auscultation, Normal Respiratory Effort Cardiovascular: Regular Rate, Regular Rhythm GI/Abdominal Exam: Soft, No Distention, No Mass, Guarding (RLQ), Rebound (RLQ), Tender (RLQ) Back Exam: Normal Inspection Extremities: Normal Inspection - Patient Data Lab Results Last 24 hrs: Laboratory Results - last 24 hr 06/23/20 06/23/20 06/23/20 Range/Units 19:47 19:47 19:47 WBC 21.10 H (4.0-11.0) K/uL RBC 4.99 (4.30-5.90) M/uL Hgb 15.7 (12.0-16.0) g/dL Hct 46.1 H (36.0-46.0) % MCV 92.4 (80.0-98.0) fL MCH 31.5 (27.0-32.0) pg MCHC 34.1 (31.0-37.0) g/dL RDW Std Deviation 41.7 (28.0-62.0) fl RDW Coeff of Haley 13 (11.0-15.0) % Plt Count 340 (150-400) K/uL MPV 10.30 (7.40-12.00) fL Neut % (Auto) 79.1 (48.0-80.0) % Lymph % (Auto) 11.8 L (16.0-40.0) % [place] % (Auto) 9.1 (0.0-15.0) % Eos % (Auto) 0.0 (0.0-7.0) % Baso % (Auto) 0.0 (0.0-1.5) % Neut # (Auto) 16.7 H (1.4-5.7) K/uL Lymph # (Auto) 2.5 H (0.6-2.4) K/uL [place] # (Auto) 1.9 H (0.0-0.8) K/uL Eos # (Auto) 0.0 (0.0-0.7) K/uL Baso # (Auto) 0.0 (0.0-0.1) K/uL Nucleated RBC % 0.0 /100WBC Nucleated RBCs # 0 K/uL INR 1.06 Lactate 1.6 (0.20-2.00) mmol/L Sodium (136-145) mmol/L Potassium (3.5-5.1) mmol/L Chloride (98-107) mmol/L Carbon Dioxide (21.0-32.0) mmol/L BUN (7.0-18.0) mg/dL Creatinine (0.6-1.0) mg/dL Est Cr Clr Drug Dosing mL/min Estimated GFR (MDRD) ml/min Glucose (74-106) mg/dL POC Glucose (60-110) mg/dL Hemoglobin A1c (4.5-6.2) % Calcium (8.5-10.1) mg/dL Total Bilirubin (0.2-1.0) mg/dL AST (15-37) IU/L ALT (14-63) IU/L Alkaline Phosphatase (46-116) U/L Total Protein (6.4-8.2) g/dL Albumin (3.4-5.0) g/dL Globulin (2.6-4.0) g/dL Albumin/Globulin Ratio (0.9-1.6) Urine Color Urine Appearance Urine pH (5.0-8.0) Ur Specific [place] (1.001-1.035) Urine Protein (NEGATIVE) mg/dL Urine Glucose (UA) (NEGATIVE) mg/dL Urine Ketones (NEGATIVE) mg/dL Urine Occult Blood (NEGATIVE) Urine Nitrite (NEGATIVE) Urine Bilirubin (NEGATIVE) Urine Urobilinogen (<2.0) EU/dL Ur Leukocyte Esterase (NEGATIVE) SARS-CoV-2 RNA (JUAN) (NEGATIVE) Blood Type Antibody Screen 06/23/20 06/23/20 06/23/20 Range/Units 19:47 22:14 23:10 WBC (4.0-11.0) K/uL RBC (4.30-5.90) M/uL Hgb (12.0-16.0) g/dL Hct (36.0-46.0) % MCV (80.0-98.0) fL MCH (27.0-32.0) pg MCHC (31.0-37.0) g/dL RDW Std Deviation (28.0-62.0) fl RDW Coeff of Haley (11.0-15.0) % Plt Count (150-400) K/uL MPV (7.40-12.00) fL Neut % (Auto) (48.0-80.0) % Lymph % (Auto) (16.0-40.0) % [place] % (Auto) (0.0-15.0) % Eos % (Auto) (0.0-7.0) % Baso % (Auto) (0.0-1.5) % Neut # (Auto) (1.4-5.7) K/uL Lymph # (Auto) (0.6-2.4) K/uL [place] # (Auto) (0.0-0.8) K/uL Eos # (Auto) (0.0-0.7) K/uL Baso # (Auto) (0.0-0.1) K/uL Nucleated RBC % /100WBC Nucleated RBCs # K/uL INR Lactate (0.20-2.00) mmol/L Sodium 133 L (136-145) mmol/L Potassium 3.5 (3.5-5.1) mmol/L Chloride 96 L (98-107) mmol/L Carbon Dioxide 26.7 (21.0-32.0) mmol/L BUN 9 (7.0-18.0) mg/dL Creatinine 0.9 (0.6-1.0) mg/dL Est Cr Clr Drug Dosing 71.56 mL/min Estimated GFR (MDRD) > 60.0 ml/min Glucose 299 H (74-106) mg/dL POC Glucose (60-110) mg/dL Hemoglobin A1c (4.5-6.2) % Calcium 8.8 (8.5-10.1) mg/dL Total Bilirubin 0.7 (0.2-1.0) mg/dL AST 6 L (15-37) IU/L ALT 21 (14-63) IU/L Alkaline Phosphatase 49 (46-116) U/L Total Protein 7.5 (6.4-8.2) g/dL Albumin 3.7 (3.4-5.0) g/dL Globulin 3.8 (2.6-4.0) g/dL Albumin/Globulin Ratio 1.0 (0.9-1.6) Urine Color YELLOW Urine Appearance CLEAR Urine pH 6.5 (5.0-8.0) Ur Specific [place] <= 1.005 (1.001-1.035) Urine Protein NEGATIVE (NEGATIVE) mg/dL Urine Glucose (UA) 500 H (NEGATIVE) mg/dL Urine Ketones 40 H (NEGATIVE) mg/dL Urine Occult Blood NEGATIVE (NEGATIVE) Urine Nitrite NEGATIVE (NEGATIVE) Urine Bilirubin NEGATIVE (NEGATIVE) Urine Urobilinogen 0.2 (<2.0) EU/dL Ur Leukocyte Esterase NEGATIVE (NEGATIVE) SARS-CoV-2 RNA (JUAN) (NEGATIVE) Blood Type A POSITIVE Antibody Screen NEGATIVE 06/23/20 06/23/20 06/24/20 Range/Units 23:30 23:45 00:04 WBC (4.0-11.0) K/uL RBC (4.30-5.90) M/uL Hgb (12.0-16.0) g/dL Hct (36.0-46.0) % MCV (80.0-98.0) fL MCH (27.0-32.0) pg MCHC (31.0-37.0) g/dL RDW Std Deviation (28.0-62.0) fl RDW Coeff of Haley (11.0-15.0) % Plt Count (150-400) K/uL MPV (7.40-12.00) fL Neut % (Auto) (48.0-80.0) % Lymph % (Auto) (16.0-40.0) % [place] % (Auto) (0.0-15.0) % Eos % (Auto) (0.0-7.0) % Baso % (Auto) (0.0-1.5) % Neut # (Auto) (1.4-5.7) K/uL Lymph # (Auto) (0.6-2.4) K/uL [place] # (Auto) (0.0-0.8) K/uL Eos # (Auto) (0.0-0.7) K/uL Baso # (Auto) (0.0-0.1) K/uL Nucleated RBC % /100WBC Nucleated RBCs # K/uL INR Lactate 1.3 (0.20-2.00) mmol/L Sodium (136-145) mmol/L Potassium (3.5-5.1) mmol/L Chloride (98-107) mmol/L Carbon Dioxide (21.0-32.0) mmol/L BUN (7.0-18.0) mg/dL Creatinine (0.6-1.0) mg/dL Est Cr Clr Drug Dosing mL/min Estimated GFR (MDRD) ml/min Glucose (74-106) mg/dL POC Glucose 256 H (60-110) mg/dL Hemoglobin A1c (4.5-6.2) % Calcium (8.5-10.1) mg/dL Total Bilirubin (0.2-1.0) mg/dL AST (15-37) IU/L ALT (14-63) IU/L Alkaline Phosphatase (46-116) U/L Total Protein (6.4-8.2) g/dL Albumin (3.4-5.0) g/dL Globulin (2.6-4.0) g/dL Albumin/Globulin Ratio (0.9-1.6) Urine Color Urine Appearance Urine pH (5.0-8.0) Ur Specific [place] (1.001-1.035) Urine Protein (NEGATIVE) mg/dL Urine Glucose (UA) (NEGATIVE) mg/dL Urine Ketones (NEGATIVE) mg/dL Urine Occult Blood (NEGATIVE) Urine Nitrite (NEGATIVE) Urine Bilirubin (NEGATIVE) Urine Urobilinogen (<2.0) EU/dL Ur Leukocyte Esterase (NEGATIVE) SARS-CoV-2 RNA (JUAN) NEGATIVE (NEGATIVE) Blood Type Antibody Screen 06/24/20 06/24/20 06/24/20 Range/Units 00:35 04:48 04:48 WBC 20.62 H (4.0-11.0) K/uL RBC 4.33 (4.30-5.90) M/uL Hgb 13.3 (12.0-16.0) g/dL Hct 40.3 (36.0-46.0) % MCV 93.1 (80.0-98.0) fL MCH 30.7 (27.0-32.0) pg MCHC 33.0 (31.0-37.0) g/dL RDW Std Deviation 42.5 (28.0-62.0) fl RDW Coeff of Haley 13 (11.0-15.0) % Plt Count 280 (150-400) K/uL MPV 10.60 (7.40-12.00) fL Neut % (Auto) 83.5 H (48.0-80.0) % Lymph % (Auto) 8.0 L (16.0-40.0) % [place] % (Auto) 8.5 (0.0-15.0) % Eos % (Auto) 0.0 (0.0-7.0) % Baso % (Auto) 0.0 (0.0-1.5) % Neut # (Auto) 17.2 H (1.4-5.7) K/uL Lymph # (Auto) 1.6 (0.6-2.4) K/uL [place] # (Auto) 1.8 H (0.0-0.8) K/uL Eos # (Auto) 0.0 (0.0-0.7) K/uL Baso # (Auto) 0.0 (0.0-0.1) K/uL Nucleated RBC % 0.0 /100WBC Nucleated RBCs # 0 K/uL INR Lactate (0.20-2.00) mmol/L Sodium 136 (136-145) mmol/L Potassium 3.6 (3.5-5.1) mmol/L Chloride 99 (98-107) mmol/L Carbon Dioxide 26.6 (21.0-32.0) mmol/L BUN 7 (7.0-18.0) mg/dL Creatinine 0.7 (0.6-1.0) mg/dL Est Cr Clr Drug Dosing 77.73 mL/min Estimated GFR (MDRD) > 60.0 ml/min Glucose 283 H (74-106) mg/dL POC Glucose (60-110) mg/dL Hemoglobin A1c 11.2 H (4.5-6.2) % Calcium 8.4 L (8.5-10.1) mg/dL Total Bilirubin 0.7 (0.2-1.0) mg/dL AST 6 L (15-37) IU/L ALT 18 (14-63) IU/L Alkaline Phosphatase 40 L (46-116) U/L Total Protein 6.0 L (6.4-8.2) g/dL Albumin 2.9 L (3.4-5.0) g/dL Globulin 3.1 (2.6-4.0) g/dL Albumin/Globulin Ratio 0.9 (0.9-1.6) Urine Color Urine Appearance Urine pH (5.0-8.0) Ur Specific [place] (1.001-1.035) Urine Protein (NEGATIVE) mg/dL Urine Glucose (UA) (NEGATIVE) mg/dL Urine Ketones (NEGATIVE) mg/dL Urine Occult Blood (NEGATIVE) Urine Nitrite (NEGATIVE) Urine Bilirubin (NEGATIVE) Urine Urobilinogen (<2.0) EU/dL Ur Leukocyte Esterase (NEGATIVE) SARS-CoV-2 RNA (JUAN) (NEGATIVE) Blood Type Antibody Screen 06/24/20 Range/Units 06:39 WBC (4.0-11.0) K/uL RBC (4.30-5.90) M/uL Hgb (12.0-16.0) g/dL Hct (36.0-46.0) % MCV (80.0-98.0) fL MCH (27.0-32.0) pg MCHC (31.0-37.0) g/dL RDW Std Deviation (28.0-62.0) fl RDW Coeff of Haley (11.0-15.0) % Plt Count (150-400) K/uL MPV (7.40-12.00) fL Neut % (Auto) (48.0-80.0) % Lymph % (Auto) (16.0-40.0) % [place] % (Auto) (0.0-15.0) % Eos % (Auto) (0.0-7.0) % Baso % (Auto) (0.0-1.5) % Neut # (Auto) (1.4-5.7) K/uL Lymph # (Auto) (0.6-2.4) K/uL [place] # (Auto) (0.0-0.8) K/uL Eos # (Auto) (0.0-0.7) K/uL Baso # (Auto) (0.0-0.1) K/uL Nucleated RBC % /100WBC Nucleated RBCs # K/uL INR Lactate (0.20-2.00) mmol/L Sodium (136-145) mmol/L Potassium (3.5-5.1) mmol/L Chloride (98-107) mmol/L Carbon Dioxide (21.0-32.0) mmol/L BUN (7.0-18.0) mg/dL Creatinine (0.6-1.0) mg/dL Est Cr Clr Drug Dosing mL/min Estimated GFR (MDRD) ml/min Glucose (74-106) mg/dL POC Glucose 267 H (60-110) mg/dL Hemoglobin A1c (4.5-6.2) % Calcium (8.5-10.1) mg/dL Total Bilirubin (0.2-1.0) mg/dL AST (15-37) IU/L ALT (14-63) IU/L Alkaline Phosphatase (46-116) U/L Total Protein (6.4-8.2) g/dL Albumin (3.4-5.0) g/dL Globulin (2.6-4.0) g/dL Albumin/Globulin Ratio (0.9-1.6) Urine Color Urine Appearance Urine pH (5.0-8.0) Ur Specific [place] (1.001-1.035) Urine Protein (NEGATIVE) mg/dL Urine Glucose (UA) (NEGATIVE) mg/dL Urine Ketones (NEGATIVE) mg/dL Urine Occult Blood (NEGATIVE) Urine Nitrite (NEGATIVE) Urine Bilirubin (NEGATIVE) Urine Urobilinogen (<2.0) EU/dL Ur Leukocyte Esterase (NEGATIVE) SARS-CoV-2 RNA (JUAN) (NEGATIVE) Blood Type Antibody Screen Result Diagrams: 06/24/20 04:48 06/24/20 04:48 Sepsis Event Note - Evaluation Sepsis Screening Result: No Definite Risk - Focused Exam Vital Signs: Vital Signs Temp Temp Pulse Resp BP Pulse Ox 06/24/20 07:32 36.6 C 84 16 94/56 L 95 06/24/20 05:00 36.7 C 95 18 100/56 L 97 06/24/20 01:12 37.3 C 116 H 18 120/79 96 06/24/20 00:40 98 18 128/82 97 06/23/20 22:26 99 18 132/83 95 06/23/20 21:37 36.0 C L 110 H 18 141/81 H 95 - Problem List (1) Appendicitis SNOMED Code(s): 04400413 ICD Code: K37 - UNSPECIFIED APPENDICITIS Status: Acute Current Visit: Yes Qualifiers: Appendicitis type: acute appendicitis Acute appendicitis type: with localized peritonitis Appendicitis gangrene presence: unspecified whether gangrene present Appendicitis perforation presence: without perforation Appendicitis abscess presence: without abscess Qualified Code(s): K35.30 - A cute appendicitis with localized peritonitis, without perforation or gangrene Problem List Initiated/Reviewed/Updated: Yes Orders Last 24hrs: Active Orders 24 hr Category Date Time Status Admission Status [Patient Status] [ADT] Stat ADT 06/23/20 23:31 Active Cardiac Monitoring [RC] . DIRECTED Care 06/23/20 21:55 Active Glucose [Blood Glucose Check, Bedside] [RC] TIDAC Care 06/24/20 06:30 Active Influenza Vaccine Charge [RC] .DISCHARGE Care 06/24/20 01:40 Active Pulse Oximetry [RC] ASDIRECTED Care 06/23/20 21:55 Active Vital Signs [RC] Q4H Care 06/24/20 00:30 Active NPO [Nothing Per Oral Diet] [DIET] Diet 06/24/20 Breakfast Active CULTURE BLOOD [BC] Stat Lab 06/23/20 23:00 Received CULTURE BLOOD [BC] Stat Lab 06/23/20 23:10 Received Acetaminophen [TylenoL] Med 06/24/20 00:03 Active 650 mg PO Q6H PRN Dextrose 50% in Water Med 06/24/20 00:09 Active 50 ml IV ASDIRECTED PRN FLU Vacc [id number] 36MOS UP/PF [Afluria Quad 2020-21 ( Med 06/24/20 10:00 Once 3YR UP)] 60 mcg IM .ONCE ONE Glucagon,Human Recombinant [GlucaGen] Med 06/24/20 00:09 Active 1 mg IM ASDIRECTED PRN HYDROmorphone [Dilaudid] Med 06/24/20 00:05 Active 0.5 mg IVPUSH Q1H PRN Insulin Aspart [NovoLOG] Med 06/24/20 07:30 Active See Protocol SUBCUT TIDAC Lactated Ringers [Ringers, Lactated] 1,000 ml Med 06/24/20 00:15 Active IV ASDIRECTED Ondansetron [Zofran] Med 06/24/20 00:04 Active 4 mg IVPUSH Q6H PRN Piperacillin/Tazobactam [Piperacil-Tazobact] 3.375 gm Med 06/24/20 05:00 Active Sodium Chloride 0.9% [Normal Saline] 50 ml IV Q6H diphenhydrAMINE [Benadryl] Med 06/24/20 00:05 Active 50 mg IVPUSH Q6H PRN Blood Culture x2 Reflex Set [OM.PC] Stat Oth 06/23/20 22:33 Ordered Medication Orders Acetaminophen (Tylenol) 650 mg PO Q6H PRN PRN Reason: Fever Dextrose/Water (Dextrose 50% In Water) 50 ml IV ASDIRECTED PRN PRN Reason: Hypoglycemia Diphenhydramine HCl (Benadryl) 50 mg IVPUSH Q6H PRN PRN Reason: Itching Glucagon (Glucagen) 1 mg IM ASDIRECTED PRN PRN Reason: Hypoglycemia Hydromorphone HCl (Dilaudid) 0.5 mg IVPUSH Q1H PRN PRN Reason: Pain Last Admin: 06/24/20 07:03 Dose: 0.5 mg Documented by: Admin: 06/24/20 02:56 Dose: 0.5 mg Documented by: JUNIOR Piperacillin Sod/Tazobactam (Sod 3.375 gm/ Sodium Chloride) 50 mls @ 100 mls/hr IV Q6H [facility] Last Admin: 06/24/20 05:05 Dose: 100 mls/hr Documented by: NIKKI Lactated Ringer's (Ringers, Lactated) 1,000 mls @ 150 mls/hr IV ASDIRECTED [facility] Last Admin: 06/24/20 01:24 Dose: 150 mls/hr Documented by: NIKKI Influenza Virus Vaccine (Afluria Quad 2020-21 (3yr Up)) 60 mcg IM .ONCE ONE Stop: 06/24/20 10:01 Insulin Aspart (Novolog) 0 unit SUBCUT TIDAC [facility]; Protocol Last Admin: 06/24/20 07:00 Dose: 3 units Documented by: NIKKI Ondansetron HCl (Zofran) 4 mg IVPUSH Q6H PRN PRN Reason: Nausea/Vomiting Last Admin: 06/24/20 07:10 Dose: 4 mg Documented by: Admin: 06/24/20 00:56 Dose: 4 mg Documented by: SHAHNAZ Assessment/Plan Comment:: The patient and I discussed the need for surgery. I will attempt this laparoscopically but convert to open should I be unable to complete this safely. The patient and I discussed the risks including bleeding, infection, or damage to surrounding structures. I explained that she is at high risk for any complications due to her uncontrolled diabetes and smoking. She told me that she has a chantix and is ready to quit smoking. She verbalized understanding and wishes to proceed.
[2020-06-24] MEDS ORDERED: Bupivacaine 0.5% 10 ML SDV ONE (08:33)
[2020-06-24] MEDS ORDERED: Succinylcholine/Sod PF 100 MG/5 ML SYRINGE IV ONE (09:04)
[2020-06-24] MEDS ORDERED: Sodium Chloride 0.9% 20 ML ONE (09:26)
[2020-06-24] MEDS ORDERED: FLU Vacc QS2020-21 36MOS UP/PF 60 MCG/0.5 ML Syringe IM ONE (10:00)
[2020-06-24] MEDS ORDERED: HYDROmorphone 2 MG/ML Syringe ONE ×2 (10:01→11:10)
[2020-06-24] MEDS ORDERED: ceFAZolin 1 GM Vial ONE (10:16)
[2020-06-24] MEDS ORDERED: Sugammadex Sodium 200 MG/2 ML VIAL ONE (10:30)
--- NOTE | 2020-06-24 10:53 | PCM.OPNOTE ---
- General Post-Op/Procedure Note Date of Surgery/Procedure: 06/24/20 Operative Procedure(s): Laparoscopic appendectomy Findings: Ruptured appendicitis associated with abscess and localized peritonitis. Pre Op Diagnosis: Appendicitis Post-Op Diagnosis: Ruptured appendicitis associated with abscess and localized peritonitis. Anesthesia Technique: General ET Tube Primary Surgeon: Tabatha Meredith Fluid Replacement, Intraop: 1,000 Output, Urine Amount: 155 EBL in mLs: 5 Condition: Good Free Text/Narrative:: Intake & Output 06/23/20 06/24/20 06/24/20 22:59 06:59 14:59 Intake Total 50 Output Total 400 Balance -350
--- NOTE | 2020-06-24 11:06 | PCM.CONS ---
H&P History of Present Illness - General Date of Service: 06/24/20 Admit Problem/Dx: Admission Diagnosis/Problem Admission Diagnosis/Problem Acute appendicitis Source of Information: Patient, Old Records History Limitations: Reports: No Limitations - History of Present Illness Initial Comments - Free Text/Narative: This 50 year old female with pmh of HTN, uncontrolled DM type 2, anxiety and tobacco abuse presented to the ED with complaints of RLQ. She was found to have perforated appendix, general surgery Dr Meredith consulted and took patient to the OR. Hospitalist service consulted for medical management of uncontrolled DM. Dhaval just arrived to the unit from PACU. She is alert and oriented, sleepy. She denies pain. No chest pain or SOB. She reports BS are being watched closely by PCP and DM educator. She was recently started on Trulicity as an outpatient. She is taking Lantus 40 units at bedtime with 10 units Novolog with each meal. She states she was supposed to increase to 80 units of Lantus but has not done so yet. She was first diagnosed in 2004 and was managed on Metformin, but since then has been uncontrolled and needing insulin. Most recent A1c 11.2%. Labwork significant for leukocytosis and elevated BS 200-300s. rlq Pain Score (Numeric/FACES): 8 - Related Data Allergies/Adverse Reactions: Allergies Allergy/AdvReac Type Severity Reaction Status Date / Time coconut Allergy Difficulty Verified 06/24/20 01:19 Breathing hydroxyzine HCl Allergy Hives Verified 06/24/20 01:19 [From Vistaril] hydroxyzine pamoate Allergy Hives Verified 06/24/20 01:19 [From Vistaril] ketorolac tromethamine Allergy Hives Verified 06/24/20 01:19 [From Toradol] Home Medications: Home Meds Insulin Aspart [Novolog Flexpen] 20 unit SQ TIDAC 06/04/17 [History] Insulin Glarg,Human.Rec.Analog [LantUS Solostar] 52 units SUBCUT BEDTIME 11/13/17 [History] traMADol HCl [Tramadol HCl] 50 mg PO Q6H PRN 10/27/18 [History] traZODone HCl [Trazodone HCl] 100 mg PO BEDTIME 10/27/18 [History] Non-Formulary Medication [NF Drug] 06/23/20 [History] lisinopriL [Lisinopril] 10 mg PO DAILY 06/23/20 [History] Past Medical History - Past Health History Medical/Surgical History: Denies Medical/Surgical History HEENT History: Reports: None Other HEENT History: wears glasses Cardiovascular History: Reports: High Cholesterol, Hypertension Respiratory History: Reports: TB Other Respiratory History: reports treatment for positive tuberculin test in 2002 - no lung lesions Gastrointestinal History: Reports: Other (See Below) (acute appendicitis) Genitourinary History: Reports: None 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 MANAGER History: Reports: Other OB/BYN History: x2 Musculoskeletal History: Reports: Other (See Below) Other Musculoskeletal History: chronic shoulder pain Neurological History: Reports: Migraines Psychiatric History: Reports: Anxiety, Panic Attack Endocrine/Metabolic History: Reports: Diabetes, Type II (A1c around 11 per patie nt) Hematologic History: Reports: None Immunologic History: Reports: None Oncologic (Cancer) History: Reports: None Dermatologic History: Reports: None - Infectious Disease History Infectious Disease History: Reports: TB Other Infectious Disease History: 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 - Past Surgical History HEENT Surgical History: Reports: None Cardiovascular Surgical History: Reports: None Respiratory Surgical History: Reports: None GI Surgical History: Reports: None Female Surgical History: Reports: Hysterectomy, Tubal Ligation Neurological Surgical History: Reports: None Musculoskeletal Surgical History: Reports: Arthroscopic Knee (bilateral), Shoulder Surgery (right), Other (See Below) Other Musculoskeletal Surgeries/Procedures:: L4 - L5 fusion 4 years ago Oncologic Surgical History: Reports: None Social & Family History - Family History Family Medical History: Noncontributory Neurological: Reports: Migraines Psychiatric: Reports: Anxiety Endocrine/Metabolic: Reports: Diabetes, type II - Tobacco Use Tobacco Use Status *Q: Current Some Day Tobacco User Years of Tobacco use: 10 Packs/Tins Daily: 0.5 Used Tobacco, but Quit: No Second Hand Smoke Exposure: Yes - Caffeine Use Caffeine Use: Reports: None Caffeine Use Comment: Client was lethargic upon arrival, unable to accurately obtain information. - Recreational Drug Use Recreational Drug Use: No H&P Review of Systems - Review of Systems: Review Of Systems: See Below General: Reports: No Symptoms. Denies: Fever, Chills, Weakness Pulmonary: Reports: No Symptoms. Denies: Shortness of Breath Cardiovascular: Reports: No Symptoms. Denies: Chest Pain Gastrointestinal: Reports: Abdominal Pain (currently no pain post operatively) Genitourinary: Reports: No Symptoms. Denies: Dysuria, Frequency, Burning Skin: Reports: No Symptoms Psychiatric: Reports: No Symptoms Neurological: Reports: No Symptoms Hematologic/Lymphatic: Reports: No Symptoms Immunologic: Reports: No Symptoms Exam - Exam Exam: See Below - Vital Signs Vital Signs: Last Vital Signs Temp 98 F 06/24/20 07:32 Pulse 84 06/24/20 07:32 Resp 16 06/24/20 07:32 BP 94/56 L 06/24/20 07:32 Pulse Ox 95 06/24/20 07:32 Weight: 62.097 kg - Exam General: Alert, Oriented, Cooperative HEENT: Conjunctiva Clear, Posterior Pharynx Clear, Other (missing broken teeth) Lungs: Clear to Auscultation, Normal Respiratory Effort Cardiovascular: Regular Rate, Regular Rhythm GI/Abdominal Exam: Normal Bowel Sounds, Soft Extremities: Normal Inspection, Normal Range of Motion, Non-Tender, No Pedal Edema Neuro Extensive - Mental Status: Alert, Oriented x3 Neuro Extensive - Motor, Sensory, Reflexes: CN II-XII Intact Psychiatric: Alert, Normal Affect, Normal Mood - Patient Data Lab Results Last 24 hrs: Laboratory Results - last 24 hr 06/23/20 06/23/20 06/23/20 Range/Units 19:47 19:47 19:47 WBC 21.10 H (4.0-11.0) K/uL RBC 4.99 (4.30-5.90) M/uL Hgb 15.7 (12.0-16.0) g/dL Hct 46.1 H (36.0-46.0) % MCV 92.4 (80.0-98.0) fL MCH 31.5 (27.0-32.0) pg MCHC 34.1 (31.0-37.0) g/dL RDW Std Deviation 41.7 (28.0-62.0) fl RDW Coeff of Haley 13 (11.0-15.0) % Plt Count 340 (150-400) K/uL MPV 10.30 (7.40-12.00) fL Neut % (Auto) 79.1 (48.0-80.0) % Lymph % (Auto) 11.8 L (16.0-40.0) % [place] % (Auto) 9.1 (0.0-15.0) % Eos % (Auto) 0.0 (0.0-7.0) % Baso % (Auto) 0.0 (0.0-1.5) % Neut # (Auto) 16.7 H (1.4-5.7) K/uL Lymph # (Auto) 2.5 H (0.6-2.4) K/uL [place] # (Auto) 1.9 H (0.0-0.8) K/uL Eos # (Auto) 0.0 (0.0-0.7) K/uL Baso # (Auto) 0.0 (0.0-0.1) K/uL Nucleated RBC % 0.0 /100WBC Nucleated RBCs # 0 K/uL INR 1.06 Lactate 1.6 (0.20-2.00) mmol/L Sodium (136-145) mmol/L Potassium (3.5-5.1) mmol/L Chloride (98-107) mmol/L Carbon Dioxide (21.0-32.0) mmol/L BUN (7.0-18.0) mg/dL Creatinine (0.6-1.0) mg/dL Est Cr Clr Drug Dosing mL/min Estimated GFR (MDRD) ml/min Glucose (74-106) mg/dL POC Glucose (60-110) mg/dL Hemoglobin A1c (4.5-6.2) % Calcium (8.5-10.1) mg/dL Total Bilirubin (0.2-1.0) mg/dL AST (15-37) IU/L ALT (14-63) IU/L Alkaline Phosphatase (46-116) U/L Total Protein (6.4-8.2) g/dL Albumin (3.4-5.0) g/dL Globulin (2.6-4.0) g/dL Albumin/Globulin Ratio (0.9-1.6) Urine Color Urine Appearance Urine pH (5.0-8.0) Ur Specific Dike (1.001-1.035) Urine Protein (NEGATIVE) mg/dL Urine Glucose (UA) (NEGATIVE) mg/dL Urine Ketones (NEGATIVE) mg/dL Urine Occult Blood (NEGATIVE) Urine Nitrite (NEGATIVE) Urine Bilirubin (NEGATIVE) Urine Urobilinogen (<2.0) EU/dL Ur Leukocyte Esterase (NEGATIVE) SARS-CoV-2 RNA (JUAN) (NEGATIVE) Blood Type Antibody Screen 06/23/20 06/23/20 06/23/20 Range/Units 19:47 22:14 23:10 WBC (4.0-11.0) K/uL RBC (4.30-5.90) M/uL Hgb (12.0-16.0) g/dL Hct (36.0-46.0) % MCV (80.0-98.0) fL MCH (27.0-32.0) pg MCHC (31.0-37.0) g/dL RDW Std Deviation (28.0-62.0) fl RDW Coeff of Haley (11.0-15.0) % Plt Count (150-400) K/uL MPV (7.40-12.00) fL Neut % (Auto) (48.0-80.0) % Lymph % (Auto) (16.0-40.0) % [place] % (Auto) (0.0-15.0) % Eos % (Auto) (0.0-7.0) % Baso % (Auto) (0.0-1.5) % Neut # (Auto) (1.4-5.7) K/uL Lymph # (Auto) (0.6-2.4) K/uL [place] # (Auto) (0.0-0.8) K/uL Eos # (Auto) (0.0-0.7) K/uL Baso # (Auto) (0.0-0.1) K/uL Nucleated RBC % /100WBC Nucleated RBCs # K/uL INR Lactate (0.20-2.00) mmol/L Sodium 133 L (136-145) mmol/L Potassium 3.5 (3.5-5.1) mmol/L Chloride 96 L (98-107) mmol/L Carbon Dioxide 26.7 (21.0-32.0) mmol/L BUN 9 (7.0-18.0) mg/dL Creatinine 0.9 (0.6-1.0) mg/dL Est Cr Clr Drug Dosing 71.56 mL/min Estimated GFR (MDRD) > 60.0 ml/min Glucose 299 H (74-106) mg/dL POC Glucose (60-110) mg/dL Hemoglobin A1c (4.5-6.2) % Calcium 8.8 (8.5-10.1) mg/dL Total Bilirubin 0.7 (0.2-1.0) mg/dL AST 6 L (15-37) IU/L ALT 21 (14-63) IU/L Alkaline Phosphatase 49 (46-116) U/L Total Protein 7.5 (6.4-8.2) g/dL Albumin 3.7 (3.4-5.0) g/dL Globulin 3.8 (2.6-4.0) g/dL Albumin/Globulin Ratio 1.0 (0.9-1.6) Urine Color YELLOW Urine Appearance CLEAR Urine pH 6.5 (5.0-8.0) Ur Specific Dike <= 1.005 (1.001-1.035) Urine Protein NEGATIVE (NEGATIVE) mg/dL Urine Glucose (UA) 500 H (NEGATIVE) mg/dL Urine Ketones 40 H (NEGATIVE) mg/dL Urine Occult Blood NEGATIVE (NEGATIVE) Urine Nitrite NEGATIVE (NEGATIVE) Urine Bilirubin NEGATIVE (NEGATIVE) Urine Urobilinogen 0.2 (<2.0) EU/dL Ur Leukocyte Esterase NEGATIVE (NEGATIVE) SARS-CoV-2 RNA (JUAN) (NEGATIVE) Blood Type A POSITIVE Antibody Screen NEGATIVE 06/23/20 06/23/20 06/24/20 Range/Units 23:30 23:45 00:04 WBC (4.0-11.0) K/uL RBC (4.30-5.90) M/uL Hgb (12.0-16.0) g/dL Hct (36.0-46.0) % MCV (80.0-98.0) fL MCH (27.0-32.0) pg MCHC (31.0-37.0) g/dL RDW Std Deviation (28.0-62.0) fl RDW Coeff of Haley (11.0-15.0) % Plt Count (150-400) K/uL MPV (7.40-12.00) fL Neut % (Auto) (48.0-80.0) % Lymph % (Auto) (16.0-40.0) % [place] % (Auto) (0.0-15.0) % Eos % (Auto) (0.0-7.0) % Baso % (Auto) (0.0-1.5) % Neut # (Auto) (1.4-5.7) K/uL Lymph # (Auto) (0.6-2.4) K/uL [place] # (Auto) (0.0-0.8) K/uL Eos # (Auto) (0.0-0.7) K/uL Baso # (Auto) (0.0-0.1) K/uL Nucleated RBC % /100WBC Nucleated RBCs # K/uL INR Lactate 1.3 (0.20-2.00) mmol/L Sodium (136-145) mmol/L Potassium (3.5-5.1) mmol/L Chloride (98-107) mmol/L Carbon Dioxide (21.0-32.0) mmol/L BUN (7.0-18.0) mg/dL Creatinine (0.6-1.0) mg/dL Est Cr Clr Drug Dosing mL/min Estimated GFR (MDRD) ml/min Glucose (74-106) mg/dL POC Glucose 256 H (60-110) mg/dL Hemoglobin A1c (4.5-6.2) % Calcium (8.5-10.1) mg/dL Total Bilirubin (0.2-1.0) mg/dL AST (15-37) IU/L ALT (14-63) IU/L Alkaline Phosphatase (46-116) U/L Total Protein (6.4-8.2) g/dL Albumin (3.4-5.0) g/dL Globulin (2.6-4.0) g/dL Albumin/Globulin Ratio (0.9-1.6) Urine Color Urine Appearance Urine pH (5.0-8.0) Ur Specific Dike (1.001-1.035) Urine Protein (NEGATIVE) mg/dL Urine Glucose (UA) (NEGATIVE) mg/dL Urine Ketones (NEGATIVE) mg/dL Urine Occult Blood (NEGATIVE) Urine Nitrite (NEGATIVE) Urine Bilirubin (NEGATIVE) Urine Urobilinogen (<2.0) EU/dL Ur Leukocyte Esterase (NEGATIVE) SARS-CoV-2 RNA (JUAN) NEGATIVE (NEGATIVE) Blood Type Antibody Screen 06/24/20 06/24/20 06/24/20 Range/Units 00:35 04:48 04:48 WBC 20.62 H (4.0-11.0) K/uL RBC 4.33 (4.30-5.90) M/uL Hgb 13.3 (12.0-16.0) g/dL Hct 40.3 (36.0-46.0) % MCV 93.1 (80.0-98.0) fL MCH 30.7 (27.0-32.0) pg MCHC 33.0 (31.0-37.0) g/dL RDW Std Deviation 42.5 (28.0-62.0) fl RDW Coeff of Haley 13 (11.0-15.0) % Plt Count 280 (150-400) K/uL MPV 10.60 (7.40-12.00) fL Neut % (Auto) 83.5 H (48.0-80.0) % Lymph % (Auto) 8.0 L (16.0-40.0) % [place] % (Auto) 8.5 (0.0-15.0) % Eos % (Auto) 0.0 (0.0-7.0) % Baso % (Auto) 0.0 (0.0-1.5) % Neut # (Auto) 17.2 H (1.4-5.7) K/uL Lymph # (Auto) 1.6 (0.6-2.4) K/uL [place] # (Auto) 1.8 H (0.0-0.8) K/uL Eos # (Auto) 0.0 (0.0-0.7) K/uL Baso # (Auto) 0.0 (0.0-0.1) K/uL Nucleated RBC % 0.0 /100WBC Nucleated RBCs # 0 K/uL INR Lactate (0.20-2.00) mmol/L Sodium 136 (136-145) mmol/L Potassium 3.6 (3.5-5.1) mmol/L Chloride 99 (98-107) mmol/L Carbon Dioxide 26.6 (21.0-32.0) mmol/L BUN 7 (7.0-18.0) mg/dL Creatinine 0.7 (0.6-1.0) mg/dL Est Cr Clr Drug Dosing 77.73 mL/min Estimated GFR (MDRD) > 60.0 ml/min Glucose 283 H (74-106) mg/dL POC Glucose (60-110) mg/dL Hemoglobin A1c 11.2 H (4.5-6.2) % Calcium 8.4 L (8.5-10.1) mg/dL Total Bilirubin 0.7 (0.2-1.0) mg/dL AST 6 L (15-37) IU/L ALT 18 (14-63) IU/L Alkaline Phosphatase 40 L (46-116) U/L Total Protein 6.0 L (6.4-8.2) g/dL Albumin 2.9 L (3.4-5.0) g/dL Globulin 3.1 (2.6-4.0) g/dL Albumin/Globulin Ratio 0.9 (0.9-1.6) Urine Color Urine Appearance Urine pH (5.0-8.0) Ur Specific Dike (1.001-1.035) Urine Protein (NEGATIVE) mg/dL Urine Glucose (UA) (NEGATIVE) mg/dL Urine Ketones (NEGATIVE) mg/dL Urine Occult Blood (NEGATIVE) Urine Nitrite (NEGATIVE) Urine Bilirubin (NEGATIVE) Urine Urobilinogen (<2.0) EU/dL Ur Leukocyte Esterase (NEGATIVE) SARS-CoV-2 RNA (JUAN) (NEGATIVE) Blood Type Antibody Screen 06/24/20 Range/Units 06:39 WBC (4.0-11.0) K/uL RBC (4.30-5.90) M/uL Hgb (12.0-16.0) g/dL Hct (36.0-46.0) % MCV (80.0-98.0) fL MCH (27.0-32.0) pg MCHC (31.0-37.0) g/dL RDW Std Deviation (28.0-62.0) fl RDW Coeff of Haley (11.0-15.0) % Plt Count (150-400) K/uL MPV (7.40-12.00) fL Neut % (Auto) (48.0-80.0) % Lymph % (Auto) (16.0-40.0) % [place] % (Auto) (0.0-15.0) % Eos % (Auto) (0.0-7.0) % Baso % (Auto) (0.0-1.5) % Neut # (Auto) (1.4-5.7) K/uL Lymph # (Auto) (0.6-2.4) K/uL [place] # (Auto) (0.0-0.8) K/uL Eos # (Auto) (0.0-0.7) K/uL Baso # (Auto) (0.0-0.1) K/uL Nucleated RBC % /100WBC Nucleated RBCs # K/uL INR Lactate (0.20-2.00) mmol/L Sodium (136-145) mmol/L Potassium (3.5-5.1) mmol/L Chloride (98-107) mmol/L Carbon Dioxide (21.0-32.0) mmol/L BUN (7.0-18.0) mg/dL Creatinine (0.6-1.0) mg/dL Est Cr Clr Drug Dosing mL/min Estimated GFR (MDRD) ml/min Glucose (74-106) mg/dL POC Glucose 267 H (60-110) mg/dL Hemoglobin A1c (4.5-6.2) % Calcium (8.5-10.1) mg/dL Total Bilirubin (0.2-1.0) mg/dL AST (15-37) IU/L ALT (14-63) IU/L Alkaline Phosphatase (46-116) U/L Total Protein (6.4-8.2) g/dL Albumin (3.4-5.0) g/dL Globulin (2.6-4.0) g/dL Albumin/Globulin Ratio (0.9-1.6) Urine Color Urine Appearance Urine pH (5.0-8.0) Ur Specific Dike (1.001-1.035) Urine Protein (NEGATIVE) mg/dL Urine Glucose (UA) (NEGATIVE) mg/dL Urine Ketones (NEGATIVE) mg/dL Urine Occult Blood (NEGATIVE) Urine Nitrite (NEGATIVE) Urine Bilirubin (NEGATIVE) Urine Urobilinogen (<2.0) EU/dL Ur Leukocyte Esterase (NEGATIVE) SARS-CoV-2 RNA (JUAN) (NEGATIVE) Blood Type Antibody Screen Result Diagrams: 06/24/20 04:48 06/24/20 04:48 Sepsis Event Note - Evaluation Sepsis Screening Result: No Definite Risk - Focused Exam Vital Signs: Vital Signs Temp Pulse Resp BP Pulse Ox 06/24/20 07:32 98 F 84 16 94/56 L 95 06/24/20 05:00 98.1 F 95 18 100/56 L 97 06/24/20 01:12 99.1 F 116 H 18 120/79 96 06/24/20 00:40 98 18 128/82 97 Consult PN Assessment/Plan POD#: 0 Procedures: Procedures ASSAY OF AMYLASE (02/07/15) ASSAY OF LIPASE (10/27/18) ASSAY OF MAGNESIUM (02/07/15) ASSAY OF TROPONIN QUANT (10/27/18) ASSAY THYROID STIM HORMONE (10/04/19) BLOOD GASES ANY COMBINATION (02/08/15) EDWIN DNA DIR PROBE (05/17/19) CHEST X-RAY 1 VIEW FRONTAL (06/26/17) CHEST X-RAY 2VW FRONTAL&LATL (07/08/17) CHORIONIC GONADOTROPIN ASSAY (01/07/15) COMPLETE CBC AUTOMATED (04/05/17) COMPLETE CBC W/AUTO DIFF WBC (05/03/20) COMPREHEN METABOLIC PANEL (04/23/20) CT HEAD/BRAIN W/O DYE (07/10/18) CULTURE OTHR SPECIMN AEROBIC (10/20/17) DRUG TEST PRSMV DIR OPT OBS (04/23/20) ECHO EXAM OF ABDOMEN (10/27/18) ELECTROCARDIOGRAM TRACING (10/27/18) EMERGENCY DEPT VISIT (10/27/18) EMERGENCY DEPT VISIT (07/10/18) EMERGENCY DEPT VISIT (11/13/17) EMERGENCY DEPT VISIT (08/19/17) EMERGENCY DEPT VISIT (06/26/17) EMERGENCY DEPT VISIT (06/22/17) EMERGENCY DEPT VISIT (06/04/17) EMERGENCY DEPT VISIT (02/27/17) EMERGENCY DEPT VISIT (01/03/17) EMERGENCY DEPT VISIT (07/02/16) EMERGENCY DEPT VISIT (08/28/15) EMERGENCY DEPT VISIT (01/07/15) EMERGENCY DEPT VISIT (06/12/14) MIRIAM VAG DNA DIR PROBE (05/17/19) GASTRIC EMPTYING IMAG STUDY (02/11/15) GLUCOSE BLOOD TEST (07/10/18) GLYCOSYLATED HEMOGLOBIN TEST (04/23/20) HELICOBACTER PYLORI ANTIBODY (11/18/16) HOT OR COLD PACKS THERAPY (12/27/14) HYDRATE IV INFUSION ADD-ON (11/13/17) HYDRATION IV INFUSION INIT (07/10/18) INCISION OF TENDON & MUSCLE (10/21/16) INFLUENZA ASSAY W/OPTIC (10/20/17) LIPID PANEL (04/23/20) MANUAL THERAPY 1/> REGIONS (01/25/15) MASSAGE THERAPY (01/25/15) METABOLIC PANEL TOTAL CA (12/23/17) MRI JOINT UPR EXTREM W/O DYE (06/17/20) MRI LUMBAR SPINE W/O DYE (01/12/17) NJX INTERLAMINAR LMBR/SAC (02/02/17) OFFICE/OUTPATIENT VISIT EST (05/27/20) PT EVAL LOW COMPLEX 20 MIN (06/30/17) PT EVALUATION (12/27/14) ROUTINE VENIPUNCTURE (05/03/20) SHOULDER ARTHROSCOPY/SURGERY (10/21/16) SMEAR WET MOUNT SALINE/INK (08/10/16) TEST FOR ACETONE/KETONES (07/10/18) THER/PROPH/DIAG INJ IV PUSH (02/27/17) THER/PROPH/DIAG INJ SC/IM (07/10/18) THER/PROPH/DIAG IV INF INIT (06/26/17) THERAPEUTIC ACTIVITIES (12/27/14) THERAPEUTIC EXERCISES (03/26/17) TRICHOMONAS VAGIN DIR PROBE (05/17/19) TX/PRO/DX INJ NEW DRUG ADDON (06/26/17) TX/PRO/DX INJ SAME DRUG SOCIAL WORK NURSE (06/26/17) ULTRASOUND THERAPY (03/26/17) UR ALBUMIN SEMIQUANTITATIVE (04/23/20) URINALYSIS AUTO W/O SCOPE (10/04/19) URINALYSIS AUTO W/SCOPE (01/20/19) URINE CULTURE/COLONY COUNT (01/20/19) URINE TEST (02/27/17) VIT D 1 25-DIHYDROXY (04/05/17) WITHDRAWAL OF ARTERIAL BLOOD (02/08/15) X-RAY EXAM ABDOMEN 1 VIEW (10/04/19) X-RAY EXAM CHEST 1 VIEW (10/27/18) X-RAY EXAM L-S SPINE 2/3 VWS (12/07/17) X-RAY EXAM NECK SPINE 2-3 VW (08/01/19) X-RAY EXAM OF ANKLE (07/18/16) X-RAY EXAM OF ELBOW (01/09/20) X-RAY EXAM OF SHOULDER (05/27/20) (1) Chronic pain SNOMED Code(s): 85478058 Code(s): G89.29 - OTHER CHRONIC PAIN Current Visit: Yes (2) DM type 2 (diabetes mellitus, type 2) SNOMED Code(s): 93401295 Code(s): E11.9 - TYPE 2 DIABETES MELLITUS WITHOUT COMPLICATIONS Current Visit: Yes Qualifiers: Diabetes mellitus terminologist insulin use: with terminologist use Diabetes mellitus complication status: with hyperglycemia Qualified Code(s): E11.65 - Type 2 diabetes mellitus with hyperglycemia; Z79.4 - 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 terminal 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) use of insulin (3) Appendicitis SNOMED Code(s): 61324955 Code(s): K37 - UNSPECIFIED APPENDICITIS Current Visit: Yes Qualifiers: Appendicitis type: acute appendicitis Acute appendicitis type: with localized peritonitis Appendicitis gangrene presence: unspecified whether gangrene present Appendicitis perforation presence: without perforation Appendicitis abscess presence: without abscess Qualified Code(s): K35.30 - Acute appendicitis with localized peritonitis, without perforation or gangrene (4) Anxiety SNOMED Code(s): 39979585 Code(s): F41.9 - ANXIETY DISORDER, UNSPECIFIED Current Visit: No Problem List Initiated/Reviewed/Updated: Yes My Orders Last 24 Hours: My Active Orders 06/24/20 11:03 Consult to [facility]op Puncher [Consult to Diabetic Nurse Specialist] [CONS] Routine 06/24/20 11:30 Insulin Aspart [NovoLOG] 5 unit SUBCUT TIDAC 06/24/20 21:00 Insulin Glarg,Human.Rec.Analog [LantUS Solostar] 50 units SUBCUT BEDTIME Plan: This 50 year old female admitted with perforated appendicitis, Hospitalist consulted to DM management. 1. Appendicitis - Orders per Dr Meredith 2. Uncontrolled DM type 2 - Will monitor BS TIDAC - 5 units insulin with low dose SSI with meals - Lantus 35 units bedtime, will increase as diet increases - Need to get sugars below 180 - Continue Trulicity on Wednesdays - Consult DM educator, I did speak with Nighat today to review previous recommendations. Also spoke with PCP Dr. Miller so he is aware of admission. VTE prophylaxis: Would recommended when deemed appropriate
--- NOTE | 2020-06-24 11:26 | PCM.POSTAN ---
POST ANESTHESIA ASSESSMENT - MENTAL STATUS Mental Status: Alert, Oriented - VITAL SIGNS Vital Signs: Last Vital Signs Temp 37.7 C 06/24/20 10:40 Pulse 86 06/24/20 11:20 Resp 14 06/24/20 11:20 BP 106/58 L 06/24/20 11:20 Pulse Ox 96 06/24/20 11:20 - RESPIRATORY Respiratory Status: Respiratory Rate WNL, Airway Patent, O2 Saturation Stable - CARDIOVASCULAR CV Status: Pulse Rate WNL, Blood Pressure Stable - GASTROINTESTINAL GI Status: No Symptoms - PAIN Pain Score: 4 - POST OP HYDRATION Hydration Status: Adequate & Stable - OBSERVATIONS Free Text/Narrative:: No anesthesia problems
--- NOTE | 2020-06-24 15:01 | OR ---
SURGEON: TABATHA MEREDITH MD DATE OF PROCEDURE: 06/24/2020 PREOPERATIVE DIAGNOSIS: Acute appendicitis. POSTOPERATIVE DIAGNOSIS: Ruptured appendicitis with abscess and localized peritonitis. PRIMARY SURGEON: Tabatha Meredith MD TAIL END RIDER: coding assistant: Edgardo Schofield MD ANESTHESIA: General endotracheal anesthesia. FLUIDS: 1000 mL of crystalloid. ESTIMATED BLOOD LOSS: 5 mL. URINE OUTPUT: 155 mL. FINDINGS: Acute ruptured appendicitis with localized peritonitis and a small 1 cm associated abscess. No evidence of abscess formation or free fluid elsewhere. The patient did have omental adhesions in the pelvis due to a previous hysterectomy. COMPLICATIONS: None. INDICATIONS: The patient is a 50-year-old female who presented to the emergency room with abdominal pain, nausea, and vomiting. Workup revealed a leukocytosis with a left shift. CT scan revealed acute appendicitis. The patient was tachycardic on arrival. She was admitted to the floor for IV fluids and IV antibiotics. This morning, she is having adequate urine output and appears to be adequately resuscitated. Her tachycardia has improved. The patient and I discussed the pathophysiology of appendicitis and the need for an appendectomy. I consented her for a laparoscopic, possible open, appendectomy. I explained the procedure; the expected perioperative course; and the risks including bleeding, infection, or damage to surrounding structures. She verbalized understanding and wishes to proceed. PROCEDURE IN DETAIL: The patient was brought into the OR and placed on the OR table in supine position. A time-out was completed verifying the patient's name, age, date of , allergies, and procedure to be performed. General endotracheal anesthesia was induced. The left arm was tucked to the patient's side and a Vargas catheter placed. The abdomen was prepped and draped in usual standard fashion. I anesthetized an area 2 fingerbreadths below the left subcostal margin in the midclavicular line with 0.5% Marcaine plain. A 1 cm incision was made using an 11 blade. Electrocautery was used to achieve hemostasis. A 5 mm optical trocar was used to gain entry into the left upper quadrant under direct visualization. All layers of the abdominal wall were visualized upon entry. The abdomen was insufflated and a 5 mm 30-degree scope was inserted. I inspected the area underneath my initial trocar placement. No damage to surrounding structures was noted. A 5 mm trocar was placed just left and lateral to the umbilicus under direct visualization. A 12 mm trocar was placed in similar fashion in the left lower quadrant. The patient was placed into Trendelenburg position and airplaned slightly to the left. I turned my attention to the lower abdomen. The omentum was adhered to the proximal ascending colon, cecum, and right lower quadrant abdominal wall. Using suction and gentle blunt dissection, I was able to take the omentum down. I identified the tip of the appendix. It was adhered down into the pelvis. There were some adhesions in the pelvis due to the patient's previous hysterectomy. The adhesions of the tip of the appendix to the pelvis were taken down using blunt dissection. Once these were taken down, I was able to mobilize the appendix. The retroperitoneal attachments of the appendix to the cecum were taken down bluntly using an endoscopic Kittner. Once I could clearly see the base of my appendix, I inspected the cecum. There was some localized edema in the surrounding tissues. I identified my terminal ileum. Using a Harmonic scalpel, I then took the appendiceal mesentery down from distal to proximal. As I came to the base of the appendix, I entered a small abscess cavity. This was less than 1 cm in size. This was suctioned out. Upon close inspection, there was no evidence of a perforation at this site. The perforation appeared to be in the mid body of the appendix. The base of the appendix appeared healthy. The decision was made to transect across the base of the appendix using an endoscopic stapling device. The device was brought into the field, and I stapled and transected across the base of the appendix using a 45 mm blue load of leonor. The appendix was then placed in an Endo Catch bag and removed through the 12 mm port site. The 12 mm port was reinserted, and I inspected my operative field. The base of the appendix appeared healthy and the staple line intact. I irrigated the abdomen with 800 mL of normal saline mixed with Ancef. I then suctioned this out. The 12 mm trocar site was then closed with an interrupted 0 Vicryl suture using a Christiano-Lawrence device. The 5 mm trocars were then opened up allowing the abdomen to desufflate, and they were removed under direct visualization. I then closed the skin site with leonor. They were then covered with sterile dressings. The patient tolerated the procedure well. She was extubated and taken to PACU in stable condition. All counts were complete and correct at the end of the case. JAE / FRANCISCO JAVIER /[id number]
--- NOTE | 2020-06-24 16:53 | PCM.SURGPN ---
- General Info Date of Service: 06/24/20 Date of Surgery/Procedure: 06/24/20 POD#: 0 Functional Status: Reports: Pain Controlled, Tolerating Diet, Ambulating, Urinating. Denies: New Symptoms - Review of Systems General: Reports: No Symptoms HEENT: Reports: No Symptoms Pulmonary: Reports: No Symptoms Cardiovascular: Reports: No Symptoms Gastrointestinal: Reports: Flatus, Other (mild distension ) Genitourinary: Reports: No Symptoms Musculoskeletal: Reports: No Symptoms Skin: Reports: No Symptoms - Patient Data Vitals - Most Recent: Last Vital Signs Temp 37.7 C 06/24/20 10:40 Pulse 86 06/24/20 11:20 Resp 14 06/24/20 11:20 BP 106/58 L 06/24/20 11:20 Pulse Ox 96 06/24/20 11:20 Weight - Most Recent: 62.097 kg I&O - Last 24 Hours: Intake & Output 06/24/20 06/24/20 06/24/20 06:59 14:59 22:59 Intake Total 50 2150 Output Total 400 460 Balance -350 1690 Lab Results Last 24 Hrs: Laboratory Results - last 24 hr 06/23/20 06/23/20 06/23/20 Range/Units 19:47 19:47 19:47 WBC 21.10 H (4.0-11.0) K/uL RBC 4.99 (4.30-5.90) M/uL Hgb 15.7 (12.0-16.0) g/dL Hct 46.1 H (36.0-46.0) % MCV 92.4 (80.0-98.0) fL MCH 31.5 (27.0-32.0) pg MCHC 34.1 (31.0-37.0) g/dL RDW Std Deviation 41.7 (28.0-62.0) fl RDW Coeff of Haley 13 (11.0-15.0) % Plt Count 340 (150-400) K/uL MPV 10.30 (7.40-12.00) fL Neut % (Auto) 79.1 (48.0-80.0) % Lymph % (Auto) 11.8 L (16.0-40.0) % [place] % (Auto) 9.1 (0.0-15.0) % Eos % (Auto) 0.0 (0.0-7.0) % Baso % (Auto) 0.0 (0.0-1.5) % Neut # (Auto) 16.7 H (1.4-5.7) K/uL Lymph # (Auto) 2.5 H (0.6-2.4) K/uL [place] # (Auto) 1.9 H (0.0-0.8) K/uL Eos # (Auto) 0.0 (0.0-0.7) K/uL Baso # (Auto) 0.0 (0.0-0.1) K/uL Nucleated RBC % 0.0 /100WBC Nucleated RBCs # 0 K/uL INR 1.06 Lactate 1.6 (0.20-2.00) mmol/L Sodium (136-145) mmol/L Potassium (3.5-5.1) mmol/L Chloride (98-107) mmol/L Carbon Dioxide (21.0-32.0) mmol/L BUN (7.0-18.0) mg/dL Creatinine (0.6-1.0) mg/dL Est Cr Clr Drug Dosing mL/min Estimated GFR (MDRD) ml/min Glucose (74-106) mg/dL POC Glucose (60-110) mg/dL Hemoglobin A1c (4.5-6.2) % Calcium (8.5-10.1) mg/dL Total Bilirubin (0.2-1.0) mg/dL AST (15-37) IU/L ALT (14-63) IU/L Alkaline Phosphatase (46-116) U/L Total Protein (6.4-8.2) g/dL Albumin (3.4-5.0) g/dL Globulin (2.6-4.0) g/dL Albumin/Globulin Ratio (0.9-1.6) Urine Color Urine Appearance Urine pH (5.0-8.0) Ur Specific [place] (1.001-1.035) Urine Protein (NEGATIVE) mg/dL Urine Glucose (UA) (NEGATIVE) mg/dL Urine Ketones (NEGATIVE) mg/dL Urine Occult Blood (NEGATIVE) Urine Nitrite (NEGATIVE) Urine Bilirubin (NEGATIVE) Urine Urobilinogen (<2.0) EU/dL Ur Leukocyte Esterase (NEGATIVE) SARS-CoV-2 RNA (JUAN) (NEGATIVE) Blood Type Antibody Screen 06/23/20 06/23/20 06/23/20 Range/Units 19:47 22:14 23:10 WBC (4.0-11.0) K/uL RBC (4.30-5.90) M/uL Hgb (12.0-16.0) g/dL Hct (36.0-46.0) % MCV (80.0-98.0) fL MCH (27.0-32.0) pg MCHC (31.0-37.0) g/dL RDW Std Deviation (28.0-62.0) fl RDW Coeff of Haley (11.0-15.0) % Plt Count (150-400) K/uL MPV (7.40-12.00) fL Neut % (Auto) (48.0-80.0) % Lymph % (Auto) (16.0-40.0) % [place] % (Auto) (0.0-15.0) % Eos % (Auto) (0.0-7.0) % Baso % (Auto) (0.0-1.5) % Neut # (Auto) (1.4-5.7) K/uL Lymph # (Auto) (0.6-2.4) K/uL [place] # (Auto) (0.0-0.8) K/uL Eos # (Auto) (0.0-0.7) K/uL Baso # (Auto) (0.0-0.1) K/uL Nucleated RBC % /100WBC Nucleated RBCs # K/uL INR Lactate (0.20-2.00) mmol/L Sodium 133 L (136-145) mmol/L Potassium 3.5 (3.5-5.1) mmol/L Chloride 96 L (98-107) mmol/L Carbon Dioxide 26.7 (21.0-32.0) mmol/L BUN 9 (7.0-18.0) mg/dL Creatinine 0.9 (0.6-1.0) mg/dL Est Cr Clr Drug Dosing 71.56 mL/min Estimated GFR (MDRD) > 60.0 ml/min Glucose 299 H (74-106) mg/dL POC Glucose (60-110) mg/dL Hemoglobin A1c (4.5-6.2) % Calcium 8.8 (8.5-10.1) mg/dL Total Bilirubin 0.7 (0.2-1.0) mg/dL AST 6 L (15-37) IU/L ALT 21 (14-63) IU/L Alkaline Phosphatase 49 (46-116) U/L Total Protein 7.5 (6.4-8.2) g/dL Albumin 3.7 (3.4-5.0) g/dL Globulin 3.8 (2.6-4.0) g/dL Albumin/Globulin Ratio 1.0 (0.9-1.6) Urine Color YELLOW Urine Appearance CLEAR Urine pH 6.5 (5.0-8.0) Ur Specific [place] <= 1.005 (1.001-1.035) Urine Protein NEGATIVE (NEGATIVE) mg/dL Urine Glucose (UA) 500 H (NEGATIVE) mg/dL Urine Ketones 40 H (NEGATIVE) mg/dL Urine Occult Blood NEGATIVE (NEGATIVE) Urine Nitrite NEGATIVE (NEGATIVE) Urine Bilirubin NEGATIVE (NEGATIVE) Urine Urobilinogen 0.2 (<2.0) EU/dL Ur Leukocyte Esterase NEGATIVE (NEGATIVE) SARS-CoV-2 RNA (JUAN) (NEGATIVE) Blood Type A POSITIVE Antibody Screen NEGATIVE 06/23/20 06/23/20 06/24/20 Range/Units 23:30 23:45 00:04 WBC (4.0-11.0) K/uL RBC (4.30-5.90) M/uL Hgb (12.0-16.0) g/dL Hct (36.0-46.0) % MCV (80.0-98.0) fL MCH (27.0-32.0) pg MCHC (31.0-37.0) g/dL RDW Std Deviation (28.0-62.0) fl RDW Coeff of Haley (11.0-15.0) % Plt Count (150-400) K/uL MPV (7.40-12.00) fL Neut % (Auto) (48.0-80.0) % Lymph % (Auto) (16.0-40.0) % [place] % (Auto) (0.0-15.0) % Eos % (Auto) (0.0-7.0) % Baso % (Auto) (0.0-1.5) % Neut # (Auto) (1.4-5.7) K/uL Lymph # (Auto) (0.6-2.4) K/uL [place] # (Auto) (0.0-0.8) K/uL Eos # (Auto) (0.0-0.7) K/uL Baso # (Auto) (0.0-0.1) K/uL Nucleated RBC % /100WBC Nucleated RBCs # K/uL INR Lactate 1.3 (0.20-2.00) mmol/L Sodium (136-145) mmol/L Potassium (3.5-5.1) mmol/L Chloride (98-107) mmol/L Carbon Dioxide (21.0-32.0) mmol/L BUN (7.0-18.0) mg/dL Creatinine (0.6-1.0) mg/dL Est Cr Clr Drug Dosing mL/min Estimated GFR (MDRD) ml/min Glucose (74-106) mg/dL POC Glucose 256 H (60-110) mg/dL Hemoglobin A1c (4.5-6.2) % Calcium (8.5-10.1) mg/dL Total Bilirubin (0.2-1.0) mg/dL AST (15-37) IU/L ALT (14-63) IU/L Alkaline Phosphatase (46-116) U/L Total Protein (6.4-8.2) g/dL Albumin (3.4-5.0) g/dL Globulin (2.6-4.0) g/dL Albumin/Globulin Ratio (0.9-1.6) Urine Color Urine Appearance Urine pH (5.0-8.0) Ur Specific [place] (1.001-1.035) Urine Protein (NEGATIVE) mg/dL Urine Glucose (UA) (NEGATIVE) mg/dL Urine Ketones (NEGATIVE) mg/dL Urine Occult Blood (NEGATIVE) Urine Nitrite (NEGATIVE) Urine Bilirubin (NEGATIVE) Urine Urobilinogen (<2.0) EU/dL Ur Leukocyte Esterase (NEGATIVE) SARS-CoV-2 RNA (JUAN) NEGATIVE (NEGATIVE) Blood Type Antibody Screen 06/24/20 06/24/20 06/24/20 Range/Units 00:35 04:48 04:48 WBC 20.62 H (4.0-11.0) K/uL RBC 4.33 (4.30-5.90) M/uL Hgb 13.3 (12.0-16.0) g/dL Hct 40.3 (36.0-46.0) % MCV 93.1 (80.0-98.0) fL MCH 30.7 (27.0-32.0) pg MCHC 33.0 (31.0-37.0) g/dL RDW Std Deviation 42.5 (28.0-62.0) fl RDW Coeff of Haley 13 (11.0-15.0) % Plt Count 280 (150-400) K/uL MPV 10.60 (7.40-12.00) fL Neut % (Auto) 83.5 H (48.0-80.0) % Lymph % (Auto) 8.0 L (16.0-40.0) % [place] % (Auto) 8.5 (0.0-15.0) % Eos % (Auto) 0.0 (0.0-7.0) % Baso % (Auto) 0.0 (0.0-1.5) % Neut # (Auto) 17.2 H (1.4-5.7) K/uL Lymph # (Auto) 1.6 (0.6-2.4) K/uL [place] # (Auto) 1.8 H (0.0-0.8) K/uL Eos # (Auto) 0.0 (0.0-0.7) K/uL Baso # (Auto) 0.0 (0.0-0.1) K/uL Nucleated RBC % 0.0 /100WBC Nucleated RBCs # 0 K/uL INR Lactate (0.20-2.00) mmol/L Sodium 136 (136-145) mmol/L Potassium 3.6 (3.5-5.1) mmol/L Chloride 99 (98-107) mmol/L Carbon Dioxide 26.6 (21.0-32.0) mmol/L BUN 7 (7.0-18.0) mg/dL Creatinine 0.7 (0.6-1.0) mg/dL Est Cr Clr Drug Dosing 77.73 mL/min Estimated GFR (MDRD) > 60.0 ml/min Glucose 283 H (74-106) mg/dL POC Glucose (60-110) mg/dL Hemoglobin A1c 11.2 H (4.5-6.2) % Calcium 8.4 L (8.5-10.1) mg/dL Total Bilirubin 0.7 (0.2-1.0) mg/dL AST 6 L (15-37) IU/L ALT 18 (14-63) IU/L Alkaline Phosphatase 40 L (46-116) U/L Total Protein 6.0 L (6.4-8.2) g/dL Albumin 2.9 L (3.4-5.0) g/dL Globulin 3.1 (2.6-4.0) g/dL Albumin/Globulin Ratio 0.9 (0.9-1.6) Urine Color Urine Appearance Urine pH (5.0-8.0) Ur Specific [place] (1.001-1.035) Urine Protein (NEGATIVE) mg/dL Urine Glucose (UA) (NEGATIVE) mg/dL Urine Ketones (NEGATIVE) mg/dL Urine Occult Blood (NEGATIVE) Urine Nitrite (NEGATIVE) Urine Bilirubin (NEGATIVE) Urine Urobilinogen (<2.0) EU/dL Ur Leukocyte Esterase (NEGATIVE) SARS-CoV-2 RNA (JUAN) (NEGATIVE) Blood Type Antibody Screen 06/24/20 06/24/20 Range/Units 06:39 13:23 WBC (4.0-11.0) K/uL RBC (4.30-5.90) M/uL Hgb (12.0-16.0) g/dL Hct (36.0-46.0) % MCV (80.0-98.0) fL MCH (27.0-32.0) pg MCHC (31.0-37.0) g/dL RDW Std Deviation (28.0-62.0) fl RDW Coeff of Haley (11.0-15.0) % Plt Count (150-400) K/uL MPV (7.40-12.00) fL Neut % (Auto) (48.0-80.0) % Lymph % (Auto) (16.0-40.0) % [place] % (Auto) (0.0-15.0) % Eos % (Auto) (0.0-7.0) % Baso % (Auto) (0.0-1.5) % Neut # (Auto) (1.4-5.7) K/uL Lymph # (Auto) (0.6-2.4) K/uL [place] # (Auto) (0.0-0.8) K/uL Eos # (Auto) (0.0-0.7) K/uL Baso # (Auto) (0.0-0.1) K/uL Nucleated RBC % /100WBC Nucleated RBCs # K/uL INR Lactate (0.20-2.00) mmol/L Sodium (136-145) mmol/L Potassium (3.5-5.1) mmol/L Chloride (98-107) mmol/L Carbon Dioxide (21.0-32.0) mmol/L BUN (7.0-18.0) mg/dL Creatinine (0.6-1.0) mg/dL Est Cr Clr Drug Dosing mL/min Estimated GFR (MDRD) ml/min Glucose (74-106) mg/dL POC Glucose 267 H 196 H (60-110) mg/dL Hemoglobin A1c (4.5-6.2) % Calcium (8.5-10.1) mg/dL Total Bilirubin (0.2-1.0) mg/dL AST (15-37) IU/L ALT (14-63) IU/L Alkaline Phosphatase (46-116) U/L Total Protein (6.4-8.2) g/dL Albumin (3.4-5.0) g/dL Globulin (2.6-4.0) g/dL Albumin/Globulin Ratio (0.9-1.6) Urine Color Urine Appearance Urine pH (5.0-8.0) Ur Specific [place] (1.001-1.035) Urine Protein (NEGATIVE) mg/dL Urine Glucose (UA) (NEGATIVE) mg/dL Urine Ketones (NEGATIVE) mg/dL Urine Occult Blood (NEGATIVE) Urine Nitrite (NEGATIVE) Urine Bilirubin (NEGATIVE) Urine Urobilinogen (<2.0) EU/dL Ur Leukocyte Esterase (NEGATIVE) SARS-CoV-2 RNA (JUAN) (NEGATIVE) Blood Type Antibody Screen Med Orders - Current: Current Medications Acetaminophen (Tylenol) 650 mg PO Q6H PRN PRN Reason: Fever Dextrose/Water (Dextrose 50% In Water) 50 ml IV ASDIRECTED PRN PRN Reason: Hypoglycemia Diphenhydramine HCl (Benadryl) 50 mg IVPUSH Q6H PRN PRN Reason: Itching Glucagon (Glucagen) 1 mg IM ASDIRECTED PRN PRN Reason: Hypoglycemia Hydromorphone HCl (Dilaudid) 0.5 mg IVPUSH Q1H PRN PRN Reason: Pain Last Admin: 06/24/20 13:51 Dose: 0.5 mg Documented by: Piperacillin Sod/Tazobactam (Sod 3.375 gm/ Sodium Chloride) 50 mls @ 100 mls/hr IV Q6H CARRIE Last Admin: 06/24/20 13:03 Dose: 100 mls/hr Documented by: Insulin Aspart (Novolog) 0 unit SUBCUT TIDAC CARRIE; Protocol Last Admin: 06/24/20 13:53 Dose: 1 units Documented by: Insulin Aspart (Novolog) 5 unit SUBCUT TIDAC CARRIE Last Admin: 06/24/20 13:53 Dose: 5 units Documented by: Insulin Glargine (Lantus Solostar) 35 units SUBCUT BEDTIME CARRIE Ondansetron HCl (Zofran) 4 mg IVPUSH Q6H PRN PRN Reason: Nausea/Vomiting Last Admin: 06/24/20 15:50 Dose: 4 mg Documented by: Discontinued Medications Bupivacaine HCl (Sensorcaine-Mpf 0.5%) Confirm Administered Dose 20 ml .ROUTE .STK-MED ONE Stop: 06/24/20 08:34 Cefazolin Sodium (Ancef) Confirm Administered Dose 1 gm .ROUTE .STK-MED ONE Stop: 06/24/20 10:17 Fentanyl (Sublimaze) Confirm Administered Dose 250 mcg .ROUTE .STK-MED ONE Stop: 06/24/20 07:23 Glycopyrrolate (Robinul) Confirm Administered Dose 0.4 mg .ROUTE .STK-MED ONE Stop: 06/24/20 07:22 Hydromorphone HCl (Dilaudid) 1 mg IVPUSH ONETIME ONE Stop: 06/23/20 23:08 Last Admin: 06/23/20 23:10 Dose: 1 mg Documented by: Hydromorphone HCl (Dilaudid) 1 mg IVPUSH ONETIME ONE Stop: 06/24/20 00:45 Last Admin: 06/24/20 00:52 Dose: 1 mg Documented by: Hydromorphone HCl (Dilaudid) Confirm Administered Dose 2 mg .ROUTE .STK-MED ONE Stop: 06/24/20 10:02 Hydromorphone HCl (Dilaudid) Confirm Administered Dose 2 mg .ROUTE .STK-MED ONE Stop: 06/24/20 11:11 Lactated Ringer's (Ringers, Lactated) 1,000 mls @ 999 mls/hr IV .BOLUS ONE Stop: 06/23/20 22:57 Last Admin: 06/23/20 22:22 Dose: 999 mls/hr Documented by: Lactated Ringer's (Ringers, Lactated) 1,000 mls @ 999 mls/hr IV .BOLUS ONE Stop: 06/23/20 22:57 Last Admin: 06/23/20 22:30 Dose: 999 mls/hr Documented by: Ceftriaxone Sodium/Dextrose 2 (gm/ Premix) 50 mls @ 100 mls/hr IV ONETIME ONE Stop: 06/23/20 23:02 Last Admin: 06/23/20 23:03 Dose: 100 mls/hr Documented by: Metronidazole 500 mg/ Premix 100 mls @ 100 mls/hr IV ONETIME ONE Stop: 06/23/20 23:33 Last Admin: 06/23/20 23:02 Dose: 100 mls/hr Documented by: Lactated Ringer's (Ringers, Lactated) 1,000 mls @ 150 mls/hr IV ASDIRECTED CARRIE Last Admin: 06/24/20 08:32 Dose: 150 mls/hr Documented by: Sodium Chloride (Normal Saline) Confirm Administered Dose 20 mls @ as directed .ROUTE .STK-MED ONE Stop: 06/24/20 09:27 Acetaminophen (Ofirmev) Confirm Administered Dose 100 mls @ as directed .ROUTE .STK-MED ONE Stop: 06/24/20 10:50 Influenza Virus Vaccine (Pharmacy To Dose - Influenza Vaccine) 1 each IM ONETIME ONE Stop: 06/24/20 01:41 Influenza Virus Vaccine (Afluria Quad 2020-21 (3yr Up)) 60 mcg IM .ONCE ONE Stop: 06/24/20 10:01 Insulin Glargine (Lantus Solostar) 50 units SUBCUT BEDTIME CARRIE Iopamidol (Isovue Multipack-370 (76%)) 80 ml IVPUSH ONETIME STA Stop: 06/23/20 23:01 Last Admin: 06/23/20 23:01 Dose: 80 ml Documented by: Lidocaine (Xylocaine-Mpf 2%) Confirm Administered Dose 5 ml .ROUTE .STK-MED ONE Stop: 06/24/20 07:22 Midazolam HCl (Versed 1 Mg/Ml) Confirm Administered Dose 2 mg .ROUTE .STK-MED ONE Stop: 06/24/20 07:23 Morphine Sulfate (Morphine) 4 mg IVPUSH ONETIME ONE Stop: 06/23/20 21:56 Last Admin: 06/23/20 22:23 Dose: 4 mg Documented by: Ondansetron HCl (Zofran) 4 mg IVPUSH ONETIME ONE Stop: 06/23/20 21:56 Last Admin: 06/23/20 22:23 Dose: 4 mg Documented by: Ondansetron HCl (Zofran) Confirm Administered Dose 4 mg .ROUTE .STK-MED ONE Stop: 06/24/20 07:22 Propofol (Diprivan 20 Ml) Confirm Administered Dose 200 mg .ROUTE .STK-MED ONE Stop: 06/24/20 07:22 Rocuronium Allen (Rocuronium Allen) Confirm Administered Dose 50 mg .ROUTE .STK-MED ONE Stop: 06/24/20 07:23 Sugammadex Sodium (Bridion) Confirm Administered Dose 200 mg .ROUTE .STK-MED ONE Stop: 06/24/20 10:31 - Exam Wound/Incisions: Healing Well, Dressing Dry and Intact General: Alert, Oriented, Cooperative HEENT: Pupils Equal, Pupils Reactive Lungs: Normal Respiratory Effort Cardiovascular: Regular Rate GI/Abdominal Exam: Soft, Non-Tender, No Distention, Distended (mild distension ) Skin: Warm, Dry, Intact Sepsis Event Note - Evaluation Sepsis Screening Result: No Definite Risk - Focused Exam Vital Signs: Vital Signs Temp Pulse Resp BP Pulse Ox 06/24/20 11:20 86 14 106/58 L 96 06/24/20 11:15 86 15 103/52 L 95 06/24/20 11:10 89 14 105/54 L 97 06/24/20 11:05 91 18 107/58 L 95 06/24/20 11:00 94 16 115/62 97 06/24/20 10:55 100 19 118/60 93 L 06/24/20 10:50 104 H 18 130/75 97 06/24/20 10:45 105 H 25 H 135/74 97 06/24/20 10:40 37.7 C 105 H 18 133/73 97 06/24/20 07:32 36.6 C 84 16 94/56 L 95 06/24/20 05:00 36.7 C 95 18 100/56 L 97 - Problem List & Annotations (1) Appendicitis SNOMED Code(s): 46756461 Code(s): K37 - UNSPECIFIED APPENDICITIS Status: Acute Current Visit: Yes Qualifiers: Appendicitis type: acute appendicitis Acute appendicitis type: with localized peritonitis Appendicitis gangrene presence: unspecified whether gangrene present Appendicitis perforation presence: without perforation Appendicitis abscess presence: without abscess Qualified Code(s): K35.30 - Acute appendicitis with localized peritonitis, without perforation or gangrene - Problem List Review Problem List Initiated/Reviewed/Updated: Yes - My Orders Last 24 Hours: Active Orders 24 hr Category Date Time Status Admission Status [Patient Status] [ADT] Stat ADT 06/23/20 23:31 Active Cardiac Monitoring [RC] . DIRECTED Care 06/23/20 21:55 Active Glucose [Blood Glucose Check, Bedside] [RC] TIDAC Care 06/24/20 06:30 Active Influenza Vaccine Charge [RC] .DISCHARGE Care 06/24/20 01:40 Active Pulse Oximetry [RC] ASDIRECTED Care 06/23/20 21:55 Active Vital Signs [RC] Q4H Care 06/24/20 00:30 Active Consult to Pencil Maker [Consult to Diabetic Nurse Cons 06/24/20 11:03 Active Specialist] [CONS] Routine Clear Liquid Diet [DIET] Diet 06/24/20 Lunch Active CULTURE BLOOD [BC] Stat Lab 06/23/20 23:00 Received CULTURE BLOOD [BC] Stat Lab 06/23/20 23:10 Received Acetaminophen [TylenoL] Med 06/24/20 00:03 Active 650 mg PO Q6H PRN Dextrose 50% in Water Med 06/24/20 00:09 Active 50 ml IV ASDIRECTED PRN Glucagon,Human Recombinant [GlucaGen] Med 06/24/20 00:09 Active 1 mg IM ASDIRECTED PRN HYDROmorphone [Dilaudid] Med 06/24/20 00:05 Active 0.5 mg IVPUSH Q1H PRN Insulin Aspart [NovoLOG] Med 06/24/20 11:30 Active 5 unit SUBCUT TIDAC Insulin Aspart [NovoLOG] Med 06/24/20 07:30 Active See Protocol SUBCUT TIDAC Insulin Glarg,Human.Rec.Analog [LantUS Solostar] Med 06/24/20 21:00 Active 35 units SUBCUT BEDTIME Ondansetron [Zofran] Med 06/24/20 00:04 Active 4 mg IVPUSH Q6H PRN Piperacillin/Tazobactam [Piperacil-Tazobact] 3.375 gm Med 06/24/20 05:00 Active Sodium Chloride 0.9% [Normal Saline] 50 ml IV Q6H diphenhydrAMINE [Benadryl] Med 06/24/20 00:05 Active 50 mg IVPUSH Q6H PRN Blood Culture x2 Reflex Set [OM.PC] Stat Oth 06/23/20 22:33 Ordered Medication Orders Acetaminophen (Tylenol) 650 mg PO Q6H PRN PRN Reason: Fever Dextrose/Water (Dextrose 50% In Water) 50 ml IV ASDIRECTED PRN PRN Reason: Hypoglycemia Diphenhydramine HCl (Benadryl) 50 mg IVPUSH Q6H PRN PRN Reason: Itching Glucagon (Glucagen) 1 mg IM ASDIRECTED PRN PRN Reason: Hypoglycemia Hydromorphone HCl (Dilaudid) 0.5 mg IVPUSH Q1H PRN PRN Reason: Pain Last Admin: 06/24/20 13:51 Dose: 0.5 mg Documented by: Admin: 06/24/20 11:12 Dose: 0.5 mg Documented by: Admin: 06/24/20 07:03 Dose: 0.5 mg Documented by: Admin: 06/24/20 02:56 Dose: 0.5 mg Documented by: JUNIOR Piperacillin Sod/Tazobactam (Sod 3.375 gm/ Sodium Chloride) 50 mls @ 100 mls/hr IV Q6H CARRIE Last Admin: 06/24/20 13:03 Dose: 100 mls/hr Documented by: Infusion: 06/24/20 05:35 Dose: 100 mls/hr Documented by: Admin: 06/24/20 05:05 Dose: 100 mls/hr Documented by: [email or web address] Insulin Aspart (Novolog) 0 unit SUBCUT TIDAC CARRIE; Protocol Last Admin: 06/24/20 13:53 Dose: 1 units Documented by: Admin: 06/24/20 07:00 Dose: 3 units Documented by: [email or web address] Insulin Aspart (Novolog) 5 unit SUBCUT TIDAC CARRIE Last Admin: 06/24/20 13:53 Dose: 5 units Documented by: [email or web address] Insulin Glargine (Lantus Solostar) 35 units SUBCUT BEDTIME CARRIE Ondansetron HCl (Zofran) 4 mg IVPUSH Q6H PRN PRN Reason: Nausea/Vomiting Last Admin: 06/24/20 15:50 Dose: 4 mg Documented by: Admin: 06/24/20 07:10 Dose: 4 mg Documented by: Admin: 06/24/20 00:56 Dose: 4 mg Documented by: [email or web address] - Plan Plan (Free Text/Narrative):: Patient is doing well post op. Will keep clear liquids for now. Ok to discontinue IVF since patient is taking good po.
[2020-06-24] MEDS: Insulin Glargine,Human Rec. Analog 100 Units/ML 3 ML Pen SUBCUT SCH (20:40)
[2020-06-24] MEDS ORDERED: Insulin Glargine,Human Rec. Analog 100 Units/ML 3 ML Pen SUBCUT SCH (21:00)
[2020-06-24] MEDS: traZODone 50 MG Tab PO PRN (21:50)
[2020-06-25] MEDS: HYDROmorphone 1 MG/ML Syringe IVPUSH PRN ×3 (04:22→10:34)
[2020-06-25] MEDS: Piperacillin/Tazobactam 3.375 GM in Sodium Chloride 0.9% 50 ML IV SCH ×4 (04:25→22:23)
[2020-06-25] MEDS: Ondansetron 4 MG/2 ML SDV IVPUSH PRN ×3 (04:29→18:08)
[2020-06-25] MEDS: Insulin Aspart 100 Units/ML 3 ML Pen SUBCUT SCH ×6 (07:48→18:09)
--- NOTE | 2020-06-25 09:16 | PCM.CONSN ---
- General Info Date of Service: 06/25/20 Admission Dx/Problem (Free Text): Admission Diagnosis/Problem Admission Diagnosis/Problem Acute appendicitis Subjective Update: Doing well this morning, no chest pain or SOB. Abdominal pain is moderate, just received pain medications. Passing flatus and eager to eat. No other concerns. No feelings of hypoglycemia noted. Functional Status: Reports: Pain Controlled, Tolerating Diet, Ambulating, Urina ting - Review of Systems General: Reports: Fatigue (didn't sleep well) HEENT: Reports: No Symptoms Pulmonary: Reports: No Symptoms. Denies: Shortness of Breath Cardiovascular: Reports: No Symptoms. Denies: Chest Pain Gastrointestinal: Reports: Abdominal Pain. Denies: Nausea, Vomiting Genitourinary: Reports: No Symptoms. Denies: Dysuria, Frequency Musculoskeletal: Reports: No Symptoms Skin: Reports: No Symptoms Neurological: Reports: No Symptoms Psychiatric: Reports: No Symptoms - Patient Data Vitals - Most Recent: Last Vital Signs Temp 98.9 F 06/25/20 07:15 Pulse 79 06/25/20 07:15 Resp 14 06/25/20 07:15 BP 97/59 L 06/25/20 07:15 Pulse Ox 95 06/25/20 07:15 Weight - Most Recent: 62.097 kg I&O - Last 24 Hours: Intake & Output 06/24/20 06/25/20 06/25/20 22:59 06:59 14:59 Intake Total 850 750 Output Total 800 1500 Balance 50 -750 Lab Results Last 24 Hours: Laboratory Results - last 24 hr 06/24/20 06/24/20 06/24/20 Range/Units 13:23 17:16 20:39 POC Glucose 196 H 218 H 194 H (60-110) mg/dL 06/25/20 Range/Units 07:25 POC Glucose 96 (60-110) mg/dL [place] Results Last 24 Hours: Microbiology 06/23/20 23:10 Aerobic Blood Culture - Preliminary Blood - Venous - Lab Draw NO GROWTH AFTER 1 DAY Anaerobic Blood Culture - Preliminary NO GROWTH AFTER 1 DAY 06/23/20 23:00 Aerobic Blood Culture - Preliminary Blood - Venous NO GROWTH AFTER 1 DAY Anaerobic Blood Culture - Preliminary NO GROWTH AFTER 1 DAY Med Orders - Current: Current Medications Acetaminophen (Tylenol) 650 mg PO Q6H PRN PRN Reason: Fever Dextrose/Water (Dextrose 50% In Water) 50 ml IV ASDIRECTED PRN PRN Reason: Hypoglycemia Diphenhydramine HCl (Benadryl) 50 mg IVPUSH Q6H PRN PRN Reason: Itching Glucagon (Glucagen) 1 mg IM ASDIRECTED PRN PRN Reason: Hypoglycemia Hydromorphone HCl (Dilaudid) 0.5 mg IVPUSH Q1H PRN PRN Reason: Pain Last Admin: 06/25/20 07:54 Dose: 0.5 mg Documented by: Piperacillin Sod/Tazobactam (Sod 3.375 gm/ Sodium Chloride) 50 mls @ 100 mls/hr IV Q6H CARRIE Last Admin: 06/25/20 04:25 Dose: 100 mls/hr Documented by: Insulin Aspart (Novolog) 0 unit SUBCUT TIDAC [facility]; Protocol Last Admin: 06/25/20 07:48 Dose: Not Given Documented by: Insulin Aspart (Novolog) 5 unit SUBCUT TIDAC [facility] Last Admin: 06/25/20 07:49 Dose: 5 units Documented by: Insulin Glargine (Lantus Solostar) 35 units SUBCUT BEDTIME CARRIE Last Admin: 06/24/20 20:40 Dose: 35 units Documented by: Ondansetron HCl (Zofran) 4 mg IVPUSH Q6H PRN PRN Reason: Nausea/Vomiting Last Admin: 06/25/20 04:29 Dose: 4 mg Documented by: Trazodone HCl (Trazodone) 100 mg PO BEDTIME PRN PRN Reason: Insomnia Last Admin: 06/24/20 21:50 Dose: 100 mg Documented by: Discontinued Medications Bupivacaine HCl (Sensorcaine-Mpf 0.5%) Confirm Administered Dose 20 ml .ROUTE .STK-MED ONE Stop: 06/24/20 08:34 Cefazolin Sodium (Ancef) Confirm Administered Dose 1 gm .ROUTE .STK-MED ONE Stop: 06/24/20 10:17 Fentanyl (Sublimaze) Confirm Administered Dose 250 mcg .ROUTE .STK-MED ONE Stop: 06/24/20 07:23 Glycopyrrolate (Robinul) Confirm Administered Dose 0.4 mg .ROUTE .STK-MED ONE Stop: 06/24/20 07:22 Hydromorphone HCl (Dilaudid) 1 mg IVPUSH ONETIME ONE Stop: 06/23/20 23:08 Last Admin: 06/23/20 23:10 Dose: 1 mg Documented by: Hydromorphone HCl (Dilaudid) 1 mg IVPUSH ONETIME ONE Stop: 06/24/20 00:45 Last Admin: 06/24/20 00:52 Dose: 1 mg Documented by: Hydromorphone HCl (Dilaudid) Confirm Administered Dose 2 mg .ROUTE .STK-MED ONE Stop: 06/24/20 10:02 Hydromorphone HCl (Dilaudid) Confirm Administered Dose 2 mg .ROUTE .STK-MED ONE Stop: 06/24/20 11:11 Last Admin: 06/24/20 18:44 Dose: Not Given Documented by: Lactated Ringer's (Ringers, Lactated) 1,000 mls @ 999 mls/hr IV .BOLUS ONE Stop: 06/23/20 22:57 Last Admin: 06/23/20 22:22 Dose: 999 mls/hr Documented by: Lactated Ringer's (Ringers, Lactated) 1,000 mls @ 999 mls/hr IV .BOLUS ONE Stop: 06/23/20 22:57 Last Admin: 06/23/20 22:30 Dose: 999 mls/hr Documented by: Ceftriaxone Sodium/Dextrose 2 (gm/ Premix) 50 mls @ 100 mls/hr IV ONETIME ONE Stop: 06/23/20 23:02 Last Admin: 06/23/20 23:03 Dose: 100 mls/hr Documented by: Metronidazole 500 mg/ Premix 100 mls @ 100 mls/hr IV ONETIME ONE Stop: 06/23/20 23:33 Last Admin: 06/23/20 23:02 Dose: 100 mls/hr Documented by: Lactated Ringer's (Ringers, Lactated) 1,000 mls @ 150 mls/hr IV ASDIRECTED [facility] Last Admin: 06/24/20 08:32 Dose: 150 mls/hr Documented by: Sodium Chloride (Normal Saline) Confirm Administered Dose 20 mls @ as directed .ROUTE .STK-MED ONE Stop: 06/24/20 09:27 Acetaminophen (Ofirmev) Confirm Administered Dose 100 mls @ as directed .ROUTE .STK-MED ONE Stop: 06/24/20 10:50 Influenza Virus Vaccine (Pharmacy To Dose - Influenza Vaccine) 1 each IM ONETIME ONE Stop: 06/24/20 01:41 Influenza Virus Vaccine (Afluria Quad 2020-21 (3yr Up)) 60 mcg IM .ONCE ONE Stop: 06/24/20 10:01 Insulin Glargine (Lantus Solostar) 50 units SUBCUT BEDTIME CARRIE Iopamidol (Isovue Multipack-370 (76%)) 80 ml IVPUSH ONETIME STA Stop: 06/23/20 23:01 Last Admin: 06/23/20 23:01 Dose: 80 ml Documented by: Lidocaine (Xylocaine-Mpf 2%) Confirm Administered Dose 5 ml .ROUTE .STK-MED ONE Stop: 06/24/20 07:22 Midazolam HCl (Versed 1 Mg/Ml) Confirm Administered Dose 2 mg .ROUTE .STK-MED ONE Stop: 06/24/20 07:23 Morphine Sulfate (Morphine) 4 mg IVPUSH ONETIME ONE Stop: 06/23/20 21:56 Last Admin: 06/23/20 22:23 Dose: 4 mg Documented by: Ondansetron HCl (Zofran) 4 mg IVPUSH ONETIME ONE Stop: 06/23/20 21:56 Last Admin: 06/23/20 22:23 Dose: 4 mg Documented by: Ondansetron HCl (Zofran) Confirm Administered Dose 4 mg .ROUTE .STK-MED ONE Stop: 06/24/20 07:22 Propofol (Diprivan 20 Ml) Confirm Administered Dose 200 mg .ROUTE .STK-MED ONE Stop: 06/24/20 07:22 Rocuronium [place] (Rocuronium [place]) Confirm Administered Dose 50 mg .ROUTE .STK-MED ONE Stop: 06/24/20 07:23 Sugammadex Sodium (Bridion) Confirm Administered Dose 200 mg .ROUTE .STK-MED ONE Stop: 06/24/20 10:31 - Exam Quality Assessment: DVT Prophylaxis. No: Supplemental Oxygen General: Alert, Oriented, Cooperative, No Acute Distress Lungs: Clear to Auscultation, Normal Respiratory Effort Cardiovascular: Regular Rate, Regular Rhythm GI/Abdominal Exam: Normal Bowel Sounds, Soft, Tender Extremities: Normal Inspection, Normal Range of Motion, Non-Tender, No Pedal Edema Neurological: No New Focal Deficit Psy/Mental Status: Alert, Normal Affect, Normal Mood Sepsis Event Note - Evaluation Sepsis Screening Result: No Definite Risk - Focused Exam Vital Signs: Vital Signs Temp Pulse Resp BP Pulse Ox 06/25/20 07:15 98.9 F 79 14 97/59 L 95 06/25/20 04:32 98.1 F 87 16 107/59 L 95 06/24/20 23:45 97.6 F 82 16 113/61 96 Consult PN Assessment/Plan POD#: 1 Procedures: Procedures ASSAY OF AMYLASE (02/07/15) ASSAY OF LIPASE (10/27/18) ASSAY OF MAGNESIUM (02/07/15) ASSAY OF TROPONIN QUANT (10/27/18) ASSAY THYROID STIM HORMONE (10/04/19) BLOOD GASES ANY COMBINATION (02/08/15) EDWIN DNA DIR PROBE (05/17/19) CHEST X-RAY 1 VIEW FRONTAL (06/26/17) CHEST X-RAY 2VW FRONTAL&LATL (07/08/17) CHORIONIC GONADOTROPIN ASSAY (01/07/15) COMPLETE CBC AUTOMATED (04/05/17) COMPLETE CBC W/AUTO DIFF WBC (05/03/20) COMPREHEN METABOLIC PANEL (04/23/20) CT HEAD/BRAIN W/O DYE (07/10/18) CULTURE OTHR SPECIMN AEROBIC (10/20/17) DRUG TEST PRSMV DIR OPT OBS (04/23/20) ECHO EXAM OF ABDOMEN (10/27/18) ELECTROCARDIOGRAM TRACING (10/27/18) EMERGENCY DEPT VISIT (10/27/18) EMERGENCY DEPT VISIT (07/10/18) EMERGENCY DEPT VISIT (11/13/17) EMERGENCY DEPT VISIT (08/19/17) EMERGENCY DEPT VISIT (06/26/17) EMERGENCY DEPT VISIT (06/22/17) EMERGENCY DEPT VISIT (06/04/17) EMERGENCY DEPT VISIT (02/27/17) EMERGENCY DEPT VISIT (01/03/17) EMERGENCY DEPT VISIT (07/02/16) EMERGENCY DEPT VISIT (08/28/15) EMERGENCY DEPT VISIT (01/07/15) EMERGENCY DEPT VISIT (06/12/14) PINEDA VAG DNA DIR PROBE (05/17/19) GASTRIC EMPTYING IMAG STUDY (02/11/15) GLUCOSE BLOOD TEST (07/10/18) GLYCOSYLATED HEMOGLOBIN TEST (04/23/20) HELICOBACTER PYLORI ANTIBODY (11/18/16) HOT OR COLD PACKS THERAPY (12/27/14) HYDRATE IV INFUSION ADD-ON (11/13/17) HYDRATION IV INFUSION INIT (07/10/18) INCISION OF TENDON & MUSCLE (10/21/16) INFLUENZA ASSAY W/OPTIC (10/20/17) LIPID PANEL (04/23/20) MANUAL THERAPY 1/> REGIONS (01/25/15) MASSAGE THERAPY (01/25/15) METABOLIC PANEL TOTAL CA (12/23/17) MRI JOINT UPR EXTREM W/O DYE (06/17/20) MRI LUMBAR SPINE W/O DYE (01/12/17) NJX INTERLAMINAR LMBR/SAC (02/02/17) OFFICE/OUTPATIENT VISIT EST (05/27/20) PT EVAL LOW COMPLEX 20 MIN (06/30/17) PT EVALUATION (12/27/14) ROUTINE VENIPUNCTURE (05/03/20) SHOULDER ARTHROSCOPY/SURGERY (10/21/16) SMEAR WET [place] SALINE/INK (08/10/16) TEST FOR ACETONE/KETONES (07/10/18) THER/PROPH/DIAG INJ IV PUSH (02/27/17) THER/PROPH/DIAG INJ SC/IM (07/10/18) THER/PROPH/DIAG IV INF INIT (06/26/17) THERAPEUTIC ACTIVITIES (12/27/14) THERAPEUTIC EXERCISES (03/26/17) TRICHOMONAS VAGIN DIR PROBE (05/17/19) TX/PRO/DX INJ NEW DRUG ADDON (06/26/17) TX/PRO/DX INJ SAME DRUG HUMAN RESOURCES ASSISTANT MANAGER (06/26/17) ULTRASOUND THERAPY (03/26/17) UR ALBUMIN SEMIQUANTITATIVE (04/23/20) URINALYSIS AUTO W/O SCOPE (10/04/19) URINALYSIS AUTO W/SCOPE (01/20/19) URINE CULTURE/COLONY COUNT (01/20/19) URINE TEST (02/27/17) VIT D 1 25-DIHYDROXY (04/05/17) WITHDRAWAL OF ARTERIAL BLOOD (02/08/15) X-RAY EXAM ABDOMEN 1 VIEW (10/04/19) X-RAY EXAM CHEST 1 VIEW (10/27/18) X-RAY EXAM L-S SPINE 2/3 VWS (12/07/17) X-RAY EXAM NECK SPINE 2-3 VW (08/01/19) X-RAY EXAM OF ANKLE (07/18/16) X-RAY EXAM OF ELBOW (01/09/20) X-RAY EXAM OF SHOULDER (05/27/20) (1) Chronic pain SNOMED Code(s): 42069590 Code(s): G89.29 - OTHER CHRONIC PAIN Current Visit: Yes (2) DM type 2 (diabetes mellitus, type 2) SNOMED Code(s): 54453693 Code(s): E11.9 - TYPE 2 DIABETES MELLITUS WITHOUT COMPLICATIONS Current Visit: Yes Qualifiers: Diabetes mellitus snf insulin use: with snf use Diabetes me llitus complication status: with hyperglycemia Qualified Code(s): E11.65 - Type 2 diabetes mellitus with hyperglycemia; Z79.4 - terminal carman (current) use of insulin (3) Appendicitis SNOMED Code(s): 87596009 Code(s): K37 - UNSPECIFIED APPENDICITIS Current Visit: Yes Qualifiers: Appendicitis type: acute appendicitis Acute appendicitis type: with localized peritonitis Appendicitis gangrene presence: unspecified whether gangrene present Appendicitis perforation presence: without perforation Appendicitis abscess presence: without abscess Qualified Code(s): K35.30 - Acute appendicitis with localized peritonitis, without perforation or gangrene (4) Anxiety SNOMED Code(s): 44509759 Code(s): F41.9 - ANXIETY DISORDER, UNSPECIFIED Current Visit: No Problem List Initiated/Reviewed/Updated: Yes My Orders Last 24 Hours: My Active Orders 06/24/20 11:03 Consult to Bender Machine Operator [Consult to Diabetic Nurse Specialist] [CONS] Routine 06/24/20 11:30 Insulin Aspart [NovoLOG] 5 unit SUBCUT TIDAC 06/24/20 21:00 Insulin Glarg,Human.Rec.Analog [LantUS Solostar] 35 units SUBCUT BEDTIME 06/25/20 08:24 BASIC METABOLIC PANEL,BMP [CHEM] Routine CBC WITH AUTO DIFF [HEME] Routine MAGNESIUM [CHEM] Routine 06/25/20 Lunch ADA Diabetic [[place] [employer] Diet] [DIET] Plan: This 50 year old female admitted with perforated appendicitis, Hospitalist consulted to DM management. 1. Appendicitis - Orders per Dr Meredith 2. Uncontrolled DM type 2 - BS greatly improved. - Diet advanced to ADA - Will monitor BS TIDAC - 5 units insulin with low dose SSI with meals - Lantus 35 units bedtime, fasting BS 96 today, will monitor with increase in diet - Need to get sugars below 180 - Continue Trulicity on Wednesdays - Consult DM educator 3. Hypomagnesemia/Hypokalemia - Replace today and recheck in am. VTE prophylaxis: Would recommended when deemed appropriate
[2020-06-25 09:19] LABS: BLOOD UREA NITROGEN,BUN 4 mg/dL (7.0-18.0); CARBON DIOXIDE,CO2 27.8 mmol/L (21.0-32.0); CHLORIDE,CL 100 mmol/L (98-107); GLUCOSE RANDOM 87 mg/dL (74-106); SODIUM,NA 136 mmol/L (136-145)
[2020-06-25] MEDS ORDERED: Potassium Chloride 20 MEQ Tab.ER PO ONE (09:36)
[2020-06-25] MEDS ORDERED: Magnesium Sulfate/Water 4 GM in Premix Bag 1 BAG IV ONE (09:36)
--- NOTE | 2020-06-25 11:28 | PCM.SURGPN ---
- General Info Date of Service: 06/25/20 Date of Surgery/Procedure: 06/24/20 POD#: 1 Functional Status: Reports: Pain Controlled, Tolerating Diet, Ambulating, Urinating. Denies: New Symptoms - Review of Systems General: Reports: No Symptoms HEENT: Reports: No Symptoms Pulmonary: Reports: No Symptoms Cardiovascular: Reports: No Symptoms Gastrointestinal: Reports: Abdominal Pain (along incisions ), Flatus. Denies: Decreased Appetite, Diarrhea, Nausea, Vomiting - Patient Data Vitals - Most Recent: Last Vital Signs Temp 37.2 C 06/25/20 07:15 Pulse 79 06/25/20 07:15 Resp 14 06/25/20 07:15 BP 97/59 L 06/25/20 07:15 Pulse Ox 95 06/25/20 07:15 Weight - Most Recent: 62.097 kg I&O - Last 24 Hours: Intake & Output 06/24/20 06/25/20 06/25/20 22:59 06:59 14:59 Intake Total 850 750 Output Total 800 1500 Balance 50 -750 Lab Results Last 24 Hrs: Laboratory Results - last 24 hr 06/24/20 06/24/20 06/24/20 Range/Units 13:23 17:16 20:39 WBC (4.0-11.0) K/uL RBC (4.30-5.90) M/uL Hgb (12.0-16.0) g/dL Hct (36.0-46.0) % MCV (80.0-98.0) fL MCH (27.0-32.0) pg MCHC (31.0-37.0) g/dL RDW Std Deviation (28.0-62.0) fl RDW Coeff of Haley (11.0-15.0) % Plt Count (150-400) K/uL MPV (7.40-12.00) fL Neut % (Auto) (48.0-80.0) % Lymph % (Auto) (16.0-40.0) % [place] % (Auto) (0.0-15.0) % Eos % (Auto) (0.0-7.0) % Baso % (Auto) (0.0-1.5) % Neut # (Auto) (1.4-5.7) K/uL Lymph # (Auto) (0.6-2.4) K/uL [place] # (Auto) (0.0-0.8) K/uL Eos # (Auto) (0.0-0.7) K/uL Baso # (Auto) (0.0-0.1) K/uL Nucleated RBC % /100WBC Nucleated RBCs # K/uL Sodium (136-145) mmol/L Potassium (3.5-5.1) mmol/L Chloride (98-107) mmol/L Carbon Dioxide (21.0-32.0) mmol/L BUN (7.0-18.0) mg/dL Creatinine (0.6-1.0) mg/dL Est Cr Clr Drug Dosing mL/min Estimated GFR (MDRD) ml/min Glucose (74-106) mg/dL POC Glucose 196 H 218 H 194 H (60-110) mg/dL Calcium (8.5-10.1) mg/dL Magnesium (1.8-2.4) mg/dL 06/25/20 06/25/20 06/25/20 Range/Units 07:25 08:24 08:24 WBC 14.07 H (4.0-11.0) K/uL RBC 3.85 L (4.30-5.90) M/uL Hgb 12.0 (12.0-16.0) g/dL Hct 36.2 (36.0-46.0) % MCV 94.0 (80.0-98.0) fL MCH 31.2 (27.0-32.0) pg MCHC 33.1 (31.0-37.0) g/dL RDW Std Deviation 43.7 (28.0-62.0) fl RDW Coeff of Haley 13 (11.0-15.0) % Plt Count 258 (150-400) K/uL MPV 10.70 (7.40-12.00) fL Neut % (Auto) 78.3 (48.0-80.0) % Lymph % (Auto) 15.5 L (16.0-40.0) % [place] % (Auto) 5.9 (0.0-15.0) % Eos % (Auto) 0.2 (0.0-7.0) % Baso % (Auto) 0.1 (0.0-1.5) % Neut # (Auto) 11.0 H (1.4-5.7) K/uL Lymph # (Auto) 2.2 (0.6-2.4) K/uL [place] # (Auto) 0.8 (0.0-0.8) K/uL Eos # (Auto) 0.0 (0.0-0.7) K/uL Baso # (Auto) 0.0 (0.0-0.1) K/uL Nucleated RBC % 0.0 /100WBC Nucleated RBCs # 0 K/uL Sodium 136 (136-145) mmol/L Potassium 3.0 L (3.5-5.1) mmol/L Chloride 100 (98-107) mmol/L Carbon Dioxide 27.8 (21.0-32.0) mmol/L BUN 4 L (7.0-18.0) mg/dL Creatinine 0.6 (0.6-1.0) mg/dL Est Cr Clr Drug Dosing 90.69 mL/min Estimated GFR (MDRD) > 60.0 ml/min Glucose 87 (74-106) mg/dL POC Glucose 96 (60-110) mg/dL Calcium 8.5 (8.5-10.1) mg/dL Magnesium 1.6 L (1.8-2.4) mg/dL 06/25/20 06/25/20 Range/Units 09:29 10:49 WBC (4.0-11.0) K/uL RBC (4.30-5.90) M/uL Hgb (12.0-16.0) g/dL Hct (36.0-46.0) % MCV (80.0-98.0) fL MCH (27.0-32.0) pg MCHC (31.0-37.0) g/dL RDW Std Deviation (28.0-62.0) fl RDW Coeff of Haley (11.0-15.0) % Plt Count (150-400) K/uL MPV (7.40-12.00) fL Neut % (Auto) (48.0-80.0) % Lymph % (Auto) (16.0-40.0) % [place] % (Auto) (0.0-15.0) % Eos % (Auto) (0.0-7.0) % Baso % (Auto) (0.0-1.5) % Neut # (Auto) (1.4-5.7) K/uL Lymph # (Auto) (0.6-2.4) K/uL [place] # (Auto) (0.0-0.8) K/uL Eos # (Auto) (0.0-0.7) K/uL Baso # (Auto) (0.0-0.1) K/uL Nucleated RBC % /100WBC Nucleated RBCs # K/uL Sodium (136-145) mmol/L Potassium (3.5-5.1) mmol/L Chloride (98-107) mmol/L Carbon Dioxide (21.0-32.0) mmol/L BUN (7.0-18.0) mg/dL Creatinine (0.6-1.0) mg/dL Est Cr Clr Drug Dosing mL/min Estimated GFR (MDRD) ml/min Glucose (74-106) mg/dL POC Glucose 72 93 (60-110) mg/dL Calcium (8.5-10.1) mg/dL Magnesium (1.8-2.4) mg/dL [place] Results Last 24 Hrs: Microbiology 06/23/20 23:10 Aerobic Blood Culture - Preliminary Blood - Venous - Lab Draw NO GROWTH AFTER 1 DAY Anaerobic Blood Culture - Preliminary NO GROWTH AFTER 1 DAY 06/23/20 23:00 Aerobic Blood Culture - Preliminary Blood - Venous NO GROWTH AFTER 1 DAY Anaerobic Blood Culture - Preliminary NO GROWTH AFTER 1 DAY Med Orders - Current: Current Medications Acetaminophen (Tylenol) 650 mg PO Q6H PRN PRN Reason: Fever Dextrose/Water (Dextrose 50% In Water) 50 ml IV ASDIRECTED PRN PRN Reason: Hypoglycemia Diphenhydramine HCl (Benadryl) 50 mg IVPUSH Q6H PRN PRN Reason: Itching Glucagon (Glucagen) 1 mg IM ASDIRECTED PRN PRN Reason: Hypoglycemia Hydromorphone HCl (Dilaudid) 0.5 mg IVPUSH Q1H PRN PRN Reason: Pain Last Admin: 06/25/20 10:34 Dose: 0.5 mg Documented by: Piperacillin Sod/Tazobactam (Sod 3.375 gm/ Sodium Chloride) 50 mls @ 100 mls/hr IV Q6H [facility] Last Admin: 06/25/20 11:11 Dose: 100 mls/hr Documented by: Magnesium Sulfate 4 gm/ Premix 100 mls @ 50 mls/hr IV ONETIME ONE Stop: 06/25/20 11:35 Last Admin: 06/25/20 10:35 Dose: 50 mls/hr Documented by: Insulin Aspart (Novolog) 0 unit SUBCUT TIDAC [facility]; Protocol Last Admin: 06/25/20 10:57 Dose: Not Given Documented by: Insulin Aspart (Novolog) 5 unit SUBCUT TIDAC [facility] [place] Last Admin: 06/25/20 10:57 Dose: Not Given Documented by: Insulin Glargine (Lantus Solostar) 35 units SUBCUT BEDTIME [facility] [place] Last Admin: 06/24/20 20:40 Dose: 35 units Documented by: Non-Formulary Medication (Dulaglutide [Trulicity]) 1.5 mg SQ WEEKLY [facility] Ondansetron HCl (Zofran) 4 mg IVPUSH Q6H PRN PRN Reason: Nausea/Vomiting Last Admin: 06/25/20 10:34 Dose: 4 mg Documented by: Trazodone HCl (Trazodone) 100 mg PO BEDTIME PRN PRN Reason: Insomnia Last Admin: 06/24/20 21:50 Dose: 100 mg Documented by: Discontinued Medications Bupivacaine HCl (Sensorcaine-Mpf 0.5%) Confirm Administered Dose 20 ml .ROUTE .STK-MED ONE Stop: 06/24/20 08:34 Cefazolin Sodium (Ancef) Confirm Administered Dose 1 gm .ROUTE .STK-MED ONE Stop: 06/24/20 10:17 Fentanyl (Sublimaze) Confirm Administered Dose 250 mcg .ROUTE .STK-MED ONE Stop: 06/24/20 07:23 Glycopyrrolate (Robinul) Confirm Administered Dose 0.4 mg .ROUTE .STK-MED ONE Stop: 06/24/20 07:22 Hydromorphone HCl (Dilaudid) 1 mg IVPUSH ONETIME ONE Stop: 06/23/20 23:08 Last Admin: 06/23/20 23:10 Dose: 1 mg Documented by: Hydromorphone HCl (Dilaudid) 1 mg IVPUSH ONETIME ONE Stop: 06/24/20 00:45 Last Admin: 06/24/20 00:52 Dose: 1 mg Documented by: Hydromorphone HCl (Dilaudid) Confirm Administered Dose 2 mg .ROUTE .STK-MED ONE Stop: 06/24/20 10:02 Hydromorphone HCl (Dilaudid) Confirm Administered Dose 2 mg .ROUTE .STK-MED ONE Stop: 06/24/20 11:11 Last Admin: 06/24/20 18:44 Dose: Not Given Documented by: Lactated Ringer's (Ringers, Lactated) 1,000 mls @ 999 mls/hr IV .BOLUS ONE Stop: 06/23/20 22:57 Last Admin: 06/23/20 22:22 Dose: 999 mls/hr Documented by: Lactated Ringer's (Ringers, Lactated) 1,000 mls @ 999 mls/hr IV .BOLUS ONE Stop: 06/23/20 22:57 Last Admin: 06/23/20 22:30 Dose: 999 mls/hr Documented by: Ceftriaxone Sodium/Dextrose 2 (gm/ Premix) 50 mls @ 100 mls/hr IV ONETIME ONE Stop: 06/23/20 23:02 Last Admin: 06/23/20 23:03 Dose: 100 mls/hr Documented by: Metronidazole 500 mg/ Premix 100 mls @ 100 mls/hr IV ONETIME ONE Stop: 06/23/20 23:33 Last Admin: 06/23/20 23:02 Dose: 100 mls/hr Documented by: Lactated Ringer's (Ringers, Lactated) 1,000 mls @ 150 mls/hr IV ASDIRECTED [facility] Last Admin: 06/24/20 08:32 Dose: 150 mls/hr Documented by: Sodium Chloride (Normal Saline) Confirm Administered Dose 20 mls @ as directed .ROUTE .STK-MED ONE Stop: 06/24/20 09:27 Acetaminophen (Ofirmev) Confirm Administered Dose 100 mls @ as directed .ROUTE .STK-MED ONE Stop: 06/24/20 10:50 Influenza Virus Vaccine (Pharmacy To Dose - Influenza Vaccine) 1 each IM ONETIME ONE Stop: 06/24/20 01:41 Influenza Virus Vaccine (Afluria Quad 2020-21 (3yr Up)) 60 mcg IM .ONCE ONE Stop: 06/24/20 10:01 Insulin Glargine (Lantus Solostar) 50 units SUBCUT BEDTIME [facility] Iopamidol (Isovue Multipack-370 (76%)) 80 ml IVPUSH ONETIME STA Stop: 06/23/20 23:01 Last Admin: 06/23/20 23:01 Dose: 80 ml Documented by: Lidocaine (Xylocaine-Mpf 2%) Confirm Administered Dose 5 ml .ROUTE .STK-MED ONE Stop: 06/24/20 07:22 Midazolam HCl (Versed 1 Mg/Ml) Confirm Administered Dose 2 mg .ROUTE .STK-MED ONE Stop: 06/24/20 07:23 Morphine Sulfate (Morphine) 4 mg IVPUSH ONETIME ONE Stop: 06/23/20 21:56 Last Admin: 06/23/20 22:23 Dose: 4 mg Documented by: Ondansetron HCl (Zofran) 4 mg IVPUSH ONETIME ONE Stop: 06/23/20 21:56 Last Admin: 06/23/20 22:23 Dose: 4 mg Documented by: Ondansetron HCl (Zofran) Confirm Administered Dose 4 mg .ROUTE .STK-MED ONE Stop: 06/24/20 07:22 Potassium Chloride (Klor-Con M20) 40 meq PO ONETIME ONE Stop: 06/25/20 09:37 Last Admin: 06/25/20 10:35 Dose: 40 meq Documented by: Propofol (Diprivan 20 Ml) Confirm Administered Dose 200 mg .ROUTE .STK-MED ONE Stop: 06/24/20 07:22 Rocuronium [place] (Rocuronium [place]) Confirm Administered Dose 50 mg .ROUTE .STK-MED ONE Stop: 06/24/20 07:23 Sugammadex Sodium (Bridion) Confirm Administered Dose 200 mg .ROUTE .STK-MED ONE Stop: 06/24/20 10:31 - Exam Wound/Incisions: Healing Well, Dressing Dry and Intact General: Alert, Oriented, Cooperative Lungs: Normal Respiratory Effort Cardiovascular: Regular Rate GI/Abdominal Exam: Soft, Non-Tender, Distended (mild). No: Guarding, Rigid, Rebound Skin: Warm, Dry, Intact Sepsis Event Note - Evaluation Sepsis Screening Result: No Definite Risk - Focused Exam Vital Signs: Vital Signs Temp Pulse Resp BP Pulse Ox 06/25/20 07:15 37.2 C 79 14 97/59 L 95 06/25/20 04:32 36.7 C 87 16 107/59 L 95 06/24/20 23:45 36.4 C 82 16 113/61 96 - Problem List & Annotations (1) Appendicitis SNOMED Code(s): 32771550 Code(s): K37 - UNSPECIFIED APPENDICITIS Status: Acute Current Visit: Yes Qualifiers: Appendicitis type: acute appendicitis Acute appendicitis type: with localized peritonitis Appendicitis gangrene presence: unspecified whether gangrene present Appendicitis perforation presence: without perforation Appendicitis abscess presence: without abscess Qualified Code(s): K35.30 - Acute appendicitis with localized peritonitis, without perforation or gangrene - Problem List Review Problem List Initiated/Reviewed/Updated: Yes - My Orders Last 24 Hours: Active Orders 24 hr Category Date Time Status Consult to Premium Service Representative [Consult to Diabetic Nurse Cons 06/24/20 11:03 Active Specialist] [CONS] Routine ADA Diabetic [[place] [employer] Diet] [DIET Diet 06/25/20 Lunch Active ] Dulaglutide [Trulicity] Med 06/26/20 10:15 Pending 1.5 mg SQ WEEKLY Insulin Aspart [NovoLOG] Med 06/24/20 11:30 Active 5 unit SUBCUT TIDAC Insulin Glarg,Human.Rec.Analog [LantUS Solostar] Med 06/24/20 21:00 Active 35 units SUBCUT BEDTIME Magnesium Sulfate/Water [Magnesium Sulfate in Water Med 06/25/20 09:36 Active Premix] 4 gm Premix Bag 1 bag IV ONETIME polyethylene glycoL 3350 [MiraLAX] Med 06/25/20 11:30 Ordered 17 gm PO DAILY traZODone Med 06/24/20 21:23 Active 100 mg PO BEDTIME PRN Medication Orders Acetaminophen (Tylenol) 650 mg PO Q6H PRN PRN Reason: Fever Dextrose/Water (Dextrose 50% In Water) 50 ml IV ASDIRECTED PRN PRN Reason: Hypoglycemia Diphenhydramine HCl (Benadryl) 50 mg IVPUSH Q6H PRN PRN Reason: Itching Glucagon (Glucagen) 1 mg IM ASDIRECTED PRN PRN Reason: Hypoglycemia Hydromorphone HCl (Dilaudid) 0.5 mg IVPUSH Q1H PRN PRN Reason: Pain Last Admin: 06/25/20 10:34 Dose: 0.5 mg Documented by: DERICK Petersen by: NIGEL Admin: 06/25/20 07:54 Dose: 0.5 mg Documented by: Admin: 06/25/20 04:22 Dose: 0.5 mg Documented by: Admin: 06/24/20 23:41 Dose: 0.5 mg Documented by: Admin: 06/24/20 22:10 Dose: 0.5 mg Documented by: Admin: 06/24/20 19:45 Dose: 0.5 mg Documented by: Admin: 06/24/20 17:17 Dose: 0.5 mg Documented by: Admin: 06/24/20 13:51 Dose: 0.5 mg Documented by: Admin: 06/24/20 11:12 Dose: 0.5 mg Documented by: Admin: 06/24/20 07:03 Dose: 0.5 mg Documented by: Admin: 06/24/20 02:56 Dose: 0.5 mg Documented by: JUNIOR Piperacillin Sod/Tazobactam (Sod 3.375 gm/ Sodium Chloride) 50 mls @ 100 mls/hr IV Q6H [facility] Last Admin: 06/25/20 11:11 Dose: 100 mls/hr Documented by: Infusion: 06/25/20 04:55 Dose: 100 mls/hr Documented by: Admin: 06/25/20 04:25 Dose: 100 mls/hr Documented by: Infusion: 06/24/20 22:44 Dose: 100 mls/hr Documented by: Admin: 06/24/20 22:14 Dose: 100 mls/hr Documented by: Infusion: 06/24/20 17:48 Dose: 100 mls/hr Documented by: Admin: 06/24/20 17:18 Dose: 100 mls/hr Documented by: Infusion: 06/24/20 13:33 Dose: 100 mls/hr Documented by: Admin: 06/24/20 13:03 Dose: 100 mls/hr Documented by: Infusion: 06/24/20 05:35 Dose: 100 mls/hr Documented by: Admin: 06/24/20 05:05 Dose: 100 mls/hr Documented by: NIKKI Magnesium Sulfate 4 gm/ Premix 100 mls @ 50 mls/hr IV ONETIME ONE Stop: 06/25/20 11:35 Last Admin: 06/25/20 10:35 Dose: 50 mls/hr Documented by: DERICK Cosigned by: NIGEL Insulin Aspart (Novolog) 0 unit SUBCUT TIDAC [facility]; Protocol Last Admin: 06/25/20 10:57 Dose: Not Given Documented by: Admin: 06/25/20 07:48 Dose: Not Given Documented by: Admin: 06/24/20 17:19 Dose: 2 units Documented by: Admin: 06/24/20 13:53 Dose: 1 units Documented by: Admin: 06/24/20 07:00 Dose: 3 units Documented by: NIKKI Insulin Aspart (Novolog) 5 unit SUBCUT TIDAC [facility] Last Admin: 06/25/20 10:57 Dose: Not Given Documented by: Admin: 06/25/20 07:49 Dose: 5 units Documented by: Admin: 06/24/20 17:21 Dose: 5 units Documented by: Admin: 06/24/20 13:53 Dose: 5 units Documented by: RAMAKRISHNA Insulin Glargine (Lantus Solostar) 35 units SUBCUT BEDTIME [facility] Last Admin: 06/24/20 20:40 Dose: 35 units Documented by: JATIN Non-Formulary Medication (Dulaglutide [Trulicity]) 1.5 mg SQ WEEKLY [facility] Ondansetron HCl (Zofran) 4 mg IVPUSH Q6H PRN PRN Reason: Nausea/Vomiting Last Admin: 06/25/20 10:34 Dose: 4 mg Documented by: DERICK Cosigned by: NIGEL Admin: 06/25/20 04:29 Dose: 4 mg Documented by: Admin: 06/24/20 21:50 Dose: 4 mg Documented by: Admin: 06/24/20 15:50 Dose: 4 mg Documented by: Admin: 06/24/20 07:10 Dose: 4 mg Documented by: Admin: 06/24/20 00:56 Dose: 4 mg Documented by: IVERKAY Trazodone HCl (Trazodone) 100 mg PO BEDTIME PRN PRN Reason: Insomnia Last Admin: 06/24/20 21:50 Dose: 100 mg Documented by: JATIN - Plan Plan (Free Text/Narrative):: Pain: IV Dilaudid prn severe pain, Percocet 2 tab q 4hr prn pain moderate CV: Vitals stable. Pulm: Encourage IS use and out of bed activity today. GI: Ok to advance to regular. Patient passing flatus and with good appetite. Endo: Appreciate medicine's help in managing diabetes. Blood sugars <100 this am. Renal: Good UOP. Hypokalemic and hypomagnesemic. Replaced. Heme: Stable. Heparin sq for dvt px today. ID: Continue IV zosyn until WBC within normal limits.
[2020-06-25] MEDS: Polyethylene Glycol 3350 Powder 17 GM Packet PO SCH (11:41)
[2020-06-25] MEDS: Acetaminophen/oxyCODONE 325-5 MG Tab PO PRN ×3 (14:03→22:21)
[2020-06-25] MEDS: Heparin Sodium 5,000 Units/ML Vial SUBCUT SCH ×2 (14:50→22:23)
[2020-06-25] MEDS: Lisinopril 10 MG Tab PO SCH (14:53)
[2020-06-25] MEDS: Rosuvastatin 10 MG Tab PO SCH (21:04)
[2020-06-25] MEDS: Insulin Glargine,Human Rec. Analog 100 Units/ML 3 ML Pen SUBCUT SCH (21:04)
[2020-06-25] MEDS: traZODone 50 MG Tab PO PRN (22:21)
[2020-06-26] MEDS: Acetaminophen/oxyCODONE 325-5 MG Tab PO PRN ×5 (03:10→20:38)
[2020-06-26] MEDS: Piperacillin/Tazobactam 3.375 GM in Sodium Chloride 0.9% 50 ML IV SCH ×4 (05:16→22:43)
[2020-06-26] MEDS: Heparin Sodium 5,000 Units/ML Vial SUBCUT SCH ×3 (05:20→21:32)
[2020-06-26 06:32] LABS: BLOOD UREA NITROGEN,BUN 4 mg/dL (7.0-18.0); CHLORIDE,CL 103 mmol/L (98-107); GLUCOSE RANDOM 68 mg/dL (74-106); SODIUM,NA 140 mmol/L (136-145)
[2020-06-26] MEDS ORDERED: Potassium Chloride 20 MEQ Tab.ER PO ONE (07:19)
--- NOTE | 2020-06-26 07:20 | PCM.CONSN ---
- General Info Date of Service: 06/26/20 - Review of Systems Systems Review Comment:: passing flatus, pain controlled - Patient Data Vitals - Most Recent: Last Vital Signs Temp 36.8 C 06/26/20 05:00 Pulse 82 06/26/20 05:00 Resp 18 06/26/20 05:00 BP 102/64 06/26/20 05:00 Pulse Ox 98 06/26/20 05:00 Weight - Most Recent: 62.097 kg I&O - Last 24 Hours: Intake & Output 06/25/20 06/26/20 06/26/20 22:59 06:59 14:59 Intake Total 1650 860 Output Total 1700 1200 Balance -50 -340 Lab Results Last 24 Hours: Laboratory Results - last 24 hr 06/25/20 06/25/20 06/25/20 Range/Units 07:25 08:24 08:24 WBC 14.07 H (4.0-11.0) K/uL RBC 3.85 L (4.30-5.90) M/uL Hgb 12.0 (12.0-16.0) g/dL Hct 36.2 (36.0-46.0) % MCV 94.0 (80.0-98.0) fL MCH 31.2 (27.0-32.0) pg MCHC 33.1 (31.0-37.0) g/dL RDW Std Deviation 43.7 (28.0-62.0) fl RDW Coeff of Haley 13 (11.0-15.0) % Plt Count 258 (150-400) K/uL MPV 10.70 (7.40-12.00) fL Neut % (Auto) 78.3 (48.0-80.0) % Lymph % (Auto) 15.5 L (16.0-40.0) % Yancey % (Auto) 5.9 (0.0-15.0) % Eos % (Auto) 0.2 (0.0-7.0) % Baso % (Auto) 0.1 (0.0-1.5) % Neut # (Auto) 11.0 H (1.4-5.7) K/uL Lymph # (Auto) 2.2 (0.6-2.4) K/uL Yancey # (Auto) 0.8 (0.0-0.8) K/uL Eos # (Auto) 0.0 (0.0-0.7) K/uL Baso # (Auto) 0.0 (0.0-0.1) K/uL Nucleated RBC % 0.0 /100WBC Nucleated RBCs # 0 K/uL Sodium 136 (136-145) mmol/L Potassium 3.0 L (3.5-5.1) mmol/L Chloride 100 (98-107) mmol/L Carbon Dioxide 27.8 (21.0-32.0) mmol/L BUN 4 L (7.0-18.0) mg/dL Creatinine 0.6 (0.6-1.0) mg/dL Est Cr Clr Drug Dosing 90.69 mL/min Estimated GFR (MDRD) > 60.0 ml/min Glucose 87 (74-106) mg/dL POC Glucose 96 (60-110) mg/dL Calcium 8.5 (8.5-10.1) mg/dL Magnesium 1.6 L (1.8-2.4) mg/dL 06/25/20 06/25/20 06/25/20 Range/Units 09:29 10:49 16:28 WBC (4.0-11.0) K/uL RBC (4.30-5.90) M/uL Hgb (12.0-16.0) g/dL Hct (36.0-46.0) % MCV (80.0-98.0) fL MCH (27.0-32.0) pg MCHC (31.0-37.0) g/dL RDW Std Deviation (28.0-62.0) fl RDW Coeff of Haley (11.0-15.0) % Plt Count (150-400) K/uL MPV (7.40-12.00) fL Neut % (Auto) (48.0-80.0) % Lymph % (Auto) (16.0-40.0) % Yancey % (Auto) (0.0-15.0) % Eos % (Auto) (0.0-7.0) % Baso % (Auto) (0.0-1.5) % Neut # (Auto) (1.4-5.7) K/uL Lymph # (Auto) (0.6-2.4) K/uL Yancey # (Auto) (0.0-0.8) K/uL Eos # (Auto) (0.0-0.7) K/uL Baso # (Auto) (0.0-0.1) K/uL Nucleated RBC % /100WBC Nucleated RBCs # K/uL Sodium (136-145) mmol/L Potassium (3.5-5.1) mmol/L Chloride (98-107) mmol/L Carbon Dioxide (21.0-32.0) mmol/L BUN (7.0-18.0) mg/dL Creatinine (0.6-1.0) mg/dL Est Cr Clr Drug Dosing mL/min Estimated GFR (MDRD) ml/min Glucose (74-106) mg/dL POC Glucose 72 93 178 H (60-110) mg/dL Calcium (8.5-10.1) mg/dL Magnesium (1.8-2.4) mg/dL 06/26/20 06/26/20 06/26/20 Range/Units 05:17 05:17 07:01 WBC 12.42 H (4.0-11.0) K/uL RBC 3.99 L (4.30-5.90) M/uL Hgb 12.2 (12.0-16.0) g/dL Hct 38.0 (36.0-46.0) % MCV 95.2 (80.0-98.0) fL MCH 30.6 (27.0-32.0) pg MCHC 32.1 (31.0-37.0) g/dL RDW Std Deviation 44.2 (28.0-62.0) fl RDW Coeff of Haley 13 (11.0-15.0) % Plt Count 291 (150-400) K/uL MPV 10.60 (7.40-12.00) fL Neut % (Auto) 66.9 (48.0-80.0) % Lymph % (Auto) 22.4 (16.0-40.0) % Yancey % (Auto) 9.0 (0.0-15.0) % Eos % (Auto) 1.5 (0.0-7.0) % Baso % (Auto) 0.2 (0.0-1.5) % Neut # (Auto) 8.3 H (1.4-5.7) K/uL Lymph # (Auto) 2.8 H (0.6-2.4) K/uL Yancey # (Auto) 1.1 H (0.0-0.8) K/uL Eos # (Auto) 0.2 (0.0-0.7) K/uL Baso # (Auto) 0.0 (0.0-0.1) K/uL Nucleated RBC % 0.0 /100WBC Nucleated RBCs # 0 K/uL Sodium 140 (136-145) mmol/L Potassium 3.0 L (3.5-5.1) mmol/L Chloride 103 (98-107) mmol/L Carbon Dioxide 32.0 (21.0-32.0) mmol/L BUN 4 L (7.0-18.0) mg/dL Creatinine 0.9 (0.6-1.0) mg/dL Est Cr Clr Drug Dosing 59.94 mL/min Estimated GFR (MDRD) > 60.0 ml/min Glucose 68 L (74-106) mg/dL POC Glucose 78 (60-110) mg/dL Calcium 8.0 L (8.5-10.1) mg/dL Magnesium 2.2 (1.8-2.4) mg/dL [place]twan Results Last 24 Hours: Microbiology 06/23/20 23:10 Aerobic Blood Culture - Preliminary Blood - Venous - Lab Draw NO GROWTH AFTER 2 DAYS Anaerobic Blood Culture - Preliminary NO GROWTH AFTER 2 DAYS 06/23/20 23:00 Aerobic Blood Culture - Preliminary Blood - Venous NO GROWTH AFTER 2 DAYS Anaerobic Blood Culture - Preliminary NO GROWTH AFTER 2 DAYS Med Orders - Current: Current Medications Acetaminophen (Tylenol) 650 mg PO Q6H PRN PRN Reason: Fever Last Admin: 06/25/20 14:52 Dose: 650 mg Documented by: Dextrose/Water (Dextrose 50% In Water) 50 ml IV ASDIRECTED PRN PRN Reason: Hypoglycemia Diphenhydramine HCl (Benadryl) 50 mg IVPUSH Q6H PRN PRN Reason: Itching Last Admin: 06/25/20 19:43 Dose: 50 mg Documented by: Glucagon (Glucagen) 1 mg IM ASDIRECTED PRN PRN Reason: Hypoglycemia Heparin Sodium (Porcine) (Heparin Sodium) 5,000 units SUBCUT Q8H CARRIE Last Admin: 06/26/20 05:20 Dose: 5,000 units Documented by: Hydromorphone HCl (Dilaudid) 0.5 mg IVPUSH Q1H PRN PRN Reason: Pain Last Admin: 06/25/20 10:34 Dose: 0.5 mg Documented by: Piperacillin Sod/Tazobactam (Sod 3.375 gm/ Sodium Chloride) 50 mls @ 100 mls/hr IV Q6H CARRIE Last Admin: 06/26/20 05:16 Dose: 100 mls/hr Documented by: Insulin Aspart (Novolog) 0 unit SUBCUT TIDAC FORMERLY [facility], 1928–1983; Protocol Last Admin: 06/25/20 18:09 Dose: 1 units Documented by: Insulin Aspart (Novolog) 5 unit SUBCUT TIDAC FORMERLY [facility], 1928–1983 Last Admin: 06/25/20 18:09 Dose: 5 units Documented by: Insulin Glargine (Lantus Solostar) 35 units SUBCUT BEDTIME FORMERLY [facility], 1928–1983 Last Admin: 06/25/20 21:04 Dose: 35 units Documented by: Lisinopril (Prinivil) 10 mg PO DAILY FORMERLY [facility], 1928–1983 Last Admin: 06/25/20 14:53 Dose: 10 mg Documented by: Non-Formulary Medication (Dulaglutide [Trulicity]) 1.5 mg SQ WEEKLY FORMERLY [facility], 1928–1983 Ondansetron HCl (Zofran) 4 mg IVPUSH Q6H PRN PRN Reason: Nausea/Vomiting Last Admin: 06/25/20 18:08 Dose: 4 mg Documented by: Oxycodone/Acetaminophen (Percocet 325-5 Mg) 1 tab PO Q4H PRN PRN Reason: Pain (moderate 4-6) Last Admin: 06/26/20 03:10 Dose: 1 tab Documented by: Polyethylene Glycol (Miralax) 17 gm PO DAILY FOR[facility], 1928–1983 Last Admin: 06/25/20 11:41 Dose: 17 gm Documented by: Rosuvastatin Calcium (Crestor) 40 mg PO BEDTIME CARRIE Last Admin: 06/25/20 21:04 Dose: 40 mg Documented by: Trazodone HCl (Trazodone) 100 mg PO BEDTIME PRN PRN Reason: Insomnia Last Admin: 06/25/20 22:21 Dose: 100 mg Documented by: Discontinued Medications Bupivacaine HCl (Sensorcaine-Mpf 0.5%) Confirm Administered Dose 20 ml .ROUTE .STK-MED ONE Stop: 06/24/20 08:34 Cefazolin Sodium (Ancef) Confirm Administered Dose 1 gm .ROUTE .STK-MED ONE Stop: 06/24/20 10:17 Fentanyl (Sublimaze) Confirm Administered Dose 250 mcg .ROUTE .STK-MED ONE Stop: 06/24/20 07:23 Glycopyrrolate (Robinul) Confirm Administered Dose 0.4 mg .ROUTE .STK-MED ONE Stop: 06/24/20 07:22 Hydromorphone HCl (Dilaudid) 1 mg IVPUSH ONETIME ONE Stop: 06/23/20 23:08 Last Admin: 06/23/20 23:10 Dose: 1 mg Documented by: Hydromorphone HCl (Dilaudid) 1 mg IVPUSH ONETIME ONE Stop: 06/24/20 00:45 Last Admin: 06/24/20 00:52 Dose: 1 mg Documented by: Hydromorphone HCl (Dilaudid) Confirm Administered Dose 2 mg .ROUTE .STK-MED ONE Stop: 06/24/20 10:02 Hydromorphone HCl (Dilaudid) Confirm Administered Dose 2 mg .ROUTE .STK-MED ONE Stop: 06/24/20 11:11 Last Admin: 06/24/20 18:44 Dose: Not Given Documented by: Lactated Ringer's (Ringers, Lactated) 1,000 mls @ 999 mls/hr IV .BOLUS ONE Stop: 06/23/20 22:57 Last Admin: 06/23/20 22:22 Dose: 999 mls/hr Documented by: Lactated Ringer's (Ringers, Lactated) 1,000 mls @ 999 mls/hr IV .BOLUS ONE Stop: 06/23/20 22:57 Last Admin: 06/23/20 22:30 Dose: 999 mls/hr Documented by: Ceftriaxone Sodium/Dextrose 2 (gm/ Premix) 50 mls @ 100 mls/hr IV ONETIME ONE Stop: 06/23/20 23:02 Last Admin: 06/23/20 23:03 Dose: 100 mls/hr Documented by: Metronidazole 500 mg/ Premix 100 mls @ 100 mls/hr IV ONETIME ONE Stop: 06/23/20 23:33 Last Admin: 06/23/20 23:02 Dose: 100 mls/hr Documented by: Lactated Ringer's (Ringers, Lactated) 1,000 mls @ 150 mls/hr IV ASDIRECTED CARRIE Last Admin: 06/24/20 08:32 Dose: 150 mls/hr Documented by: Sodium Chloride (Normal Saline) Confirm Administered Dose 20 mls @ as directed .ROUTE .STK-MED ONE Stop: 06/24/20 09:27 Acetaminophen (Ofirmev) Confirm Administered Dose 100 mls @ as directed .ROUTE .STK-MED ONE Stop: 06/24/20 10:50 Magnesium Sulfate 4 gm/ Premix 100 mls @ 50 mls/hr IV ONETIME ONE Stop: 06/25/20 11:35 Last Admin: 06/25/20 10:35 Dose: 50 mls/hr Documented by: Influenza Virus Vaccine (Pharmacy To Dose - Influenza Vaccine) 1 each IM ONETIME ONE Stop: 06/24/20 01:41 Influenza Virus Vaccine (Afluria Quad 2020-21 (3yr Up)) 60 mcg IM .ONCE ONE Stop: 06/24/20 10:01 Insulin Glargine (Lantus Solostar) 50 units SUBCUT BEDTIME CARRIE Iopamidol (Isovue Multipack-370 (76%)) 80 ml IVPUSH ONETIME STA Stop: 06/23/20 23:01 Last Admin: 06/23/20 23:01 Dose: 80 ml Documented by: Lidocaine (Xylocaine-Mpf 2%) Confirm Administered Dose 5 ml .ROUTE .STK-MED ONE Stop: 06/24/20 07:22 Midazolam HCl (Versed 1 Mg/Ml) Confirm Administered Dose 2 mg .ROUTE .STK-MED ONE Stop: 06/24/20 07:23 Morphine Sulfate (Morphine) 4 mg IVPUSH ONETIME ONE Stop: 06/23/20 21:56 Last Admin: 06/23/20 22:23 Dose: 4 mg Documented by: Ondansetron HCl (Zofran) 4 mg IVPUSH ONETIME ONE Stop: 06/23/20 21:56 Last Admin: 06/23/20 22:23 Dose: 4 mg Documented by: Ondansetron HCl (Zofran) Confirm Administered Dose 4 mg .ROUTE .STK-MED ONE Stop: 06/24/20 07:22 Potassium Chloride (Klor-Con M20) 40 meq PO ONETIME ONE Stop: 06/25/20 09:37 Last Admin: 06/25/20 10:35 Dose: 40 meq Documented by: Propofol (Diprivan 20 Ml) Confirm Administered Dose 200 mg .ROUTE .STK-MED ONE Stop: 06/24/20 07:22 Rocuronium [place] (Rocuronium Greenwood) Confirm Administered Dose 50 mg .ROUTE .STK-MED ONE Stop: 06/24/20 07:23 Sugammadex Sodium (Bridion) Confirm Administered Dose 200 mg .ROUTE .STK-MED ONE Stop: 06/24/20 10:31 - Exam General: Alert, Oriented Neck: Supple Lungs: Clear to Auscultation, Normal Respiratory Effort Cardiovascular: Regular Rate, Regular Rhythm GI/Abdominal Exam: Normal Bowel Sounds, Soft, Non-Tender Extremities: Non-Tender, No Pedal Edema Sepsis Event Note - Evaluation Sepsis Screening Result: No Definite Risk - Focused Exam Vital Signs: Vital Signs Temp Pulse Resp BP Pulse Ox 06/26/20 05:00 36.8 C 82 18 102/64 98 06/26/20 00:00 36.5 C 78 18 95/52 L 98 06/25/20 20:00 36.8 C 75 18 98/55 L 98 Consult PN Assessment/Plan Procedures: Procedures ASSAY OF AMYLASE (02/07/15) ASSAY OF LIPASE (10/27/18) ASSAY OF MAGNESIUM (02/07/15) ASSAY OF TROPONIN QUANT (10/27/18) ASSAY THYROID STIM HORMONE (10/04/19) BLOOD GASES ANY COMBINATION (02/08/15) EDWIN DNA DIR PROBE (05/17/19) CHEST X-RAY 1 VIEW FRONTAL (06/26/17) CHEST X-RAY 2VW FRONTAL&LATL (07/08/17) CHORIONIC GONADOTROPIN ASSAY (01/07/15) COMPLETE CBC AUTOMATED (04/05/17) COMPLETE CBC W/AUTO DIFF WBC (05/03/20) COMPREHEN METABOLIC PANEL (04/23/20) CT HEAD/BRAIN W/O DYE (07/10/18) CULTURE OTHR SPECIMN AEROBIC (10/20/17) DRUG TEST PRSMV DIR OPT OBS (04/23/20) ECHO EXAM OF ABDOMEN (10/27/18) ELECTROCARDIOGRAM TRACING (10/27/18) EMERGENCY DEPT VISIT (10/27/18) EMERGENCY DEPT VISIT (07/10/18) EMERGENCY DEPT VISIT (11/13/17) EMERGENCY DEPT VISIT (08/19/17) EMERGENCY DEPT VISIT (06/26/17) EMERGENCY DEPT VISIT (06/22/17) EMERGENCY DEPT VISIT (06/04/17) EMERGENCY DEPT VISIT (02/27/17) EMERGENCY DEPT VISIT (01/03/17) EMERGENCY DEPT VISIT (07/02/16) EMERGENCY DEPT VISIT (08/28/15) EMERGENCY DEPT VISIT (01/07/15) EMERGENCY DEPT VISIT (06/12/14) PINEDA VAG DNA DIR PROBE (05/17/19) GASTRIC EMPTYING IMAG STUDY (02/11/15) GLUCOSE BLOOD TEST (07/10/18) GLYCOSYLATED HEMOGLOBIN TEST (04/23/20) HELICOBACTER PYLORI ANTIBODY (11/18/16) HOT OR COLD PACKS THERAPY (12/27/14) HYDRATE IV INFUSION ADD-ON (11/13/17) HYDRATION IV INFUSION INIT (07/10/18) INCISION OF TENDON & MUSCLE (10/21/16) INFLUENZA ASSAY W/OPTIC (10/20/17) LIPID PANEL (04/23/20) MANUAL THERAPY 1/> REGIONS (01/25/15) MASSAGE THERAPY (01/25/15) METABOLIC PANEL TOTAL CA (12/23/17) MRI JOINT UPR EXTREM W/O DYE (06/17/20) MRI LUMBAR SPINE W/O DYE (01/12/17) NJX INTERLAMINAR LMBR/SAC (02/02/17) OFFICE/OUTPATIENT VISIT EST (05/27/20) PT EVAL LOW COMPLEX 20 MIN (06/30/17) PT EVALUATION (12/27/14) ROUTINE VENIPUNCTURE (05/03/20) SHOULDER ARTHROSCOPY/SURGERY (10/21/16) SMEAR WET M[place] SALINE/INK (08/10/16) TEST FOR ACETONE/KETONES (07/10/18) THER/PROPH/DIAG INJ IV PUSH (02/27/17) THER/PROPH/DIAG INJ SC/IM (07/10/18) THER/PROPH/DIAG IV INF INIT (06/26/17) THERAPEUTIC ACTIVITIES (12/27/14) THERAPEUTIC EXERCISES (03/26/17) TRICHOMONAS VAGIN DIR PROBE (05/17/19) TX/PRO/DX INJ NEW DRUG ADDON (06/26/17) TX/PRO/DX INJ SAME DRUG LICENSED THERAPIST (06/26/17) ULTRASOUND THERAPY (03/26/17) UR ALBUMIN SEMIQUANTITATIVE (04/23/20) URINALYSIS AUTO W/O SCOPE (10/04/19) URINALYSIS AUTO W/SCOPE (01/20/19) URINE CULTURE/COLONY COUNT (01/20/19) URINE TEST (02/27/17) VIT D 1 25-DIHYDROXY (04/05/17) WITHDRAWAL OF ARTERIAL BLOOD (02/08/15) X-RAY EXAM ABDOMEN 1 VIEW (10/04/19) X-RAY EXAM CHEST 1 VIEW (10/27/18) X-RAY EXAM L-S SPINE 2/3 VWS (12/07/17) X-RAY EXAM NECK SPINE 2-3 VW (08/01/19) X-RAY EXAM OF ANKLE (07/18/16) X-RAY EXAM OF ELBOW (01/09/20) X-RAY EXAM OF SHOULDER (05/27/20) Problem List Initiated/Reviewed/Updated: Yes Plan: 50 yo female s/p appendectomy. Continue Lantus with sliding scale insulin, Will give potassium supplementation
[2020-06-26] MEDS: Insulin Aspart 100 Units/ML 3 ML Pen SUBCUT SCH ×6 (07:53→19:05)
[2020-06-26] MEDS: Lisinopril 10 MG Tab PO SCH (09:42)
[2020-06-26] MEDS: Polyethylene Glycol 3350 Powder 17 GM Packet PO SCH (09:42)
[2020-06-26] MEDS ORDERED: Non-Formulary Medication 1 Each (Dulaglutide [Trulicity] 1.5 MG) SQ SCH (10:15)
[2020-06-26] MEDS: ALPRAZolam 0.5 MG Tab PO PRN (12:56)
[2020-06-26] MEDS: Nicotine 14 MG/24 Hr Patch TRDERM SCH (13:18)
--- NOTE | 2020-06-26 17:17 | PCM.SURGPN ---
- General Info Date of Service: 06/26/20 Date of Surgery/Procedure: 06/24/20 POD#: 2 Functional Status: Reports: Pain Controlled (c/o pain along LLQ incision and RLQ ), Tolerating Diet, Ambulating, Urinating. Denies: New Symptoms - Review of Systems General: Reports: No Symptoms HEENT: Reports: No Symptoms Pulmonary: Reports: No Symptoms Cardiovascular: Reports: No Symptoms Gastrointestinal: Reports: Flatus. Denies: Nausea, Vomiting Genitourinary: Reports: No Symptoms - Patient Data Vitals - Most Recent: Last Vital Signs Temp 36.8 C 06/26/20 16:57 Pulse 93 06/26/20 16:57 Resp 18 06/26/20 16:57 BP 106/64 06/26/20 16:57 Pulse Ox 96 06/26/20 16:57 Weight - Most Recent: 62.097 kg I&O - Last 24 Hours: Intake & Output 06/26/20 06/26/20 06/26/20 06:59 14:59 22:59 Intake Total 860 Output Total 1200 Balance -340 Lab Results Last 24 Hrs: Laboratory Results - last 24 hr 06/26/20 06/26/20 06/26/20 Range/Units 05:17 05:17 07:01 WBC 12.42 H (4.0-11.0) K/uL RBC 3.99 L (4.30-5.90) M/uL Hgb 12.2 (12.0-16.0) g/dL Hct 38.0 (36.0-46.0) % MCV 95.2 (80.0-98.0) fL MCH 30.6 (27.0-32.0) pg MCHC 32.1 (31.0-37.0) g/dL RDW Std Deviation 44.2 (28.0-62.0) fl RDW Coeff of Haley 13 (11.0-15.0) % Plt Count 291 (150-400) K/uL MPV 10.60 (7.40-12.00) fL Neut % (Auto) 66.9 (48.0-80.0) % Lymph % (Auto) 22.4 (16.0-40.0) % Wilkes % (Auto) 9.0 (0.0-15.0) % Eos % (Auto) 1.5 (0.0-7.0) % Baso % (Auto) 0.2 (0.0-1.5) % Neut # (Auto) 8.3 H (1.4-5.7) K/uL Lymph # (Auto) 2.8 H (0.6-2.4) K/uL Wilkes # (Auto) 1.1 H (0.0-0.8) K/uL Eos # (Auto) 0.2 (0.0-0.7) K/uL Baso # (Auto) 0.0 (0.0-0.1) K/uL Nucleated RBC % 0.0 /100WBC Nucleated RBCs # 0 K/uL Sodium 140 (136-145) mmol/L Potassium 3.0 L (3.5-5.1) mmol/L Chloride 103 (98-107) mmol/L Carbon Dioxide 32.0 (21.0-32.0) mmol/L BUN 4 L (7.0-18.0) mg/dL Creatinine 0.9 (0.6-1.0) mg/dL Est Cr Clr Drug Dosing 59.94 mL/min Estimated GFR (MDRD) > 60.0 ml/min Glucose 68 L (74-106) mg/dL POC Glucose 78 (60-110) mg/dL Calcium 8.0 L (8.5-10.1) mg/dL Magnesium 2.2 (1.8-2.4) mg/dL 06/26/20 06/26/20 Range/Units 11:06 16:48 WBC (4.0-11.0) K/uL RBC (4.30-5.90) M/uL Hgb (12.0-16.0) g/dL Hct (36.0-46.0) % MCV (80.0-98.0) fL MCH (27.0-32.0) pg MCHC (31.0-37.0) g/dL RDW Std Deviation (28.0-62.0) fl RDW Coeff of Haley (11.0-15.0) % Plt Count (150-400) K/uL MPV (7.40-12.00) fL Neut % (Auto) (48.0-80.0) % Lymph % (Auto) (16.0-40.0) % Wilkes % (Auto) (0.0-15.0) % Eos % (Auto) (0.0-7.0) % Baso % (Auto) (0.0-1.5) % Neut # (Auto) (1.4-5.7) K/uL Lymph # (Auto) (0.6-2.4) K/uL Wilkes # (Auto) (0.0-0.8) K/uL Eos # (Auto) (0.0-0.7) K/uL Baso # (Auto) (0.0-0.1) K/uL Nucleated RBC % /100WBC Nucleated RBCs # K/uL Sodium (136-145) mmol/L Potassium (3.5-5.1) mmol/L Chloride (98-107) mmol/L Carbon Dioxide (21.0-32.0) mmol/L BUN (7.0-18.0) mg/dL Creatinine (0.6-1.0) mg/dL Est Cr Clr Drug Dosing mL/min Estimated GFR (MDRD) ml/min Glucose (74-106) mg/dL POC Glucose 229 H 77 (60-110) mg/dL Calcium (8.5-10.1) mg/dL Magnesium (1.8-2.4) mg/dL Antwan Results Last 24 Hrs: Microbiology 06/23/20 23:10 Aerobic Blood Culture - Preliminary Blood - Venous - Lab Draw NO GROWTH AFTER 2 DAYS Anaerobic Blood Culture - Preliminary NO GROWTH AFTER 2 DAYS 06/23/20 23:00 Aerobic Blood Culture - Preliminary Blood - Venous NO GROWTH AFTER 2 DAYS Anaerobic Blood Culture - Preliminary NO GROWTH AFTER 2 DAYS Med Orders - Current: Current Medications Acetaminophen (Tylenol) 650 mg PO Q6H PRN PRN Reason: Fever Last Admin: 06/25/20 14:52 Dose: 650 mg Documented by: Alprazolam (Xanax) 0.5 mg PO BID PRN PRN Reason: Anxiety Last Admin: 06/26/20 12:56 Dose: 0.5 mg Documented by: Dextrose/Water (Dextrose 50% In Water) 50 ml IV ASDIRECTED PRN PRN Reason: Hypoglycemia Diphenhydramine HCl (Benadryl) 50 mg IVPUSH Q6H PRN PRN Reason: Itching Last Admin: 06/25/20 19:43 Dose: 50 mg Documented by: Glucagon (Glucagen) 1 mg IM ASDIRECTED PRN PRN Reason: Hypoglycemia Heparin Sodium (Porcine) (Heparin Sodium) 5,000 units SUBCUT Q8H [facility] Last Admin: 06/26/20 13:55 Dose: 5,000 units Documented by: Hydromorphone HCl (Dilaudid) 0.5 mg IVPUSH Q1H PRN PRN Reason: Pain Last Admin: 06/25/20 10:34 Dose: 0.5 mg Documented by: Piperacillin Sod/Tazobactam (Sod 3.375 gm/ Sodium Chloride) 50 mls @ 100 mls/hr IV Q6H [facility] Last Admin: 06/26/20 11:06 Dose: 100 mls/hr Documented by: Insulin Aspart (Novolog) 0 unit SUBCUT TIDAC [facility]; Protocol Last Admin: 06/26/20 12:55 Dose: 2 units Documented by: Insulin Aspart (Novolog) 5 unit SUBCUT TIDAC [facility] Last Admin: 06/26/20 12:55 Dose: 5 units Documented by: Insulin Glargine (Lantus Solostar) 35 units SUBCUT BEDTIME [facility] Last Admin: 06/25/20 21:04 Dose: 35 units Documented by: Lisinopril (Prinivil) 10 mg PO DAILY [facility] Last Admin: 06/26/20 09:42 Dose: 10 mg Documented by: Nicotine (Habitrol) 14 mg TRDERM DAILY [facility] Last Admin: 06/26/20 13:18 Dose: 14 mg Documented by: Non-Formulary Medication (Dulaglutide [Trulicity]) 1.5 mg SQ WEEKLY [facility] Ondansetron HCl (Zofran) 4 mg IVPUSH Q6H PRN PRN Reason: Nausea/Vomiting Last Admin: 06/25/20 18:08 Dose: 4 mg Documented by: Oxycodone/Acetaminophen (Percocet 325-5 Mg) 1 tab PO Q4H PRN PRN Reason: Pain (moderate 4-6) Last Admin: 06/26/20 16:08 Dose: 1 tab Documented by: Polyethylene Glycol (Miralax) 17 gm PO DAILY [facility] Last Admin: 06/26/20 09:42 Dose: 17 gm Documented by: Rosuvastatin Calcium (Crestor) 40 mg PO BEDTIME [facility] Last Admin: 06/25/20 21:04 Dose: 40 mg Documented by: Senna/Docusate Sodium (Senna Plus) 1 tab PO DAILY [facility] Last Admin: 06/26/20 12:02 Dose: 1 tab Documented by: Trazodone HCl (Trazodone) 100 mg PO BEDTIME PRN PRN Reason: Insomnia Last Admin: 06/25/20 22:21 Dose: 100 mg Documented by: Discontinued Medications Bupivacaine HCl (Sensorcaine-Mpf 0.5%) Confirm Administered Dose 20 ml .ROUTE .STK-MED ONE Stop: 06/24/20 08:34 Cefazolin Sodium (Ancef) Confirm Administered Dose 1 gm .ROUTE .STK-MED ONE Stop: 06/24/20 10:17 Fentanyl (Sublimaze) Confirm Administered Dose 250 mcg .ROUTE .STK-MED ONE Stop: 06/24/20 07:23 Glycopyrrolate (Robinul) Confirm Administered Dose 0.4 mg .ROUTE .STK-MED ONE Stop: 06/24/20 07:22 Hydromorphone HCl (Dilaudid) 1 mg IVPUSH ONETIME ONE Stop: 06/23/20 23:08 Last Admin: 06/23/20 23:10 Dose: 1 mg Documented by: Hydromorphone HCl (Dilaudid) 1 mg IVPUSH ONETIME ONE Stop: 06/24/20 00:45 Last Admin: 06/24/20 00:52 Dose: 1 mg Documented by: Hydromorphone HCl (Dilaudid) Confirm Administered Dose 2 mg .ROUTE .STK-MED ONE Stop: 06/24/20 10:02 Hydromorphone HCl (Dilaudid) Confirm Administered Dose 2 mg .ROUTE .STK-MED ONE Stop: 06/24/20 11:11 Last Admin: 06/24/20 18:44 Dose: Not Given Documented by: Lactated Ringer's (Ringers, Lactated) 1,000 mls @ 999 mls/hr IV .BOLUS ONE Stop: 06/23/20 22:57 Last Admin: 06/23/20 22:22 Dose: 999 mls/hr Documented by: Lactated Ringer's (Ringers, Lactated) 1,000 mls @ 999 mls/hr IV .BOLUS ONE Stop: 06/23/20 22:57 Last Admin: 06/23/20 22:30 Dose: 999 mls/hr Documented by: Ceftriaxone Sodium/Dextrose 2 (gm/ Premix) 50 mls @ 100 mls/hr IV ONETIME ONE Stop: 06/23/20 23:02 Last Admin: 06/23/20 23:03 Dose: 100 mls/hr Documented by: Metronidazole 500 mg/ Premix 100 mls @ 100 mls/hr IV ONETIME ONE Stop: 06/23/20 23:33 Last Admin: 06/23/20 23:02 Dose: 100 mls/hr Documented by: Lactated Ringer's (Ringers, Lactated) 1,000 mls @ 150 mls/hr IV ASDIRECTED [facility] Last Admin: 06/24/20 08:32 Dose: 150 mls/hr Documented by: Sodium Chloride (Normal Saline) Confirm Administered Dose 20 mls @ as directed .ROUTE .STK-MED ONE Stop: 06/24/20 09:27 Acetaminophen (Ofirmev) Confirm Administered Dose 100 mls @ as directed .ROUTE .STK-MED ONE Stop: 06/24/20 10:50 Magnesium Sulfate 4 gm/ Premix 100 mls @ 50 mls/hr IV ONETIME ONE Stop: 06/25/20 11:35 Last Admin: 06/25/20 10:35 Dose: 50 mls/hr Documented by: Influenza Virus Vaccine (Pharmacy To Dose - Influenza Vaccine) 1 each IM ONETIME ONE Stop: 06/24/20 01:41 Influenza Virus Vaccine (Afluria Quad 2020-21 (3yr Up)) 60 mcg IM .ONCE ONE Stop: 06/24/20 10:01 Insulin Glargine (Lantus Solostar) 50 units SUBCUT BEDTIME [facility] Iopamidol (Isovue Multipack-370 (76%)) 80 ml IVPUSH ONETIME STA Stop: 06/23/20 23:01 Last Admin: 06/23/20 23:01 Dose: 80 ml Documented by: Lidocaine (Xylocaine-Mpf 2%) Confirm Administered Dose 5 ml .ROUTE .STK-MED ONE Stop: 06/24/20 07:22 Midazolam HCl (Versed 1 Mg/Ml) Confirm Administered Dose 2 mg .ROUTE .STK-MED ONE Stop: 06/24/20 07:23 Morphine Sulfate (Morphine) 4 mg IVPUSH ONETIME ONE Stop: 06/23/20 21:56 Last Admin: 06/23/20 22:23 Dose: 4 mg Documented by: Ondansetron HCl (Zofran) 4 mg IVPUSH ONETIME ONE Stop: 06/23/20 21:56 Last Admin: 06/23/20 22:23 Dose: 4 mg Documented by: Ondansetron HCl (Zofran) Confirm Administered Dose 4 mg .ROUTE .STK-MED ONE Stop: 06/24/20 07:22 Potassium Chloride (Klor-Con M20) 40 meq PO ONETIME ONE Stop: 06/25/20 09:37 Last Admin: 06/25/20 10:35 Dose: 40 meq Documented by: Potassium Chloride (Klor-Con M20) 40 meq PO ONETIME ONE Stop: 06/26/20 07:20 Last Admin: 06/26/20 07:48 Dose: 40 meq Documented by: Propofol (Diprivan 20 Ml) Confirm Administered Dose 200 mg .ROUTE .STK-MED ONE Stop: 06/24/20 07:22 Rocuronium [place] (Rocuronium [place]) Confirm Administered Dose 50 mg .ROUTE .STK-MED ONE Stop: 06/24/20 07:23 Sugammadex Sodium (Bridion) Confirm Administered Dose 200 mg .ROUTE .STK-MED ONE Stop: 06/24/20 10:31 - Exam Wound/Incisions: Other (Ecchymosis along the LLQ incision. Other incisions appear to be healing well) General: Alert, Oriented, Cooperative Lungs: Normal Respiratory Effort Cardiovascular: Regular Rate GI/Abdominal Exam: Soft, Non-Tender. No: Distended, Guarding, Rigid, Rebound Skin: Warm, Dry, Intact Sepsis Event Note - Evaluation Sepsis Screening Result: No Definite Risk - Focused Exam Vital Signs: Vital Signs Temp Pulse Resp BP BP Pulse Ox 06/26/20 16:57 36.8 C 93 18 106/64 96 06/26/20 11:00 36.7 C 82 16 110/72 98 06/26/20 09:42 103/64 06/26/20 07:46 36.6 C 90 15 92/55 L 98 - Problem List & Annotations (1) Appendicitis SNOMED Code(s): 34914357 Code(s): K37 - UNSPECIFIED APPENDICITIS Status: Acute Current Visit: Yes Qualifiers: Appendicitis type: acute appendicitis Acute appendicitis type: with localized peritonitis Appendicitis gangrene presence: with gangrene Appendicitis perforation presence: with perforation Appendicitis abscess presence: with abscess Qualified Code(s): K35.33 - Acute appendicitis with perforation and localized peritonitis, with abscess (2) Hypomagnesemia SNOMED Code(s): 476930952 Code(s): E83.42 - HYPOMAGNESEMIA Status: Acute Current Visit: Yes (3) Hypokalemia SNOMED Code(s): 50834171 Code(s): E87.6 - HYPOKALEMIA Status: Acute Current Visit: Yes (4) Uncontrolled diabetes mellitus SNOMED Code(s): 10299613, 682716964 Code(s): E11.65 - TYPE 2 DIABETES MELLITUS WITH HYPERGLYCEMIA Status: Acute Current Visit: Yes Qualifiers: Diabetes mellitus type: type 2 Glycemic state: with hyperglycemia Qualified Code(s): E11.65 - Type 2 diabetes mellitus with hyperglycemia - Problem List Review Problem List Initiated/Reviewed/Updated: Yes - My Orders Last 24 Hours: Active Orders 24 hr Category Date Time Status BASIC METABOLIC PANEL,BMP [CHEM] AM Lab 06/27/20 05:11 Ordered CBC WITH AUTO DIFF [HEME] AM Lab 06/27/20 05:11 Ordered MG [MAGNESIUM] [CHEM] AM Lab 06/27/20 05:11 Ordered ALPRAZolam [Xanax] Med 06/26/20 12:14 Active 0.5 mg PO BID PRN Docusate Sodium/Sennosides [Senna Plus] Med 06/26/20 11:30 Active 1 tab PO DAILY Dulaglutide [Trulicity] Med 06/26/20 10:15 Pending 1.5 mg SQ WEEKLY Nicotine [Habitrol] Med 06/26/20 12:15 Active 14 mg TRDERM DAILY Rosuvastatin [Crestor] Med 06/25/20 21:00 Active 40 mg PO BEDTIME Medication Orders Acetaminophen (Tylenol) 650 mg PO Q6H PRN PRN Reason: Fever Last Admin: 06/25/20 14:52 Dose: 650 mg Documented by: AYAAN Alprazolam (Xanax) 0.5 mg PO BID PRN PRN Reason: Anxiety Last Admin: 06/26/20 12:56 Dose: 0.5 mg Documented by: AYAAN Dextrose/Water (Dextrose 50% In Water) 50 ml IV ASDIRECTED PRN PRN Reason: Hypoglycemia Diphenhydramine HCl (Benadryl) 50 mg IVPUSH Q6H PRN PRN Reason: Itching Last Admin: 06/25/20 19:43 Dose: 50 mg Documented by: JUNIOR Glucagon (Glucagen) 1 mg IM ASDIRECTED PRN PRN Reason: Hypoglycemia Heparin Sodium (Porcine) (Heparin Sodium) 5,000 units SUBCUT Q8H [facility] Last Admin: 06/26/20 13:55 Dose: 5,000 units Documented by: Admin: 06/26/20 05:20 Dose: 5,000 units Documented by: Admin: 06/25/20 22:23 Dose: 5,000 units Documented by: Admin: 06/25/20 14:50 Dose: 5,000 units Documented by: AYAAN Hydromorphone HCl (Dilaudid) 0.5 mg IVPUSH Q1H PRN PRN Reason: Pain Last Admin: 06/25/20 10:34 Dose: 0.5 mg Documented by: DERICK Cosigned by: NIGEL Admin: 06/25/20 07:54 Dose: 0.5 mg Documented by: Admin: 06/25/20 04:22 Dose: 0.5 mg Documented by: Admin: 06/24/20 23:41 Dose: 0.5 mg Documented by: Admin: 06/24/20 22:10 Dose: 0.5 mg Documented by: Admin: 06/24/20 19:45 Dose: 0.5 mg Documented by: Admin: 06/24/20 17:17 Dose: 0.5 mg Documented by: Admin: 06/24/20 13:51 Dose: 0.5 mg Documented by: Admin: 06/24/20 11:12 Dose: 0.5 mg Documented by: Admin: 06/24/20 07:03 Dose: 0.5 mg Documented by: Admin: 06/24/20 02:56 Dose: 0.5 mg Documented by: JUNIOR Piperacillin Sod/Tazobactam (Sod 3.375 gm/ Sodium Chloride) 50 mls @ 100 mls/hr IV Q6H [facility] Last Admin: 06/26/20 11:06 Dose: 100 mls/hr Documented by: Infusion: 06/26/20 05:46 Dose: 100 mls/hr Documented by: Admin: 06/26/20 05:16 Dose: 100 mls/hr Documented by: Infusion: 06/25/20 22:53 Dose: 100 mls/hr Documented by: Admin: 06/25/20 22:23 Dose: 100 mls/hr Documented by: Infusion: 06/25/20 17:28 Dose: 100 mls/hr Documented by: Admin: 06/25/20 16:58 Dose: 100 mls/hr Documented by: Infusion: 06/25/20 11:41 Dose: 100 mls/hr Documented by: Admin: 06/25/20 11:11 Dose: 100 mls/hr Documented by: Infusion: 06/25/20 04:55 Dose: 100 mls/hr Documented by: Admin: 06/25/20 04:25 Dose: 100 mls/hr Documented by: Infusion: 06/24/20 22:44 Dose: 100 mls/hr Documented by: Admin: 06/24/20 22:14 Dose: 100 mls/hr Documented by: Infusion: 06/24/20 17:48 Dose: 100 mls/hr Documented by: Admin: 06/24/20 17:18 Dose: 100 mls/hr Documented by: Infusion: 06/24/20 13:33 Dose: 100 mls/hr Documented by: Admin: 06/24/20 13:03 Dose: 100 mls/hr Documented by: Infusion: 06/24/20 05:35 Dose: 100 mls/hr Documented by: Admin: 06/24/20 05:05 Dose: 100 mls/hr Documented by: FRASVAL Insulin Aspart (Novolog) 0 unit SUBCUT TIDAC [facility]; Protocol Last Admin: 06/26/20 12:55 Dose: 2 units Documented by: Admin: 06/26/20 07:53 Dose: Not Given Documented by: Admin: 06/25/20 18:09 Dose: 1 units Documented by: Admin: 06/25/20 10:57 Dose: Not Given Documented by: Admin: 06/25/20 07:48 Dose: Not Given Documented by: Admin: 06/24/20 17:19 Dose: 2 units Documented by: ERICKIGLJULIOCESAR Admin: 06/24/20 13:53 Dose: 1 units Documented by: ERICKIGLJULIOCESAR Admin: 06/24/20 07:00 Dose: 3 units Documented by: NIKKI Insulin Aspart (Novolog) 5 unit SUBCUT TIDAC [facility] Last Admin: 06/26/20 12:55 Dose: 5 units Documented by: Admin: 06/26/20 07:53 Dose: Not Given Documented by: Admin: 06/25/20 18:09 Dose: 5 units Documented by: Admin: 06/25/20 10:57 Dose: Not Given Documented by: Admin: 06/25/20 07:49 Dose: 5 units Documented by: Admin: 06/24/20 17:21 Dose: 5 units Documented by: Admin: 06/24/20 13:53 Dose: 5 units Documented by: RAMAKRISHNA Insulin Glargine (Lantus Solostar) 35 units SUBCUT BEDTIME [facility] Last Admin: 06/25/20 21:04 Dose: 35 units Documented by: Admin: 06/24/20 20:40 Dose: 35 units Documented by: JATIN Lisinopril (Prinivil) 10 mg PO DAILY [facility] Last Admin: 06/26/20 09:42 Dose: 10 mg Documented by: Admin: 06/25/20 14:53 Dose: 10 mg Documented by: AYAAN Nicotine (Habitrol) 14 mg TRDERM DAILY [facility] Last Admin: 06/26/20 13:18 Dose: 14 mg Documented by: AYAAN Non-Formulary Medication (Dulaglutide [Trulicity]) 1.5 mg SQ WEEKLY [facility] Ondansetron HCl (Zofran) 4 mg IVPUSH Q6H PRN PRN Reason: Nausea/Vomiting Last Admin: 06/25/20 18:08 Dose: 4 mg Documented by: Admin: 06/25/20 10:34 Dose: 4 mg Documented by: DERICK Cosigned by: NIGEL Admin: 06/25/20 04:29 Dose: 4 mg Documented by: Admin: 06/24/20 21:50 Dose: 4 mg Documented by: Admin: 06/24/20 15:50 Dose: 4 mg Documented by: Admin: 06/24/20 07:10 Dose: 4 mg Documented by: Admin: 06/24/20 00:56 Dose: 4 mg Documented by: SHAHNAZ Oxycodone/Acetaminophen (Percocet 325-5 Mg) 1 tab PO Q4H PRN PRN Reason: Pain (moderate 4-6) Last Admin: 06/26/20 16:08 Dose: 1 tab Documented by: Admin: 06/26/20 12:02 Dose: 1 tab Documented by: Admin: 06/26/20 07:47 Dose: 1 tab Documented by: Admin: 06/26/20 03:10 Dose: 1 tab Documented by: Admin: 06/25/20 22:21 Dose: 1 tab Documented by: Admin: 06/25/20 18:08 Dose: 1 tab Documented by: Admin: 06/25/20 14:03 Dose: 1 tab Documented by: AYAAN Polyethylene Glycol (Miralax) 17 gm PO DAILY [facility] Last Admin: 06/26/20 09:42 Dose: 17 gm Documented by: Admin: 06/25/20 11:41 Dose: 17 gm Documented by: CLIFFORD Rosuvastatin Calcium (Crestor) 40 mg PO BEDTIME [facility] Last Admin: 06/25/20 21:04 Dose: 40 mg Documented by: JUNIOR Senna/Docusate Sodium (Senna Plus) 1 tab PO DAILY [facility] Last Admin: 06/26/20 12:02 Dose: 1 tab Documented by: AYAAN Trazodone HCl (Trazodone) 100 mg PO BEDTIME PRN PRN Reason: Insomnia Last Admin: 06/25/20 22:21 Dose: 100 mg Documented by: Admin: 06/24/20 21:50 Dose: 100 mg Documented by: JATIN - Plan Plan (Free Text/Narrative):: From a surgical standpoint the patient appears to be improving. Her white blood cell count is down to 12,000 today from 14,000. She still passing flatus and tolerating a regular diet with no nausea or vomiting. I explained that it is common to have ongoing right lower quadrant discomfort due to the inflammation seen at the site. Her pathology results showed acute appendicitis. She has some bruising along the left lower quadrant incision site which is likely the cause of the tenderness there as well. Overall she has no signs of peritonitis and her pain is well controlled with oral Percocet. She is taking MiraLAX and I added docusate senna to see if she can produce a bowel movement. She does not feel more distended today. If her white blood cell count is the same or improved tomorrow, will switch to oral antibiotics and likely discharge home. I appreciate medicines help in managing the patient's diabetes.
[2020-06-26] MEDS: Ondansetron 4 MG/2 ML SDV IVPUSH PRN (17:25)
[2020-06-26] MEDS: Rosuvastatin 10 MG Tab PO SCH (20:40)
[2020-06-26] MEDS: Insulin Glargine,Human Rec. Analog 100 Units/ML 3 ML Pen SUBCUT SCH (21:32)
[2020-06-26] MEDS ORDERED: ALPRAZolam 0.5 MG Tab PO ONE (21:45)
[2020-06-26] MEDS: traZODone 50 MG Tab PO PRN (22:42)
[2020-06-27] MEDS: Acetaminophen/oxyCODONE 325-5 MG Tab PO PRN ×3 (00:43→09:25)
[2020-06-27] MEDS: Piperacillin/Tazobactam 3.375 GM in Sodium Chloride 0.9% 50 ML IV SCH (05:23)
[2020-06-27] MEDS: Heparin Sodium 5,000 Units/ML Vial SUBCUT SCH (05:28)
[2020-06-27 06:50] LABS: BLOOD UREA NITROGEN,BUN 5 mg/dL (7.0-18.0); CHLORIDE,CL 105 mmol/L (98-107); GLUCOSE RANDOM 128 mg/dL (74-106); POTASSIUM,K 3.8 mmol/L (3.5-5.1); SODIUM,NA 141 mmol/L (136-145)
[2020-06-27] MEDS: Insulin Aspart 100 Units/ML 3 ML Pen SUBCUT SCH ×2 (07:35→07:37)
[2020-06-27 07:49] VITALS: PULSE 78
--- NOTE | 2020-06-27 08:22 | PCM.DCSUM1 ---
Discharge Summary - Hospital Course Free Text/Narrative:: patient is a 50-year-old female who presented the emergency room with abdominal pain. Workup revealed a leukocytosis associated with acute appendicitis. She was taken to the operating room and underwent a laparoscopic appendectomy. She is found to have perforated appendicitis with a very small abscess along the base of the appendix itself. she did well in the postop period. Her vital signs remained stable. Her white blood cell count continued to decrease. She was kept on IV Zosyn. She has uncontrolled type 2 diabetes. The medicine team was consult did to manage her blood sugars. Even with diabetic diet and long and short acting insulin her blood sugars ranged between 60 and 70 to the 200s. She was given stool softeners and had a bowel movement. She was cleared for discharge on oral Levaquin. - Discharge Data Discharge Date: 06/27/20 Discharge Disposition: Home, Self-Care 01 Condition: Good - Referral to Home Health Primary Care Physician: PCP None - Discharge Diagnosis/Problem(s) (1) Appendicitis SNOMED Code(s): 26369220 ICD Code: K37 - UNSPECIFIED APPENDICITIS Status: Acute Current Visit: Yes Qualifiers: Appendicitis type: acute appendicitis Acute appendicitis type: with localized peritonitis Appendicitis gangrene presence: with gangrene Appendicitis perforation presence: with perforation Appendicitis abscess presence: with abscess Qualified Code(s): K35.33 - Acute appendicitis with perforation and localized peritonitis, with abscess (2) Hypomagnesemia SNOMED Code(s): 273402108 ICD Code: E83.42 - HYPOMAGNESEMIA Status: Acute Current Visit: Yes (3) Hypokalemia SNOMED Code(s): 42260861 ICD Code: E87.6 - HYPOKALEMIA Status: Acute Current Visit: Yes (4) Uncontrolled diabetes mellitus SNOMED Code(s): 83936066, 416267244 ICD Code: E11.65 - TYPE 2 DIABETES MELLITUS WITH HYPERGLYCEMIA Status: Acute Current Visit: Yes Qualifiers: Diabetes mellitus type: type 2 Glycemic state: with hyperglycemia Qualified Code(s): E11.65 - Type 2 diabetes mellitus with hyperglycemia - Patient Summary/Data Operative Procedure(s) Performed: Laparoscopic appendectomy Consults: Consultations 06/24/20 11:03 Consult to Letterer [Consult to Diabetic Nurse Specialist] [CONS] Routine - Patient Instructions Diet: Drink 8-10+ Glasses/Day, Diabetic Diet Activity: No Lifting Over 20 Pounds (for one month ) Driving: Do Not Drive (for one week after surgery ) Showering/Bathing: May Shower, No Tub Bathing/Swimming (for 2 weeks ) Wound/Incision Care: Keep Operative Site/Wound Site Clean and Dry Notify Provider of: Fever, Increased Pain, Swelling and Redness, Drainage, Nausea and/or Vomiting Other/Special Instructions: Follow up in 7-[address] Meredith for staple removal. Follow up in one week with PCP for diabetes follow up. - Discharge Plan *PRESCRIPTION DRUG MONITORING PROGRAM REVIEWED*: Yes *COPY OF PRESCRIPTION DRUG MONITORING REPORT IN PATIENT HEIDI: Yes Prescriptions/Med Rec: Levofloxacin 750 mg PO DAILY #7 tablet polyethylene glycoL 3350 [MiraLAX] 17 gm PO DAILY 7 Days #1 packet Docusate Sodium/Sennosides [Senna Plus] 1 tab PO DAILY #7 tablet Ondansetron [Zofran ODT] 4 mg PO Q6H PRN #30 tab.dis PRN Reason: Nausea Home Medications: Home Meds traMADol HCl [Tramadol HCl] 50 mg PO Q6H PRN 10/27/18 [History] Non-Formulary Medication [NF Drug] 06/23/20 [History] lisinopriL [Lisinopril] 10 mg PO DAILY 06/23/20 [History] ALPRAZolam [Alprazolam] 0.5 mg PO BID PRN 06/24/20 [History] Dulaglutide [Trulicity] 1.5 mg SQ WEEKLY 06/24/20 [History] Oxybutynin 5 mg PO Q12H 06/24/20 [History] Rizatriptan Benzoate [Rizatriptan] 10 mg PO Q2H PRN 06/24/20 [History] Rosuvastatin [Crestor] 40 mg PO DAILY 06/24/20 [History] Levofloxacin 750 mg PO DAILY #7 tablet 06/26/20 [Rx] polyethylene glycoL 3350 [MiraLAX] 17 gm PO DAILY 7 Days #1 packet 06/26/20 [Rx] Docusate Sodium/Sennosides [Senna Plus] 1 tab PO DAILY #7 tablet 06/27/20 [Rx] Insulin Aspart [NovoLOG] 0 unit SUBCUT TIDAC pen 06/27/20 [Rx] Insulin Aspart [NovoLOG] 5 unit SUBCUT TIDAC pen 06/27/20 [Rx] Insulin Glarg,Human.Rec.Analog [Lantus Solostar] 40 units SUBCUT BEDTIME pen 06/27/20 [Rx] Ondansetron [Zofran ODT] 4 mg PO Q6H PRN #30 tab.dis 06/27/20 [Rx] Patient Handouts: Docusate Sodium; Senna tablets or capsules, Type 2 Diabetes Mellitus, Diagnosis, Adult, Insulin Treatment for Diabetes Mellitus, Tips for Eating Away From Home If You Have Diabetes, Appendicitis, Adult, Laparoscopic Appendectomy, Adult, Care After, Acetaminophen; Oxycodone tablets, Ondansetron oral dissolving tablet, Levofloxacin tablets, Polyethylene Glycol powder Referrals: Tabatha Meredith MD [Physician] - 07/03/20 3:00 pm (Please arrive 15 minutes wearing a face covering. ) Shai Miller MD [Physician] - - Discharge Summary/Plan Comment DC Time >30 min.: Yes (35 min) - General Info Functional Status: Reports: Pain Controlled, Tolerating Diet, Ambulating, Urinating. Denies: New Symptoms - Review of Systems General: Reports: No Symptoms HEENT: Reports: No Symptoms Pulmonary: Reports: No Symptoms Cardiovascular: Reports: No Symptoms Gastrointestinal: Reports: No Symptoms Genitourinary: Reports: No Symptoms Musculoskeletal: Reports: No Symptoms - Patient Data Vitals - Most Recent: Last Vital Signs Temp 36.4 C 06/27/20 07:48 Pulse 78 06/27/20 07:48 Resp 16 06/27/20 07:48 BP 90/59 L 06/27/20 07:48 Pulse Ox 96 06/27/20 07:48 Weight - Most Recent: 62.097 kg I&O - Last 24 hours: Intake & Output 06/26/20 06/27/20 06/27/20 22:59 06:59 14:59 Intake Total 1780 920 Output Total 1200 1600 Balance 580 -680 Lab Results - Last 24 hrs: Laboratory Results - last 24 hr 06/26/20 06/26/20 06/27/20 Range/Units 11:06 16:48 05:17 WBC 8.93 (4.0-11.0) K/uL RBC 3.71 L (4.30-5.90) M/uL Hgb 11.4 L (12.0-16.0) g/dL Hct 35.5 L (36.0-46.0) % MCV 95.7 (80.0-98.0) fL MCH 30.7 (27.0-32.0) pg MCHC 32.1 (31.0-37.0) g/dL RDW Std Deviation 44.4 (28.0-62.0) fl RDW Coeff of Haley 13 (11.0-15.0) % Plt Count 315 (150-400) K/uL MPV 10.20 (7.40-12.00) fL Neut % (Auto) 58.2 (48.0-80.0) % Lymph % (Auto) 28.6 (16.0-40.0) % Heard % (Auto) 10.2 (0.0-15.0) % Eos % (Auto) 2.9 (0.0-7.0) % Baso % (Auto) 0.1 (0.0-1.5) % Neut # (Auto) 5.2 (1.4-5.7) K/uL Lymph # (Auto) 2.6 H (0.6-2.4) K/uL Heard # (Auto) 0.9 H (0.0-0.8) K/uL Eos # (Auto) 0.3 (0.0-0.7) K/uL Baso # (Auto) 0.0 (0.0-0.1) K/uL Nucleated RBC % 0.0 /100WBC Nucleated RBCs # 0 K/uL Sodium (136-145) mmol/L Potassium (3.5-5.1) mmol/L Chloride (98-107) mmol/L Carbon Dioxide (21.0-32.0) mmol/L BUN (7.0-18.0) mg/dL Creatinine (0.6-1.0) mg/dL Est Cr Clr Drug Dosing mL/min Estimated GFR (MDRD) ml/min Glucose (74-106) mg/dL POC Glucose 229 H 77 (60-110) mg/dL Calcium (8.5-10.1) mg/dL Magnesium (1.8-2.4) mg/dL 06/27/20 06/27/20 Range/Units 05:17 06:03 WBC (4.0-11.0) K/uL RBC (4.30-5.90) M/uL Hgb (12.0-16.0) g/dL Hct (36.0-46.0) % MCV (80.0-98.0) fL MCH (27.0-32.0) pg MCHC (31.0-37.0) g/dL RDW Std Deviation (28.0-62.0) fl RDW Coeff of Haley (11.0-15.0) % Plt Count (150-400) K/uL MPV (7.40-12.00) fL Neut % (Auto) (48.0-80.0) % Lymph % (Auto) (16.0-40.0) % Heard % (Auto) (0.0-15.0) % Eos % (Auto) (0.0-7.0) % Baso % (Auto) (0.0-1.5) % Neut # (Auto) (1.4-5.7) K/uL Lymph # (Auto) (0.6-2.4) K/uL Heard # (Auto) (0.0-0.8) K/uL Eos # (Auto) (0.0-0.7) K/uL Baso # (Auto) (0.0-0.1) K/uL Nucleated RBC % /100WBC Nucleated RBCs # K/uL Sodium 141 (136-145) mmol/L Potassium 3.8 (3.5-5.1) mmol/L Chloride 105 (98-107) mmol/L Carbon Dioxide 31.0 (21.0-32.0) mmol/L BUN 5 L (7.0-18.0) mg/dL Creatinine 0.7 (0.6-1.0) mg/dL Est Cr Clr Drug Dosing 77.06 mL/min Estimated GFR (MDRD) > 60.0 ml/min Glucose 128 H (74-106) mg/dL POC Glucose 167 H (60-110) mg/dL Calcium 8.3 L (8.5-10.1) mg/dL Magnesium 2.0 (1.8-2.4) mg/dL ALEXANDRA Results - Last 24 hrs: Microbiology 06/23/20 23:10 Aerobic Blood Culture - Preliminary Blood - Venous - Lab Draw NO GROWTH AFTER 3 DAYS Anaerobic Blood Culture - Preliminary NO GROWTH AFTER 3 DAYS 06/23/20 23:00 Aerobic Blood Culture - Preliminary Blood - Venous NO GROWTH AFTER 3 DAYS Anaerobic Blood Culture - Preliminary NO GROWTH AFTER 3 DAYS Med Orders - Current: Current Medications Acetaminophen (Tylenol) 650 mg PO Q6H PRN PRN Reason: Fever Last Admin: 06/25/20 14:52 Dose: 650 mg Documented by: Alprazolam (Xanax) 0.5 mg PO BID PRN PRN Reason: Anxiety Last Admin: 06/26/20 12:56 Dose: 0.5 mg Documented by: Dextrose/Water (Dextrose 50% In Water) 50 ml IV ASDIRECTED PRN PRN Reason: Hypoglycemia Diphenhydramine HCl (Benadryl) 50 mg IVPUSH Q6H PRN PRN Reason: Itching Last Admin: 06/25/20 19:43 Dose: 50 mg Documented by: Glucagon (Glucagen) 1 mg IM ASDIRECTED PRN PRN Reason: Hypoglycemia Heparin Sodium (Porcine) (Heparin Sodium) 5,000 units SUBCUT Q8H [facility] Last Admin: 06/27/20 05:28 Dose: 5,000 units Documented by: Hydromorphone HCl (Dilaudid) 0.5 mg IVPUSH Q1H PRN PRN Reason: Pain Last Admin: 06/25/20 10:34 Dose: 0.5 mg Documented by: Piperacillin Sod/Tazobactam (Sod 3.375 gm/ Sodium Chloride) 50 mls @ 100 mls/hr IV Q6H [facility] Last Admin: 06/27/20 05:23 Dose: 100 mls/hr Documented by: Insulin Aspart (Novolog) 0 unit SUBCUT TIDAC [facility]; Protocol Last Admin: 06/27/20 07:37 Dose: 1 units Documented by: Insulin Aspart (Novolog) 5 unit SUBCUT TIDAC [facility] Last Admin: 06/27/20 07:35 Dose: 5 units Documented by: Insulin Glargine (Lantus Solostar) 35 units SUBCUT BEDTIME [facility] Last Admin: 06/26/20 21:32 Dose: 15 units Documented by: Lisinopril (Prinivil) 10 mg PO DAILY [facility] Last Admin: 06/26/20 09:42 Dose: 10 mg Documented by: Nicotine (Habitrol) 14 mg TRDERM DAILY [facility] Last Admin: 06/26/20 13:18 Dose: 14 mg Documented by: Non-Formulary Medication (Dulaglutide [Trulicity]) 1.5 mg SQ WEEKLY [facility] Ondansetron HCl (Zofran) 4 mg IVPUSH Q6H PRN PRN Reason: Nausea/Vomiting Last Admin: 06/26/20 17:25 Dose: 4 mg Documented by: Oxycodone/Acetaminophen (Percocet 325-5 Mg) 1 tab PO Q4H PRN PRN Reason: Pain (moderate 4-6) Last Admin: 06/27/20 05:22 Dose: 1 tab Documented by: Polyethylene Glycol (Miralax) 17 gm PO DAILY [facility] Last Admin: 06/26/20 09:42 Dose: 17 gm Documented by: Rosuvastatin Calcium (Crestor) 40 mg PO BEDTIME [facility] Last Admin: 06/26/20 20:40 Dose: 40 mg Documented by: Senna/Docusate Sodium (Senna Plus) 1 tab PO DAILY [facility] Last Admin: 06/26/20 12:02 Dose: 1 tab Documented by: Trazodone HCl (Trazodone) 100 mg PO BEDTIME PRN PRN Reason: Insomnia Last Admin: 06/26/20 22:42 Dose: 100 mg Documented by: Discontinued Medications Alprazolam (Xanax) 0.5 mg PO NOW ONE Stop: 06/26/20 21:46 Last Admin: 06/26/20 21:54 Dose: 0.5 mg Documented by: Bupivacaine HCl (Sensorcaine-Mpf 0.5%) Confirm Administered Dose 20 ml .ROUTE .STK-MED ONE Stop: 06/24/20 08:34 Cefazolin Sodium (Ancef) Confirm Administered Dose 1 gm .ROUTE .STK-MED ONE Stop: 06/24/20 10:17 Fentanyl (Sublimaze) Confirm Administered Dose 250 mcg .ROUTE .STK-MED ONE Stop: 06/24/20 07:23 Glycopyrrolate (Robinul) Confirm Administered Dose 0.4 mg .ROUTE .STK-MED ONE Stop: 06/24/20 07:22 Hydromorphone HCl (Dilaudid) 1 mg IVPUSH ONETIME ONE Stop: 06/23/20 23:08 Last Admin: 06/23/20 23:10 Dose: 1 mg Documented by: Hydromorphone HCl (Dilaudid) 1 mg IVPUSH ONETIME ONE Stop: 06/24/20 00:45 Last Admin: 06/24/20 00:52 Dose: 1 mg Documented by: Hydromorphone HCl (Dilaudid) Confirm Administered Dose 2 mg .ROUTE .STK-MED ONE Stop: 06/24/20 10:02 Hydromorphone HCl (Dilaudid) Confirm Administered Dose 2 mg .ROUTE .STK-MED ONE Stop: 06/24/20 11:11 Last Admin: 06/24/20 18:44 Dose: Not Given Documented by: Lactated Ringer's (Ringers, Lactated) 1,000 mls @ 999 mls/hr IV .BOLUS ONE Stop: 06/23/20 22:57 Last Admin: 06/23/20 22:22 Dose: 999 mls/hr Documented by: Lactated Ringer's (Ringers, Lactated) 1,000 mls @ 999 mls/hr IV .BOLUS ONE Stop: 06/23/20 22:57 Last Admin: 06/23/20 22:30 Dose: 999 mls/hr Documented by: Ceftriaxone Sodium/Dextrose 2 (gm/ Premix) 50 mls @ 100 mls/hr IV ONETIME ONE Stop: 06/23/20 23:02 Last Admin: 06/23/20 23:03 Dose: 100 mls/hr Documented by: Metronidazole 500 mg/ Premix 100 mls @ 100 mls/hr IV ONETIME ONE Stop: 06/23/20 23:33 Last Admin: 06/23/20 23:02 Dose: 100 mls/hr Documented by: Lactated Ringer's (Ringers, Lactated) 1,000 mls @ 150 mls/hr IV ASDIRECTED [facility] Last Admin: 06/24/20 08:32 Dose: 150 mls/hr Documented by: Sodium Chloride (Normal Saline) Confirm Administered Dose 20 mls @ as directed .ROUTE .STK-MED ONE Stop: 06/24/20 09:27 Acetaminophen (Ofirmev) Confirm Administered Dose 100 mls @ as directed .ROUTE .STK-MED ONE Stop: 06/24/20 10:50 Magnesium Sulfate 4 gm/ Premix 100 mls @ 50 mls/hr IV ONETIME ONE Stop: 06/25/20 11:35 Last Admin: 06/25/20 10:35 Dose: 50 mls/hr Documented by: Influenza Virus Vaccine (Pharmacy To Dose - Influenza Vaccine) 1 each IM ONETIME ONE Stop: 06/24/20 01:41 Influenza Virus Vaccine (Afluria Quad 2020-21 (3yr Up)) 60 mcg IM .ONCE ONE Stop: 06/24/20 10:01 Insulin Glargine (Lantus Solostar) 50 units SUBCUT BEDTIME [facility] Iopamidol (Isovue Multipack-370 (76%)) 80 ml IVPUSH ONETIME STA Stop: 06/23/20 23:01 Last Admin: 06/23/20 23:01 Dose: 80 ml Documented by: Lidocaine (Xylocaine-Mpf 2%) Confirm Administered Dose 5 ml .ROUTE .STK-MED ONE Stop: 06/24/20 07:22 Midazolam HCl (Versed 1 Mg/Ml) Confirm Administered Dose 2 mg .ROUTE .STK-MED ONE Stop: 06/24/20 07:23 Morphine Sulfate (Morphine) 4 mg IVPUSH ONETIME ONE Stop: 06/23/20 21:56 Last Admin: 06/23/20 22:23 Dose: 4 mg Documented by: Ondansetron HCl (Zofran) 4 mg IVPUSH ONETIME ONE Stop: 06/23/20 21:56 Last Admin: 06/23/20 22:23 Dose: 4 mg Documented by: Ondansetron HCl (Zofran) Confirm Administered Dose 4 mg .ROUTE .STK-MED ONE Stop: 06/24/20 07:22 Potassium Chloride (Klor-Con M20) 40 meq PO ONETIME ONE Stop: 06/25/20 09:37 Last Admin: 06/25/20 10:35 Dose: 40 meq Documented by: Potassium Chloride (Klor-Con M20) 40 meq PO ONETIME ONE Stop: 06/26/20 07:20 Last Admin: 06/26/20 07:48 Dose: 40 meq Documented by: Propofol (Diprivan 20 Ml) Confirm Administered Dose 200 mg .ROUTE .STK-MED ONE Stop: 06/24/20 07:22 Rocuronium [place] (Rocuronium [place]) Confirm Administered Dose 50 mg .ROUTE .STK-MED ONE Stop: 06/24/20 07:23 Sugammadex Sodium (Bridion) Confirm Administered Dose 200 mg .ROUTE .STK-MED ONE Stop: 06/24/20 10:31 - Exam General: Reports: Alert, Oriented, Cooperative HEENT: Reports: Pupils Equal, Pupils Reactive Lungs: Reports: Normal Respiratory Effort Cardiovascular: Reports: Regular Rate GI/Abdominal Exam: Soft, Non-Tender, No Distention, No Mass Wound/Incisions: Reports: Other (ecchymosis along the left lower quadrant incision. No evidence of infection. All of the other incisions appear to be healthy and healing well.)
--- NOTE | 2020-06-27 09:12 | PCM.CONSN ---
- General Info Date of Service: 06/27/20 Admission Dx/Problem (Free Text): Acute appendicitis Subjective Update: Doing well this morning, no pain. Happy with BS control. Discussed diet habits at home and increasing Lantus slowly and monitoring BS at home. Functional Status: Reports: Pain Controlled, Tolerating Diet, Ambulating - Review of Systems General: Reports: No Symptoms. Denies: Fatigue, Malaise Pulmonary: Reports: No Symptoms. Denies: Shortness of Breath Cardiovascular: Reports: No Symptoms. Denies: Chest Pain Gastrointestinal: Reports: No Symptoms. Denies: Abdominal Pain, Nausea, Vomiting Genitourinary: Reports: No Symptoms. Denies: Dysuria Musculoskeletal: Reports: No Symptoms Skin: Reports: No Symptoms Neurological: Reports: No Symptoms Psychiatric: Reports: No Symptoms - Patient Data Vitals - Most Recent: Last Vital Signs Temp 97.6 F 06/27/20 07:48 Pulse 78 06/27/20 07:48 Resp 16 06/27/20 07:48 BP 90/59 L 06/27/20 07:48 Pulse Ox 96 06/27/20 07:48 Weight - Most Recent: 62.097 kg I&O - Last 24 Hours: Intake & Output 06/26/20 06/27/20 06/27/20 22:59 06:59 14:59 Intake Total 1780 920 Output Total 1200 1600 Balance 580 -680 Lab Results Last 24 Hours: Laboratory Results - last 24 hr 06/26/20 06/26/20 06/27/20 Range/Units 11:06 16:48 05:17 WBC 8.93 (4.0-11.0) K/uL RBC 3.71 L (4.30-5.90) M/uL Hgb 11.4 L (12.0-16.0) g/dL Hct 35.5 L (36.0-46.0) % MCV 95.7 (80.0-98.0) fL MCH 30.7 (27.0-32.0) pg MCHC 32.1 (31.0-37.0) g/dL RDW Std Deviation 44.4 (28.0-62.0) fl RDW Coeff of Haley 13 (11.0-15.0) % Plt Count 315 (150-400) K/uL MPV 10.20 (7.40-12.00) fL Neut % (Auto) 58.2 (48.0-80.0) % Lymph % (Auto) 28.6 (16.0-40.0) % [place] % (Auto) 10.2 (0.0-15.0) % Eos % (Auto) 2.9 (0.0-7.0) % Baso % (Auto) 0.1 (0.0-1.5) % Neut # (Auto) 5.2 (1.4-5.7) K/uL Lymph # (Auto) 2.6 H (0.6-2.4) K/uL [place] # (Auto) 0.9 H (0.0-0.8) K/uL Eos # (Auto) 0.3 (0.0-0.7) K/uL Baso # (Auto) 0.0 (0.0-0.1) K/uL Nucleated RBC % 0.0 /100WBC Nucleated RBCs # 0 K/uL Sodium (136-145) mmol/L Potassium (3.5-5.1) mmol/L Chloride (98-107) mmol/L Carbon Dioxide (21.0-32.0) mmol/L BUN (7.0-18.0) mg/dL Creatinine (0.6-1.0) mg/dL Est Cr Clr Drug Dosing mL/min Estimated GFR (MDRD) ml/min Glucose (74-106) mg/dL POC Glucose 229 H 77 (60-110) mg/dL Calcium (8.5-10.1) mg/dL Magnesium (1.8-2.4) mg/dL 06/27/20 06/27/20 Range/Units 05:17 06:03 WBC (4.0-11.0) K/uL RBC (4.30-5.90) M/uL Hgb (12.0-16.0) g/dL Hct (36.0-46.0) % MCV (80.0-98.0) fL MCH (27.0-32.0) pg MCHC (31.0-37.0) g/dL RDW Std Deviation (28.0-62.0) fl RDW Coeff of Haley (11.0-15.0) % Plt Count (150-400) K/uL MPV (7.40-12.00) fL Neut % (Auto) (48.0-80.0) % Lymph % (Auto) (16.0-40.0) % [place] % (Auto) (0.0-15.0) % Eos % (Auto) (0.0-7.0) % Baso % (Auto) (0.0-1.5) % Neut # (Auto) (1.4-5.7) K/uL Lymph # (Auto) (0.6-2.4) K/uL [place] # (Auto) (0.0-0.8) K/uL Eos # (Auto) (0.0-0.7) K/uL Baso # (Auto) (0.0-0.1) K/uL Nucleated RBC % /100WBC Nucleated RBCs # K/uL Sodium 141 (136-145) mmol/L Potassium 3.8 (3.5-5.1) mmol/L Chloride 105 (98-107) mmol/L Carbon Dioxide 31.0 (21.0-32.0) mmol/L BUN 5 L (7.0-18.0) mg/dL Creatinine 0.7 (0.6-1.0) mg/dL Est Cr Clr Drug Dosing 77.06 mL/min Estimated GFR (MDRD) > 60.0 ml/min Glucose 128 H (74-106) mg/dL POC Glucose 167 H (60-110) mg/dL Calcium 8.3 L (8.5-10.1) mg/dL Magnesium 2.0 (1.8-2.4) mg/dL [place] Results Last 24 Hours: Microbiology 06/23/20 23:10 Aerobic Blood Culture - Preliminary Blood - Venous - Lab Draw NO GROWTH AFTER 3 DAYS Anaerobic Blood Culture - Preliminary NO GROWTH AFTER 3 DAYS 06/23/20 23:00 Aerobic Blood Culture - Preliminary Blood - Venous NO GROWTH AFTER 3 DAYS Anaerobic Blood Culture - Preliminary NO GROWTH AFTER 3 DAYS Med Orders - Current: Current Medications Acetaminophen (Tylenol) 650 mg PO Q6H PRN PRN Reason: Fever Last Admin: 06/25/20 14:52 Dose: 650 mg Documented by: Alprazolam (Xanax) 0.5 mg PO BID PRN PRN Reason: Anxiety Last Admin: 06/26/20 12:56 Dose: 0.5 mg Documented by: Dextrose/Water (Dextrose 50% In Water) 50 ml IV ASDIRECTED PRN PRN Reason: Hypoglycemia Diphenhydramine HCl (Benadryl) 50 mg IVPUSH Q6H PRN PRN Reason: Itching Last Admin: 06/25/20 19:43 Dose: 50 mg Documented by: Glucagon (Glucagen) 1 mg IM ASDIRECTED PRN PRN Reason: Hypoglycemia Heparin Sodium (Porcine) (Heparin Sodium) 5,000 units SUBCUT Q8H [facility] Last Admin: 06/27/20 05:28 Dose: 5,000 units Documented by: Hydromorphone HCl (Dilaudid) 0.5 mg IVPUSH Q1H PRN PRN Reason: Pain Last Admin: 06/25/20 10:34 Dose: 0.5 mg Documented by: Piperacillin Sod/Tazobactam (Sod 3.375 gm/ Sodium Chloride) 50 mls @ 100 mls/hr IV Q6H [facility] Last Admin: 06/27/20 05:23 Dose: 100 mls/hr Documented by: Insulin Aspart (Novolog) 0 unit SUBCUT TIDAC [facility]; Protocol Last Admin: 06/27/20 07:37 Dose: 1 units Documented by: Insulin Aspart (Novolog) 5 unit SUBCUT TIDAC [facility] Last Admin: 06/27/20 07:35 Dose: 5 units Documented by: Insulin Glargine (Lantus Solostar) 35 units SUBCUT BEDTIME [facility] Last Admin: 06/26/20 21:32 Dose: 15 units Documented by: Lisinopril (Prinivil) 10 mg PO DAILY [facility] Last Admin: 06/26/20 09:42 Dose: 10 mg Documented by: Nicotine (Habitrol) 14 mg TRDERM DAILY [facility] Last Admin: 06/26/20 13:18 Dose: 14 mg Documented by: Non-Formulary Medication (Dulaglutide [Trulicity]) 1.5 mg SQ WEEKLY [facility] Ondansetron HCl (Zofran) 4 mg IVPUSH Q6H PRN PRN Reason: Nausea/Vomiting Last Admin: 06/26/20 17:25 Dose: 4 mg Documented by: Oxycodone/Acetaminophen (Percocet 325-5 Mg) 1 tab PO Q4H PRN PRN Reason: Pain (moderate 4-6) Last Admin: 06/27/20 05:22 Dose: 1 tab Documented by: Polyethylene Glycol (Miralax) 17 gm PO DAILY CARRIE Last Admin: 06/26/20 09:42 Dose: 17 gm Documented by: Rosuvastatin Calcium (Crestor) 40 mg PO BEDTIME CARRIE Last Admin: 06/26/20 20:40 Dose: 40 mg Documented by: Senna/Docusate Sodium (Senna Plus) 1 tab PO DAILY CARRIE Last Admin: 06/26/20 12:02 Dose: 1 tab Documented by: Trazodone HCl (Trazodone) 100 mg PO BEDTIME PRN PRN Reason: Insomnia Last Admin: 06/26/20 22:42 Dose: 100 mg Documented by: Discontinued Medications Alprazolam (Xanax) 0.5 mg PO NOW ONE Stop: 06/26/20 21:46 Last Admin: 06/26/20 21:54 Dose: 0.5 mg Documented by: Bupivacaine HCl (Sensorcaine-Mpf 0.5%) Confirm Administered Dose 20 ml .ROUTE .STK-MED ONE Stop: 06/24/20 08:34 Cefazolin Sodium (Ancef) Confirm Administered Dose 1 gm .ROUTE .STK-MED ONE Stop: 06/24/20 10:17 Fentanyl (Sublimaze) Confirm Administered Dose 250 mcg .ROUTE .STK-MED ONE Stop: 06/24/20 07:23 Glycopyrrolate (Robinul) Confirm Administered Dose 0.4 mg .ROUTE .STK-MED ONE Stop: 06/24/20 07:22 Hydromorphone HCl (Dilaudid) 1 mg IVPUSH ONETIME ONE Stop: 06/23/20 23:08 Last Admin: 06/23/20 23:10 Dose: 1 mg Documented by: Hydromorphone HCl (Dilaudid) 1 mg IVPUSH ONETIME ONE Stop: 06/24/20 00:45 Last Admin: 06/24/20 00:52 Dose: 1 mg Documented by: Hydromorphone HCl (Dilaudid) Confirm Administered Dose 2 mg .ROUTE .STK-MED ONE Stop: 06/24/20 10:02 Hydromorphone HCl (Dilaudid) Confirm Administered Dose 2 mg .ROUTE .STK-MED ONE Stop: 06/24/20 11:11 Last Admin: 06/24/20 18:44 Dose: Not Given Documented by: Lactated Ringer's (Ringers, Lactated) 1,000 mls @ 999 mls/hr IV .BOLUS ONE Stop: 06/23/20 22:57 Last Admin: 06/23/20 22:22 Dose: 999 mls/hr Documented by: Lactated Ringer's (Ringers, Lactated) 1,000 mls @ 999 mls/hr IV .BOLUS ONE Stop: 06/23/20 22:57 Last Admin: 06/23/20 22:30 Dose: 999 mls/hr Documented by: Ceftriaxone Sodium/Dextrose 2 (gm/ Premix) 50 mls @ 100 mls/hr IV ONETIME ONE Stop: 06/23/20 23:02 Last Admin: 06/23/20 23:03 Dose: 100 mls/hr Documented by: Metronidazole 500 mg/ Premix 100 mls @ 100 mls/hr IV ONETIME ONE Stop: 06/23/20 23:33 Last Admin: 06/23/20 23:02 Dose: 100 mls/hr Documented by: Lactated Ringer's (Ringers, Lactated) 1,000 mls @ 150 mls/hr IV ASDIRECTED CARRIE Last Admin: 06/24/20 08:32 Dose: 150 mls/hr Documented by: Sodium Chloride (Normal Saline) Confirm Administered Dose 20 mls @ as directed .ROUTE .STK-MED ONE Stop: 06/24/20 09:27 Acetaminophen (Ofirmev) Confirm Administered Dose 100 mls @ as directed .ROUTE .STK-MED ONE Stop: 06/24/20 10:50 Magnesium Sulfate 4 gm/ Premix 100 mls @ 50 mls/hr IV ONETIME ONE Stop: 06/25/20 11:35 Last Admin: 06/25/20 10:35 Dose: 50 mls/hr Documented by: Influenza Virus Vaccine (Pharmacy To Dose - Influenza Vaccine) 1 each IM ONETIME ONE Stop: 06/24/20 01:41 Influenza Virus Vaccine (Afluria Quad 2020-21 (3yr Up)) 60 mcg IM .ONCE ONE Stop: 06/24/20 10:01 Insulin Glargine (Lantus Solostar) 50 units SUBCUT BEDTIME [facility] Iopamidol (Isovue Multipack-370 (76%)) 80 ml IVPUSH ONETIME STA Stop: 06/23/20 23:01 Last Admin: 06/23/20 23:01 Dose: 80 ml Documented by: Lidocaine (Xylocaine-Mpf 2%) Confirm Administered Dose 5 ml .ROUTE .STK-MED ONE Stop: 06/24/20 07:22 Midazolam HCl (Versed 1 Mg/Ml) Confirm Administered Dose 2 mg .ROUTE .STK-MED ONE Stop: 06/24/20 07:23 Morphine Sulfate (Morphine) 4 mg IVPUSH ONETIME ONE Stop: 06/23/20 21:56 Last Admin: 06/23/20 22:23 Dose: 4 mg Documented by: Ondansetron HCl (Zofran) 4 mg IVPUSH ONETIME ONE Stop: 06/23/20 21:56 Last Admin: 06/23/20 22:23 Dose: 4 mg Documented by: Ondansetron HCl (Zofran) Confirm Administered Dose 4 mg .ROUTE .STK-MED ONE Stop: 06/24/20 07:22 Potassium Chloride (Klor-Con M20) 40 meq PO ONETIME ONE Stop: 06/25/20 09:37 Last Admin: 06/25/20 10:35 Dose: 40 meq Documented by: Potassium Chloride (Klor-Con M20) 40 meq PO ONETIME ONE Stop: 06/26/20 07:20 Last Admin: 06/26/20 07:48 Dose: 40 meq Documented by: Propofol (Diprivan 20 Ml) Confirm Administered Dose 200 mg .ROUTE .STK-MED ONE Stop: 06/24/20 07:22 Rocuronium [place] (Rocuronium [place]) Confirm Administered Dose 50 mg .ROUTE .STK-MED ONE Stop: 06/24/20 07:23 Sugammadex Sodium (Bridion) Confirm Administered Dose 200 mg .ROUTE .STK-MED ONE Stop: 06/24/20 10:31 - Exam General: Alert, Oriented, Cooperative, No Acute Distress Lungs: Clear to Auscultation, Normal Respiratory Effort Cardiovascular: Regular Rate, Regular Rhythm GI/Abdominal Exam: Normal Bowel Sounds, Soft, Non-Tender Extremities: Normal Inspection, Normal Range of Motion, Non-Tender, No Pedal Edema Neurological: No New Focal Deficit Psy/Mental Status: Alert, Normal Affect, Normal Mood Sepsis Event Note - Evaluation Sepsis Screening Result: No Definite Risk - Focused Exam Vital Signs: Vital Signs Temp Pulse Resp BP Pulse Ox 06/27/20 07:48 97.6 F 78 16 90/59 L 96 06/27/20 04:10 98 F 74 17 113/73 95 06/27/20 00:00 97.3 F 90 18 100/70 94 L Consult PN Assessment/Plan POD#: 3 Procedures: Procedures ASSAY OF AMYLASE (02/07/15) ASSAY OF LIPASE (10/27/18) ASSAY OF MAGNESIUM (02/07/15) ASSAY OF TROPONIN QUANT (10/27/18) ASSAY THYROID STIM HORMONE (10/04/19) BLOOD GASES ANY COMBINATION (02/08/15) EDWIN DNA DIR PROBE (05/17/19) CHEST X-RAY 1 VIEW FRONTAL (06/26/17) CHEST X-RAY 2VW FRONTAL&LATL (07/08/17) CHORIONIC GONADOTROPIN ASSAY (01/07/15) COMPLETE CBC AUTOMATED (04/05/17) COMPLETE CBC W/AUTO DIFF WBC (05/03/20) COMPREHEN METABOLIC PANEL (04/23/20) CT HEAD/BRAIN W/O DYE (07/10/18) CULTURE OTHR SPECIMN AEROBIC (10/20/17) DRUG TEST PRSMV DIR OPT OBS (04/23/20) ECHO EXAM OF ABDOMEN (10/27/18) ELECTROCARDIOGRAM TRACING (10/27/18) EMERGENCY DEPT VISIT (10/27/18) EMERGENCY DEPT VISIT (07/10/18) EMERGENCY DEPT VISIT (11/13/17) EMERGENCY DEPT VISIT (08/19/17) EMERGENCY DEPT VISIT (06/26/17) EMERGENCY DEPT VISIT (06/22/17) EMERGENCY DEPT VISIT (06/04/17) EMERGENCY DEPT VISIT (02/27/17) EMERGENCY DEPT VISIT (01/03/17) EMERGENCY DEPT VISIT (07/02/16) EMERGENCY DEPT VISIT (08/28/15) EMERGENCY DEPT VISIT (01/07/15) EMERGENCY DEPT VISIT (06/12/14) PINEDA VAG DNA DIR PROBE (05/17/19) GASTRIC EMPTYING IMAG STUDY (02/11/15) GLUCOSE BLOOD TEST (07/10/18) GLYCOSYLATED HEMOGLOBIN TEST (04/23/20) HELICOBACTER PYLORI ANTIBODY (11/18/16) HOT OR COLD PACKS THERAPY (12/27/14) HYDRATE IV INFUSION ADD-ON (11/13/17) HYDRATION IV INFUSION INIT (07/10/18) INCISION OF TENDON & MUSCLE (10/21/16) INFLUENZA ASSAY W/OPTIC (10/20/17) LIPID PANEL (04/23/20) MANUAL THERAPY 1/> REGIONS (01/25/15) MASSAGE THERAPY (01/25/15) METABOLIC PANEL TOTAL CA (12/23/17) MRI JOINT UPR EXTREM W/O DYE (06/17/20) MRI LUMBAR SPINE W/O DYE (01/12/17) NJX INTERLAMINAR LMBR/SAC (02/02/17) OFFICE/OUTPATIENT VISIT EST (05/27/20) PT EVAL LOW COMPLEX 20 MIN (06/30/17) PT EVALUATION (12/27/14) ROUTINE VENIPUNCTURE (05/03/20) SHOULDER ARTHROSCOPY/SURGERY (10/21/16) SMEAR WET [place] SALINE/INK (08/10/16) TEST FOR ACETONE/KETONES (07/10/18) THER/PROPH/DIAG INJ IV PUSH (02/27/17) THER/PROPH/DIAG INJ SC/IM (07/10/18) THER/PROPH/DIAG IV INF INIT (06/26/17) THERAPEUTIC ACTIVITIES (12/27/14) THERAPEUTIC EXERCISES (03/26/17) TRICHOMONAS VAGIN DIR PROBE (05/17/19) TX/PRO/DX INJ NEW DRUG ADDON (06/26/17) TX/PRO/DX INJ SAME DRUG [facility] (06/26/17) ULTRASOUND THERAPY (03/26/17) UR ALBUMIN SEMIQUANTITATIVE (04/23/20) URINALYSIS AUTO W/O SCOPE (10/04/19) URINALYSIS AUTO W/SCOPE (01/20/19) URINE CULTURE/COLONY COUNT (01/20/19) URINE TEST (02/27/17) VIT D 1 25-DIHYDROXY (04/05/17) WITHDRAWAL OF ARTERIAL BLOOD (02/08/15) X-RAY EXAM ABDOMEN 1 VIEW (10/04/19) X-RAY EXAM CHEST 1 VIEW (10/27/18) X-RAY EXAM L-S SPINE 2/3 VWS (12/07/17) X-RAY EXAM NECK SPINE 2-3 VW (08/01/19) X-RAY EXAM OF ANKLE (07/18/16) X-RAY EXAM OF ELBOW (01/09/20) X-RAY EXAM OF SHOULDER (05/27/20) (1) Chronic pain SNOMED Code(s): 74352916 Code(s): G89.29 - OTHER CHRONIC PAIN Current Visit: Yes (2) DM type 2 (diabetes mellitus, type 2) SNOMED Code(s): 86636015 Code(s): E11.9 - TYPE 2 DIABETES MELLITUS WITHOUT COMPLICATIONS Current V isit: Yes Qualifiers: Diabetes mellitus buttermaker helper insulin use: with jail use Diabetes mellitus complication status: with hyperglycemia Qualified Code(s): E11.65 - Type 2 diabetes mellitus with hyperglycemia; 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 (3) Appendicitis SNOMED Code(s): 54501348 Code(s): K37 - UNSPECIFIED APPENDICITIS Current Visit: Yes Qualifiers: Appendicitis type: acute appendicitis Acute appendicitis type: with localized peritonitis Appendicitis gangrene presence: with gangrene Appendicitis perforation presence: with perforation Appendicitis abscess presence: with abscess Qualified Code(s): K35.33 - Acute appendicitis with perforation and localized peritonitis, with abscess (4) Anxiety SNOMED Code(s): 10594251 Code(s): F41.9 - ANXIETY DISORDER, UNSPECIFIED Current Visit: No Problem List Initiated/Reviewed/Updated: Yes My Orders Last 24 Hours: My Active Orders 06/26/20 10:15 Dulaglutide [Trulicity] 1.5 mg SQ WEEKLY Plan: This 50 year old female admitted with perforated appendicitis, Hospitalist consulted to DM management. 1. Appendicitis - Orders per Dr Meredith 2. Uncontrolled DM type 2 - BS greatly improved. - Diet advanced to ADA - Will monitor BS TIDAC - 5 units insulin with low dose SSI with meals - Given 1/2 dose of Lantus overnight. Encouraged her to monitor fasting BS in the morning, may be lower as diet improves. -DC home today by General surgery, follow up with PCP and DM educator as outpatient.
[2020-06-27] MEDS: Polyethylene Glycol 3350 Powder 17 GM Packet PO SCH (09:24)
[2020-06-27] MEDS: Nicotine 14 MG/24 Hr Patch TRDERM SCH (09:24)
[2020-06-27] MEDS: ALPRAZolam 0.5 MG Tab PO PRN (09:25)
[2020-06-27 10:01] VITALS: BP 90/54
[2020-06-27] MEDS: Lisinopril 10 MG Tab PO SCH (10:01)
== END 2020-06-27 10:10 | disposition home or self-care (01) | DRG 340 ==
LOC: MW.ED 21:18 → MW.MS 23:31
PROVIDERS: ADMIT Surgery; ATTEND Surgery
PROC: 0DTJ4ZZ Resection of Appendix, Percutaneous Endoscopic Approach (ICD-10-PCS; principal; 2020-06-24)
DX: K35.80 Unspecified acute appendicitis (principal); H54.7 Unspecified visual loss; K35.33 Acute appendicitis with perforation, localized peritonitis, and gangrene, with abscess; E83.42 Hypomagnesemia; Z86.11 Personal history of tuberculosis; E87.6 Hypokalemia; E11.65 Type 2 diabetes mellitus with hyperglycemia; F41.9 Anxiety disorder, unspecified; E11.9 Type 2 diabetes mellitus without complications; Z20.828 Contact with and (suspected) exposure to other viral communicable diseases; E78.00 Pure hypercholesterolemia, unspecified; I10 Essential (primary) hypertension; Z79.899 Other long term (current) drug therapy; F41.0 Panic disorder [episodic paroxysmal anxiety]; F17.210 Nicotine dependence, cigarettes, uncomplicated; M25.519 Pain in unspecified shoulder; G89.29 Other chronic pain; Z91.018 Allergy to other foods; Z79.4 Long term (current) use of insulin; Z88.8 Allergy status to other drugs, medicaments and biological substances; Z90.710 Acquired absence of both cervix and uterus; Z88.6 Allergy status to analgesic agent
CPT/HCPCS: 36415; 74177; 80053; 81003; 83605; 85025; 85610; 86850; 86900; 86901; 87040 ×2; 87635; 96365; 96375; 99285; J0696; J1170; J2270; J2405; J3490; J7120 ×2; Q9967; 80048; 82962; 83036; 83735; 88304; A9270-GY; C1776; J0131; J0330; J0690; J1200; J1644; J1815-GY; J2001; J2250; J2543; J2704; J3010; J3475; J7050; U0002

== ENCOUNTER 2020-06-29 20:26 | Inpatient (IN) | payer OTHER ==
[2020-06-29] MEDS ORDERED: Sodium Chloride 0.9% 2.5 ML Syringe FLUSH PRN (20:41)
[2020-06-29] MEDS ORDERED: Sodium Chloride 0.9% 10 ML Syringe FLUSH PRN (20:41)
--- NOTE | 2020-06-29 20:50 | EDM.PDOC ---
ED HPI GENERAL MEDICAL PROBLEM - General Chief Complaint: Abdominal Pain Stated Complaint: sick Time Seen by Provider: 06/29/20 20:40 Source of Information: Reports: Patient History Limitations: Reports: No Limitations - History of Present Illness INITIAL COMMENTS - FREE TEXT/NARRATIVE: 50-year-old female with status post laparoscopic appendectomy and history of diabetes presents with abdominal pain. SHe started developing diffuse abdominal pain Wednesday, decribed as aching, constant, diffuse, no alleviating or exacerbating factors. Associated with nausea. Denies F/C/vomiting/diarrhea/CP. She is status post laparoscopic appendectomy on 06/[address] Meredith and was found to have ruptured appendicitis with abscess, she was given IV antibiotics and was discharged with oral Levaquin. ROS: A 10-point review of systems, other than pertinent positives and negatives as stated per HPI, is otherwise negative Past medical history: No additional pertinent history Past Surgical history: No additional pertinent history Social history: No additional pertinent history Family history: No additional pertinent history PHYSICAL EXAM General: AOx4, GCS = 15, mild distress HEENT: dry mucous membrane Neck: supple, no meningismus, no Kernig or Brudzinski Cardiac: S1S2 RRR Respiratory: CTAB, no crackles or rales, no wheezing Abdomen: Soft, diffuse ttp, leonor sites C/D/I with no drainage, no rebound or guarding, nondistended, no pulsatile mass. Back: nontender Musculoskeletal: NVI distally, no deformity Neuro: No focal deficits, CN 2 - 12 WNL. abdominal Pain Score (Numeric/FACES): 10 - Related Data Allergies Allergy/AdvReac Type Severity Reaction Status Date / Time coconut Allergy Difficulty Verified 06/29/20 20:39 Breathing hydroxyzine HCl Allergy Hives Verified 06/29/20 20:39 [From Vistaril] hydroxyzine pamoate Allergy Hives Verified 06/29/20 20:39 [From Vistaril] ketorolac tromethamine Allergy Hives Verified 06/29/20 20:39 [From Toradol] Home Meds: Home Meds lisinopriL [Lisinopril] 10 mg PO DAILY 06/23/20 [History] ALPRAZolam [Alprazolam] 0.5 mg PO BID PRN 06/24/20 [History] Dulaglutide [Trulicity] 1.5 mg SQ WEEKLY 06/24/20 [History] Oxybutynin 5 mg PO Q12H 06/24/20 [History] Rizatriptan Benzoate [Rizatriptan] 10 mg PO Q2H PRN 06/24/20 [History] Rosuvastatin [Crestor] 40 mg PO DAILY 06/24/20 [History] Levofloxacin 750 mg PO DAILY #7 tablet 06/26/20 [Rx] polyethylene glycoL 3350 [MiraLAX] 17 gm PO DAILY 7 Days #1 packet 06/26/20 [Rx] Docusate Sodium/Sennosides [Senna Plus] 1 tab PO DAILY #7 tablet 06/27/20 [Rx] Insulin Aspart [NovoLOG] 0 unit SUBCUT TIDAC pen 06/27/20 [Rx] Insulin Aspart [NovoLOG] 5 unit SUBCUT TIDAC pen 06/27/20 [Rx] Insulin Glarg,Human.Rec.Analog [Lantus Solostar] 40 units SUBCUT BEDTIME pen 06/27/20 [Rx] Ondansetron [Zofran ODT] 4 mg PO Q6H PRN #30 tab.dis 06/27/20 [Rx] Past Medical History - Past Health History Medical/Surgical History: Denies Medical/Surgical History HEENT History: Reports: None Other HEENT History: wears glasses Cardiovascular History: Reports: High Cholesterol, Hypertension Respiratory History: Reports: TB Other Respiratory History: reports treatment for positive tuberculin test in 23 11 - no lung lesions Gastrointestinal History: Reports: Other (See Below) (acute appendicitis) Genitourinary History: Reports: None CARDIAC NURSE SPECIALIST History: Reports: Other CARDIAC NURSE SPECIALIST History: x2 Musculoskeletal History: Reports: Other (See Below) Other Musculoskeletal History: chronic shoulder pain Neurological History: Reports: Migraines Psychiatric History: Reports: Anxiety, Panic Attack Endocrine/Metabolic History: Reports: Diabetes, Type II (A1c around 11 per patient) Hematologic History: Reports: None Immunologic History: Reports: None Oncologic (Cancer) History: Reports: None Dermatologic History: Reports: None - Infectious Disease History Infectious Disease History: Reports: TB Other Infectious Disease History: 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 - Past Surgical History HEENT Surgical History: Reports: None Cardiovascular Surgical History: Reports: None Respiratory Surgical History: Reports: None GI Surgical History: Reports: None Female Surgical History: Reports: Hysterectomy, Tubal Ligation Neurological Surgical History: Reports: None Musculoskeletal Surgical History: Reports: Arthroscopic Knee (bilateral), Shoulder Surgery (right), Other (See Below) Other Musculoskeletal Surgeries/Procedures:: L4 - L5 fusion 4 years ago Oncologic Surgical History: Reports: None Social & Family History - Family History Family Medical History: Noncontributory Neurological: Reports: Migraines Psychiatric: Reports: Anxiety Endocrine/Metabolic: Reports: Diabetes, type II - Caffeine Use Caffeine Use: Reports: None Caffeine Use Comment: Client was lethargic upon arrival, unable to accurately obtain information. ED ROS GENERAL - Review of Systems Review Of Systems: Comprehensive ROS is negative, except as noted in HPI. (see dictation) ED EXAM, GI/ABD - Physical Exam Exam: See Below (see dictation) #1 Interpretation EKG Interpretation Comments: Heart rate = 81 bpm, normal sinus rhythm, normal QRS interval, no STEMI. EKG and rhythm strip interpreted by me at 2055 Course - Vital Signs Last Recorded V/S: Last Vital Signs Temp 97 F 06/29/20 20:42 Pulse 91 06/29/20 21:11 Resp 19 06/29/20 21:11 BP 126/82 06/29/20 21:11 Pulse Ox 96 06/29/20 21:11 - Orders/Labs/Meds Orders: Active Orders 24 hr Category Date Time Status Cardiac Monitoring [RC] . DIRECTED Care 06/29/20 20:41 Active EKG Documentation Completion [RC] STAT Care 06/29/20 20:41 Active Piperacillin/Tazobactam [Piperacil-Tazobact] 4.5 gm Med 06/29/20 23:20 Ordered Sodium Chloride 0.9% [Normal Saline] 100 ml IV ONETIME Sodium Chloride 0.9% [Normal Saline] 1,000 ml Med 06/29/20 21:30 Active IV .BOLUS Sodium Chloride 0.9% [Normal Saline] 1,000 ml Med 06/29/20 21:45 Active IV ASDIRECTED Sodium Chloride 0.9% [Saline Flush] Med 06/29/20 20:41 Active 10 ml FLUSH ASDIRECTED PRN Sodium Chloride 0.9% [Saline Flush] Med 06/29/20 20:41 Active 2.5 ml FLUSH ASDIRECTED PRN Saline Lock Insert [OM.PC] Stat Oth 06/29/20 20:41 Ordered Medication Orders Sodium Chloride (Normal Saline) 1,000 mls @ 999 mls/hr IV .BOLUS CARRIE Sodium Chloride (Normal Saline) 1,000 mls @ 999 mls/hr IV ASDIRECTED CARRIE Last Admin: 06/29/20 21:46 Dose: 999 mls/hr Documented by: JESSICA Piperacillin Sod/Tazobactam (Sod 4.5 gm/ Sodium Chloride) 100 mls @ 100 mls/hr IV ONETIME ONE Stop: 06/30/20 00:19 Sodium Chloride (Saline Flush) 10 ml FLUSH ASDIRECTED PRN PRN Reason: Keep Vein Open Last Admin: 06/29/20 21:50 Dose: 10 ml Documented by: JESSICA Sodium Chloride (Saline Flush) 2.5 ml FLUSH ASDIRECTED PRN PRN Reason: Keep Vein Open Last Admin: 06/29/20 21:50 Dose: 2.5 ml Documented by: JESSICA Labs: Laboratory Tests 06/29/20 06/29/20 06/29/20 Range/Units 20:44 21:01 21:01 WBC 11.86 H (4.0-11.0) K/uL RBC 4.32 (4.30-5.90) M/uL Hgb 13.4 (12.0-16.0) g/dL Hct 40.7 (36.0-46.0) % MCV 94.2 (80.0-98.0) fL MCH 31.0 (27.0-32.0) pg MCHC 32.9 (31.0-37.0) g/dL RDW Std Deviation 43.7 (28.0-62.0) fl RDW Coeff of Haley 13 (11.0-15.0) % Plt Count 423 H (150-400) K/uL MPV 9.70 (7.40-12.00) fL Add Manual Diff YES Neutrophils % (Manual) 59 (48.0-80.0) % Lymphocytes % (Manual) 30 (16.0-40.0) % Monocytes % (Manual) 10 (0.0-15.0) % Eosinophils % (Manual) 1 (0.0-7.0) % Nucleated RBC % 0.0 /100WBC Absolute Seg Neuts 7.0 H (1.4-5.7) Lymphocytes # (Manual) 3.6 H (0.6-2.4) Monocytes # (Manual) 1.2 H (0.0-0.8) Eosinophils # (Manual) 0.1 (0.0-0.7) Absolute Metamyelocyte 0.1 Nucleated RBCs # 0 K/uL Lactate 1.0 (0.20-2.00) mmol/L Sodium (136-145) mmol/L Potassium (3.5-5.1) mmol/L Chloride (98-107) mmol/L Carbon Dioxide (21.0-32.0) mmol/L BUN (7.0-18.0) mg/dL Creatinine (0.6-1.0) mg/dL Est Cr Clr Drug Dosing mL/min Estimated GFR (MDRD) ml/min Glucose (74-106) mg/dL Calcium (8.5-10.1) mg/dL Magnesium (1.8-2.4) mg/dL Total Bilirubin (0.2-1.0) mg/dL AST (15-37) IU/L ALT (14-63) IU/L Alkaline Phosphatase (46-116) U/L Troponin I (0.000-0.056) ng/mL Total Protein (6.4-8.2) g/dL Albumin (3.4-5.0) g/dL Globulin (2.6-4.0) g/dL Albumin/Globulin Ratio (0.9-1.6) Lipase (73-393) U/L Urine Color YELLOW Urine Appearance CLEAR Urine pH 6.0 (5.0-8.0) Ur Specific [place] 1.015 (1.001-1.035) Urine Protein NEGATIVE (NEGATIVE) mg/dL Urine Glucose (UA) >=1000 (NEGATIVE) mg/dL Urine Ketones NEGATIVE (NEGATIVE) mg/dL Urine Occult Blood NEGATIVE (NEGATIVE) Urine Nitrite NEGATIVE (NEGATIVE) Urine Bilirubin NEGATIVE (NEGATIVE) Urine Urobilinogen 0.2 (<2.0) EU/dL Ur Leukocyte Esterase NEGATIVE (NEGATIVE) 06/29/20 Range/Units 21:35 WBC (4.0-11.0) K/uL RBC (4.30-5.90) M/uL Hgb (12.0-16.0) g/dL Hct (36.0-46.0) % MCV (80.0-98.0) fL MCH (27.0-32.0) pg MCHC (31.0-37.0) g/dL RDW Std Deviation (28.0-62.0) fl RDW Coeff of Haley (11.0-15.0) % Plt Count (150-400) K/uL MPV (7.40-12.00) fL Add Manual Diff Neutrophils % (Manual) (48.0-80.0) % Lymphocytes % (Manual) (16.0-40.0) % Monocytes % (Manual) (0.0-15.0) % Eosinophils % (Manual) (0.0-7.0) % Nucleated RBC % /100WBC Absolute Seg Neuts (1.4-5.7) Lymphocytes # (Manual) (0.6-2.4) Monocytes # (Manual) (0.0-0.8) Eosinophils # (Manual) (0.0-0.7) Absolute Metamyelocyte Nucleated RBCs # K/uL Lactate (0.20-2.00) mmol/L Sodium 133 L (136-145) mmol/L Potassium 4.0 (3.5-5.1) mmol/L Chloride 98 (98-107) mmol/L Carbon Dioxide 28.0 (21.0-32.0) mmol/L BUN 9 (7.0-18.0) mg/dL Creatinine 0.8 (0.6-1.0) mg/dL Est Cr Clr Drug Dosing 68.02 mL/min Estimated GFR (MDRD) > 60.0 ml/min Glucose 300 H (74-106) mg/dL Calcium 8.6 (8.5-10.1) mg/dL Magnesium 1.4 L (1.8-2.4) mg/dL Total Bilirubin 0.1 L (0.2-1.0) mg/dL AST 14 L (15-37) IU/L ALT 19 (14-63) IU/L Alkaline Phosphatase 86 (46-116) U/L Troponin I < 0.050 (0.000-0.056) ng/mL Total Protein 6.2 L (6.4-8.2) g/dL Albumin 2.6 L (3.4-5.0) g/dL Globulin 3.6 (2.6-4.0) g/dL Albumin/Globulin Ratio 0.7 L (0.9-1.6) Lipase 48 L (73-393) U/L Urine Color Urine Appearance Urine pH (5.0-8.0) Ur Specific [place] (1.001-1.035) Urine Protein (NEGATIVE) mg/dL Urine Glucose (UA) (NEGATIVE) mg/dL Urine Ketones (NEGATIVE) mg/dL Urine Occult Blood (NEGATIVE) Urine Nitrite (NEGATIVE) Urine Bilirubin (NEGATIVE) Urine Urobilinogen (<2.0) EU/dL Ur Leukocyte Esterase (NEGATIVE) Meds: Medications Generic Name Dose Route Start Last Admin Trade Name Freq PRN Reason Stop Dose Admin Sodium Chloride 1,000 mls @ 999 mls/hr 06/29/20 21:30 Normal Saline IV .BOLUS CARRIE Sodium Chloride 1,000 mls @ 999 mls/hr 06/29/20 21:45 06/29/20 21:46 Normal Saline IV 999 mls/hr ASDIRECTED CARRIE Administration Piperacillin Sod/Tazobactam 100 mls @ 100 mls/hr 06/29/20 23:20 Sod 4.5 gm/ Sodium Chloride IV 06/30/20 00:19 ONETIME ONE Sodium Chloride 10 ml 06/29/20 20:41 06/29/20 21:50 Saline Flush FLUSH 10 ml ASDIRECTED PRN Administration Keep Vein Open Sodium Chloride 2.5 ml 06/29/20 20:41 06/29/20 21:50 Saline Flush FLUSH 2.5 ml ASDIRECTED PRN Administration Keep Vein Open Discontinued Medications Generic Name Dose Route Start Last Admin Trade Name Freq PRN Reason Stop Dose Admin Iopamidol 75 ml 06/29/20 22:29 06/29/20 22:30 Isovue-370 (76%) IVPUSH 06/29/20 22:30 75 ml ONETIME STA Administration Morphine Sulfate 4 mg 06/29/20 21:28 06/29/20 21:48 Morphine IVPUSH 06/29/20 21:29 4 mg ONETIME ONE Administration Morphine Sulfate 4 mg 06/29/20 23:15 06/29/20 23:20 Morphine IVPUSH 06/29/20 23:16 4 mg ONETIME ONE Administration Ondansetron HCl 4 mg 06/29/20 21:28 06/29/20 21:47 Zofran IVPUSH 06/29/20 21:29 4 mg ONETIME ONE Administration - Re-Assessments/Exams Free Text/Narrative Re-Assessment/Exam: 06/29/20 23:[address] Edgardo Schofield, who agrees to admit patient. The hospitalist's documentation supersedes all other documentation on this patient with regard to any conflicts or discrepancies from this point forward. Any emergency conditions have been treated to the ability of the ED prior to adm ission. Case discussed Dr. Kelvin Schofield, will consult for medical problems. MEDICAL DECISION MAKING: I reviewed the patients past medical records, lab and radiographic findings. I discussed the case with the patient. My differential diagnosis included: Abscesses, peritonitis Departure - Departure Time of Disposition: 23:22 Disposition: Refer to Observation Condition: Good Clinical Impression: Abdominal pain, Abscess after procedure, Post-operative complication Uncontrolled diabetes mellitus Qualifiers: Diabetes mellitus type: type 2 Glycemic state: with hyperglycemia Qualified Code(s): E11.65 - Type 2 diabetes mellitus with hyperglycemia - Discharge Information *PRESCRIPTION DRUG MONITORING PROGRAM REVIEWED*: Not Applicable *COPY OF PRESCRIPTION DRUG MONITORING REPORT IN PATIENT HEIDI: Not Applicable Referrals: PCP,None [Primary Care Provider] - Forms: ED Department Discharge Sepsis Event Note (ED) - Evaluation Sepsis Screening Result: No Definite Risk - Focused Exam Vital Signs: Vital Signs Temp Pulse Resp BP Pulse Ox 06/29/20 21:11 91 19 126/82 96 06/29/20 20:42 97 F 96 18 135/87 95 - My Orders Last 24 Hours: My Active Orders 06/29/20 20:41 Cardiac Monitoring [RC] . DIRECTED EKG Documentation Completion [RC] STAT Sodium Chloride 0.9% [Saline Flush] 10 ml FLUSH ASDIRECTED PRN Sodium Chloride 0.9% [Saline Flush] 2.5 ml FLUSH ASDIRECTED PRN Saline Lock Insert [OM.PC] Stat 06/29/20 21:30 Sodium Chloride 0.9% [Normal Saline] 1,000 ml IV .BOLUS 06/29/20 21:45 Sodium Chloride 0.9% [Normal Saline] 1,000 ml IV ASDIRECTED 06/29/20 23:20 Piperacillin/Tazobactam [Piperacil-Tazobact] 4.5 gm Sodium Chloride 0.9% [Normal Saline] 100 ml IV ONETIME - Assessment/Plan Last 24 Hours: My Active Orders 06/29/20 20:41 Cardiac Monitoring [RC] . DIRECTED EKG Documentation Completion [RC] STAT Sodium Chloride 0.9% [Saline Flush] 10 ml FLUSH ASDIRECTED PRN Sodium Chloride 0.9% [Saline Flush] 2.5 ml FLUSH ASDIRECTED PRN Saline Lock Insert [OM.PC] Stat 06/29/20 21:30 Sodium Chloride 0.9% [Normal Saline] 1,000 ml IV .BOLUS 06/29/20 21:45 Sodium Chloride 0.9% [Normal Saline] 1,000 ml IV ASDIRECTED 06/29/20 23:20 Piperacillin/Tazobactam [Piperacil-Tazobact] 4.5 gm Sodium Chloride 0.9% [Normal Saline] 100 ml IV ONETIME
[2020-06-29] MEDS ORDERED: Ondansetron 4 MG/2 ML SDV IVPUSH ONE (21:28)
[2020-06-29] MEDS ORDERED: Morphine 4 MG/ML Syringe IVPUSH ONE ×2 (21:28→23:15)
[2020-06-29] MEDS ORDERED: Sodium Chloride 0.9% 1,000 ML IV SCH ×2 (21:30→21:45)
[2020-06-29 22:00] LABS: BLOOD UREA NITROGEN,BUN 9 mg/dL (7.0-18.0); CHLORIDE,CL 98 mmol/L (98-107); GLUCOSE RANDOM 300 mg/dL (74-106); LIPASE 48 U/L (73-393); SODIUM,NA 133 mmol/L (136-145)
[2020-06-29] MEDS ORDERED: Iopamidol 755 Mg/ML 100 ML Bottle IVPUSH STA (22:29)
--- NOTE | 2020-06-29 23:13 | CT ---
INDICATION: Post appendectomy pain. TECHNIQUE: CT abdomen and pelvis acquired with 75 cc Isovue 370 IV contrast. COMPARISON: June 23, 2020 FINDINGS: There are postoperative changes from an appendectomy. Small postsurgical abscesses are suspected. Inflammatory fluid collection measuring 1.8 cm is in the right pericolic gutter on the axial series image 93. A 1.5 x 0.8 cm abscess is slightly more anterior and lateral on image 88. A 3rd fluid collection in the right adnexa on image 143 is also new. A final 2 cm fluid collection deep in the pelvis on image 111 may or may not represent an abscess. GI tract otherwise unremarkable. The liver is normal in size, shape and attenuation. Unremarkable gallbladder. No biliary dilatation. The spleen, adrenal glands and pancreas are within normal limits. The kidneys are unremarkable. Pelvic organs are unremarkable. No lymphadenopathy evident. There is expected postoperative free air. The lung bases are clear. IMPRESSION: Multiple small postsurgical abscesses in the right lower quadrant status post appendectomy. No other specific finding to explain pain. Please note that all CT scans at this facility use dose modulation, iterative reconstruction, and/or weight-based dosing when appropriate to reduce radiation dose to as low as reasonably achievable. Dictated by William Aldridge MD @ Jun 29 2020 11:04PM Signed by Dr. William Aldridge @ Jun 29 2020 11:12PM
[2020-06-29] MEDS ORDERED: Piperacillin/Tazobactam 4.5 GM in Sodium Chloride 0.9% 100 ML IV ONE (23:20)
[2020-06-30] MEDS ORDERED: Acetaminophen 325 MG Tab PO PRN (00:51)
[2020-06-30] MEDS: Acetaminophen/HYDROcodone 325-5 MG Tab PO PRN ×5 (02:03→20:15)
[2020-06-30] MEDS: Oxybutynin 5 MG Tab PO SCH ×2 (02:06→13:46)
[2020-06-30] MEDS: Piperacillin/Tazobactam 3.375 GM in Sodium Chloride 0.9% 50 ML IV SCH ×4 (02:12→18:06)
[2020-06-30] MEDS: Lactated Ringers 1,000 ML IV SCH (02:15)
--- NOTE | 2020-06-30 06:00 | HP ---
DATE OF : 1970 PRIMARY CARE PHYSICIAN: None PCP HISTORY OF PRESENT ILLNESS: The patient is a pleasant 50-year-old female, who underwent a laparoscopic appendectomy on 06/24/2020. At that time, she did have a perforated appendix with abscess at the base of the appendix. This was treated and the patient was discharged on 06/27/2020. At that time, she was discharged with antibiotics, her white cell count was normalized and she was eating and doing well. The patient says after getting home, she started getting lower abdominal pains. Pain was kind of a U shape, in her lower abdomen. Sitting up for long periods of time or lying on her side made the pain worse. Nothing seemed to make it better. She had some nausea but no emesis. She says she is passing flatus and having good bowel movements. She denies any fevers or chills. Because the pain was becoming more intense, she had to come into the ER for evaluation. She did have a CT scan that showed some small postsurgical abscesses vs fluid collections measuring 1.8 cm in the right pericolic gutter, a 1.5 x 0.8 cm abscess also in the right pericolic gutter, and a third fluid collection in the right adnexa and two cm fluid collection in the deep pelvis. These could be just some fluid collections or maybe developing abscesses. She also had elevated white cell count, 11.86. PAST MEDICAL HISTORY: Significant for: 1. Diabetes, poorly controlled. 2. Hypercholesterolemia. 3. Hypertension. 4. Anxiety. 5. History of migraines. CURRENT HOME MEDICATIONS: 1. Crestor 40 mg p.o. daily. 2. Rizatriptan 10 mg p.o. q.6 hours p.r.n. 3. Oxybutynin 5 mg p.o. q.12 hours. 4. Zofran 5 mg p.o. q.6 hours p.r.n. 5. MiraLAX. 6. Lisinopril 10 mg p.o. daily. 7. Levofloxacin 750 mg p.o. daily. 8. Insulin. 9. Lantus 40 mg subcu at bedtime. 10.Trulicity 1.5 mg subcu weekly. 11.Alprazolam 0.5 mg p.o. b.i.d. p.r.n. ALLERGIES: 1. Toradol causes hives. 2. Vistaril causes hives. 3. Food allergy to coconut. PAST SURGICAL HISTORY: 1. Lumbar back fusion. 2. Shoulder surgery. 3. Knee surgery. 4. Hysterectomy. 5. Laparoscopic appendectomy. FAMILY HISTORY: The patient denies any family history of cancer, diabetes, heart disease. SOCIAL HISTORY: The patient does smoke half a pack of cigarettes per day. Denies illicit drug use. Denies any alcohol use. REVIEW OF SYSTEMS: Complete 12-point review of systems was done and was negative except for what is in the HPI. NEUROLOGICAL: The patient does say she has a history of migraines. GASTROINTESTINAL: The patient has some nausea, but no emesis. PHYSICAL EXAMINATION: GENERAL: The patient is lying comfortably in the ER bed. She is alert and oriented, in no distress. HEENT: Head is normocephalic, atraumatic. Mouth, she is missing several teeth. VITAL SIGNS: Temperature is 97, heart rate is 73, blood pressure is 121/72, saturating 94% on room air. LUNGS: Clear to auscultation bilaterally. HEART: Regular rhythm. No murmur appreciated. ABDOMEN: Soft. She has obesity. She does have healing incisions with leonor from her previous surgery. She does have some bruising around the lowest incision. She does have some diffuse tenderness in the U-shape pattern she described to palpation, but no rebound, no guarding. EXTREMITIES: No edema. NEUROLOGICAL: Grossly, no motor or neurologic deficits are noted. LABORATORY DATA: White cell count is 11.86, hemoglobin is 13.5, platelet count is 423. Lactic acid 1. Sodium 133, potassium 4, chloride 98, bicarb 28, BUN is 9, creatinine 0.8, glucose is 300. IMAGING: CT scan as described in the HPI. ASSESSMENT AND PLAN: This is a pleasant 50-year-old female, who underwent laparoscopic appendectomy for a perforated appendix with abscess. She was discharged a couple of days ago with normal white cell count, eating, going to the bathroom. Unfortunately, when she went home, she started having some abdominal pain, came back and she is starting to develop some multiple small intraabdominal abscesses. These are all under 2 cm in size. I told the patient that she will be admitted for some pain control and antibiotics. Oftentimes, these small abscesses will be absorbed by the body; however, if they are not, she might need to go and have another abdominal washout or if some of these abscesses coalesce to a larger abscess, potentially even Interventional Radiology drainage. The patient understands. All her questions were answered. Medicine Team has been consulted to help with her diabetes management. CASE MCINTYRE /[id number] LALO
[2020-06-30 06:32] LABS: BLOOD UREA NITROGEN,BUN 8 mg/dL (7.0-18.0); CARBON DIOXIDE,CO2 29.5 mmol/L (21.0-32.0); CHLORIDE,CL 102 mmol/L (98-107); GLUCOSE RANDOM 206 mg/dL (74-106); POTASSIUM,K 3.9 mmol/L (3.5-5.1); SODIUM,NA 137 mmol/L (136-145)
[2020-06-30] MEDS ORDERED: 50% Dextrose in Water 50 ML Syringe IV PRN ×3 (06:32→10:00)
[2020-06-30] MEDS ORDERED: Glucagon,Human Recombinant 1 MG Vial IM PRN ×3 (06:32→10:00)
[2020-06-30] MEDS: Insulin Aspart 100 Units/ML 3 ML Pen SUBCUT SCH ×3 (07:08→18:07)
[2020-06-30] MEDS: Rosuvastatin 10 MG Tab PO SCH (08:39)
[2020-06-30] MEDS ORDERED: Insulin Glargine,Human Rec. Analog 100 Units/ML 3 ML Pen SUBCUT ONE (09:59)
--- NOTE | 2020-06-30 11:21 | PN ---
SUBJECTIVE: The patient is resting comfortably in her bed. She says abdominal pain is about the same. Overall, she may be feeling slightly better. OBJECTIVE: VITALS: 97.6, pulse 71, blood pressure is 106/67, saturating 96% on room air. ABDOMEN: Soft and nondistended. Incisions still have leonor in place. No signs of infection. She has some mild tenderness to palpation on her right lower abdomen to palpation. LABORATORY DATA: White cell count is up to 12.02. ASSESSMENT AND PLAN: This is a pleasant 50-year-old female who was admitted for multiple small abscesses, status post appendectomy for perforated appendicitis with abscess. The patient is on antibiotics. Abscesses are smaller, largest one is under 2 cm. We will treat with antibiotics alone. I did go over with the patient that if she is not feeling better or condition changes, potentially she might need a washout later on, but currently we will do IV with antibiotics. I did go ahead and discuss the patient with Dr. Meredith, who did the appendectomy. She agrees with the treatment course. I also spoke with the hospital team. Appreciate their help with her diabetes management. Also answered all the patient's questions. CASE MCINTYRE /[id number]
--- NOTE | 2020-06-30 12:07 | PCM.CONS ---
H&P History of Present Illness - General Date of Service: 06/30/20 Admit Problem/Dx: Admission Diagnosis/Problem Admission Diagnosis/Problem Postoperative complication Source of Information: Patient History Limitations: Reports: No Limitations - History of Present Illness Initial Comments - Free Text/Narative: Pt is a 50 y/o F with a PMHx of DM, was admitted last night s/p laparoscopic appendectomy completed on 06/24/[address] Meredith for ruptured appendicitis. Pt presented last night with abdominal pain which started on Wednesday described as constant, aching, diffuse , with no alleviating or aggravating factors. Prior to discharge post surgery patient was started on antibiotics and started on Levaquin. States, that she has been compliant and tolatering the medication well. Since admission has been given pain control medications and had a CT abdo/ pelvis which found multiple small abscess's and fluid. This morning patient states she is still in pain, but states the pain medication is helping. Denies any fever, chills at this time. Pt continues to be followed by Dr. Vanegas in surgery. Our medical team has been consulted to manage patient's DM. Onset of Symptoms: Reports: Gradual Duration of Symptoms: Reports: Day(s): (3days) Location: Reports: Abdomen Quality: Reports: Ache Severity: Moderate Improves with: Reports: Medication, Rest Associated Symptoms: Denies: Fever/Chills, Nausea/Vomiting abdominal Pain Score (Numeric/FACES): 10 - Related Data Allergies/Adverse Reactions: Allergies Allergy/AdvReac Type Severity Reaction Status Date / Time coconut Allergy Difficulty Verified 06/29/20 20:39 Breathing hydroxyzine HCl Allergy Hives Verified 06/29/20 20:39 [From Vistaril] hydroxyzine pamoate Allergy Hives Verified 06/29/20 20:39 [From Vistaril] ketorolac tromethamine Allergy Hives Verified 06/29/20 20:39 [From Toradol] Home Medications: Home Meds lisinopriL [Lisinopril] 10 mg PO DAILY 06/23/20 [History] ALPRAZolam [Alprazolam] 0.5 mg PO BID PRN 06/24/20 [History] Dulaglutide [Trulicity] 1.5 mg SQ WEEKLY 06/24/20 [History] Oxybutynin 5 mg PO Q12H 06/24/20 [History] Rizatriptan Benzoate [Rizatriptan] 10 mg PO Q2H PRN 06/24/20 [History] Rosuvastatin [Crestor] 40 mg PO DAILY 06/24/20 [History] Levofloxacin 750 mg PO DAILY #7 tablet 06/26/20 [Rx] polyethylene glycoL 3350 [MiraLAX] 17 gm PO DAILY 7 Days #1 packet 06/26/20 [Rx] Docusate Sodium/Sennosides [Senna Plus] 1 tab PO DAILY #7 tablet 06/27/20 [Rx] Insulin Aspart [NovoLOG] 0 unit SUBCUT TIDAC pen 06/27/20 [Rx] Insulin Aspart [NovoLOG] 5 unit SUBCUT TIDAC pen 06/27/20 [Rx] Insulin Glarg,Human.Rec.Analog [Lantus Solostar] 40 units SUBCUT BEDTIME pen 06/27/20 [Rx] Ondansetron [Zofran ODT] 4 mg PO Q6H PRN #30 tab.dis 06/27/20 [Rx] Past Medical History - Past Health History Medical/Surgical History: Denies Medical/Surgical History HEENT History: Reports: None Other HEENT History: wears glasses Cardiovascular History: Reports: High Cholesterol, Hypertension Respiratory History: Reports: TB Other Respiratory History: reports treatment for positive tuberculin test in 23 11 - no lung lesions Gastrointestinal History: Reports: Other (See Below) Genitourinary History: Reports: None 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 OB/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 History: x2 Musculoskeletal History: Reports: Other (See Below) Other Musculoskeletal History: chronic shoulder pain Neurological History: Reports: Migraines Psychiatric History: Reports: Anxiety, Panic Attack Endocrine/Metabolic History: Reports: Diabetes, Type II Hematologic History: Reports: None Immunologic History: Reports: None Oncologic (Cancer) History: Reports: None Dermatologic History: Reports: None - Infectious Disease History Infectious Disease History: Reports: TB Other Infectious Disease History: 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 - Past Surgical History HEENT Surgical History: Reports: None Cardiovascular Surgical History: Reports: None Respiratory Surgical History: Reports: None GI Surgical History: Reports: None Female Surgical History: Reports: Hysterectomy, Tubal Ligation Neurological Surgical History: Reports: None Musculoskeletal Surgical History: Reports: Arthroscopic Knee, Shoulder Surgery, Other (See Below) Other Musculoskeletal Surgeries/Procedures:: L4 - L5 fusion 4 years ago Oncologic Surgical History: Reports: None Social & Family History - Family History Family Medical History: Noncontributory Neurological: Reports: Migraines Psychiatric: Reports: Anxiety Endocrine/Metabolic: Reports: Diabetes, type II - Tobacco Use Years of Tobacco use: 20 Packs/Tins Daily: 1 - Caffeine Use Caffeine Use: Reports: None Caffeine Use Comment: Client was lethargic upon arrival, unable to accurately obtain information. - Recreational Drug Use Recreational Drug Use: No H&P Review of Systems - Review of Systems: Review Of Systems: See Below General: Reports: No Symptoms HEENT: Reports: No Symptoms Pulmonary: Reports: No Symptoms Cardiovascular: Reports: No Symptoms Gastrointestinal: Reports: Abdominal Pain Genitourinary: Reports: No Symptoms Musculoskeletal: Reports: No Symptoms Skin: Reports: No Symptoms Psychiatric: Reports: No Symptoms Neurological: Reports: No Symptoms Hematologic/Lymphatic: Reports: No Symptoms Immunologic: Reports: No Symptoms Exam - Exam Exam: See Below - Vital Signs Vital Signs: Last Vital Signs Temp 97.6 F 06/30/20 08:00 Pulse 71 06/30/20 08:00 Resp 14 06/30/20 08:00 BP 109/67 06/30/20 08:00 Pulse Ox 96 06/30/20 08:00 Weight: 137 lb 9.095 oz - Exam General: Alert, Oriented, Cooperative HEENT: Conjunctiva Clear, EOMI, Mucosa Moist & Enhaut, Pupils Equal, Pupils Reactive, TMs Clear Neck: Supple, Trachea Midline. No: Lymphadenopathy, JVD Lungs: Clear to Auscultation, Normal Respiratory Effort Cardiovascular: Regular Rate, Regular Rhythm, Normal S1, Normal S2 GI/Abdominal Exam: Normal Bowel Sounds, Soft, Guarding, Rebound, Tender (diffuse tenderness). No: Distended, Rigid, Hernia, Mass Extremities: Normal Inspection, No Pedal Edema, Normal Capillary Refill Peripheral Pulses: 2+: Dorsalis Pedis (L), Dorsalis Pedis (R) Skin: Warm, Dry, Intact (laproscopy scar clean, cry and intact), Wound, Incision Neurological: Cranial Nerves Intact, Reflexes Equal Bilateral Neuro Extensive - Mental Status: Alert, Oriented x3, Normal Mood/Affect, Normal Cognition, Memory Intact Neuro Extensive - Motor, Sensory, Reflexes: CN II-XII Intact, Normal Gait, Normal Reflexes DTR: 2+: Bicep (L), Bicep (R), Tricep (L), Tricep (R), Patella (L), Patella (R) Psychiatric: Alert, Normal Affect, Normal Mood - Patient Data Lab Results Last 24 hrs: Laboratory Results - last 24 hr 06/29/20 06/29/20 06/29/20 Range/Units 20:44 21:01 21:01 WBC 11.86 H (4.0-11.0) K/uL RBC 4.32 (4.30-5.90) M/uL Hgb 13.4 (12.0-16.0) g/dL Hct 40.7 (36.0-46.0) % MCV 94.2 (80.0-98.0) fL MCH 31.0 (27.0-32.0) pg MCHC 32.9 (31.0-37.0) g/dL RDW Std Deviation 43.7 (28.0-62.0) fl RDW Coeff of Haley 13 (11.0-15.0) % Plt Count 423 H (150-400) K/uL MPV 9.70 (7.40-12.00) fL Add Manual Diff YES Neutrophils % (Manual) 59 (48.0-80.0) % Band Neutrophils % % Lymphocytes % (Manual) 30 (16.0-40.0) % Monocytes % (Manual) 10 (0.0-15.0) % Eosinophils % (Manual) 1 (0.0-7.0) % Nucleated RBC % 0.0 /100WBC Absolute Seg Neuts 7.0 H (1.4-5.7) Band Neutrophils # Lymphocytes # (Manual) 3.6 H (0.6-2.4) Monocytes # (Manual) 1.2 H (0.0-0.8) Eosinophils # (Manual) 0.1 (0.0-0.7) Absolute Metamyelocyte 0.1 Nucleated RBCs # 0 K/uL Lactate 1.0 (0.20-2.00) mmol/L Sodium (136-145) mmol/L Potassium (3.5-5.1) mmol/L Chloride (98-107) mmol/L Carbon Dioxide (21.0-32.0) mmol/L BUN (7.0-18.0) mg/dL Creatinine (0.6-1.0) mg/dL Est Cr Clr Drug Dosing mL/min Estimated GFR (MDRD) ml/min Glucose (74-106) mg/dL POC Glucose (60-110) mg/dL Calcium (8.5-10.1) mg/dL Magnesium (1.8-2.4) mg/dL Total Bilirubin (0.2-1.0) mg/dL AST (15-37) IU/L ALT (14-63) IU/L Alkaline Phosphatase (46-116) U/L Troponin I (0.000-0.056) ng/mL Total Protein (6.4-8.2) g/dL Albumin (3.4-5.0) g/dL Globulin (2.6-4.0) g/dL Albumin/Globulin Ratio (0.9-1.6) Lipase (73-393) U/L Urine Color YELLOW Urine Appearance CLEAR Urine pH 6.0 (5.0-8.0) Ur Specific [place] 1.015 (1.001-1.035) Urine Protein NEGATIVE (NEGATIVE) mg/dL Urine Glucose (UA) >=1000 (NEGATIVE) mg/dL Urine Ketones NEGATIVE (NEGATIVE) mg/dL Urine Occult Blood NEGATIVE (NEGATIVE) Urine Nitrite NEGATIVE (NEGATIVE) Urine Bilirubin NEGATIVE (NEGATIVE) Urine Urobilinogen 0.2 (<2.0) EU/dL Ur Leukocyte Esterase NEGATIVE (NEGATIVE) SARS-CoV-2 RNA (JUAN) (NEGATIVE) 06/29/20 06/29/20 06/30/20 Range/Units 21:35 23:35 05:43 WBC 12.02 H (4.0-11.0) K/uL RBC 4.00 L (4.30-5.90) M/uL Hgb 12.1 (12.0-16.0) g/dL Hct 37.8 (36.0-46.0) % MCV 94.5 (80.0-98.0) fL MCH 30.3 (27.0-32.0) pg MCHC 32.0 (31.0-37.0) g/dL RDW Std Deviation 43.4 (28.0-62.0) fl RDW Coeff of Haley 13 (11.0-15.0) % Plt Count 401 H (150-400) K/uL MPV 9.50 (7.40-12.00) fL Add Manual Diff YES Neutrophils % (Manual) 55 (48.0-80.0) % Band Neutrophils % 2 % Lymphocytes % (Manual) 34 (16.0-40.0) % Monocytes % (Manual) 7 (0.0-15.0) % Eosinophils % (Manual) 2 (0.0-7.0) % Nucleated RBC % 0.0 /100WBC Absolute Seg Neuts 6.6 H (1.4-5.7) Band Neutrophils # 0.2 Lymphocytes # (Manual) 4.1 H (0.6-2.4) Monocytes # (Manual) 0.8 (0.0-0.8) Eosinophils # (Manual) 0.2 (0.0-0.7) Absolute Metamyelocyte Nucleated RBCs # 0 K/uL Lactate (0.20-2.00) mmol/L Sodium 133 L (136-145) mmol/L Potassium 4.0 (3.5-5.1) mmol/L Chloride 98 (98-107) mmol/L Carbon Dioxide 28.0 (21.0-32.0) mmol/L BUN 9 (7.0-18.0) mg/dL Creatinine 0.8 (0.6-1.0) mg/dL Est Cr Clr Drug Dosing 68.02 mL/min Estimated GFR (MDRD) > 60.0 ml/min Glucose 300 H (74-106) mg/dL POC Glucose (60-110) mg/dL Calcium 8.6 (8.5-10.1) mg/dL Magnesium 1.4 L (1.8-2.4) mg/dL Total Bilirubin 0.1 L (0.2-1.0) mg/dL AST 14 L (15-37) IU/L ALT 19 (14-63) IU/L Alkaline Phosphatase 86 (46-116) U/L Troponin I < 0.050 (0.000-0.056) ng/mL Total Protein 6.2 L (6.4-8.2) g/dL Albumin 2.6 L (3.4-5.0) g/dL Globulin 3.6 (2.6-4.0) g/dL Albumin/Globulin Ratio 0.7 L (0.9-1.6) Lipase 48 L (73-393) U/L Urine Color Urine Appearance Urine pH (5.0-8.0) Ur Specific Az[place] (1.001-1.035) Urine Protein (NEGATIVE) mg/dL Urine Glucose (UA) (NEGATIVE) mg/dL Urine Ketones (NEGATIVE) mg/dL Urine Occult Blood (NEGATIVE) Urine Nitrite (NEGATIVE) Urine Bilirubin (NEGATIVE) Urine Urobilinogen (<2.0) EU/dL Ur Leukocyte Esterase (NEGATIVE) SARS-CoV-2 RNA (JUAN) NEGATIVE (NEGATIVE) 06/30/20 06/30/20 06/30/20 Range/Units 05:43 05:56 10:30 WBC (4.0-11.0) K/uL RBC (4.30-5.90) M/uL Hgb (12.0-16.0) g/dL Hct (36.0-46.0) % MCV (80.0-98.0) fL MCH (27.0-32.0) pg MCHC (31.0-37.0) g/dL RDW Std Deviation (28.0-62.0) fl RDW Coeff of Haley (11.0-15.0) % Plt Count (150-400) K/uL MPV (7.40-12.00) fL Add Manual Diff Neutrophils % (Manual) (48.0-80.0) % Band Neutrophils % % Lymphocytes % (Manual) (16.0-40.0) % Monocytes % (Manual) (0.0-15.0) % Eosinophils % (Manual) (0.0-7.0) % Nucleated RBC % /100WBC Absolute Seg Neuts (1.4-5.7) Band Neutrophils # Lymphocytes # (Manual) (0.6-2.4) Monocytes # (Manual) (0.0-0.8) Eosinophils # (Manual) (0.0-0.7) Absolute Metamyelocyte Nucleated RBCs # K/uL Lactate (0.20-2.00) mmol/L Sodium 137 (136-145) mmol/L Potassium 3.9 (3.5-5.1) mmol/L Chloride 102 (98-107) mmol/L Carbon Dioxide 29.5 (21.0-32.0) mmol/L BUN 8 (7.0-18.0) mg/dL Creatinine 0.7 (0.6-1.0) mg/dL Est Cr Clr Drug Dosing 77.73 mL/min Estimated GFR (MDRD) > 60.0 ml/min Glucose 206 H (74-106) mg/dL POC Glucose 191 H 226 H (60-110) mg/dL Calcium 8.8 (8.5-10.1) mg/dL Magnesium (1.8-2.4) mg/dL Total Bilirubin (0.2-1.0) mg/dL AST (15-37) IU/L ALT (14-63) IU/L Alkaline Phosphatase (46-116) U/L Troponin I (0.000-0.056) ng/mL Total Protein (6.4-8.2) g/dL Albumin (3.4-5.0) g/dL Globulin (2.6-4.0) g/dL Albumin/Globulin Ratio (0.9-1.6) Lipase (73-393) U/L Urine Color Urine Appearance Urine pH (5.0-8.0) Ur Specific [place] (1.001-1.035) Urine Protein (NEGATIVE) mg/dL Urine Glucose (UA) (NEGATIVE) mg/dL Urine Ketones (NEGATIVE) mg/dL Urine Occult Blood (NEGATIVE) Urine Nitrite (NEGATIVE) Urine Bilirubin (NEGATIVE) Urine Urobilinogen (<2.0) EU/dL Ur Leukocyte Esterase (NEGATIVE) SARS-CoV-2 RNA (JUAN) (NEGATIVE) 10/25/20 Range/Units 10:42 WBC (4.0-11.0) K/uL RBC (4.30-5.90) M/uL Hgb (12.0-16.0) g/dL Hct (36.0-46.0) % MCV (80.0-98.0) fL MCH (27.0-32.0) pg MCHC (31.0-37.0) g/dL RDW Std Deviation (28.0-62.0) fl RDW Coeff of Haley (11.0-15.0) % Plt Count (150-400) K/uL MPV (7.40-12.00) fL Add Manual Diff Neutrophils % (Manual) (48.0-80.0) % Band Neutrophils % % Lymphocytes % (Manual) (16.0-40.0) % Monocytes % (Manual) (0.0-15.0) % Eosinophils % (Manual) (0.0-7.0) % Nucleated RBC % /100WBC Absolute Seg Neuts (1.4-5.7) Band Neutrophils # Lymphocytes # (Manual) (0.6-2.4) Monocytes # (Manual) (0.0-0.8) Eosinophils # (Manual) (0.0-0.7) Absolute Metamyelocyte Nucleated RBCs # K/uL Lactate (0.20-2.00) mmol/L Sodium (136-145) mmol/L Potassium (3.5-5.1) mmol/L Chloride (98-107) mmol/L Carbon Dioxide (21.0-32.0) mmol/L BUN (7.0-18.0) mg/dL Creatinine (0.6-1.0) mg/dL Est Cr Clr Drug Dosing mL/min Estimated GFR (MDRD) ml/min Glucose (74-106) mg/dL POC Glucose 226 H (60-110) mg/dL Calcium (8.5-10.1) mg/dL Magnesium (1.8-2.4) mg/dL Total Bilirubin (0.2-1.0) mg/dL AST (15-37) IU/L ALT (14-63) IU/L Alkaline Phosphatase (46-116) U/L Troponin I (0.000-0.056) ng/mL Total Protein (6.4-8.2) g/dL Albumin (3.4-5.0) g/dL Globulin (2.6-4.0) g/dL Albumin/Globulin Ratio (0.9-1.6) Lipase (73-393) U/L Urine Color Urine Appearance Urine pH (5.0-8.0) Ur Specific [place] (1.001-1.035) Urine Protein (NEGATIVE) mg/dL Urine Glucose (UA) (NEGATIVE) mg/dL Urine Ketones (NEGATIVE) mg/dL Urine Occult Blood (NEGATIVE) Urine Nitrite (NEGATIVE) Urine Bilirubin (NEGATIVE) Urine Urobilinogen (<2.0) EU/dL Ur Leukocyte Esterase (NEGATIVE) SARS-CoV-2 RNA (JUAN) (NEGATIVE) Result Diagrams: 06/30/20 05:43 06/30/20 05:43 Sepsis Event Note - Evaluation Sepsis Screening Result: No Definite Risk - Focused Exam Vital Signs: Vital Signs Temp Pulse Resp BP Pulse Ox 06/30/20 08:00 97.6 F 71 14 109/67 96 06/30/20 04:29 97.1 F 68 16 94/53 L 93 L 06/30/20 02:00 98 F 71 18 100/58 L 95 Consult PN Assessment/Plan Procedures: Procedures ASSAY OF AMYLASE (02/07/15) ASSAY OF LACTIC ACID (06/23/20) ASSAY OF LIPASE (10/27/18) ASSAY OF MAGNESIUM (06/23/20) ASSAY OF TROPONIN QUANT (10/27/18) ASSAY THYROID STIM HORMONE (10/04/19) BLOOD CULTURE FOR BACTERIA (06/23/20) BLOOD GASES ANY COMBINATION (02/08/15) BLOOD TYPING SEROLOGIC ABO (06/23/20) BLOOD TYPING SEROLOGIC RH(D) (06/23/20) EDWIN DNA DIR PROBE (05/17/19) CHEST X-RAY 1 VIEW FRONTAL (06/26/17) CHEST X-RAY 2VW FRONTAL&LATL (07/08/17) CHORIONIC GONADOTROPIN ASSAY (01/07/15) COMPLETE CBC AUTOMATED (04/05/17) COMPLETE CBC W/AUTO DIFF WBC (06/23/20) COMPREHEN METABOLIC PANEL (06/23/20) CT ABD & PELV W/CONTRAST (06/23/20) CT HEAD/BRAIN W/O DYE (07/10/18) CULTURE OTHR SPECIMN AEROBIC (10/20/17) DRUG TEST PRSMV DIR OPT OBS (04/23/20) ECHO EXAM OF ABDOMEN (10/27/18) ELECTROCARDIOGRAM TRACING (10/27/18) EMERGENCY DEPT VISIT (06/23/20) EMERGENCY DEPT VISIT (07/10/18) EMERGENCY DEPT VISIT (11/13/17) EMERGENCY DEPT VISIT (08/19/17) EMERGENCY DEPT VISIT (06/26/17) EMERGENCY DEPT VISIT (06/22/17) EMERGENCY DEPT VISIT (06/04/17) EMERGENCY DEPT VISIT (02/27/17) EMERGENCY DEPT VISIT (01/03/17) EMERGENCY DEPT VISIT (07/02/16) EMERGENCY DEPT VISIT (08/28/15) EMERGENCY DEPT VISIT (01/07/15) EMERGENCY DEPT VISIT (06/12/14) PINEDA VAG DNA DIR PROBE (05/17/19) GASTRIC EMPTYING IMAG STUDY (02/11/15) GLUCOSE BLOOD TEST (06/23/20) GLYCOSYLATED HEMOGLOBIN TEST (06/23/20) HELICOBACTER PYLORI ANTIBODY (11/18/16) HOT OR COLD PACKS THERAPY (12/27/14) HYDRATE IV INFUSION ADD-ON (11/13/17) HYDRATION IV INFUSION INIT (07/10/18) INCISION OF TENDON & MUSCLE (10/21/16) INFLUENZA ASSAY W/OPTIC (10/20/17) LIPID PANEL (04/23/20) MANUAL THERAPY 1/> REGIONS (01/25/15) MASSAGE THERAPY (01/25/15) METABOLIC PANEL TOTAL CA (06/23/20) MRI JOINT UPR EXTREM W/O DYE (06/17/20) MRI LUMBAR SPINE W/O DYE (01/12/17) NJX INTERLAMINAR LMBR/SAC (02/02/17) OFFICE/OUTPATIENT VISIT EST (05/27/20) PROTHROMBIN TIME (06/23/20) PT EVAL LOW COMPLEX 20 MIN (06/30/17) PT EVALUATION (12/27/14) RBC ANTIBODY SCREEN (06/23/20) ROUTINE VENIPUNCTURE (06/23/20) SARS-COV2 COVID-19 AMP PRB (06/23/20) SHOULDER ARTHROSCOPY/SURGERY (10/21/16) SMEAR WET [place] SALINE/INK (08/10/16) TEST FOR ACETONE/KETONES (07/10/18) THER/PROPH/DIAG INJ IV PUSH (02/27/17) THER/PROPH/DIAG INJ SC/IM (07/10/18) THER/PROPH/DIAG IV INF INIT (06/23/20) THERAPEUTIC ACTIVITIES (12/27/14) THERAPEUTIC EXERCISES (03/26/17) TISSUE EXAM BY PATHOLOGIST (06/23/20) TRICHOMONAS VAGIN DIR PROBE (05/17/19) TX/PRO/DX INJ NEW DRUG ADDON (06/23/20) TX/PRO/DX INJ SAME DRUG JEWELRY ESTIMATOR (06/26/17) ULTRASOUND THERAPY (03/26/17) UR ALBUMIN SEMIQUANTITATIVE (04/23/20) URINALYSIS AUTO W/O SCOPE (06/23/20) URINALYSIS AUTO W/SCOPE (01/20/19) URINE CULTURE/COLONY COUNT (01/20/19) URINE TEST (02/27/17) VIT D 1 25-DIHYDROXY (04/05/17) WITHDRAWAL OF ARTERIAL BLOOD (02/08/15) X-RAY EXAM ABDOMEN 1 VIEW (10/04/19) X-RAY EXAM CHEST 1 VIEW (10/27/18) X-RAY EXAM L-S SPINE 2/3 VWS (12/07/17) X-RAY EXAM NECK SPINE 2-3 VW (08/01/19) X-RAY EXAM OF ANKLE (07/18/16) X-RAY EXAM OF ELBOW (01/09/20) X-RAY EXAM OF SHOULDER (05/27/20) (1) Hyperglycemia due to type 2 diabetes mellitus SNOMED Code(s): 840750479785065, 019534132898796 Code(s): E11.65 - TYPE 2 DIABETES MELLITUS WITH HYPERGLYCEMIA Current Visit: Yes (2) Abscess after procedure SNOMED Code(s): 71157036051517789 Code(s): T81.49XA - INFECTION FOLLOWING A PROCEDURE, OTHER SURGICAL SITE, INIT Current Visit: Yes Problem List Initiated/Reviewed/Updated: Yes My Orders Last 24 Hours: My Active Orders Assessment and Plan: Consulted by surgery for 50 y/o F s/p laparscopic appendectomy for ruptured appendix. Currently being treated for abdominal pain 2/2 post op complication with multiple small abscess on antibiotics and pain control medication. Pt has a PMHx of DM, medical team will manage her DM. 1. Hyperglycemia 2/2 DMII - Poor control, last HgA1c 11 - today glucose was 206 - Insulin Aspart [NovoLOG], subQ TIDAC -Pt says she takes 36 units daily of insulin, currently eating less post op due to pain, therefore will initiate Lantus 10 units morning and 10 units at night, will adjust based on sliding scale requirements. 2. Abdominal pain 2/2 Post op complication: - in surgery is following patient. See his note for management details.
[2020-06-30] MEDS ORDERED: Insulin Glargine,Human Rec. Analog 100 Units/ML 3 ML Pen SUBCUT SCH (21:00)
[2020-07-01] MEDS: Acetaminophen/HYDROcodone 325-5 MG Tab PO PRN ×6 (00:47→22:15)
[2020-07-01] MEDS: Oxybutynin 5 MG Tab PO SCH ×2 (00:47→13:11)
[2020-07-01] MEDS: Piperacillin/Tazobactam 3.375 GM in Sodium Chloride 0.9% 50 ML IV SCH ×4 (00:49→19:06)
[2020-07-01 06:38] LABS: BLOOD UREA NITROGEN,BUN 8 mg/dL (7.0-18.0); CARBON DIOXIDE,CO2 29.6 mmol/L (21.0-32.0); CHLORIDE,CL 101 mmol/L (98-107); GLUCOSE RANDOM 169 mg/dL (74-106); POTASSIUM,K 3.9 mmol/L (3.5-5.1); SODIUM,NA 136 mmol/L (136-145)
[2020-07-01] MEDS: Insulin Aspart 100 Units/ML 3 ML Pen SUBCUT SCH ×5 (07:34→18:17)
[2020-07-01] MEDS: Ondansetron 4 MG/2 ML SDV IVPUSH PRN ×2 (09:02→22:25)
[2020-07-01] MEDS: Rosuvastatin 10 MG Tab PO SCH (09:03)
--- NOTE | 2020-07-01 09:09 | PCM.CONSN ---
- General Info Date of Service: 07/01/20 Subjective Update: Reports mild abdominal pain this AM. She has been eating and drinking. - Patient Data Vitals - Most Recent: Last Vital Signs Temp 37.1 C 07/01/20 04:59 Pulse 63 07/01/20 04:59 Resp 14 07/01/20 04:59 BP 109/61 07/01/20 04:59 Pulse Ox 96 07/01/20 04:59 Weight - Most Recent: 62.4 kg I&O - Last 24 Hours: Intake & Output 06/30/20 07/01/20 07/01/20 22:59 06:59 14:59 Intake Total 1680 1220 Output Total 1300 2250 Balance 380 -1030 Lab Results Last 24 Hours: Laboratory Results - last 24 hr 06/30/20 06/30/20 06/30/20 Range/Units 10:30 10:42 17:19 WBC (4.0-11.0) K/uL RBC (4.30-5.90) M/uL Hgb (12.0-16.0) g/dL Hct (36.0-46.0) % MCV (80.0-98.0) fL MCH (27.0-32.0) pg MCHC (31.0-37.0) g/dL RDW Std Deviation (28.0-62.0) fl RDW Coeff of Haley (11.0-15.0) % Plt Count (150-400) K/uL MPV (7.40-12.00) fL Add Manual Diff Neutrophils % (Manual) (48.0-80.0) % Lymphocytes % (Manual) (16.0-40.0) % Monocytes % (Manual) (0.0-15.0) % Eosinophils % (Manual) (0.0-7.0) % Metamyelocytes % % Nucleated RBC % /100WBC Absolute Seg Neuts (1.4-5.7) Lymphocytes # (Manual) (0.6-2.4) Monocytes # (Manual) (0.0-0.8) Eosinophils # (Manual) (0.0-0.7) Absolute Metamyelocyte Nucleated RBCs # K/uL Sodium (136-145) mmol/L Potassium (3.5-5.1) mmol/L Chloride (98-107) mmol/L Carbon Dioxide (21.0-32.0) mmol/L BUN (7.0-18.0) mg/dL Creatinine (0.6-1.0) mg/dL Est Cr Clr Drug Dosing mL/min Estimated GFR (MDRD) ml/min Glucose (74-106) mg/dL POC Glucose 226 H 226 H 254 H (60-110) mg/dL Calcium (8.5-10.1) mg/dL 06/30/20 07/01/20 07/01/20 Range/Units 20:21 05:30 05:30 WBC 12.65 H (4.0-11.0) K/uL RBC 4.19 L (4.30-5.90) M/uL Hgb 12.5 (12.0-16.0) g/dL Hct 39.0 (36.0-46.0) % MCV 93.1 (80.0-98.0) fL MCH 29.8 (27.0-32.0) pg MCHC 32.1 (31.0-37.0) g/dL RDW Std Deviation 42.1 (28.0-62.0) fl RDW Coeff of Haley 13 (11.0-15.0) % Plt Count 455 H (150-400) K/uL MPV 9.30 (7.40-12.00) fL Add Manual Diff YES Neutrophils % (Manual) 57 (48.0-80.0) % Lymphocytes % (Manual) 31 (16.0-40.0) % Monocytes % (Manual) 8 (0.0-15.0) % Eosinophils % (Manual) 2 (0.0-7.0) % Metamyelocytes % 2 % Nucleated RBC % 0.0 /100WBC Absolute Seg Neuts 7.2 H (1.4-5.7) Lymphocytes # (Manual) 3.9 H (0.6-2.4) Monocytes # (Manual) 1.0 H (0.0-0.8) Eosinophils # (Manual) 0.3 (0.0-0.7) Absolute Metamyelocyte 0.3 Nucleated RBCs # 0 K/uL Sodium 136 (136-145) mmol/L Potassium 3.9 (3.5-5.1) mmol/L Chloride 101 (98-107) mmol/L Carbon Dioxide 29.6 (21.0-32.0) mmol/L BUN 8 (7.0-18.0) mg/dL Creatinine 0.8 (0.6-1.0) mg/dL Est Cr Clr Drug Dosing 68.02 mL/min Estimated GFR (MDRD) > 60.0 ml/min Glucose 169 H (74-106) mg/dL POC Glucose 219 H (60-110) mg/dL Calcium 8.6 (8.5-10.1) mg/dL 07/01/20 Range/Units 06:07 WBC (4.0-11.0) K/uL RBC (4.30-5.90) M/uL Hgb (12.0-16.0) g/dL Hct (36.0-46.0) % MCV (80.0-98.0) fL MCH (27.0-32.0) pg MCHC (31.0-37.0) g/dL RDW Std Deviation (28.0-62.0) fl RDW Coeff of Haley (11.0-15.0) % Plt Count (150-400) K/uL MPV (7.40-12.00) fL Add Manual Diff Neutrophils % (Manual) (48.0-80.0) % Lymphocytes % (Manual) (16.0-40.0) % Monocytes % (Manual) (0.0-15.0) % Eosinophils % (Manual) (0.0-7.0) % Metamyelocytes % % Nucleated RBC % /100WBC Absolute Seg Neuts (1.4-5.7) Lymphocytes # (Manual) (0.6-2.4) Monocytes # (Manual) (0.0-0.8) Eosinophils # (Manual) (0.0-0.7) Absolute Metamyelocyte Nucleated RBCs # K/uL Sodium (136-145) mmol/L Potassium (3.5-5.1) mmol/L Chloride (98-107) mmol/L Carbon Dioxide (21.0-32.0) mmol/L BUN (7.0-18.0) mg/dL Creatinine (0.6-1.0) mg/dL Est Cr Clr Drug Dosing mL/min Estimated GFR (MDRD) ml/min Glucose (74-106) mg/dL POC Glucose 159 H (60-110) mg/dL Calcium (8.5-10.1) mg/dL Med Orders - Current: Current Medications Acetaminophen (Tylenol) 650 mg PO Q4H PRN PRN Reason: Pain (Mild 1-3)/fever Hydrocodone Bitart/Acetaminophen ([place] 325-5 Mg) 2 tab PO Q4H PRN PRN Reason: Pain (moderate 4-6) Last Admin: 07/01/20 04:36 Dose: 2 tab Documented by: Dextrose/Water (Dextrose 50% In Water) 50 ml IV ASDIRECTED PRN PRN Reason: Hypoglycemia Glucagon (Glucagen) 1 mg IM ASDIRECTED PRN PRN Reason: Hypoglycemia Hydromorphone HCl (Dilaudid) 0.5 mg IVPUSH Q2H PRN PRN Reason: Pain (severe 7-10) Sodium Chloride (Normal Saline) 1,000 mls @ 999 mls/hr IV ASDIRECTED [facility] Last Admin: 06/29/20 21:46 Dose: 999 mls/hr Documented by: Lactated Ringer's (Ringers, Lactated) 1,000 mls @ 60 mls/hr IV ASDIRECTED [facility] Last Admin: 06/30/20 02:15 Dose: 125 mls/hr Documented by: Piperacillin Sod/Tazobactam (Sod 3.375 gm/ Sodium Chloride) 50 mls @ 100 mls/hr IV Q6H [facility] Last Admin: 07/01/20 06:51 Dose: 100 mls/hr Documented by: Insulin Aspart (Novolog) 0 unit SUBCUT TIDAC [facility]; Protocol Last Admin: 07/01/20 07:34 Dose: 1 unit Documented by: Insulin Glargine (Lantus Solostar) 10 units SUBCUT BEDTIME [facility] Last Admin: 06/30/20 20:17 Dose: 10 units Documented by: Ondansetron HCl (Zofran) 4 mg IVPUSH Q4H PRN PRN Reason: Nausea Oxybutynin Chloride (Oxybutynin) 5 mg PO Q12H [facility] Last Admin: 07/01/20 00:47 Dose: 5 mg Documented by: Rosuvastatin Calcium (Crestor) 40 mg PO DAILY [facility] Last Admin: 06/30/20 08:39 Dose: 40 mg Documented by: Sodium Chloride (Saline Flush) 10 ml FLUSH ASDIRECTED PRN PRN Reason: Keep Vein Open Last Admin: 06/29/20 21:50 Dose: 10 ml Documented by: Sodium Chloride (Saline Flush) 2.5 ml FLUSH ASDIRECTED PRN PRN Reason: Keep Vein Open Last Admin: 06/29/20 21:50 Dose: 2.5 ml Documented by: Discontinued Medications Piperacillin Sod/Tazobactam (Sod 4.5 gm/ Sodium Chloride) 100 mls @ 100 mls/hr IV ONETIME ONE Stop: 06/30/20 00:19 Last Admin: 06/29/20 23:28 Dose: 100 mls/hr Documented by: Insulin Glargine (Lantus Solostar) 10 units SUBCUT ONETIME ONE Stop: 06/30/20 10:00 Last Admin: 06/30/20 10:44 Dose: 10 units Documented by: Iopamidol (Isovue-370 (76%)) 75 ml IVPUSH ONETIME STA Stop: 06/29/20 22:30 Last Admin: 06/29/20 22:30 Dose: 75 ml Documented by: Morphine Sulfate (Morphine) 4 mg IVPUSH ONETIME ONE Stop: 06/29/20 21:29 Last Admin: 06/29/20 21:48 Dose: 4 mg Documented by: Morphine Sulfate (Morphine) 4 mg IVPUSH ONETIME ONE Stop: 06/29/20 23:16 Last Admin: 06/29/20 23:20 Dose: 4 mg Documented by: Ondansetron HCl (Zofran) 4 mg IVPUSH ONETIME ONE Stop: 06/29/20 21:29 Last Admin: 06/29/20 21:47 Dose: 4 mg Documented by: - Exam General: Alert, Oriented, Cooperative, No Acute Distress Lungs: Clear to Auscultation, Normal Respiratory Effort Cardiovascular: Regular Rate, Regular Rhythm GI/Abdominal Exam: Normal Bowel Sounds, Soft, No Distention, Other (mild generalized ttp) Extremities: Normal Inspection, No Pedal Edema Sepsis Event Note - Evaluation Sepsis Screening Result: No Definite Risk - Focused Exam Vital Signs: Vital Signs Temp Pulse Resp BP Pulse Ox 07/01/20 04:59 37.1 C 63 14 109/61 96 07/01/20 01:34 35.6 C L 66 15 111/64 96 Consult PN Assessment/Plan Procedures: Procedures ASSAY OF AMYLASE (02/07/15) ASSAY OF LACTIC ACID (06/23/20) ASSAY OF LIPASE (10/27/18) ASSAY OF MAGNESIUM (06/23/20) ASSAY OF TROPONIN QUANT (10/27/18) ASSAY THYROID STIM HORMONE (10/04/19) BLOOD CULTURE FOR BACTERIA (06/23/20) BLOOD GASES ANY COMBINATION (02/08/15) BLOOD TYPING SEROLOGIC ABO (06/23/20) BLOOD TYPING SEROLOGIC RH(D) (06/23/20) EDWIN DNA DIR PROBE (05/17/19) CHEST X-RAY 1 VIEW FRONTAL (06/26/17) CHEST X-RAY 2VW FRONTAL&LATL (07/08/17) CHORIONIC GONADOTROPIN ASSAY (01/07/15) COMPLETE CBC AUTOMATED (04/05/17) COMPLETE CBC W/AUTO DIFF WBC (06/23/20) COMPREHEN METABOLIC PANEL (06/23/20) CT ABD & PELV W/CONTRAST (06/23/20) CT HEAD/BRAIN W/O DYE (07/10/18) CULTURE OTHR SPECIMN AEROBIC (10/20/17) DRUG TEST PRSMV DIR OPT OBS (04/23/20) ECHO EXAM OF ABDOMEN (10/27/18) ELECTROCARDIOGRAM TRACING (10/27/18) EMERGENCY DEPT VISIT (06/23/20) EMERGENCY DEPT VISIT (07/10/18) EMERGENCY DEPT VISIT (11/13/17) EMERGENCY DEPT VISIT (08/19/17) EMERGENCY DEPT VISIT (06/26/17) EMERGENCY DEPT VISIT (06/22/17) EMERGENCY DEPT VISIT (06/04/17) EMERGENCY DEPT VISIT (02/27/17) EMERGENCY DEPT VISIT (01/03/17) EMERGENCY DEPT VISIT (07/02/16) EMERGENCY DEPT VISIT (08/28/15) EMERGENCY DEPT VISIT (01/07/15) EMERGENCY DEPT VISIT (06/12/14) PINEDA VAG DNA DIR PROBE (05/17/19) GASTRIC EMPTYING IMAG STUDY (02/11/15) GLUCOSE BLOOD TEST (06/23/20) GLYCOSYLATED HEMOGLOBIN TEST (06/23/20) HELICOBACTER PYLORI ANTIBODY (11/18/16) HOT OR COLD PACKS THERAPY (12/27/14) HYDRATE IV INFUSION ADD-ON (11/13/17) HYDRATION IV INFUSION INIT (07/10/18) INCISION OF TENDON & MUSCLE (10/21/16) INFLUENZA ASSAY W/OPTIC (10/20/17) LIPID PANEL (04/23/20) MANUAL THERAPY 1/> REGIONS (01/25/15) MASSAGE THERAPY (01/25/15) METABOLIC PANEL TOTAL CA (06/23/20) MRI JOINT UPR EXTREM W/O DYE (06/17/20) MRI LUMBAR SPINE W/O DYE (01/12/17) NJX INTERLAMINAR LMBR/SAC (02/02/17) OFFICE/OUTPATIENT VISIT EST (05/27/20) PROTHROMBIN TIME (06/23/20) PT EVAL LOW COMPLEX 20 MIN (06/30/17) PT EVALUATION (12/27/14) RBC ANTIBODY SCREEN (06/23/20) ROUTINE VENIPUNCTURE (06/23/20) SARS-COV2 COVID-19 AMP PRB (06/23/20) SHOULDER ARTHROSCOPY/SURGERY (10/21/16) SMEAR WET [place] SALINE/INK (08/10/16) TEST FOR ACETONE/KETONES (07/10/18) THER/PROPH/DIAG INJ IV PUSH (02/27/17) THER/PROPH/DIAG INJ SC/IM (07/10/18) THER/PROPH/DIAG IV INF INIT (06/23/20) THERAPEUTIC ACTIVITIES (12/27/14) THERAPEUTIC EXERCISES (03/26/17) TISSUE EXAM BY PATHOLOGIST (06/23/20) TRICHOMONAS VAGIN DIR PROBE (05/17/19) TX/PRO/DX INJ NEW DRUG ADDON (06/23/20) TX/PRO/DX INJ SAME DRUG BUTCHER SUPERVISOR (06/26/17) ULTRASOUND THERAPY (03/26/17) UR ALBUMIN SEMIQUANTITATIVE (04/23/20) URINALYSIS AUTO W/O SCOPE (06/23/20) URINALYSIS AUTO W/SCOPE (01/20/19) URINE CULTURE/COLONY COUNT (01/20/19) URINE TEST (02/27/17) VIT D 1 25-DIHYDROXY (04/05/17) WITHDRAWAL OF ARTERIAL BLOOD (02/08/15) X-RAY EXAM ABDOMEN 1 VIEW (10/04/19) X-RAY EXAM CHEST 1 VIEW (10/27/18) X-RAY EXAM L-S SPINE 2/3 VWS (12/07/17) X-RAY EXAM NECK SPINE 2-3 VW (08/01/19) X-RAY EXAM OF ANKLE (07/18/16) X-RAY EXAM OF ELBOW (01/09/20) X-RAY EXAM OF SHOULDER (05/27/20) Problem List Initiated/Reviewed/Updated: Yes Plan: Assessment and Plan: 1. Abdominal abscess s/p laparoscopic appendectomy: - Management per general surgery. Patient on IV zosyn. 2. Diabetes mellitus type II: - ADA diet. As patient is eating more now will resume home insulin regimen of lantus 35 units subcut bedtime and Novolog 5 units TIDAD with SSI. 3. Past medical history of HTN, hyperlipidemia, anxiety and history of migraines: - Continue home medications.
[2020-07-01] MEDS: Nicotine 14 MG/24 Hr Patch TRDERM SCH (09:40)
[2020-07-01] MEDS: ALPRAZolam 0.5 MG Tab PO SCH ×2 (09:40→22:14)
[2020-07-01] MEDS: Lactated Ringers 1,000 ML IV SCH (09:55)
--- NOTE | 2020-07-01 14:29 | PN ---
SUBJECTIVE: The patient was seen this morning. She said she slept well but still having some tenderness in lower abdomen. She is tolerating a diet, and she said she is passing gas, and she reports having bowel movements. OBJECTIVE: GENERAL: The patient is lying comfortably in hospital bed. She is alert and oriented. ABDOMEN: Soft, nondistended. Still some lower abdominal pain, mainly in the right lower but some by her incision on the left. Incisions are all healing well with leonor in place. ASSESSMENT AND PLAN: This is a pleasant 50-year-old female status post laparoscopic appendectomy for perforated appendicitis with abscess about a week ago. She was readmitted with lower abdominal pain and what looks like some small fluid collections potentially becoming abscesses. The patient should continue her antibiotics. The patient was discussed with the hospital team and Dr. Meredith. CASE / FRANCISCO JAVIER /[id number]
[2020-07-01] MEDS ORDERED: diphenhydrAMINE 25 MG Cap PO ONE (19:49)
[2020-07-01] MEDS ORDERED: Insulin Glargine,Human Rec. Analog 100 Units/ML 3 ML Pen SUBCUT SCH (21:00)
[2020-07-02] MEDS: Oxybutynin 5 MG Tab PO SCH ×2 (01:53→13:12)
[2020-07-02] MEDS: Piperacillin/Tazobactam 3.375 GM in Sodium Chloride 0.9% 50 ML IV SCH ×4 (01:54→18:20)
[2020-07-02] MEDS: Acetaminophen/HYDROcodone 325-5 MG Tab PO PRN ×5 (02:15→20:17)
[2020-07-02] MEDS: Lactated Ringers 1,000 ML IV SCH (04:39)
[2020-07-02] MEDS: Insulin Aspart 100 Units/ML 3 ML Pen SUBCUT SCH ×6 (08:20→18:50)
[2020-07-02] MEDS: ALPRAZolam 0.5 MG Tab PO SCH ×2 (08:37→21:38)
[2020-07-02] MEDS: Rosuvastatin 10 MG Tab PO SCH (08:38)
[2020-07-02] MEDS: Nicotine 14 MG/24 Hr Patch TRDERM SCH (08:40)
[2020-07-02] MEDS: Lisinopril 10 MG Tab PO SCH (10:38)
[2020-07-02] MEDS ORDERED: Fluconazole 150 MG Tab PO ONE (11:40)
[2020-07-02] MEDS: Ondansetron 4 MG/2 ML SDV IVPUSH PRN (11:53)
--- NOTE | 2020-07-02 13:02 | PCM.PN ---
- General Info Date of Service: 07/02/20 Subjective Update: Patient complaining of vaginal itching and discharge. Abdominal pain is the same. No change. She is tolerating a diabetic diet. Vitals stable overnight. Functional Status: Reports: Pain Controlled, Tolerating Diet, Ambulating, Urinating - Review of Systems General: Reports: No Symptoms HEENT: Reports: No Symptoms Pulmonary: Reports: No Symptoms Cardiovascular: Reports: No Symptoms Gastrointestinal: Reports: No Symptoms Genitourinary: Reports: Other (vaginal itching and burning ) Musculoskeletal: Reports: No Symptoms Skin: Reports: No Symptoms - Patient Data Vitals - Most Recent: Last Vital Signs Temp 36.5 C 07/02/20 12:03 Pulse 66 07/02/20 12:03 Resp 14 07/02/20 12:03 BP 103/65 07/02/20 12:03 Pulse Ox 95 07/02/20 12:03 Weight - Most Recent: 62.4 kg I&O - Last 24 Hours: Intake & Output 07/01/20 07/02/20 07/02/20 22:59 06:59 14:59 Intake Total 1400 1500 Output Total 2600 1500 Balance -1200 0 Lab Results Last 24 Hours: Laboratory Results - last 24 hr 07/01/20 07/01/20 07/01/20 Range/Units 11:30 18:03 22:18 WBC (4.0-11.0) K/uL RBC (4.30-5.90) M/uL Hgb (12.0-16.0) g/dL Hct (36.0-46.0) % MCV (80.0-98.0) fL MCH (27.0-32.0) pg MCHC (31.0-37.0) g/dL RDW Std Deviation (28.0-62.0) fl RDW Coeff of Haley (11.0-15.0) % Plt Count (150-400) K/uL MPV (7.40-12.00) fL Neut % (Auto) (48.0-80.0) % Lymph % (Auto) (16.0-40.0) % [place] % (Auto) (0.0-15.0) % Eos % (Auto) (0.0-7.0) % Baso % (Auto) (0.0-1.5) % Neut # (Auto) (1.4-5.7) K/uL Lymph # (Auto) (0.6-2.4) K/uL [place] # (Auto) (0.0-0.8) K/uL Eos # (Auto) (0.0-0.7) K/uL Baso # (Auto) (0.0-0.1) K/uL Nucleated RBC % /100WBC Nucleated RBCs # K/uL POC Glucose 215 H 229 H 276 H (60-110) mg/dL 07/02/20 07/02/20 07/02/20 Range/Units 06:08 07:06 09:55 WBC 13.06 H (4.0-11.0) K/uL RBC 4.35 (4.30-5.90) M/uL Hgb 13.0 (12.0-16.0) g/dL Hct 40.5 (36.0-46.0) % MCV 93.1 (80.0-98.0) fL MCH 29.9 (27.0-32.0) pg MCHC 32.1 (31.0-37.0) g/dL RDW Std Deviation 42.8 (28.0-62.0) fl RDW Coeff of Haley 13 (11.0-15.0) % Plt Count 480 H (150-400) K/uL MPV 9.30 (7.40-12.00) fL Neut % (Auto) 52.8 (48.0-80.0) % Lymph % (Auto) 37.7 (16.0-40.0) % [place] % (Auto) 7.5 (0.0-15.0) % Eos % (Auto) 1.9 (0.0-7.0) % Baso % (Auto) 0.1 (0.0-1.5) % Neut # (Auto) 6.9 H (1.4-5.7) K/uL Lymph # (Auto) 4.9 H (0.6-2.4) K/uL [place] # (Auto) 1.0 H (0.0-0.8) K/uL Eos # (Auto) 0.3 (0.0-0.7) K/uL Baso # (Auto) 0.0 (0.0-0.1) K/uL Nucleated RBC % 0.0 /100WBC Nucleated RBCs # 0 K/uL POC Glucose 112 H 223 H (60-110) mg/dL 07/02/20 Range/Units 12:11 WBC (4.0-11.0) K/uL RBC (4.30-5.90) M/uL Hgb (12.0-16.0) g/dL Hct (36.0-46.0) % MCV (80.0-98.0) fL MCH (27.0-32.0) pg MCHC (31.0-37.0) g/dL RDW Std Deviation (28.0-62.0) fl RDW Coeff of Haley (11.0-15.0) % Plt Count (150-400) K/uL MPV (7.40-12.00) fL Neut % (Auto) (48.0-80.0) % Lymph % (Auto) (16.0-40.0) % [place] % (Auto) (0.0-15.0) % Eos % (Auto) (0.0-7.0) % Baso % (Auto) (0.0-1.5) % Neut # (Auto) (1.4-5.7) K/uL Lymph # (Auto) (0.6-2.4) K/uL [place] # (Auto) (0.0-0.8) K/uL Eos # (Auto) (0.0-0.7) K/uL Baso # (Auto) (0.0-0.1) K/uL Nucleated RBC % /100WBC Nucleated RBCs # K/uL POC Glucose 182 H (60-110) mg/dL Med Orders - Current: Current Medications Acetaminophen (Tylenol) 650 mg PO Q4H PRN PRN Reason: Pain (Mild 1-3)/fever Hydrocodone Bitart/Acetaminophen ([place] 325-5 Mg) 2 tab PO Q4H PRN PRN Reason: Pain (moderate 4-6) Last Admin: 07/02/20 11:53 Dose: 2 tab Documented by: Alprazolam (Xanax) 0.5 mg PO BID [facility] Last Admin: 07/02/20 08:37 Dose: 0.5 mg Documented by: Dextrose/Water (Dextrose 50% In Water) 50 ml IV ASDIRECTED PRN PRN Reason: Hypoglycemia Glucagon (Glucagen) 1 mg IM ASDIRECTED PRN PRN Reason: Hypoglycemia Hydromorphone HCl (Dilaudid) 0.5 mg IVPUSH Q2H PRN PRN Reason: Pain (severe 7-10) Sodium Chloride (Normal Saline) 1,000 mls @ 999 mls/hr IV ASDIRECTED [facility] Last Admin: 06/29/20 21:46 Dose: 999 mls/hr Documented by: Lactated Ringer's (Ringers, Lactated) 1,000 mls @ 60 mls/hr IV ASDIRECTED [facility] Last Admin: 07/02/20 04:39 Dose: 60 mls/hr Documented by: Piperacillin Sod/Tazobactam (Sod 3.375 gm/ Sodium Chloride) 50 mls @ 100 mls/hr IV Q6H [facility] Last Admin: 07/02/20 07:00 Dose: 100 mls/hr Documented by: Insulin Aspart (Novolog) 0 unit SUBCUT TIDAC [facility]; Protocol Last Admin: 07/02/20 12:27 Dose: 1 unit Documented by: Insulin Aspart (Novolog) 6 unit SUBCUT TIDAC [facility] Last Admin: 07/02/20 12:28 Dose: 6 units Documented by: Insulin Glargine (Lantus Solostar) 38 units SUBCUT BEDTIME [facility] Lisinopril (Prinivil) 10 mg PO DAILY [facility] Last Admin: 07/02/20 10:38 Dose: 10 mg Documented by: Nicotine (Habitrol) 14 mg TRDERM DAILY [facility] Last Admin: 07/02/20 08:40 Dose: 14 mg Documented by: Ondansetron HCl (Zofran) 4 mg IVPUSH Q4H PRN PRN Reason: Nausea Last Admin: 07/02/20 11:53 Dose: 4 mg Documented by: Oxybutynin Chloride (Oxybutynin) 5 mg PO Q12H [facility] Last Admin: 07/02/20 01:53 Dose: 5 mg Documented by: Rosuvastatin Calcium (Crestor) 40 mg PO DAILY [facility] Last Admin: 07/02/20 08:38 Dose: 40 mg Documented by: Sodium Chloride (Saline Flush) 10 ml FLUSH ASDIRECTED PRN PRN Reason: Keep Vein Open Last Admin: 06/29/20 21:50 Dose: 10 ml Documented by: Sodium Chloride (Saline Flush) 2.5 ml FLUSH ASDIRECTED PRN PRN Reason: Keep Vein Open Last Admin: 06/29/20 21:50 Dose: 2.5 ml Documented by: Discontinued Medications Diphenhydramine HCl (Benadryl) 25 mg PO ONETIME ONE Stop: 07/01/20 19:50 Last Admin: 07/01/20 20:16 Dose: 25 mg Documented by: Fluconazole (Diflucan) 150 mg PO ONETIME ONE Stop: 07/02/20 11:41 Piperacillin Sod/Tazobactam (Sod 4.5 gm/ Sodium Chloride) 100 mls @ 100 mls/hr IV ONETIME ONE Stop: 06/30/20 00:19 Last Admin: 06/29/20 23:28 Dose: 100 mls/hr Documented by: Insulin Aspart (Novolog) 5 unit SUBCUT TIDAC [facility] Last Admin: 07/02/20 08:55 Dose: Not Given Documented by: Insulin Glargine (Lantus Solostar) 10 units SUBCUT ONETIME ONE Stop: 06/30/20 10:00 Last Admin: 06/30/20 10:44 Dose: 10 units Documented by: Insulin Glargine (Lantus Solostar) 10 units SUBCUT BEDTIME [facility] Last Admin: 06/30/20 20:17 Dose: 10 units Documented by: Insulin Glargine (Lantus Solostar) 35 units SUBCUT BEDTIME [facility] Last Admin: 07/01/20 22:19 Dose: 35 units Documented by: Iopamidol (Isovue-370 (76%)) 75 ml IVPUSH ONETIME STA Stop: 06/29/20 22:30 Last Admin: 06/29/20 22:30 Dose: 75 ml Documented by: Morphine Sulfate (Morphine) 4 mg IVPUSH ONETIME ONE Stop: 06/29/20 21:29 Last Admin: 06/29/20 21:48 Dose: 4 mg Documented by: Morphine Sulfate (Morphine) 4 mg IVPUSH ONETIME ONE Stop: 06/29/20 23:16 Last Admin: 06/29/20 23:20 Dose: 4 mg Documented by: Ondansetron HCl (Zofran) 4 mg IVPUSH ONETIME ONE Stop: 06/29/20 21:29 Last Admin: 06/29/20 21:47 Dose: 4 mg Documented by: - Exam Quality Assessment: Supplemental Oxygen General: Alert, Oriented HEENT: Pupils Equal Lungs: Clear to Auscultation Cardiovascular: Regular Rhythm GI/Abdominal Exam: Soft, No Distention, No Mass, Tender (mild tenderness with deep palpation along the lower abdomen R>L) Back Exam: Normal Inspection Sepsis Event Note - Evaluation Sepsis Screening Result: No Definite Risk - Focused Exam Vital Signs: Vital Signs Temp Pulse Resp BP BP Pulse Ox 07/02/20 12:03 36.5 C 66 14 103/65 95 07/02/20 10:38 112/64 07/02/20 07:15 36.3 C 61 14 112/64 97 07/02/20 04:43 36.3 C 55 L 16 123/78 95 - Problem List & Annotations (1) Abdominal pain SNOMED Code(s): 39903324 Code(s): R10.9 - UNSPECIFIED ABDOMINAL PAIN Status: Acute Current Visit: Yes (2) Abscess after procedure SNOMED Code(s): 09778032566194474 Code(s): T81.49XA - INFECTION FOLLOWING A PROCEDURE, OTHER SURGICAL SITE, INIT Status: Acute Current Visit: Yes (3) Post-operative complication SNOMED Code(s): 850276381 Code(s): T81.9XXA - UNSPECIFIED COMPLICATION OF PROCEDURE, INITIAL ENCOUNTER Status: Acute Current Visit: Yes (4) Uncontrolled diabetes mellitus SNOMED Code(s): 22418760, 992727564 Code(s): E11.65 - TYPE 2 DIABETES MELLITUS WITH HYPERGLYCEMIA Status: Acute Current Visit: Yes Qualifiers: Diabetes mellitus type: type 2 Glycemic state: with hyperglycemia Qualifi ed Code(s): E11.65 - Type 2 diabetes mellitus with hyperglycemia - Problem List Review Problem List Initiated/Reviewed/Updated: Yes - Plan Plan:: Patient is 50 year old female smoker, uncontrolled diabetes mellitus type II who presents with right lower quadrant pain. She underwent a laparoscopic appendect claritza 7 days ago. She had perforated appendicitis with a tiny abscess at the base of the appendix. During the case she was also noted to have some adhesions in the pelvis from a previous hysterectomy. She was noted to have a small simple appearing ovarian cyst on the right. She had an uncomplicated post operative course and was discharged home on oral antibiotics. She returned on Wednesday with lower abdominal pain. CT scan showed fluid collections along the right pericolic gutter and near her staple line. There was a simple fluid collection in the pelvis which is likely the small ovarian cyst. She was admitted to [facility]. He started IV zosyn and consulted medicine for management of her diabetes. Her blood sugars still are elevated but improved compared to at admission. She has stable abdominal discomfort. Her WBC over the past couple days has slowly risen from 12 to 13K. Her vitals have been stable. She was given diflucan by the medicine team due to her yeast infection. Her exam is largely unchanged today. Will recheck labs in am. If WBC is unchanged or higher will order a CT scan with IV and oral contrast to see if the patient has developed abscesses or not.
[2020-07-02] MEDS ORDERED: Fluconazole 100 MG Tab PO ONE (13:30)
[2020-07-02] MEDS ORDERED: diphenhydrAMINE 25 MG Cap PO ONE (14:46)
--- NOTE | 2020-07-02 16:50 | PCM.CONSN ---
<Shai Miller - Last Filed: 07/02/20 16:50> - General Info Date of Service: 07/02/20 Subjective Update: Reports mild abdominal pain this morning and complaints of vaginal itching and discharge. - Patient Data Vitals - Most Recent: Last Vital Signs Temp 36.5 C 07/02/20 12:03 Pulse 66 07/02/20 12:03 Resp 14 07/02/20 12:03 BP 103/65 07/02/20 12:03 Pulse Ox 95 07/02/20 12:03 Weight - Most Recent: 62.4 kg I&O - Last 24 Hours: Intake & Output 07/02/20 07/02/20 07/02/20 06:59 14:59 22:59 Intake Total 1500 Output Total 1500 Balance 0 Lab Results Last 24 Hours: Laboratory Results - last 24 hr 07/01/20 07/01/20 07/01/20 Range/Units 11:30 18:03 22:18 WBC (4.0-11.0) K/uL RBC (4.30-5.90) M/uL Hgb (12.0-16.0) g/dL Hct (36.0-46.0) % MCV (80.0-98.0) fL MCH (27.0-32.0) pg MCHC (31.0-37.0) g/dL RDW Std Deviation (28.0-62.0) fl RDW Coeff of Haley (11.0-15.0) % Plt Count (150-400) K/uL MPV (7.40-12.00) fL Neut % (Auto) (48.0-80.0) % Lymph % (Auto) (16.0-40.0) % [place] % (Auto) (0.0-15.0) % Eos % (Auto) (0.0-7.0) % Baso % (Auto) (0.0-1.5) % Neut # (Auto) (1.4-5.7) K/uL Lymph # (Auto) (0.6-2.4) K/uL [place] # (Auto) (0.0-0.8) K/uL Eos # (Auto) (0.0-0.7) K/uL Baso # (Auto) (0.0-0.1) K/uL Nucleated RBC % /100WBC Nucleated RBCs # K/uL POC Glucose 215 H 229 H 276 H (60-110) mg/dL 07/02/20 07/02/20 07/02/20 Range/Units 06:08 07:06 09:55 WBC 13.06 H (4.0-11.0) K/uL RBC 4.35 (4.30-5.90) M/uL Hgb 13.0 (12.0-16.0) g/dL Hct 40.5 (36.0-46.0) % MCV 93.1 (80.0-98.0) fL MCH 29.9 (27.0-32.0) pg MCHC 32.1 (31.0-37.0) g/dL RDW Std Deviation 42.8 (28.0-62.0) fl RDW Coeff of Haley 13 (11.0-15.0) % Plt Count 480 H (150-400) K/uL MPV 9.30 (7.40-12.00) fL Neut % (Auto) 52.8 (48.0-80.0) % Lymph % (Auto) 37.7 (16.0-40.0) % [place] % (Auto) 7.5 (0.0-15.0) % Eos % (Auto) 1.9 (0.0-7.0) % Baso % (Auto) 0.1 (0.0-1.5) % Neut # (Auto) 6.9 H (1.4-5.7) K/uL Lymph # (Auto) 4.9 H (0.6-2.4) K/uL [place] # (Auto) 1.0 H (0.0-0.8) K/uL Eos # (Auto) 0.3 (0.0-0.7) K/uL Baso # (Auto) 0.0 (0.0-0.1) K/uL Nucleated RBC % 0.0 /100WBC Nucleated RBCs # 0 K/uL POC Glucose 112 H 223 H (60-110) mg/dL 07/02/20 Range/Units 12:11 WBC (4.0-11.0) K/uL RBC (4.30-5.90) M/uL Hgb (12.0-16.0) g/dL Hct (36.0-46.0) % MCV (80.0-98.0) fL MCH (27.0-32.0) pg MCHC (31.0-37.0) g/dL RDW Std Deviation (28.0-62.0) fl RDW Coeff of Haley (11.0-15.0) % Plt Count (150-400) K/uL MPV (7.40-12.00) fL Neut % (Auto) (48.0-80.0) % Lymph % (Auto) (16.0-40.0) % [place] % (Auto) (0.0-15.0) % Eos % (Auto) (0.0-7.0) % Baso % (Auto) (0.0-1.5) % Neut # (Auto) (1.4-5.7) K/uL Lymph # (Auto) (0.6-2.4) K/uL [place] # (Auto) (0.0-0.8) K/uL Eos # (Auto) (0.0-0.7) K/uL Baso # (Auto) (0.0-0.1) K/uL Nucleated RBC % /100WBC Nucleated RBCs # K/uL POC Glucose 182 H (60-110) mg/dL Med Orders - Current: Current Medications Acetaminophen (Tylenol) 650 mg PO Q4H PRN PRN Reason: Pain (Mild 1-3)/fever Hydrocodone Bitart/Acetaminophen ([place] 325-5 Mg) 2 tab PO Q4H PRN PRN Reason: Pain (moderate 4-6) Last Admin: 07/02/20 16:17 Dose: 2 tab Documented by: Alprazolam (Xanax) 0.5 mg PO BID [facility] Last Admin: 07/02/20 08:37 Dose: 0.5 mg Documented by: Dextrose/Water (Dextrose 50% In Water) 50 ml IV ASDIRECTED PRN PRN Reason: Hypoglycemia Glucagon (Glucagen) 1 mg IM ASDIRECTED PRN PRN Reason: Hypoglycemia Hydromorphone HCl (Dilaudid) 0.5 mg IVPUSH Q2H PRN PRN Reason: Pain (severe 7-10) Sodium Chloride (Normal Saline) 1,000 mls @ 999 mls/hr IV ASDIRECTED [facility] Last Admin: 06/29/20 21:46 Dose: 999 mls/hr Documented by: Lactated Ringer's (Ringers, Lactated) 1,000 mls @ 60 mls/hr IV ASDIRECTED [facility] Last Admin: 07/02/20 04:39 Dose: 60 mls/hr Documented by: Piperacillin Sod/Tazobactam (Sod 3.375 gm/ Sodium Chloride) 50 mls @ 100 mls/hr IV Q6H [facility] Last Admin: 07/02/20 13:09 Dose: 100 mls/hr Documented by: Insulin Aspart (Novolog) 0 unit SUBCUT TIDAC [facility]; Protocol Last Admin: 07/02/20 12:27 Dose: 1 unit Documented by: Insulin Aspart (Novolog) 6 unit SUBCUT TIDAC [facility] Last Admin: 07/02/20 12:28 Dose: 6 units Documented by: Insulin Glargine (Lantus Solostar) 38 units SUBCUT BEDTIME [facility] Lisinopril (Prinivil) 10 mg PO DAILY [facility] Last Admin: 07/02/20 10:38 Dose: 10 mg Documented by: Nicotine (Habitrol) 14 mg TRDERM DAILY [facility] Last Admin: 07/02/20 08:40 Dose: 14 mg Documented by: Ondansetron HCl (Zofran) 4 mg IVPUSH Q4H PRN PRN Reason: Nausea Last Admin: 07/02/20 11:53 Dose: 4 mg Documented by: Oxybutynin Chloride (Oxybutynin) 5 mg PO Q12H [facility] Last Admin: 07/02/20 13:12 Dose: 5 mg Documented by: Rosuvastatin Calcium (Crestor) 40 mg PO DAILY [facility] Last Admin: 07/02/20 08:38 Dose: 40 mg Documented by: Sodium Chloride (Saline Flush) 10 ml FLUSH ASDIRECTED PRN PRN Reason: Keep Vein Open Last Admin: 06/29/20 21:50 Dose: 10 ml Documented by: Sodium Chloride (Saline Flush) 2.5 ml FLUSH ASDIRECTED PRN PRN Reason: Keep Vein Open Last Admin: 06/29/20 21:50 Dose: 2.5 ml Documented by: Discontinued Medications Diphenhydramine HCl (Benadryl) 25 mg PO ONETIME ONE Stop: 07/01/20 19:50 Last Admin: 07/01/20 20:16 Dose: 25 mg Documented by: Diphenhydramine HCl (Benadryl) 25 mg PO ONETIME ONE Stop: 07/02/20 14:47 Last Admin: 07/02/20 14:57 Dose: 25 mg Documented by: Fluconazole (Diflucan) 150 mg PO ONETIME ONE Stop: 07/02/20 11:41 Last Admin: 07/02/20 13:38 Dose: Not Given Documented by: Fluconazole (Diflucan) 150 mg PO ONETIME ONE Stop: 07/02/20 13:31 Last Admin: 07/02/20 13:38 Dose: 150 mg Documented by: Piperacillin Sod/Tazobactam (Sod 4.5 gm/ Sodium Chloride) 100 mls @ 100 mls/hr IV ONETIME ONE Stop: 06/30/20 00:19 Last Admin: 06/29/20 23:28 Dose: 100 mls/hr Documented by: Insulin Aspart (Novolog) 5 unit SUBCUT TIDAC [facility] Last Admin: 07/02/20 08:55 Dose: Not Given Documented by: Insulin Glargine (Lantus Solostar) 10 units SUBCUT ONETIME ONE Stop: 06/30/20 10:00 Last Admin: 06/30/20 10:44 Dose: 10 units Documented by: Insulin Glargine (Lantus Solostar) 10 units SUBCUT BEDTIME [facility] Last Admin: 06/30/20 20:17 Dose: 10 units Documented by: Insulin Glargine (Lantus Solostar) 35 units SUBCUT BEDTIME [facility] Last Admin: 07/01/20 22:19 Dose: 35 units Documented by: Iopamidol ([id number] (76%)) 75 ml IVPUSH ONETIME STA Stop: 06/29/20 22:30 Last Admin: 06/29/20 22:30 Dose: 75 ml Documented by: Morphine Sulfate (Morphine) 4 mg IVPUSH ONETIME ONE Stop: 06/29/20 21:29 Last Admin: 06/29/20 21:48 Dose: 4 mg Documented by: Morphine Sulfate (Morphine) 4 mg IVPUSH ONETIME ONE Stop: 06/29/20 23:16 Last Admin: 06/29/20 23:20 Dose: 4 mg Documented by: Ondansetron HCl (Zofran) 4 mg IVPUSH ONETIME ONE Stop: 06/29/20 21:29 Last Admin: 06/29/20 21:47 Dose: 4 mg Documented by: - Exam General: Alert, Oriented, Cooperative, No Acute Distress Lungs: Clear to Auscultation, Normal Respiratory Effort Cardiovascular: Regular Rate, Regular Rhythm GI/Abdominal Exam: Normal Bowel Sounds, Soft, No Distention, Other (ttp in LLQ, suprapubic region and RLQ). No: Guarding, Rigid Sepsis Event Note - Evaluation Sepsis Screening Result: No Definite Risk - Focused Exam Vital Signs: Vital Signs Temp Pulse Resp BP BP Pulse Ox 07/02/20 12:03 36.5 C 66 14 103/65 95 07/02/20 10:38 112/64 07/02/20 07:15 36.3 C 61 14 112/64 97 Consult PN Assessment/Plan Procedures: Procedures ASSAY OF AMYLASE (02/07/15) ASSAY OF LACTIC ACID (06/23/20) ASSAY OF LIPASE (10/27/18) ASSAY OF MAGNESIUM (06/23/20) ASSAY OF TROPONIN QUANT (10/27/18) ASSAY THYROID STIM HORMONE (10/04/19) BLOOD CULTURE FOR BACTERIA (06/23/20) BLOOD GASES ANY COMBINATION (02/08/15) BLOOD TYPING SEROLOGIC ABO (06/23/20) BLOOD TYPING SEROLOGIC RH(D) (06/23/20) EDWIN DNA DIR PROBE (05/17/19) CHEST X-RAY 1 VIEW FRONTAL (06/26/17) CHEST X-RAY 2VW FRONTAL&LATL (07/08/17) CHORIONIC GONADOTROPIN ASSAY (01/07/15) COMPLETE CBC AUTOMATED (04/05/17) COMPLETE CBC W/AUTO DIFF WBC (06/23/20) COMPREHEN METABOLIC PANEL (06/23/20) CT ABD & PELV W/CONTRAST (06/23/20) CT HEAD/BRAIN W/O DYE (07/10/18) CULTURE OTHR SPECIMN AEROBIC (10/20/17) DRUG TEST PRSMV DIR OPT OBS (04/23/20) ECHO EXAM OF ABDOMEN (10/27/18) ELECTROCARDIOGRAM TRACING (10/27/18) EMERGENCY DEPT VISIT (06/23/20) EMERGENCY DEPT VISIT (07/10/18) EMERGENCY DEPT VISIT (11/13/17) EMERGENCY DEPT VISIT (08/19/17) EMERGENCY DEPT VISIT (06/26/17) EMERGENCY DEPT VISIT (06/22/17) EMERGENCY DEPT VISIT (06/04/17) EMERGENCY DEPT VISIT (02/27/17) EMERGENCY DEPT VISIT (01/03/17) EMERGENCY DEPT VISIT (07/02/16) EMERGENCY DEPT VISIT (08/28/15) EMERGENCY DEPT VISIT (01/07/15) EMERGENCY DEPT VISIT (06/12/14) PINEDA VAG DNA DIR PROBE (05/17/19) GASTRIC EMPTYING IMAG STUDY (02/11/15) GLUCOSE BLOOD TEST (06/23/20) GLYCOSYLATED HEMOGLOBIN TEST (06/23/20) HELICOBACTER PYLORI ANTIBODY (11/18/16) HOT OR COLD PACKS THERAPY (12/27/14) HYDRATE IV INFUSION ADD-ON (11/13/17) HYDRATION IV INFUSION INIT (07/10/18) INCISION OF TENDON & MUSCLE (10/21/16) INFLUENZA ASSAY W/OPTIC (10/20/17) LIPID PANEL (04/23/20) MANUAL THERAPY 1/> REGIONS (01/25/15) MASSAGE THERAPY (01/25/15) METABOLIC PANEL TOTAL CA (06/23/20) MRI JOINT UPR EXTREM W/O DYE (06/17/20) MRI LUMBAR SPINE W/O DYE (01/12/17) NJX INTERLAMINAR LMBR/SAC (02/02/17) OFFICE/OUTPATIENT VISIT EST (05/27/20) PROTHROMBIN TIME (06/23/20) PT EVAL LOW COMPLEX 20 MIN (06/30/17) PT EVALUATION (12/27/14) RBC ANTIBODY SCREEN (06/23/20) ROUTINE VENIPUNCTURE (06/23/20) SARS-COV2 COVID-19 AMP PRB (06/23/20) SHOULDER ARTHROSCOPY/SURGERY (10/21/16) SMEAR WET [place] SALINE/INK (08/10/16) TEST FOR ACETONE/KETONES (07/10/18) THER/PROPH/DIAG INJ IV PUSH (02/27/17) THER/PROPH/DIAG INJ SC/IM (07/10/18) THER/PROPH/DIAG IV INF INIT (06/23/20) THERAPEUTIC ACTIVITIES (12/27/14) THERAPEUTIC EXERCISES (03/26/17) TISSUE EXAM BY PATHOLOGIST (06/23/20) TRICHOMONAS VAGIN DIR PROBE (05/17/19) TX/PRO/DX INJ NEW DRUG ADDON (06/23/20) TX/PRO/DX INJ SAME DRUG [employer] (06/26/17) ULTRASOUND THERAPY (03/26/17) UR ALBUMIN SEMIQUANTITATIVE (04/23/20) URINALYSIS AUTO W/O SCOPE (06/23/20) URINALYSIS AUTO W/SCOPE (01/20/19) URINE CULTURE/COLONY COUNT (01/20/19) URINE TEST (02/27/17) VIT D 1 25-DIHYDROXY (04/05/17) WITHDRAWAL OF ARTERIAL BLOOD (02/08/15) X-RAY EXAM ABDOMEN 1 VIEW (10/04/19) X-RAY EXAM CHEST 1 VIEW (10/27/18) X-RAY EXAM L-S SPINE 2/3 VWS (12/07/17) X-RAY EXAM NECK SPINE 2-3 VW (08/01/19) X-RAY EXAM OF ANKLE (07/18/16) X-RAY EXAM OF ELBOW (01/09/20) X-RAY EXAM OF SHOULDER (05/27/20) Problem List Initiated/Reviewed/Updated: Yes My Orders Last 24 Hours: My Active Orders 07/02/20 11:30 Insulin Aspart [NovoLOG] 6 unit SUBCUT TIDAC 07/02/20 21:00 Insulin Glarg,Human.Rec.Analog [LantUS Solostar] 38 units SUBCUT BEDTIME Plan: Assessment and Plan: 1. Abdominal abscess s/p laparoscopic appendectomy: - Management per general surgery. Patient on IV zosyn. 2. Diabetes mellitus type II: - ADA diet. Will increase lantus to 38 units at bedtime and Novolog 6 units TIDAD in addition to SSI. Will continue to monitor and make dose adjustments as needed. 3. Past medical history of HTN, hyperlipidemia, anxiety and history of migraines: - Continue home medications. <Benji Lambert - Last Filed: 07/04/20 12:59> - Patient Data Vitals - Most Recent: Last Vital Signs Temp 36.8 C 07/04/20 12:38 Pulse 54 L 07/04/20 12:38 Resp 16 07/04/20 12:38 BP 92/44 L 07/04/20 12:38 Pulse Ox 94 L 07/04/20 12:38 I&O - Last 24 Hours: Intake & Output 07/03/20 07/04/20 07/04/20 22:59 06:59 14:59 Intake Total 1226 10 Output Total 1200 1250 Balance 26 -1240 Lab Results Last 24 Hours: Laboratory Results - last 24 hr 07/03/20 07/03/20 07/04/20 Range/Units 18:34 23:44 00:18 WBC (4.0-11.0) K/uL RBC (4.30-5.90) M/uL Hgb (12.0-16.0) g/dL Hct (36.0-46.0) % MCV (80.0-98.0) fL MCH (27.0-32.0) pg MCHC (31.0-37.0) g/dL RDW Std Deviation (28.0-62.0) fl RDW Coeff of Haley (11.0-15.0) % Plt Count (150-400) K/uL MPV (7.40-12.00) fL Neut % (Auto) (48.0-80.0) % Lymph % (Auto) (16.0-40.0) % [place] % (Auto) (0.0-15.0) % Eos % (Auto) (0.0-7.0) % Baso % (Auto) (0.0-1.5) % Neut # (Auto) (1.4-5.7) K/uL Lymph # (Auto) (0.6-2.4) K/uL [place] # (Auto) (0.0-0.8) K/uL Eos # (Auto) (0.0-0.7) K/uL Baso # (Auto) (0.0-0.1) K/uL Nucleated RBC % /100WBC Nucleated RBCs # K/uL Sodium (136-145) mmol/L Potassium (3.5-5.1) mmol/L Chloride (98-107) mmol/L Carbon Dioxide (21.0-32.0) mmol/L BUN (7.0-18.0) mg/dL Creatinine (0.6-1.0) mg/dL Est Cr Clr Drug Dosing mL/min Estimated GFR (MDRD) ml/min Glucose (74-106) mg/dL POC Glucose 91 67 92 (60-110) mg/dL Calcium (8.5-10.1) mg/dL Phosphorus (2.6-4.7) mg/dL Magnesium (1.8-2.4) mg/dL Total Bilirubin (0.2-1.0) mg/dL AST (15-37) IU/L ALT (14-63) IU/L Alkaline Phosphatase (46-116) U/L Total Protein (6.4-8.2) g/dL Albumin (3.4-5.0) g/dL Globulin (2.6-4.0) g/dL Albumin/Globulin Ratio (0.9-1.6) 07/04/20 07/04/20 07/04/20 Range/Units 04:49 05:14 05:14 WBC 12.11 H (4.0-11.0) K/uL RBC 3.60 L (4.30-5.90) M/uL Hgb 10.9 L (12.0-16.0) g/dL Hct 34.3 L (36.0-46.0) % MCV 95.3 (80.0-98.0) fL MCH 30.3 (27.0-32.0) pg MCHC 31.8 (31.0-37.0) g/dL RDW Std Deviation 45.0 (28.0-62.0) fl RDW Coeff of Haley 13 (11.0-15.0) % Plt Count 408 H (150-400) K/uL MPV 9.20 (7.40-12.00) fL Neut % (Auto) 58.7 (48.0-80.0) % Lymph % (Auto) 35.7 (16.0-40.0) % [place] % (Auto) 4.1 (0.0-15.0) % Eos % (Auto) 1.3 (0.0-7.0) % Baso % (Auto) 0.2 (0.0-1.5) % Neut # (Auto) 7.1 H (1.4-5.7) K/uL Lymph # (Auto) 4.3 H (0.6-2.4) K/uL [place] # (Auto) 0.5 (0.0-0.8) K/uL Eos # (Auto) 0.2 (0.0-0.7) K/uL Baso # (Auto) 0.0 (0.0-0.1) K/uL Nucleated RBC % 0.0 /100WBC Nucleated RBCs # 0 K/uL Sodium 140 (136-145) mmol/L Potassium 3.6 (3.5-5.1) mmol/L Chloride 106 (98-107) mmol/L Carbon Dioxide 28.5 (21.0-32.0) mmol/L BUN 8 (7.0-18.0) mg/dL Creatinine 0.7 (0.6-1.0) mg/dL Est Cr Clr Drug Dosing 77.73 mL/min Estimated GFR (MDRD) > 60.0 ml/min Glucose 64 L (74-106) mg/dL POC Glucose 70 (60-110) mg/dL Calcium 8.1 L (8.5-10.1) mg/dL Phosphorus 4.4 (2.6-4.7) mg/dL Magnesium 1.8 (1.8-2.4) mg/dL Total Bilirubin 0.2 (0.2-1.0) mg/dL AST 13 L (15-37) IU/L ALT 12 L (14-63) IU/L Alkaline Phosphatase 39 L (46-116) U/L Total Protein 5.0 L (6.4-8.2) g/dL Albumin 2.1 L (3.4-5.0) g/dL Globulin 2.9 (2.6-4.0) g/dL Albumin/Globulin Ratio 0.7 L (0.9-1.6) 07/04/20 07/04/20 07/04/20 Range/Units 05:49 07:35 10:36 WBC (4.0-11.0) K/uL RBC (4.30-5.90) M/uL Hgb (12.0-16.0) g/dL Hct (36.0-46.0) % MCV (80.0-98.0) fL MCH (27.0-32.0) pg MCHC (31.0-37.0) g/dL RDW Std Deviation (28.0-62.0) fl RDW Coeff of Haley (11.0-15.0) % Plt Count (150-400) K/uL MPV (7.40-12.00) fL Neut % (Auto) (48.0-80.0) % Lymph % (Auto) (16.0-40.0) % [place] % (Auto) (0.0-15.0) % Eos % (Auto) (0.0-7.0) % Baso % (Auto) (0.0-1.5) % Neut # (Auto) (1.4-5.7) K/uL Lymph # (Auto) (0.6-2.4) K/uL [place] # (Auto) (0.0-0.8) K/uL Eos # (Auto) (0.0-0.7) K/uL Baso # (Auto) (0.0-0.1) K/uL Nucleated RBC % /100WBC Nucleated RBCs # K/uL Sodium (136-145) mmol/L Potassium (3.5-5.1) mmol/L Chloride (98-107) mmol/L Carbon Dioxide (21.0-32.0) mmol/L BUN (7.0-18.0) mg/dL Creatinine (0.6-1.0) mg/dL Est Cr Clr Drug Dosing mL/min Estimated GFR (MDRD) ml/min Glucose (74-106) mg/dL POC Glucose 65 75 94 (60-110) mg/dL Calcium (8.5-10.1) mg/dL Phosphorus (2.6-4.7) mg/dL Magnesium (1.8-2.4) mg/dL Total Bilirubin (0.2-1.0) mg/dL AST (15-37) IU/L ALT (14-63) IU/L Alkaline Phosphatase (46-116) U/L Total Protein (6.4-8.2) g/dL Albumin (3.4-5.0) g/dL Globulin (2.6-4.0) g/dL Albumin/Globulin Ratio (0.9-1.6) 10/29/20 Range/Units 12:27 WBC (4.0-11.0) K/uL RBC (4.30-5.90) M/uL Hgb (12.0-16.0) g/dL Hct (36.0-46.0) % MCV (80.0-98.0) fL MCH (27.0-32.0) pg MCHC (31.0-37.0) g/dL RDW Std Deviation (28.0-62.0) fl RDW Coeff of Haley (11.0-15.0) % Plt Count (150-400) K/uL MPV (7.40-12.00) fL Neut % (Auto) (48.0-80.0) % Lymph % (Auto) (16.0-40.0) % [place] % (Auto) (0.0-15.0) % Eos % (Auto) (0.0-7.0) % Baso % (Auto) (0.0-1.5) % Neut # (Auto) (1.4-5.7) K/uL Lymph # (Auto) (0.6-2.4) K/uL [place] # (Auto) (0.0-0.8) K/uL Eos # (Auto) (0.0-0.7) K/uL Baso # (Auto) (0.0-0.1) K/uL Nucleated RBC % /100WBC Nucleated RBCs # K/uL Sodium (136-145) mmol/L Potassium (3.5-5.1) mmol/L Chloride (98-107) mmol/L Carbon Dioxide (21.0-32.0) mmol/L BUN (7.0-18.0) mg/dL Creatinine (0.6-1.0) mg/dL Est Cr Clr Drug Dosing mL/min Estimated GFR (MDRD) ml/min Glucose (74-106) mg/dL POC Glucose 69 (60-110) mg/dL Calcium (8.5-10.1) mg/dL Phosphorus (2.6-4.7) mg/dL Magnesium (1.8-2.4) mg/dL Total Bilirubin (0.2-1.0) mg/dL AST (15-37) IU/L ALT (14-63) IU/L Alkaline Phosphatase (46-116) U/L Total Protein (6.4-8.2) g/dL Albumin (3.4-5.0) g/dL Globulin (2.6-4.0) g/dL Albumin/Globulin Ratio (0.9-1.6) Med Orders - Current: Current Medications Acetaminophen (Tylenol) 650 mg PO Q4H PRN PRN Reason: Pain (Mild 1-3)/fever Hydrocodone Bitart/Acetaminophen ([place] 325-5 Mg) 2 tab PO Q4H PRN PRN Reason: Pain (moderate 4-6) Last Admin: 07/04/20 12:27 Dose: 2 tab Documented by: Alprazolam (Xanax) 0.5 mg PO BID [facility] Last Admin: 07/04/20 08:54 Dose: 0.5 mg Documented by: Dextrose/Water (Dextrose 50% In Water) 50 ml IV ASDIRECTED PRN PRN Reason: Hypoglycemia Glucagon (Glucagen) 1 mg IM ASDIRECTED PRN PRN Reason: Hypoglycemia Hydromorphone HCl (Dilaudid) 0.5 mg IVPUSH Q2H PRN PRN Reason: Pain (severe 7-10) Last Admin: 07/04/20 10:54 Dose: 0.5 mg Documented by: Piperacillin Sod/Tazobactam (Sod 3.375 gm/ Sodium Chloride) 50 mls @ 100 mls/hr IV Q6H [facility] Last Admin: 07/04/20 12:27 Dose: 100 mls/hr Documented by: Lactated Ringer's (Ringers, Lactated) 1,000 mls @ 125 mls/hr IV ASDIRECTED [facility] Last Admin: 07/04/20 09:35 Dose: 125 mls/hr Documented by: Ibuprofen (Motrin) 400 mg PO Q6H [facility] Last Admin: 07/04/20 12:26 Dose: 400 mg Documented by: Insulin Aspart (Novolog) 0 unit SUBCUT TIDAC [facility]; Protocol Insulin Glargine (Lantus Solostar) 28 units SUBCUT BEDTIME [facility] Last Admin: 07/03/20 20:15 Dose: 28 units Documented by: Miconazole (Miconazole 2% Vaginal) 1 gm TOP BID PRN PRN Reason: Itching Last Admin: 07/04/20 11:44 Dose: 1 applic Documented by: Nicotine (Habitrol) 14 mg TRDERM DAILY [facility] Last Admin: 10/29/20 08:54 Dose: 14 mg Documented by: Ondansetron HCl (Zofran) 4 mg IVPUSH Q4H PRN PRN Reason: Nausea Last Admin: 07/04/20 08:05 Dose: 4 mg Documented by: Oxybutynin Chloride (Oxybutynin) 5 mg PO Q12H [facility] Last Admin: 07/04/20 00:20 Dose: 5 mg Documented by: Rosuvastatin Calcium (Crestor) 40 mg PO DAILY [facility] Last Admin: 07/04/20 08:54 Dose: 40 mg Documented by: Sodium Chloride (Saline Flush) 10 ml FLUSH ASDIRECTED PRN PRN Reason: Keep Vein Open Last Admin: 06/29/20 21:50 Dose: 10 ml Documented by: Sodium Chloride (Saline Flush) 2.5 ml FLUSH ASDIRECTED PRN PRN Reason: Keep Vein Open Last Admin: 06/29/20 21:50 Dose: 2.5 ml Documented by: Trazodone HCl (Trazodone) 100 mg PO BEDTIME PRN PRN Reason: Insomnia Last Admin: 07/03/20 21:19 Dose: 100 mg Documented by: Discontinued Medications Dextrose/Water (Dextrose 50% In Water) 50 ml IVPUSH ONETIME ONE Stop: 07/04/20 07:27 Last Admin: 07/04/20 08:10 Dose: Not Given Documented by: Diphenhydramine HCl (Benadryl) 25 mg PO ONETIME ONE Stop: 07/01/20 19:50 Last Admin: 07/01/20 20:16 Dose: 25 mg Documented by: Diphenhydramine HCl (Benadryl) 25 mg PO ONETIME ONE Stop: 07/02/20 14:47 Last Admin: 07/02/20 14:57 Dose: 25 mg Documented by: Fluconazole (Diflucan) 150 mg PO ONETIME ONE Stop: 07/02/20 11:41 Last Admin: 07/02/20 13:38 Dose: Not Given Documented by: Fluconazole (Diflucan) 150 mg PO ONETIME ONE Stop: 07/02/20 13:31 Last Admin: 07/02/20 13:38 Dose: 150 mg Documented by: Sodium Chloride (Normal Saline) 1,000 mls @ 999 mls/hr IV ASDIRECTED [facility] Last Admin: 06/29/20 21:46 Dose: 999 mls/hr Documented by: Piperacillin Sod/Tazobactam (Sod 4.5 gm/ Sodium Chloride) 100 mls @ 100 mls/hr IV ONETIME ONE Stop: 06/30/20 00:19 Last Admin: 06/29/20 23:28 Dose: 100 mls/hr Documented by: Lactated Ringer's (Ringers, Lactated) 1,000 mls @ 60 mls/hr IV ASDIRECTED [facility] Last Infusion: 07/03/20 17:13 Dose: 125 mls/hr Documented by: Lactated Ringer's (Ringers, Lactated) 1,000 mls @ 999 mls/hr IV .BOLUS ONE Stop: 07/03/20 12:32 Last Admin: 07/03/20 11:52 Dose: 999 mls/hr Documented by: Insulin Aspart (Novolog) 0 unit SUBCUT TIDAC [facility]; Protocol Last Admin: 07/03/20 13:41 Dose: Not Given Documented by: [facility]ulin [facility]) [facility] Last Admin: 07/02/20 08:55 Dose: Not Given Documented by: Insulin Aspart (Novolog) 6 unit SUBCUT TIDAC [facility] Last Admin: 07/03/20 13:47 Dose: 6 units Documented by: Insulin Aspart (Novolog) 0 unit SUBCUT Q6H [facility]; Protocol Last Admin: 07/03/20 15:42 Dose: Not Given Documented by: Insulin Aspart (Novolog) 0 unit SUBCUT Q6H [facility]; Protocol Last Admin: 07/03/20 18:42 Dose: Not Given Documented by: Insulin Aspart (Novolog) 0 unit SUBCUT Q6H [facility]; Protocol Last Admin: 07/04/20 04:51 Dose: Not Given Documented by: Insulin Glargine (Lantus Solostar) 10 units SUBCUT ONETIME ONE Stop: 06/30/20 10:00 Last Admin: 06/30/20 10:44 Dose: 10 units Documented by: Insulin Glargine (Lantus Solostar) 10 units SUBCUT BEDTIME [facility] Last Admin: 06/30/20 20:17 Dose: 10 units Documented by: Insulin Glargine (Lantus Solostar) 35 units SUBCUT BEDTIME [facility] Last Admin: 07/01/20 22:19 Dose: 35 units Documented by: Insulin Glargine (Lantus Solostar) 38 units SUBCUT BEDTIME [facility] Last Admin: 07/02/20 21:39 Dose: 38 units Documented by: Iopamidol (Isovue-370 (76%)) 75 ml IVPUSH ONETIME STA Stop: 06/29/20 22:30 Last Admin: 06/29/20 22:30 Dose: 75 ml Documented by: Iopamidol (Isovue Multipack-370 (76%)) 100 ml IVPUSH ONETIME STA Stop: 07/03/20 11:41 Last Admin: 07/03/20 11:45 Dose: 100 ml Documented by: Lisinopril (Prinivil) 10 mg PO DAILY [facility] Last Admin: 07/03/20 09:11 Dose: Not Given Documented by: Morphine Sulfate (Morphine) 4 mg IVPUSH ONETIME ONE Stop: 06/29/20 21:29 Last Admin: 06/29/20 21:48 Dose: 4 mg Documented by: Morphine Sulfate (Morphine) 4 mg IVPUSH ONETIME ONE Stop: 06/29/20 23:16 Last Admin: 06/29/20 23:20 Dose: 4 mg Documented by: Ondansetron HCl (Zofran) 4 mg IVPUSH ONETIME ONE Stop: 06/29/20 21:29 Last Admin: 06/29/20 21:47 Dose: 4 mg Documented by: Senna/Docusate Sodium (Senna Plus) 1 tab PO BID [facility] Last Admin: 07/03/20 15:42 Dose: Not Given Documented by: Sepsis Event Note - Focused Exam Vital Signs: Vital Signs Temp Pulse Resp BP Pulse Ox 07/04/20 12:38 36.8 C 54 L 16 92/44 L 94 L 07/04/20 07:05 36.2 C 66 16 90/55 L 95 07/04/20 04:11 36.3 C 59 L 16 96/55 L 95 Consult PN Assessment/Plan Procedures: Procedures ASSAY OF AMYLASE (02/07/15) ASSAY OF LACTIC ACID (06/23/20) ASSAY OF LIPASE (10/27/18) ASSAY OF MAGNESIUM (06/23/20) ASSAY OF TROPONIN QUANT (10/27/18) ASSAY THYROID STIM HORMONE (10/04/19) BLOOD CULTURE FOR BACTERIA (06/23/20) BLOOD GASES ANY COMBINATION (02/08/15) BLOOD TYPING SEROLOGIC ABO (06/23/20) BLOOD TYPING SEROLOGIC RH(D) (06/23/20) EDWIN DNA DIR PROBE (05/17/19) CHEST X-RAY 1 VIEW FRONTAL (06/26/17) CHEST X-RAY 2VW FRONTAL&LATL (07/08/17) CHORIONIC GONADOTROPIN ASSAY (01/07/15) COMPLETE CBC AUTOMATED (04/05/17) COMPLETE CBC W/AUTO DIFF WBC (06/23/20) COMPREHEN METABOLIC PANEL (06/23/20) CT ABD & PELV W/CONTRAST (06/23/20) CT HEAD/BRAIN W/O DYE (07/10/18) CULTURE OTHR SPECIMN AEROBIC (10/20/17) DRUG TEST PRSMV DIR OPT OBS (04/23/20) ECHO EXAM OF ABDOMEN (10/27/18) ELECTROCARDIOGRAM TRACING (10/27/18) EMERGENCY DEPT VISIT (06/23/20) EMERGENCY DEPT VISIT (07/10/18) EMERGENCY DEPT VISIT (11/13/17) EMERGENCY DEPT VISIT (08/19/17) EMERGENCY DEPT VISIT (06/26/17) EMERGENCY DEPT VISIT (06/22/17) EMERGENCY DEPT VISIT (06/04/17) EMERGENCY DEPT VISIT (02/27/17) EMERGENCY DEPT VISIT (01/03/17) EMERGENCY DEPT VISIT (07/02/16) EMERGENCY DEPT VISIT (08/28/15) EMERGENCY DEPT VISIT (01/07/15) EMERGENCY DEPT VISIT (06/12/14) PINEDA VAG DNA DIR PROBE (05/17/19) GASTRIC EMPTYING IMAG STUDY (02/11/15) GLUCOSE BLOOD TEST (06/23/20) GLYCOSYLATED HEMOGLOBIN TEST (06/23/20) HELICOBACTER PYLORI ANTIBODY (11/18/16) HOT OR COLD PACKS THERAPY (12/27/14) HYDRATE IV INFUSION ADD-ON (11/13/17) HYDRATION IV INFUSION INIT (07/10/18) INCISION OF TENDON & MUSCLE (10/21/16) INFLUENZA ASSAY W/OPTIC (10/20/17) LIPID PANEL (04/23/20) MANUAL THERAPY 1/> REGIONS (01/25/15) MASSAGE THERAPY (01/25/15) METABOLIC PANEL TOTAL CA (06/23/20) MRI JOINT UPR EXTREM W/O DYE (06/17/20) MRI LUMBAR SPINE W/O DYE (01/12/17) NJX INTERLAMINAR LMBR/SAC (02/02/17) OFFICE/OUTPATIENT VISIT EST (05/27/20) PROTHROMBIN TIME (06/23/20) PT EVAL LOW COMPLEX 20 MIN (06/30/17) PT EVALUATION (12/27/14) RBC ANTIBODY SCREEN (06/23/20) ROUTINE VENIPUNCTURE (06/23/20) SARS-COV2 COVID-19 AMP PRB (06/23/20) SHOULDER ARTHROSCOPY/SURGERY (10/21/16) SMEAR WET [place] SALINE/INK (08/10/16) TEST FOR ACETONE/KETONES (07/10/18) THER/PROPH/DIAG INJ IV PUSH (02/27/17) THER/PROPH/DIAG INJ SC/IM (07/10/18) THER/PROPH/DIAG IV INF INIT (06/23/20) THERAPEUTIC ACTIVITIES (12/27/14) THERAPEUTIC EXERCISES (03/26/17) TISSUE EXAM BY PATHOLOGIST (06/23/20) TRICHOMONAS VAGIN DIR PROBE (05/17/19) TX/PRO/DX INJ NEW DRUG ADDON (06/23/20) TX/PRO/DX INJ SAME DRUG [employer] (06/26/17) ULTRASOUND THERAPY (03/26/17) UR ALBUMIN SEMIQUANTITATIVE (04/23/20) URINALYSIS AUTO W/O SCOPE (06/23/20) URINALYSIS AUTO W/SCOPE (01/20/19) URINE CULTURE/COLONY COUNT (01/20/19) URINE TEST (02/27/17) VIT D 1 25-DIHYDROXY (04/05/17) WITHDRAWAL OF ARTERIAL BLOOD (02/08/15) X-RAY EXAM ABDOMEN 1 VIEW (10/04/19) X-RAY EXAM CHEST 1 VIEW (10/27/18) X-RAY EXAM L-S SPINE 2/3 VWS (12/07/17) X-RAY EXAM NECK SPINE 2-3 VW (08/01/19) X-RAY EXAM OF ANKLE (07/18/16) X-RAY EXAM OF ELBOW (01/09/20) X-RAY EXAM OF SHOULDER (05/27/20) My Orders Last 24 Hours: My Active Orders 07/04/20 Lunch Soft Diet [DIET] Plan: I have seen and evaluated the patient and agree with the residents note unless specified in my note
[2020-07-02] MEDS ORDERED: Insulin Glargine,Human Rec. Analog 100 Units/ML 3 ML Pen SUBCUT SCH (21:00)
[2020-07-02] MEDS: traZODone 50 MG Tab PO PRN (21:38)
[2020-07-03] MEDS: Oxybutynin 5 MG Tab PO SCH ×2 (00:07→14:36)
[2020-07-03] MEDS: Lactated Ringers 1,000 ML IV SCH ×2 (00:10→13:44)
[2020-07-03] MEDS: Piperacillin/Tazobactam 3.375 GM in Sodium Chloride 0.9% 50 ML IV SCH ×4 (00:11→18:54)
[2020-07-03] MEDS: Acetaminophen/HYDROcodone 325-5 MG Tab PO PRN ×5 (02:40→23:02)
[2020-07-03] MEDS: Insulin Aspart 100 Units/ML 3 ML Pen SUBCUT SCH ×5 (06:31→23:30)
[2020-07-03] MEDS: Rosuvastatin 10 MG Tab PO SCH (08:49)
[2020-07-03] MEDS: ALPRAZolam 0.5 MG Tab PO SCH ×2 (08:49→20:06)
[2020-07-03] MEDS: Nicotine 14 MG/24 Hr Patch TRDERM SCH (08:51)
[2020-07-03] MEDS: Ondansetron 4 MG/2 ML SDV IVPUSH PRN ×3 (08:52→21:29)
[2020-07-03] MEDS: Lisinopril 10 MG Tab PO SCH (09:11)
--- NOTE | 2020-07-03 11:30 | PCM.SURGPN ---
- General Info Date of Service: 07/03/20 Date of Surgery/Procedure: 06/24/20 POD#: 8 Functional Status: Reports: Other (Patient complaining of increased pain to lower abomen. She also feels bloated. Still passing flatus and had a loose BM this morning. BP soft this am, but patient not tachycardic. Tolerating a diet without nausea or vomiting. ) - Review of Systems General: Reports: Fatigue Pulmonary: Reports: No Symptoms Cardiovascular: Reports: No Symptoms Gastrointestinal: Reports: Abdominal Pain (lower abdomen ), Diarrhea, Flatus, Other (bloated feeling ). Denies: Nausea, Vomiting Genitourinary: Reports: Other (Vaginal burning) Musculoskeletal: Reports: No Symptoms Skin: Reports: No Symptoms - Patient Data Vitals - Most Recent: Last Vital Signs Temp 36.3 C 07/03/20 07:58 Pulse 59 L 07/03/20 07:58 Resp 16 07/03/20 07:58 BP 92/55 L 07/03/20 09:11 Pulse Ox 97 07/03/20 07:58 Weight - Most Recent: 62.4 kg I&O - Last 24 Hours: Intake & Output 07/02/20 07/03/20 07/03/20 22:59 06:59 14:59 Intake Total 1710 Output Total 1300 Balance 410 Lab Results Last 24 Hrs: Laboratory Results - last 24 hr 07/02/20 07/02/20 07/02/20 Range/Units 12:11 16:53 21:21 WBC (4.0-11.0) K/uL RBC (4.30-5.90) M/uL Hgb (12.0-16.0) g/dL Hct (36.0-46.0) % MCV (80.0-98.0) fL MCH (27.0-32.0) pg MCHC (31.0-37.0) g/dL RDW Std Deviation (28.0-62.0) fl RDW Coeff of Haley (11.0-15.0) % Plt Count (150-400) K/uL MPV (7.40-12.00) fL Neut % (Auto) (48.0-80.0) % Lymph % (Auto) (16.0-40.0) % Hill % (Auto) (0.0-15.0) % Eos % (Auto) (0.0-7.0) % Baso % (Auto) (0.0-1.5) % Neut # (Auto) (1.4-5.7) K/uL Lymph # (Auto) (0.6-2.4) K/uL Hill # (Auto) (0.0-0.8) K/uL Eos # (Auto) (0.0-0.7) K/uL Baso # (Auto) (0.0-0.1) K/uL Nucleated RBC % /100WBC Nucleated RBCs # K/uL POC Glucose 182 H 142 H 205 H (60-110) mg/dL 07/03/20 07/03/20 Range/Units 05:54 08:05 WBC 14.63 H (4.0-11.0) K/uL RBC 4.23 L (4.30-5.90) M/uL Hgb 12.7 (12.0-16.0) g/dL Hct 39.9 (36.0-46.0) % MCV 94.3 (80.0-98.0) fL MCH 30.0 (27.0-32.0) pg MCHC 31.8 (31.0-37.0) g/dL RDW Std Deviation 44.4 (28.0-62.0) fl RDW Coeff of Haley 13 (11.0-15.0) % Plt Count 443 H (150-400) K/uL MPV 9.50 (7.40-12.00) fL Neut % (Auto) 60.6 (48.0-80.0) % Lymph % (Auto) 31.6 (16.0-40.0) % Hill % (Auto) 6.2 (0.0-15.0) % Eos % (Auto) 1.5 (0.0-7.0) % Baso % (Auto) 0.1 (0.0-1.5) % Neut # (Auto) 8.9 H (1.4-5.7) K/uL Lymph # (Auto) 4.6 H (0.6-2.4) K/uL Hill # (Auto) 0.9 H (0.0-0.8) K/uL Eos # (Auto) 0.2 (0.0-0.7) K/uL Baso # (Auto) 0.0 (0.0-0.1) K/uL Nucleated RBC % 0.0 /100WBC Nucleated RBCs # 0 K/uL POC Glucose 118 H (60-110) mg/dL Med Orders - Current: Current Medications Acetaminophen (Tylenol) 650 mg PO Q4H PRN PRN Reason: Pain (Mild 1-3)/fever Hydrocodone Bitart/Acetaminophen (Ellerbe 325-5 Mg) 2 tab PO Q4H PRN PRN Reason: Pain (moderate 4-6) Last Admin: 07/03/20 07:52 Dose: 2 tab Documented by: Alprazolam (Xanax) 0.5 mg PO BID [facility] Last Admin: 07/03/20 08:49 Dose: 0.5 mg Documented by: Dextrose/Water (Dextrose 50% In Water) 50 ml IV ASDIRECTED PRN PRN Reason: Hypoglycemia Glucagon (Glucagen) 1 mg IM ASDIRECTED PRN PRN Reason: Hypoglycemia Hydromorphone HCl (Dilaudid) 0.5 mg IVPUSH Q2H PRN PRN Reason: Pain (severe 7-10) Sodium Chloride (Normal Saline) 1,000 mls @ 999 mls/hr IV ASDIRECTED [facility] Last Admin: 06/29/20 21:46 Dose: 999 mls/hr Documented by: Lactated Ringer's (Ringers, Lactated) 1,000 mls @ 60 mls/hr IV ASDIRECTED [facility] Last Admin: 07/03/20 00:10 Dose: 60 mls/hr Documented by: Piperacillin Sod/Tazobactam (Sod 3.375 gm/ Sodium Chloride) 50 mls @ 100 mls/hr IV Q6H [facility] Last Admin: 07/03/20 05:59 Dose: 100 mls/hr Documented by: Insulin Aspart (Novolog) 0 unit SUBCUT TIDAC [facility]; Protocol Last Admin: 07/03/20 06:31 Dose: Not Given Documented by: Insulin Aspart (Novolog) 6 unit SUBCUT TIDAC [facility] Last Admin: 07/03/20 07:48 Dose: 6 units Documented by: Insulin Glargine (Lantus Solostar) 38 units SUBCUT BEDTIME [facility] Last Admin: 07/02/20 21:39 Dose: 38 units Documented by: Lisinopril (Prinivil) 10 mg PO DAILY [facility] Last Admin: 07/03/20 09:11 Dose: Not Given Documented by: Nicotine (Habitrol) 14 mg TRDERM DAILY [facility] Last Admin: 07/03/20 08:51 Dose: 14 mg Documented by: Ondansetron HCl (Zofran) 4 mg IVPUSH Q4H PRN PRN Reason: Nausea Last Admin: 07/03/20 08:52 Dose: 4 mg Documented by: Oxybutynin Chloride (Oxybutynin) 5 mg PO Q12H [facility] Last Admin: 07/03/20 00:07 Dose: 5 mg Documented by: Rosuvastatin Calcium (Crestor) 40 mg PO DAILY [facility] Last Admin: 07/03/20 08:49 Dose: 40 mg Documented by: Sodium Chloride (Saline Flush) 10 ml FLUSH ASDIRECTED PRN PRN Reason: Keep Vein Open Last Admin: 06/29/20 21:50 Dose: 10 ml Documented by: Sodium Chloride (Saline Flush) 2.5 ml FLUSH ASDIRECTED PRN PRN Reason: Keep Vein Open Last Admin: 06/29/20 21:50 Dose: 2.5 ml Documented by: Trazodone HCl (Trazodone) 100 mg PO BEDTIME PRN PRN Reason: Insomnia Last Admin: 07/02/20 21:38 Dose: 100 mg Documented by: Discontinued Medications Diphenhydramine HCl (Benadryl) 25 mg PO ONETIME ONE Stop: 07/01/20 19:50 Last Admin: 07/01/20 20:16 Dose: 25 mg Documented by: Diphenhydramine HCl (Benadryl) 25 mg PO ONETIME ONE Stop: 07/02/20 14:47 Last Admin: 07/02/20 14:57 Dose: 25 mg Documented by: Fluconazole (Diflucan) 150 mg PO ONETIME ONE Stop: 07/02/20 11:41 Last Admin: 07/02/20 13:38 Dose: Not Given Documented by: Fluconazole (Diflucan) 150 mg PO ONETIME ONE Stop: 07/02/20 13:31 Last Admin: 07/02/20 13:38 Dose: 150 mg Documented by: Piperacillin Sod/Tazobactam (Sod 4.5 gm/ Sodium Chloride) 100 mls @ 100 mls/hr IV ONETIME ONE Stop: 06/30/20 00:19 Last Admin: 06/29/20 23:28 Dose: 100 mls/hr Documented by: Insulin Aspart (Novolog) 5 unit SUBCUT TIDAC [facility] Last Admin: 07/02/20 08:55 Dose: Not Given Documented by: Insulin Glargine (Lantus Solostar) 10 units SUBCUT ONETIME ONE Stop: 06/30/20 10:00 Last Admin: 06/30/20 10:44 Dose: 10 units Documented by: Insulin Glargine (Lantus Solostar) 10 units SUBCUT BEDTIME [facility] Last Admin: 06/30/20 20:17 Dose: 10 units Documented by: Insulin Glargine (Lantus Solostar) 35 units SUBCUT BEDTIME [facility] Last Admin: 07/01/20 22:19 Dose: 35 units Documented by: Iopamidol (Isovue-370 (76%)) 75 ml IVPUSH ONETIME STA Stop: 06/29/20 22:30 Last Admin: 06/29/20 22:30 Dose: 75 ml Documented by: Morphine Sulfate (Morphine) 4 mg IVPUSH ONETIME ONE Stop: 06/29/20 21:29 Last Admin: 06/29/20 21:48 Dose: 4 mg Documented by: Morphine Sulfate (Morphine) 4 mg IVPUSH ONETIME ONE Stop: 06/29/20 23:16 Last Admin: 06/29/20 23:20 Dose: 4 mg Documented by: Ondansetron HCl (Zofran) 4 mg IVPUSH ONETIME ONE Stop: 06/29/20 21:29 Last Admin: 06/29/20 21:47 Dose: 4 mg Documented by: Senna/Docusate Sodium (Senna Plus) 1 tab PO BID [facility]E - Exam Wound/Incisions: Healing Well, Other ([place] removed today ) General: Alert, Oriented, Cooperative, Mild Distress (anxious ) HEENT: Pupils Equal, Pupils Reactive Lungs: Normal Respiratory Effort Cardiovascular: Regular Rate GI/Abdominal Exam: Soft, Non-Tender (to light palpation ), Distended (mild- moderate). No: Guarding, Rigid, Rebound Extremities: Normal Inspection Skin: Warm, Dry, Intact Neurological: No New Focal Deficit Psy/Mental Status: Anxious Sepsis Event Note - Evaluation Sepsis Screening Result: No Definite Risk - Focused Exam Vital Signs: Vital Signs Temp Pulse Resp BP BP BP Pulse Ox 07/03/20 09:11 92/55 L 07/03/20 07:58 36.3 C 59 L 16 83/45 L 97 07/03/20 07:57 36.3 C 59 L 16 83/45 L 97 07/03/20 04:47 35.8 C L 55 L 17 99/49 L 95 07/03/20 00:40 36.1 C 61 16 99/69 94 L - Problem List & Annotations (1) Abdominal pain SNOMED Code(s): 14445665 Code(s): R10.9 - UNSPECIFIED ABDOMINAL PAIN Status: Acute Current Visit: Yes (2) Abscess after procedure SNOMED Code(s): 47562453971610036 Code(s): T81.49XA - INFECTION FOLLOWING A PROCEDURE, OTHER SURGICAL SITE, INIT Status: Acute Current Visit: Yes (3) Post-operative complication SNOMED Code(s): 550935185 Code(s): T81.9XXA - UNSPECIFIED COMPLICATION OF PROCEDURE, INITIAL ENCOUNTER Status: Acute Current Visit: Yes (4) Uncontrolled diabetes mellitus SNOMED Code(s): 70875557, 123615286 Code(s): E11.65 - TYPE 2 DIABETES MELLITUS WITH HYPERGLYCEMIA Status: Acute Current Visit: Yes Qualifiers: Diabetes mellitus type: type 2 Glycemic state: with hyperglycemia Qualified Code(s): E11.65 - Type 2 diabetes mellitus with hyperglycemia - Problem List Review Problem List Initiated/Reviewed/Updated: Yes - My Orders Last 24 Hours: Active Orders 24 hr Category Date Time Status Abdomen Pelvis w Cont [CT] Stat Exams 07/03/20 07:55 Ordered Insulin Aspart [NovoLOG] Med 07/02/20 11:30 Active 6 unit SUBCUT TIDAC Insulin Glarg,Human.Rec.Analog [LantUS Solostar] Med 07/02/20 21:00 Active 38 units SUBCUT BEDTIME traZODone Med 07/02/20 17:58 Active 100 mg PO BEDTIME PRN Medication Orders Acetaminophen (Tylenol) 650 mg PO Q4H PRN PRN Reason: Pain (Mild 1-3)/fever Hydrocodone Bitart/Acetaminophen (Ellerbe 325-5 Mg) 2 tab PO Q4H PRN PRN Reason: Pain (moderate 4-6) Last Admin: 07/03/20 07:52 Dose: 2 tab Documented by: Admin: 07/03/20 02:40 Dose: 2 tab Documented by: Admin: 07/02/20 20:17 Dose: 2 tab Documented by: Admin: 07/02/20 16:17 Dose: 2 tab Documented by: Admin: 07/02/20 11:53 Dose: 2 tab Documented by: EDIE Cosigned by: JAILYN Admin: 07/02/20 06:59 Dose: 2 tab Documented by: Admin: 07/02/20 02:15 Dose: 2 tab Documented by: Admin: 07/01/20 22:15 Dose: 2 tab Documented by: Admin: 07/01/20 18:15 Dose: 2 tab Documented by: Admin: 07/01/20 13:10 Dose: 2 tab Documented by: Admin: 07/01/20 09:02 Dose: 2 tab Documented by: Admin: 07/01/20 04:36 Dose: 2 tab Documented by: Admin: 07/01/20 00:47 Dose: 2 tab Documented by: Admin: 06/30/20 20:15 Dose: 2 tab Documented by: Admin: 06/30/20 15:45 Dose: 2 tab Documented by: Admin: 06/30/20 12:07 Dose: 2 tab Documented by: Admin: 06/30/20 07:03 Dose: 2 tab Documented by: Admin: 06/30/20 02:03 Dose: 2 tab Documented by: TARNU Alprazolam (Xanax) 0.5 mg PO BID [facility] Admin: 07/03/20 08:49 Dose: 0.5 mg Documented by: Admin: 07/02/20 21:38 Dose: 0.5 mg Documented by: Admin: 07/02/20 08:37 Dose: 0.5 mg Documented by: EDIE Cosigned by: JAILYN Admin: 07/01/20 22:14 Dose: 0.5 mg Documented by: Admin: 07/01/20 09:40 Dose: 0.5 mg Documented by: AYAAN Dextrose/Water (Dextrose 50% In Water) 50 ml IV ASDIRECTED PRN PRN Reason: Hypoglycemia Glucagon (Glucagen) 1 mg IM ASDIRECTED PRN PRN Reason: Hypoglycemia Hydromorphone HCl (Dilaudid) 0.5 mg IVPUSH Q2H PRN PRN Reason: Pain (severe 7-10) Sodium Chloride (Normal Saline) 1,000 mls @ 999 mls/hr IV ASDIRECTED [facility] Last Admin: 06/29/20 21:46 Dose: 999 mls/hr Documented by: JESSICA Lactated Ringer's (Ringers, Lactated) 1,000 mls @ 60 mls/hr IV ASDIRECTED [facility] Last Admin: 07/03/20 00:10 Dose: 60 mls/hr Documented by: Infusion: 07/02/20 21:20 Dose: 60 mls/hr Documented by: Admin: 07/02/20 04:39 Dose: 60 mls/hr Documented by: Infusion: 07/02/20 02:36 Dose: 60 mls/hr Documented by: Admin: 07/01/20 09:55 Dose: 60 mls/hr Documented by: Infusion: 06/30/20 10:15 Dose: 125 mls/hr Documented by: Admin: 06/30/20 02:15 Dose: 125 mls/hr Documented by: TARUN Piperacillin Sod/Tazobactam (Sod 3.375 gm/ Sodium Chloride) 50 mls @ 100 mls/hr IV Q6H [facility] Last Admin: 07/03/20 05:59 Dose: 100 mls/hr Documented by: Infusion: 07/03/20 00:41 Dose: 100 mls/hr Documented by: Admin: 07/03/20 00:11 Dose: 100 mls/hr Documented by: Infusion: 07/02/20 18:50 Dose: 100 mls/hr Documented by: Admin: 07/02/20 18:20 Dose: 100 mls/hr Documented by: Infusion: 07/02/20 13:39 Dose: 100 mls/hr Documented by: Admin: 07/02/20 13:09 Dose: 100 mls/hr Documented by: Infusion: 07/02/20 07:30 Dose: 100 mls/hr Documented by: Admin: 07/02/20 07:00 Dose: 100 mls/hr Documented by: Infusion: 07/02/20 02:24 Dose: 100 mls/hr Documented by: Admin: 07/02/20 01:54 Dose: 100 mls/hr Documented by: JAYYEYSHELDON Infusion: 07/01/20 19:36 Dose: 100 mls/hr Documented by: JAYYEYSHELDON Admin: 07/01/20 19:06 Dose: 100 mls/hr Documented by: Infusion: 07/01/20 13:41 Dose: 100 mls/hr Documented by: Admin: 07/01/20 13:11 Dose: 100 mls/hr Documented by: Infusion: 07/01/20 07:21 Dose: 100 mls/hr Documented by: Admin: 07/01/20 06:51 Dose: 100 mls/hr Documented by: Infusion: 07/01/20 01:19 Dose: 100 mls/hr Documented by: Admin: 07/01/20 00:49 Dose: 100 mls/hr Documented by: Infusion: 06/30/20 18:36 Dose: 100 mls/hr Documented by: Admin: 06/30/20 18:06 Dose: 100 mls/hr Documented by: Infusion: 06/30/20 18:06 Dose: 100 mls/hr Documented by: Admin: 06/30/20 12:07 Dose: 100 mls/hr Documented by: Infusion: 06/30/20 07:42 Dose: 100 mls/hr Documented by: Admin: 06/30/20 07:12 Dose: 100 mls/hr Documented by: Infusion: 06/30/20 02:42 Dose: 100 mls/hr Documented by: Admin: 06/30/20 02:12 Dose: 100 mls/hr Documented by: TARUN [facility] Last Admin: 07/03/20 06:31 Dose: Not Given Documented by: Admin: 07/02/20 18:50 Dose: Not Given Documented by: Admin: 07/02/20 12:27 Dose: 1 unit Documented by: EDIE Cosigned by: JAILYN Admin: 07/02/20 08:20 Dose: Not Given Documented by: Admin: 07/01/20 18:17 Dose: 2 unit Documented by: Admin: 07/01/20 11:59 Dose: 2 unit Documented by: Admin: 07/01/20 07:34 Dose: 1 unit Documented by: Admin: 06/30/20 18:07 Dose: 3 unit Documented by: Admin: 06/30/20 12:08 Dose: 3 unit Documented by: Admin: 06/30/20 07:08 Dose: 1 unit Documented by: TARUN Insulin Aspart (Novolog) 6 unit SUBCUT TIDAC [facility] Last Admin: 07/03/20 07:48 Dose: 6 units Documented by: Admin: 07/02/20 18:18 Dose: 6 units Documented by: Admin: 07/02/20 12:28 Dose: 6 units Documented by: EDIE Cosigned by: JAILYN Insulin Glargine (Lantus Solostar) 38 units SUBCUT BEDTIME [facility] Last Admin: 07/02/20 21:39 Dose: 38 units Documented by: XAVI Lisinopril (Prinivil) 10 mg PO DAILY [facility] Last Admin: 07/03/20 09:11 Dose: Not Given Documented by: Admin: 07/02/20 10:38 Dose: 10 mg Documented by: SPRING Nicotine (Habitrol) 14 mg TRDERM DAILY [facility] Last Admin: 07/03/20 08:51 Dose: 14 mg Documented by: Admin: 07/02/20 08:40 Dose: 14 mg Documented by: EDIE Cosigned by: JAILYN Admin: 07/01/20 09:40 Dose: 14 mg Documented by: AYAAN Ondansetron HCl (Zofran) 4 mg IVPUSH Q4H PRN PRN Reason: Nausea Last Admin: 07/03/20 08:52 Dose: 4 mg Documented by: Admin: 07/02/20 11:53 Dose: 4 mg Documented by: EDIE Cosigned by: JAILYN Admin: 07/01/20 22:25 Dose: 4 mg Documented by: Admin: 07/01/20 09:02 Dose: 4 mg Documented by: AYAAN Oxybutynin Chloride (Oxybutynin) 5 mg PO Q12H [facility] Admin: 07/03/20 00:07 Dose: 5 mg Documented by: Admin: 07/02/20 13:12 Dose: 5 mg Documented by: Admin: 07/02/20 01:53 Dose: 5 mg Documented by: Admin: 07/01/20 13:11 Dose: 5 mg Documented by: Admin: 07/01/20 00:47 Dose: 5 mg Documented by: Admin: 06/30/20 13:46 Dose: 5 mg Documented by: Admin: 06/30/20 02:06 Dose: 5 mg Documented by: TARUN Rosuvastatin Calcium (Crestor) 40 mg PO DAILY [facility] Admin: 07/03/20 08:49 Dose: 40 mg Documented by: Admin: 07/02/20 08:38 Dose: 40 mg Documented by: EDIE Cosigned by: JAILYN Admin: 07/01/20 09:03 Dose: 40 mg Documented by: Admin: 06/30/20 08:39 Dose: 40 mg Documented by: SPRING Sodium Chloride (Saline Flush) 10 ml FLUSH ASDIRECTED PRN PRN Reason: Keep Vein Open Last Admin: 06/29/20 21:50 Dose: 10 ml Documented by: JESSICA Sodium Chloride (Saline Flush) 2.5 ml FLUSH ASDIRECTED PRN PRN Reason: Keep Vein Open Last Admin: 06/29/20 21:50 Dose: 2.5 ml Documented by: JESSICA Trazodone HCl (Trazodone) 100 mg PO BEDTIME PRN PRN Reason: Insomnia Last Admin: 07/02/20 21:38 Dose: 100 mg Documented by: XAVI - Plan Plan (Free Text/Narrative):: Patient's WBC is increased today again to 14K. The plan is to get a CT abdomen/pelvis with IV contrast. This can be compared to Wednesday's imaging. Likely she has formed an abscess in the area of fluid collection. If this is confluent and could be drained by IR will transfer patient. If she needs a washo ut will plan for this tomorrow in the OR.
[2020-07-03] MEDS ORDERED: Lactated Ringers 1,000 ML IV ONE (11:32)
[2020-07-03] MEDS ORDERED: Iopamidol 755 MG/ML 500 ML Multipack Bottle IVPUSH STA (11:40)
[2020-07-03] MEDS: HYDROmorphone 2 MG/ML Syringe IVPUSH PRN ×3 (12:07→21:18)
--- NOTE | 2020-07-03 12:12 | CT ---
Indication: Postop complications abdominal pain and bloating Technique: Volumetric multidetector CT images of the abdomen and pelvis were obtained after the administration of intravenous contrast. 100 cc Isovue 370 l low osmolar intravenous contrast Comparison: CT abdomen and pelvis June 29, 2020 Findings: There is minimal dependent bibasilar atelectasis appreciated. Otherwise, the lung bases are clear. The liver is normal in attenuation without intrahepatic biliary ductal dilatation. The portal vein is patent. The gallbladder is mildly contracted in appearance. There is no significant common biliary ductal dilatation or abrupt cut off. The spleen is normal in enhancement and size. The stomach and duodenum are grossly unremarkable. The pancreas is normal in enhancement without significant atrophy. The adrenal glands are unremarkable. The kidneys demonstrate preserved corticomedullary differentiation without evidence of obstructive uropathy. There is a moderate amount of stool appreciated throughout the colon. There are dilated fluid and stool filled loops of central small bowel likely representing postoperative ileus. The appendix is surgically absent. There is no significant mesenteric, retroperitoneal, or pelvic sidewall lymph nodes. The aorta is nonaneurysmal. There is no significant atherosclerotic disease appreciated. The solid pelvic viscera are grossly unremarkable. There is again seen a moderate amount of intraperitoneal free air similar to slightly decreased from comparison exam consistent with recent laparoscopic appendectomy. A minimal amount of residual air within the anterior abdominal wall is appreciated. Again seen is a somewhat prominent low-density mass within the right lower quadrant pelvis measuring 5.0 x 3.6 centimeters which could represent an ovary with dominant follicles versus residual loculated fluid collection from recent surgery. There is a smaller rim enhancing fluid collection in the right lower quadrant on series 201, image 96 measuring 1.5 centimeters in greatest dimension, previously measuring 2 centimeters. The anterior abdominal wall is intact without significant hernias. The lumbar vertebral body heights are grossly maintained with postoperative change of the L4-L5 level status post laminectomy, interbody fusion placement and pedicle screw fixation. Impression: Overall slightly improving amount of residual postoperative pneumoperitoneum as well as decreasing size of loculated, rim enhancing fluid collection in the right lower quadrant. There is interval development of markedly dilated central loops of small bowel with inspissated contents consistent with likely developing postoperative ileus. Additional somewhat low-density circumscribed structure without significant rim enhancement is appreciated within the right hemipelvis, stable from comparison which likely represents a normal ovary with large dominant follicles. Otherwise this could represent a small stable additional loculated fluid collection. Please note that all CT scans at this facility use dose modulation, iterative reconstruction, and/or weight-based dosing when appropriate to reduce radiation dose to as low as reasonably achievable. Dictated by Carlos Alberto Charles MD @ Jul 03 2020 12:01PM Signed by Dr. Carlos Alberto Charles @ Jul 03 2020 12:10PM
[2020-07-03] MEDS ORDERED: Insulin Aspart 100 Units/ML 3 ML Pen SUBCUT SCH ×2 (14:00→18:00)
--- NOTE | 2020-07-03 14:09 | PCM.CONSN ---
<Shai Miller - Last Filed: 07/03/20 14:09> - General Info Date of Service: 07/03/20 Subjective Update: Reports lower abdominal pain this AM. No fevers or chills. - Patient Data Vitals - Most Recent: Last Vital Signs Temp 36.5 C 07/03/20 12:00 Pulse 58 L 07/03/20 12:00 Resp 16 07/03/20 12:00 BP 99/58 L 07/03/20 12:00 Pulse Ox 94 L 07/03/20 12:00 Weight - Most Recent: 62.4 kg I&O - Last 24 Hours: Intake & Output 07/02/20 07/03/20 07/03/20 22:59 06:59 14:59 Intake Total 1710 Output Total 1300 Balance 410 Lab Results Last 24 Hours: Laboratory Results - last 24 hr 07/02/20 07/02/20 07/03/20 Range/Units 16:53 21:21 05:54 WBC (4.0-11.0) K/uL RBC (4.30-5.90) M/uL Hgb (12.0-16.0) g/dL Hct (36.0-46.0) % MCV (80.0-98.0) fL MCH (27.0-32.0) pg MCHC (31.0-37.0) g/dL RDW Std Deviation (28.0-62.0) fl RDW Coeff of Haley (11.0-15.0) % Plt Count (150-400) K/uL MPV (7.40-12.00) fL Neut % (Auto) (48.0-80.0) % Lymph % (Auto) (16.0-40.0) % [place] % (Auto) (0.0-15.0) % Eos % (Auto) (0.0-7.0) % Baso % (Auto) (0.0-1.5) % Neut # (Auto) (1.4-5.7) K/uL Lymph # (Auto) (0.6-2.4) K/uL [place] # (Auto) (0.0-0.8) K/uL Eos # (Auto) (0.0-0.7) K/uL Baso # (Auto) (0.0-0.1) K/uL Nucleated RBC % /100WBC Nucleated RBCs # K/uL POC Glucose 142 H 205 H 118 H (60-110) mg/dL 07/03/20 07/03/20 Range/Units 08:05 12:00 WBC 14.63 H (4.0-11.0) K/uL RBC 4.23 L (4.30-5.90) M/uL Hgb 12.7 (12.0-16.0) g/dL Hct 39.9 (36.0-46.0) % MCV 94.3 (80.0-98.0) fL MCH 30.0 (27.0-32.0) pg MCHC 31.8 (31.0-37.0) g/dL RDW Std Deviation 44.4 (28.0-62.0) fl RDW Coeff of Haley 13 (11.0-15.0) % Plt Count 443 H (150-400) K/uL MPV 9.50 (7.40-12.00) fL Neut % (Auto) 60.6 (48.0-80.0) % Lymph % (Auto) 31.6 (16.0-40.0) % [place] % (Auto) 6.2 (0.0-15.0) % Eos % (Auto) 1.5 (0.0-7.0) % Baso % (Auto) 0.1 (0.0-1.5) % Neut # (Auto) 8.9 H (1.4-5.7) K/uL Lymph # (Auto) 4.6 H (0.6-2.4) K/uL [place] # (Auto) 0.9 H (0.0-0.8) K/uL Eos # (Auto) 0.2 (0.0-0.7) K/uL Baso # (Auto) 0.0 (0.0-0.1) K/uL Nucleated RBC % 0.0 /100WBC Nucleated RBCs # 0 K/uL POC Glucose 131 H (60-110) mg/dL Med Orders - Current: Current Medications Acetaminophen (Tylenol) 650 mg PO Q4H PRN PRN Reason: Pain (Mild 1-3)/fever Hydrocodone Bitart/Acetaminophen ([place]ford 325-5 Mg) 2 tab PO Q4H PRN PRN Reason: Pain (moderate 4-6) Last Admin: 07/03/20 13:06 Dose: 2 tab Documented by: Alprazolam (Xanax) 0.5 mg PO BID [facility] Last Admin: 07/03/20 08:49 Dose: 0.5 mg Documented by: Dextrose/Water (Dextrose 50% In Water) 50 ml IV ASDIRECTED PRN PRN Reason: Hypoglycemia Glucagon (Glucagen) 1 mg IM ASDIRECTED PRN PRN Reason: Hypoglycemia Hydromorphone HCl (Dilaudid) 0.5 mg IVPUSH Q2H PRN PRN Reason: Pain (severe 7-10) Last Admin: 07/03/20 12:07 Dose: 0.5 mg Documented by: Piperacillin Sod/Tazobactam (Sod 3.375 gm/ Sodium Chloride) 50 mls @ 100 mls/hr IV Q6H [facility] Last Admin: 07/03/20 12:58 Dose: 100 mls/hr Documented by: Lactated Ringer's (Ringers, Lactated) 1,000 mls @ 125 mls/hr IV ASDIRECTED [facility] Ibuprofen (Motrin) 400 mg PO Q6H [facility] Insulin Aspart (Novolog) 0 unit SUBCUT Q6H [facility]; Protocol Insulin Glargine (Lantus Solostar) 28 units SUBCUT BEDTIME [facility] Nicotine (Habitrol) 14 mg TRDERM DAILY [facility] Last Admin: 07/03/20 08:51 Dose: 14 mg Documented by: Ondansetron HCl (Zofran) 4 mg IVPUSH Q4H PRN PRN Reason: Nausea Last Admin: 07/03/20 08:52 Dose: 4 mg Documented by: Oxybutynin Chloride (Oxybutynin) 5 mg PO Q12H [facility] Last Admin: 07/03/20 00:07 Dose: 5 mg Documented by: Rosuvastatin Calcium (Crestor) 40 mg PO DAILY [facility] Last Admin: 07/03/20 08:49 Dose: 40 mg Documented by: Sodium Chloride (Saline Flush) 10 ml FLUSH ASDIRECTED PRN PRN Reason: Keep Vein Open Last Admin: 06/29/20 21:50 Dose: 10 ml Documented by: Sodium Chloride (Saline Flush) 2.5 ml FLUSH ASDIRECTED PRN PRN Reason: Keep Vein Open Last Admin: 06/29/20 21:50 Dose: 2.5 ml Documented by: Trazodone HCl (Trazodone) 100 mg PO BEDTIME PRN PRN Reason: Insomnia Last Admin: 07/02/20 21:38 Dose: 100 mg Documented by: Discontinued Medications Diphenhydramine HCl (Benadryl) 25 mg PO ONETIME ONE Stop: 07/01/20 19:50 Last Admin: 07/01/20 20:16 Dose: 25 mg Documented by: Diphenhydramine HCl (Benadryl) 25 mg PO ONETIME ONE Stop: 07/02/20 14:47 Last Admin: 07/02/20 14:57 Dose: 25 mg Documented by: Fluconazole (Diflucan) 150 mg PO ONETIME ONE Stop: 07/02/20 11:41 Last Admin: 07/02/20 13:38 Dose: Not Given Documented by: Fluconazole (Diflucan) 150 mg PO ONETIME ONE Stop: 07/02/20 13:31 Last Admin: 07/02/20 13:38 Dose: 150 mg Documented by: Sodium Chloride (Normal Saline) 1,000 mls @ 999 mls/hr IV ASDIRECTED [facility] Last Admin: 06/29/20 21:46 Dose: 999 mls/hr Documented by: Piperacillin Sod/Tazobactam (Sod 4.5 gm/ Sodium Chloride) 100 mls @ 100 mls/hr IV ONETIME ONE Stop: 06/30/20 00:19 Last Admin: 06/29/20 23:28 Dose: 100 mls/hr Documented by: Lactated Ringer's (Ringers, Lactated) 1,000 mls @ 60 mls/hr IV ASDIRECTED [facility] Last Admin: 07/03/20 13:44 Dose: 60 mls/hr Documented by: Lactated Ringer's (Ringers, Lactated) 1,000 mls @ 999 mls/hr IV .BOLUS ONE Stop: 07/03/20 12:32 Last Admin: 07/03/20 11:52 Dose: 999 mls/hr Documented by: Insulin Aspart (Novolog) 0 unit SUBCUT TIDAC [facility]; Protocol Last Admin: 07/03/20 13:41 Dose: Not Given Documented by: Insulin Aspart (Novolog) 5 unit SUBCUT TIDAC [facility] Last Admin: 07/02/20 08:55 Dose: Not Given Documented by: Insulin Aspart (Novolog) 6 unit SUBCUT TIDAC [facility] Last Admin: 07/03/20 13:47 Dose: 6 units Documented by: Insulin Glargine (Lantus Solostar) 10 units SUBCUT ONETIME ONE Stop: 06/30/20 10:00 Last Admin: 06/30/20 10:44 Dose: 10 units Documented by: Insulin Glargine (Lantus Solostar) 10 units SUBCUT BEDTIME [facility] Last Admin: 06/30/20 20:17 Dose: 10 units Documented by: Insulin Glargine (Lantus Solostar) 35 units SUBCUT BEDTIME [facility] Last Admin: 07/01/20 22:19 Dose: 35 units Documented by: Insulin Glargine (Lantus Solostar) 38 units SUBCUT BEDTIME [facility] Last Admin: 07/02/20 21:39 Dose: 38 units Documented by: Iopamidol (Isovue-370 (76%)) 75 ml IVPUSH ONETIME STA Stop: 06/29/20 22:30 Last Admin: 06/29/20 22:30 Dose: 75 ml Documented by: Iopamidol (Isovue Multipack-370 (76%)) 100 ml IVPUSH ONETIME STA Stop: 07/03/20 11:41 Last Admin: 07/03/20 11:45 Dose: 100 ml Documented by: Lisinopril (Prinivil) 10 mg PO DAILY [facility] Last Admin: 07/03/20 09:11 Dose: Not Given Documented by: Morphine Sulfate (Morphine) 4 mg IVPUSH ONETIME ONE Stop: 06/29/20 21:29 Last Admin: 06/29/20 21:48 Dose: 4 mg Documented by: Morphine Sulfate (Morphine) 4 mg IVPUSH ONETIME ONE Stop: 06/29/20 23:16 Last Admin: 06/29/20 23:20 Dose: 4 mg Documented by: Ondansetron HCl (Zofran) 4 mg IVPUSH ONETIME ONE Stop: 06/29/20 21:29 Last Admin: 06/29/20 21:47 Dose: 4 mg Documented by: Senna/Docusate Sodium (Senna Plus) 1 tab PO BID [facility] - Exam General: Alert, Oriented, Cooperative Lungs: Clear to Auscultation, Normal Respiratory Effort Cardiovascular: Regular Rate, Regular Rhythm GI/Abdominal Exam: Other (soft, ttp in LLQ, suprapubic region and RLQ) Extremities: Normal Inspection, No Pedal Edema Sepsis Event Note - Evaluation Sepsis Screening Result: No Definite Risk - Focused Exam Vital Signs: Vital Signs Temp Pulse Resp BP BP BP Pulse Ox 07/03/20 12:00 36.5 C 58 L 16 99/58 L 94 L 07/03/20 09:11 92/55 L 07/03/20 07:58 36.3 C 59 L 16 83/45 L 97 07/03/20 07:57 36.3 C 59 L 16 83/45 L 97 07/03/20 04:47 35.8 C L 55 L 17 99/49 L 95 Consult PN Assessment/Plan Procedures: Procedures ASSAY OF AMYLASE (02/07/15) ASSAY OF LACTIC ACID (06/23/20) ASSAY OF LIPASE (10/27/18) ASSAY OF MAGNESIUM (06/23/20) ASSAY OF TROPONIN QUANT (10/27/18) ASSAY THYROID STIM HORMONE (10/04/19) BLOOD CULTURE FOR BACTERIA (06/23/20) BLOOD GASES ANY COMBINATION (02/08/15) BLOOD TYPING SEROLOGIC ABO (06/23/20) BLOOD TYPING SEROLOGIC RH(D) (06/23/20) EDWIN DNA DIR PROBE (05/17/19) CHEST X-RAY 1 VIEW FRONTAL (06/26/17) CHEST X-RAY 2VW FRONTAL&LATL (07/08/17) CHORIONIC GONADOTROPIN ASSAY (01/07/15) COMPLETE CBC AUTOMATED (04/05/17) COMPLETE CBC W/AUTO DIFF WBC (06/23/20) COMPREHEN METABOLIC PANEL (06/23/20) CT ABD & PELV W/CONTRAST (06/23/20) CT HEAD/BRAIN W/O DYE (07/10/18) CULTURE OTHR SPECIMN AEROBIC (10/20/17) DRUG TEST PRSMV DIR OPT OBS (04/23/20) ECHO EXAM OF ABDOMEN (10/27/18) ELECTROCARDIOGRAM TRACING (10/27/18) EMERGENCY DEPT VISIT (06/23/20) EMERGENCY DEPT VISIT (07/10/18) EMERGENCY DEPT VISIT (11/13/17) EMERGENCY DEPT VISIT (08/19/17) EMERGENCY DEPT VISIT (06/26/17) EMERGENCY DEPT VISIT (06/22/17) EMERGENCY DEPT VISIT (06/04/17) EMERGENCY DEPT VISIT (02/27/17) EMERGENCY DEPT VISIT (01/03/17) EMERGENCY DEPT VISIT (07/02/16) EMERGENCY DEPT VISIT (08/28/15) EMERGENCY DEPT VISIT (01/07/15) EMERGENCY DEPT VISIT (06/12/14) PINEDA VAG DNA DIR PROBE (05/17/19) GASTRIC EMPTYING IMAG STUDY (02/11/15) GLUCOSE BLOOD TEST (06/23/20) GLYCOSYLATED HEMOGLOBIN TEST (06/23/20) HELICOBACTER PYLORI ANTIBODY (11/18/16) HOT OR COLD PACKS THERAPY (12/27/14) HYDRATE IV INFUSION ADD-ON (11/13/17) HYDRATION IV INFUSION INIT (07/10/18) INCISION OF TENDON & MUSCLE (10/21/16) INFLUENZA ASSAY W/OPTIC (10/20/17) LIPID PANEL (04/23/20) MANUAL THERAPY 1/> REGIONS (01/25/15) MASSAGE THERAPY (01/25/15) METABOLIC PANEL TOTAL CA (06/23/20) MRI JOINT UPR EXTREM W/O DYE (06/17/20) MRI LUMBAR SPINE W/O DYE (01/12/17) NJX INTERLAMINAR LMBR/SAC (02/02/17) OFFICE/OUTPATIENT VISIT EST (05/27/20) PROTHROMBIN TIME (06/23/20) PT EVAL LOW COMPLEX 20 MIN (06/30/17) PT EVALUATION (12/27/14) RBC ANTIBODY SCREEN (06/23/20) ROUTINE VENIPUNCTURE (06/23/20) SARS-COV2 COVID-19 AMP PRB (06/23/20) SHOULDER ARTHROSCOPY/SURGERY (10/21/16) SMEAR WET [place] SALINE/INK (08/10/16) TEST FOR ACETONE/KETONES (07/10/18) THER/PROPH/DIAG INJ IV PUSH (02/27/17) THER/PROPH/DIAG INJ SC/IM (07/10/18) THER/PROPH/DIAG IV INF INIT (06/23/20) THERAPEUTIC ACTIVITIES (12/27/14) THERAPEUTIC EXERCISES (03/26/17) TISSUE EXAM BY PATHOLOGIST (06/23/20) TRICHOMONAS VAGIN DIR PROBE (05/17/19) TX/PRO/DX INJ NEW DRUG ADDON (06/23/20) TX/PRO/DX INJ SAME DRUG RETAIL POS SPECIALIST (06/26/17) ULTRASOUND THERAPY (03/26/17) UR ALBUMIN SEMIQUANTITATIVE (04/23/20) URINALYSIS AUTO W/O SCOPE (06/23/20) URINALYSIS AUTO W/SCOPE (01/20/19) URINE CULTURE/COLONY COUNT (01/20/19) URINE TEST (02/27/17) VIT D 1 25-DIHYDROXY (04/05/17) WITHDRAWAL OF ARTERIAL BLOOD (02/08/15) X-RAY EXAM ABDOMEN 1 VIEW (10/04/19) X-RAY EXAM CHEST 1 VIEW (10/27/18) X-RAY EXAM L-S SPINE 2/3 VWS (12/07/17) X-RAY EXAM NECK SPINE 2-3 VW (08/01/19) X-RAY EXAM OF ANKLE (07/18/16) X-RAY EXAM OF ELBOW (01/09/20) X-RAY EXAM OF SHOULDER (05/27/20) Problem List Initiated/Reviewed/Updated: Yes My Orders Last 24 Hours: My Active Orders 07/02/20 17:58 traZODone 100 mg PO BEDTIME PRN 07/03/20 13:50 Accu Check [Blood Glucose Check, Bedside] [RC] Q6H 07/03/20 14:00 Insulin Aspart [NovoLOG] See Protocol SUBCUT Q6H Lactated Ringers [Ringers, Lactated] 1,000 ml IV ASDIRECTED 07/03/20 21:00 Insulin Glarg,Human.Rec.Analog [LantUS Solostar] 28 units SUBCUT BEDTIME Plan: Assessment and Plan: 1. Abdominal abscess s/p laparoscopic appendectomy: - Management per general surgery. Patient on IV zosyn. 2. Post-operative ileus: - Management per general surgery. Patient is NPO. 3. Diabetes mellitus type II: - As patient is NPO secondary to #2, will change lantus to 28 units at bedtime and order Novolog SSI with accuchecks q6h. Will start patient on IV LR's @ 125 cc/hr. Will continue to monitor and make dose adjustments as needed. 4. Past medical history of HTN, hyperlipidemia, anxiety and history of migraines: - Continue home medications. <Benji Lambert - Last Filed: 07/04/20 13:23> - Patient Data Vitals - Most Recent: Last Vital Signs Temp 36.8 C 07/04/20 12:38 Pulse 54 L 07/04/20 12:38 Resp 16 07/04/20 12:38 BP 92/44 L 07/04/20 12:38 Pulse Ox 94 L 07/04/20 12:38 I&O - Last 24 Hours: Intake & Output 07/03/20 07/04/20 07/04/20 22:59 06:59 14:59 Intake Total 1226 10 Output Total 1200 1250 Balance 26 -1240 Lab Results Last 24 Hours: Laboratory Results - last 24 hr 07/03/20 07/03/20 07/04/20 Range/Units 18:34 23:44 00:18 WBC (4.0-11.0) K/uL RBC (4.30-5.90) M/uL Hgb (12.0-16.0) g/dL Hct (36.0-46.0) % MCV (80.0-98.0) fL MCH (27.0-32.0) pg MCHC (31.0-37.0) g/dL RDW Std Deviation (28.0-62.0) fl RDW Coeff of Haley (11.0-15.0) % Plt Count (150-400) K/uL MPV (7.40-12.00) fL Neut % (Auto) (48.0-80.0) % Lymph % (Auto) (16.0-40.0) % [place] % (Auto) (0.0-15.0) % Eos % (Auto) (0.0-7.0) % Baso % (Auto) (0.0-1.5) % Neut # (Auto) (1.4-5.7) K/uL Lymph # (Auto) (0.6-2.4) K/uL [place] # (Auto) (0.0-0.8) K/uL Eos # (Auto) (0.0-0.7) K/uL Baso # (Auto) (0.0-0.1) K/uL Nucleated RBC % /100WBC Nucleated RBCs # K/uL Sodium (136-145) mmol/L Potassium (3.5-5.1) mmol/L Chloride (98-107) mmol/L Carbon Dioxide (21.0-32.0) mmol/L BUN (7.0-18.0) mg/dL Creatinine (0.6-1.0) mg/dL Est Cr Clr Drug Dosing mL/min Estimated GFR (MDRD) ml/min Glucose (74-106) mg/dL POC Glucose 91 67 92 (60-110) mg/dL Calcium (8.5-10.1) mg/dL Phosphorus (2.6-4.7) mg/dL Magnesium (1.8-2.4) mg/dL Total Bilirubin (0.2-1.0) mg/dL AST (15-37) IU/L ALT (14-63) IU/L Alkaline Phosphatase (46-116) U/L Total Protein (6.4-8.2) g/dL Albumin (3.4-5.0) g/dL Globulin (2.6-4.0) g/dL Albumin/Globulin Ratio (0.9-1.6) 07/04/20 07/04/20 07/04/20 Range/Units 04:49 05:14 05:14 WBC 12.11 H (4.0-11.0) K/uL RBC 3.60 L (4.30-5.90) M/uL Hgb 10.9 L (12.0-16.0) g/dL Hct 34.3 L (36.0-46.0) % MCV 95.3 (80.0-98.0) fL MCH 30.3 (27.0-32.0) pg MCHC 31.8 (31.0-37.0) g/dL RDW Std Deviation 45.0 (28.0-62.0) fl RDW Coeff of Haley 13 (11.0-15.0) % Plt Count 408 H (150-400) K/uL MPV 9.20 (7.40-12.00) fL Neut % (Auto) 58.7 (48.0-80.0) % Lymph % (Auto) 35.7 (16.0-40.0) % [place] % (Auto) 4.1 (0.0-15.0) % Eos % (Auto) 1.3 (0.0-7.0) % Baso % (Auto) 0.2 (0.0-1.5) % Neut # (Auto) 7.1 H (1.4-5.7) K/uL Lymph # (Auto) 4.3 H (0.6-2.4) K/uL [place] # (Auto) 0.5 (0.0-0.8) K/uL Eos # (Auto) 0.2 (0.0-0.7) K/uL Baso # (Auto) 0.0 (0.0-0.1) K/uL Nucleated RBC % 0.0 /100WBC Nucleated RBCs # 0 K/uL Sodium 140 (136-145) mmol/L Potassium 3.6 (3.5-5.1) mmol/L Chloride 106 (98-107) mmol/L Carbon Dioxide 28.5 (21.0-32.0) mmol/L BUN 8 (7.0-18.0) mg/dL Creatinine 0.7 (0.6-1.0) mg/dL Est Cr Clr Drug Dosing 77.73 mL/min Estimated GFR (MDRD) > 60.0 ml/min Glucose 64 L (74-106) mg/dL POC Glucose 70 (60-110) mg/dL Calcium 8.1 L (8.5-10.1) mg/dL Phosphorus 4.4 (2.6-4.7) mg/dL Magnesium 1.8 (1.8-2.4) mg/dL Total Bilirubin 0.2 (0.2-1.0) mg/dL AST 13 L (15-37) IU/L ALT 12 L (14-63) IU/L Alkaline Phosphatase 39 L (46-116) U/L Total Protein 5.0 L (6.4-8.2) g/dL Albumin 2.1 L (3.4-5.0) g/dL Globulin 2.9 (2.6-4.0) g/dL Albumin/Globulin Ratio 0.7 L (0.9-1.6) 07/04/20 07/04/20 07/04/20 Range/Units 05:49 07:35 10:36 WBC (4.0-11.0) K/uL RBC (4.30-5.90) M/uL Hgb (12.0-16.0) g/dL Hct (36.0-46.0) % MCV (80.0-98.0) fL MCH (27.0-32.0) pg MCHC (31.0-37.0) g/dL RDW Std Deviation (28.0-62.0) fl RDW Coeff of Haley (11.0-15.0) % Plt Count (150-400) K/uL MPV (7.40-12.00) fL Neut % (Auto) (48.0-80.0) % Lymph % (Auto) (16.0-40.0) % [place] % (Auto) (0.0-15.0) % Eos % (Auto) (0.0-7.0) % Baso % (Auto) (0.0-1.5) % Neut # (Auto) (1.4-5.7) K/uL Lymph # (Auto) (0.6-2.4) K/uL [place] # (Auto) (0.0-0.8) K/uL Eos # (Auto) (0.0-0.7) K/uL Baso # (Auto) (0.0-0.1) K/uL Nucleated RBC % /100WBC Nucleated RBCs # K/uL Sodium (136-145) mmol/L Potassium (3.5-5.1) mmol/L Chloride (98-107) mmol/L Carbon Dioxide (21.0-32.0) mmol/L BUN (7.0-18.0) mg/dL Creatinine (0.6-1.0) mg/dL Est Cr Clr Drug Dosing mL/min Estimated GFR (MDRD) ml/min Glucose (74-106) mg/dL POC Glucose 65 75 94 (60-110) mg/dL Calcium (8.5-10.1) mg/dL Phosphorus (2.6-4.7) mg/dL Magnesium (1.8-2.4) mg/dL Total Bilirubin (0.2-1.0) mg/dL AST (15-37) IU/L ALT (14-63) IU/L Alkaline Phosphatase (46-116) U/L Total Protein (6.4-8.2) g/dL Albumin (3.4-5.0) g/dL Globulin (2.6-4.0) g/dL Albumin/Globulin Ratio (0.9-1.6) 07/04/20 Range/Units 12:27 WBC (4.0-11.0) K/uL RBC (4.30-5.90) M/uL Hgb (12.0-16.0) g/dL Hct (36.0-46.0) % MCV (80.0-98.0) fL MCH (27.0-32.0) pg MCHC (31.0-37.0) g/dL RDW Std Deviation (28.0-62.0) fl RDW Coeff of Haley (11.0-15.0) % Plt Count (150-400) K/uL MPV (7.40-12.00) fL Neut % (Auto) (48.0-80.0) % Lymph % (Auto) (16.0-40.0) % [place] % (Auto) (0.0-15.0) % Eos % (Auto) (0.0-7.0) % Baso % (Auto) (0.0-1.5) % Neut # (Auto) (1.4-5.7) K/uL Lymph # (Auto) (0.6-2.4) K/uL [place] # (Auto) (0.0-0.8) K/uL Eos # (Auto) (0.0-0.7) K/uL Baso # (Auto) (0.0-0.1) K/uL Nucleated RBC % /100WBC Nucleated RBCs # K/uL Sodium (136-145) mmol/L Potassium (3.5-5.1) mmol/L Chloride (98-107) mmol/L Carbon Dioxide (21.0-32.0) mmol/L BUN (7.0-18.0) mg/dL Creatinine (0.6-1.0) mg/dL Est Cr Clr Drug Dosing mL/min Estimated GFR (MDRD) ml/min Glucose (74-106) mg/dL POC Glucose 69 (60-110) mg/dL Calcium (8.5-10.1) mg/dL Phosphorus (2.6-4.7) mg/dL Magnesium (1.8-2.4) mg/dL Total Bilirubin (0.2-1.0) mg/dL AST (15-37) IU/L ALT (14-63) IU/L Alkaline Phosphatase (46-116) U/L Total Protein (6.4-8.2) g/dL Albumin (3.4-5.0) g/dL Globulin (2.6-4.0) g/dL Albumin/Globulin Ratio (0.9-1.6) Med Orders - Current: Current Medications Acetaminophen (Tylenol) 650 mg PO Q4H PRN PRN Reason: Pain (Mild 1-3)/fever Hydrocodone Bitart/Acetaminophen ([place] 325-5 Mg) 2 tab PO Q4H PRN PRN Reason: Pain (moderate 4-6) Last Admin: 07/04/20 12:27 Dose: 2 tab Documented by: Alprazolam (Xanax) 0.5 mg PO BID [facility] Last Admin: 07/04/20 08:54 Dose: 0.5 mg Documented by: Dextrose/Water (Dextrose 50% In Water) 50 ml IV ASDIRECTED PRN PRN Reason: Hypoglycemia Glucagon (Glucagen) 1 mg IM ASDIRECTED PRN PRN Reason: Hypoglycemia Hydromorphone HCl (Dilaudid) 0.5 mg IVPUSH Q2H PRN PRN Reason: Pain (severe 7-10) Last Admin: 07/04/20 10:54 Dose: 0.5 mg Documented by: Piperacillin Sod/Tazobactam (Sod 3.375 gm/ Sodium Chloride) 50 mls @ 100 mls/hr IV Q6H [facility] Last Admin: 07/04/20 12:27 Dose: 100 mls/hr Documented by: Lactated Ringer's (Ringers, Lactated) 1,000 mls @ 125 mls/hr IV ASDIRECTED [facility] Last Admin: 07/04/20 09:35 Dose: 125 mls/hr Documented by: Ibuprofen (Motrin) 400 mg PO Q6H [facility] Last Admin: 07/04/20 12:26 Dose: 400 mg Documented by: Insulin Aspart (Novolog) 0 unit SUBCUT TIDAC [facility]; Protocol Insulin Glargine (Lantus Solostar) 28 units SUBCUT BEDTIME [facility] Last Admin: 07/03/20 20:15 Dose: 28 units Documented by: Miconazole (Miconazole 2% Vaginal) 1 gm TOP BID PRN PRN Reason: Itching Last Admin: 07/04/20 11:44 Dose: 1 applic Documented by: Nicotine (Habitrol) 14 mg TRDERM DAILY [facility] Last Admin: 07/04/20 08:54 Dose: 14 mg Documented by: Ondansetron HCl (Zofran) 4 mg IVPUSH Q4H PRN PRN Reason: Nausea Last Admin: 07/04/20 08:05 Dose: 4 mg Documented by: Oxybutynin Chloride (Oxybutynin) 5 mg PO Q12H [facility] Last Admin: 07/04/20 00:20 Dose: 5 mg Documented by: Rosuvastatin Calcium (Crestor) 40 mg PO DAILY [facility] Last Admin: 07/04/20 08:54 Dose: 40 mg Documented by: Sodium Chloride (Saline Flush) 10 ml FLUSH ASDIRECTED PRN PRN Reason: Keep Vein Open Last Admin: 06/29/20 21:50 Dose: 10 ml Documented by: Sodium Chloride (Saline Flush) 2.5 ml FLUSH ASDIRECTED PRN PRN Reason: Keep Vein Open Last Admin: 06/29/20 21:50 Dose: 2.5 ml Documented by: Trazodone HCl (Trazodone) 100 mg PO BEDTIME PRN PRN Reason: Insomnia Last Admin: 07/03/20 21:19 Dose: 100 mg Documented by: Discontinued Medications Dextrose/Water (Dextrose 50% In Water) 50 ml IVPUSH ONETIME ONE Stop: 07/04/20 07:27 Last Admin: 07/04/20 08:10 Dose: Not Given Documented by: Diphenhydramine HCl (Benadryl) 25 mg PO ONETIME ONE Stop: 07/01/20 19:50 Last Admin: 07/01/20 20:16 Dose: 25 mg Documented by: Diphenhydramine HCl (Benadryl) 25 mg PO ONETIME ONE Stop: 07/02/20 14:47 Last Admin: 07/02/20 14:57 Dose: 25 mg Documented by: Fluconazole (Diflucan) 150 mg PO ONETIME ONE Stop: 07/02/20 11:41 Last Admin: 07/02/20 13:38 Dose: Not Given Documented by: Fluconazole (Diflucan) 150 mg PO ONETIME ONE Stop: 07/02/20 13:31 Last Admin: 07/02/20 13:38 Dose: 150 mg Documented by: Sodium Chloride (Normal Saline) 1,000 mls @ 999 mls/hr IV ASDIRECTED [facility] Last Admin: 06/29/20 21:46 Dose: 999 mls/hr Documented by: Piperacillin Sod/Tazobactam (Sod 4.5 gm/ Sodium Chloride) 100 mls @ 100 mls/hr IV ONETIME ONE Stop: 06/30/20 00:19 Last Admin: 06/29/20 23:28 Dose: 100 mls/hr Documented by: Lactated Ringer's (Ringers, Lactated) 1,000 mls @ 60 mls/hr IV ASDIRECTED [facility] Last Infusion: 07/03/20 17:13 Dose: 125 mls/hr Documented by: Lactated Ringer's (Ringers, Lactated) 1,000 mls @ 999 mls/hr IV .BOLUS ONE Stop: 07/03/20 12:32 Last Admin: 07/03/20 11:52 Dose: 999 mls/hr Documented by: [facility]) [facility] Protocol Last Admin: 07/03/20 13:41 Dose: Not Given Documented by: Insulin Aspart (Novolog) [facility] Last Admin: 07/02/20 08:55 Dose: Not Given Documented by: Insulin Aspart (Novolog) [facility] Last Admin: 07/03/20 13:47 Dose: 6 units Documented by: Insulin Aspart (Novolog) 0 unit SUBCUT Q6H [facility]; Protocol Last Admin: 07/03/20 15:42 Dose: Not Given Documented by: Insulin Aspart (Novolog) 0 unit SUBCUT Q6H [facility]; Protocol Last Admin: 07/03/20 18:42 Dose: Not Given Documented by: Insulin Aspart (Novolog) 0 unit SUBCUT Q6H [facility]; Protocol Last Admin: 07/04/20 04:51 Dose: Not Given Documented by: Insulin Glargine (Lantus Solostar) 10 units SUBCUT ONETIME ONE Stop: 06/30/20 10:00 Last Admin: 06/30/20 10:44 Dose: 10 units Documented by: Insulin Glargine (Lantus Solostar) 10 units SUBCUT BEDTIME [facility] Last Admin: 06/30/20 20:17 Dose: 10 units Documented by: Insulin Glargine (Lantus Solostar) 35 units SUBCUT BEDTIME [facility] Last Admin: 07/01/20 22:19 Dose: 35 units Documented by: Insulin Glargine (Lantus Solostar) 38 units SUBCUT BEDTIME [facility] Last Admin: 07/02/20 21:39 Dose: 38 units Documented by: Iopamidol (Isovue-370 (76%)) 75 ml IVPUSH ONETIME STA Stop: 06/29/20 22:30 Last Admin: 06/29/20 22:30 Dose: 75 ml Documented by: Iopamidol (Isovue Multipack-370 (76%)) 100 ml IVPUSH ONETIME STA Stop: 07/03/20 11:41 Last Admin: 07/03/20 11:45 Dose: 100 ml Documented by: Lisinopril (Prinivil) 10 mg PO DAILY [facility] Last Admin: 07/03/20 09:11 Dose: Not Given Documented by: Morphine Sulfate (Morphine) 4 mg IVPUSH ONETIME ONE Stop: 06/29/20 21:29 Last Admin: 06/29/20 21:48 Dose: 4 mg Documented by: Morphine Sulfate (Morphine) 4 mg IVPUSH ONETIME ONE Stop: 06/29/20 23:16 Last Admin: 06/29/20 23:20 Dose: 4 mg Documented by: Ondansetron HCl (Zofran) 4 mg IVPUSH ONETIME ONE Stop: 06/29/20 21:29 Last Admin: 06/29/20 21:47 Dose: 4 mg Documented by: Senna/Docusate Sodium (Senna Plus) 1 tab PO BID [facility] Last Admin: 07/03/20 15:42 Dose: Not Given Documented by: Sepsis Event Note - Focused Exam Vital Signs: Vital Signs Temp Pulse Resp BP Pulse Ox 07/04/20 12:38 36.8 C 54 L 16 92/44 L 94 L 07/04/20 07:05 36.2 C 66 16 90/55 L 95 07/04/20 04:11 36.3 C 59 L 16 96/55 L 95 Consult PN Assessment/Plan Procedures: Procedures ASSAY OF AMYLASE (02/07/15) ASSAY OF LACTIC ACID (06/23/20) ASSAY OF LIPASE (10/27/18) ASSAY OF MAGNESIUM (06/23/20) ASSAY OF TROPONIN QUANT (10/27/18) ASSAY THYROID STIM HORMONE (10/04/19) BLOOD CULTURE FOR BACTERIA (06/23/20) BLOOD GASES ANY COMBINATION (02/08/15) BLOOD TYPING SEROLOGIC ABO (06/23/20) BLOOD TYPING SEROLOGIC RH(D) (06/23/20) EDWIN DNA DIR PROBE (05/17/19) CHEST X-RAY 1 VIEW FRONTAL (06/26/17) CHEST X-RAY 2VW FRONTAL&LATL (07/08/17) CHORIONIC GONADOTROPIN ASSAY (01/07/15) COMPLETE CBC AUTOMATED (04/05/17) COMPLETE CBC W/AUTO DIFF WBC (06/23/20) COMPREHEN METABOLIC PANEL (06/23/20) CT ABD & PELV W/CONTRAST (06/23/20) CT HEAD/BRAIN W/O DYE (07/10/18) CULTURE OTHR SPECIMN AEROBIC (10/20/17) DRUG TEST PRSMV DIR OPT OBS (04/23/20) ECHO EXAM OF ABDOMEN (10/27/18) ELECTROCARDIOGRAM TRACING (10/27/18) EMERGENCY DEPT VISIT (06/23/20) EMERGENCY DEPT VISIT (07/10/18) EMERGENCY DEPT VISIT (11/13/17) EMERGENCY DEPT VISIT (08/19/17) EMERGENCY DEPT VISIT (06/26/17) EMERGENCY DEPT VISIT (06/22/17) EMERGENCY DEPT VISIT (06/04/17) EMERGENCY DEPT VISIT (02/27/17) EMERGENCY DEPT VISIT (01/03/17) EMERGENCY DEPT VISIT (07/02/16) EMERGENCY DEPT VISIT (08/28/15) EMERGENCY DEPT VISIT (01/07/15) EMERGENCY DEPT VISIT (06/12/14) PINEDA VAG DNA DIR PROBE (05/17/19) GASTRIC EMPTYING IMAG STUDY (02/11/15) GLUCOSE BLOOD TEST (06/23/20) GLYCOSYLATED HEMOGLOBIN TEST (06/23/20) HELICOBACTER PYLORI ANTIBODY (11/18/16) HOT OR COLD PACKS THERAPY (12/27/14) HYDRATE IV INFUSION ADD-ON (11/13/17) HYDRATION IV INFUSION INIT (07/10/18) INCISION OF TENDON & MUSCLE (10/21/16) INFLUENZA ASSAY W/OPTIC (10/20/17) LIPID PANEL (04/23/20) MANUAL THERAPY 1/> REGIONS (01/25/15) MASSAGE THERAPY (01/25/15) METABOLIC PANEL TOTAL CA (06/23/20) MRI JOINT UPR EXTREM W/O DYE (06/17/20) MRI LUMBAR SPINE W/O DYE (01/12/17) NJX INTERLAMINAR LMBR/SAC (02/02/17) OFFICE/OUTPATIENT VISIT EST (05/27/20) PROTHROMBIN TIME (06/23/20) PT EVAL LOW COMPLEX 20 MIN (06/30/17) PT EVALUATION (12/27/14) RBC ANTIBODY SCREEN (06/23/20) ROUTINE VENIPUNCTURE (06/23/20) SARS-COV2 COVID-19 AMP PRB (06/23/20) SHOULDER ARTHROSCOPY/SURGERY (10/21/16) SMEAR WET [place] SALINE/INK (08/10/16) TEST FOR ACETONE/KETONES (07/10/18) THER/PROPH/DIAG INJ IV PUSH (02/27/17) THER/PROPH/DIAG INJ SC/IM (07/10/18) THER/PROPH/DIAG IV INF INIT (06/23/20) THERAPEUTIC ACTIVITIES (12/27/14) THERAPEUTIC EXERCISES (03/26/17) TISSUE EXAM BY PATHOLOGIST (06/23/20) TRICHOMONAS VAGIN DIR PROBE (05/17/19) TX/PRO/DX INJ NEW DRUG ADDON (06/23/20) TX/PRO/DX INJ SAME DRUG RETAIL POS SPECIALIST (06/26/17) ULTRASOUND THERAPY (03/26/17) UR ALBUMIN SEMIQUANTITATIVE (04/23/20) URINALYSIS AUTO W/O SCOPE (06/23/20) URINALYSIS AUTO W/SCOPE (01/20/19) URINE CULTURE/COLONY COUNT (01/20/19) URINE TEST (02/27/17) VIT D 1 25-DIHYDROXY (04/05/17) WITHDRAWAL OF ARTERIAL BLOOD (02/08/15) X-RAY EXAM ABDOMEN 1 VIEW (10/04/19) X-RAY EXAM CHEST 1 VIEW (10/27/18) X-RAY EXAM L-S SPINE 2/3 VWS (12/07/17) X-RAY EXAM NECK SPINE 2-3 VW (08/01/19) X-RAY EXAM OF ANKLE (07/18/16) X-RAY EXAM OF ELBOW (01/09/20) X-RAY EXAM OF SHOULDER (05/27/20) My Orders Last 24 Hours: My Active Orders 07/04/20 Lunch Soft Diet [DIET] Plan: I have seen and evaluated the patient and agree with the residents note unless specified in my note
[2020-07-03] MEDS: Ibuprofen 400 MG Tab PO SCH ×2 (14:35→18:52)
[2020-07-03] MEDS: Insulin Glargine,Human Rec. Analog 100 Units/ML 3 ML Pen SUBCUT SCH (20:15)
[2020-07-03] MEDS: traZODone 50 MG Tab PO PRN (21:19)
[2020-07-04] MEDS: Oxybutynin 5 MG Tab PO SCH ×2 (00:20→14:05)
[2020-07-04] MEDS: HYDROmorphone 2 MG/ML Syringe IVPUSH PRN ×5 (00:20→20:14)
[2020-07-04] MEDS: Ibuprofen 400 MG Tab PO SCH ×4 (00:24→18:10)
[2020-07-04] MEDS: Acetaminophen/HYDROcodone 325-5 MG Tab PO PRN ×5 (03:34→21:37)
[2020-07-04] MEDS: Piperacillin/Tazobactam 3.375 GM in Sodium Chloride 0.9% 50 ML IV SCH ×4 (04:50→18:14)
[2020-07-04] MEDS: Insulin Aspart 100 Units/ML 3 ML Pen SUBCUT SCH ×3 (04:51→18:13)
[2020-07-04 06:55] LABS: BLOOD UREA NITROGEN,BUN 8 mg/dL (7.0-18.0); CARBON DIOXIDE,CO2 28.5 mmol/L (21.0-32.0); CHLORIDE,CL 106 mmol/L (98-107); GLUCOSE RANDOM 64 mg/dL (74-106); POTASSIUM,K 3.6 mmol/L (3.5-5.1); SODIUM,NA 140 mmol/L (136-145)
[2020-07-04] MEDS ORDERED: 50% Dextrose in Water 50 ML Syringe IVPUSH ONE (07:26)
[2020-07-04] MEDS: Ondansetron 4 MG/2 ML SDV IVPUSH PRN ×2 (08:05→21:44)
--- NOTE | 2020-07-04 08:41 | PCM.SURGPN ---
- General Info Date of Service: 07/04/20 POD#: 9 Functional Status: Reports: Pain Controlled, Ambulating, Urinating. Denies: New Symptoms - Review of Systems General: Reports: No Symptoms HEENT: Reports: No Symptoms Pulmonary: Reports: No Symptoms Cardiovascular: Reports: No Symptoms Gastrointestinal: Reports: Flatus. Denies: Constipation, Nausea, Vomiting Genitourinary: Reports: No Symptoms Musculoskeletal: Reports: No Symptoms Skin: Reports: No Symptoms - Patient Data Vitals - Most Recent: Last Vital Signs Temp 36.2 C 07/04/20 07:05 Pulse 66 07/04/20 07:05 Resp 16 07/04/20 07:05 BP 90/55 L 07/04/20 07:05 Pulse Ox 95 07/04/20 07:05 Weight - Most Recent: 62.4 kg I&O - Last 24 Hours: Intake & Output 07/03/20 07/04/20 07/04/20 22:59 06:59 14:59 Intake Total 1226 10 Output Total 1200 1250 Balance 26 -1240 Lab Results Last 24 Hrs: Laboratory Results - last 24 hr 07/03/20 07/03/20 07/03/20 Range/Units 12:00 18:34 23:44 WBC (4.0-11.0) K/uL RBC (4.30-5.90) M/uL Hgb (12.0-16.0) g/dL Hct (36.0-46.0) % MCV (80.0-98.0) fL MCH (27.0-32.0) pg MCHC (31.0-37.0) g/dL RDW Std Deviation (28.0-62.0) fl RDW Coeff of Haley (11.0-15.0) % Plt Count (150-400) K/uL MPV (7.40-12.00) fL Neut % (Auto) (48.0-80.0) % Lymph % (Auto) (16.0-40.0) % Amite % (Auto) (0.0-15.0) % Eos % (Auto) (0.0-7.0) % Baso % (Auto) (0.0-1.5) % Neut # (Auto) (1.4-5.7) K/uL Lymph # (Auto) (0.6-2.4) K/uL Amite # (Auto) (0.0-0.8) K/uL Eos # (Auto) (0.0-0.7) K/uL Baso # (Auto) (0.0-0.1) K/uL Nucleated RBC % /100WBC Nucleated RBCs # K/uL Sodium (136-145) mmol/L Potassium (3.5-5.1) mmol/L Chloride (98-107) mmol/L Carbon Dioxide (21.0-32.0) mmol/L BUN (7.0-18.0) mg/dL Creatinine (0.6-1.0) mg/dL Est Cr Clr Drug Dosing mL/min Estimated GFR (MDRD) ml/min Glucose (74-106) mg/dL POC Glucose 131 H 91 67 (60-110) mg/dL Calcium (8.5-10.1) mg/dL Phosphorus (2.6-4.7) mg/dL Magnesium (1.8-2.4) mg/dL Total Bilirubin (0.2-1.0) mg/dL AST (15-37) IU/L ALT (14-63) IU/L Alkaline Phosphatase (46-116) U/L Total Protein (6.4-8.2) g/dL Albumin (3.4-5.0) g/dL Globulin (2.6-4.0) g/dL Albumin/Globulin Ratio (0.9-1.6) 07/04/20 07/04/20 07/04/20 Range/Units 00:18 04:49 05:14 WBC 12.11 H (4.0-11.0) K/uL RBC 3.60 L (4.30-5.90) M/uL Hgb 10.9 L (12.0-16.0) g/dL Hct 34.3 L (36.0-46.0) % MCV 95.3 (80.0-98.0) fL MCH 30.3 (27.0-32.0) pg MCHC 31.8 (31.0-37.0) g/dL RDW Std Deviation 45.0 (28.0-62.0) fl RDW Coeff of Haley 13 (11.0-15.0) % Plt Count 408 H (150-400) K/uL MPV 9.20 (7.40-12.00) fL Neut % (Auto) 58.7 (48.0-80.0) % Lymph % (Auto) 35.7 (16.0-40.0) % Amite % (Auto) 4.1 (0.0-15.0) % Eos % (Auto) 1.3 (0.0-7.0) % Baso % (Auto) 0.2 (0.0-1.5) % Neut # (Auto) 7.1 H (1.4-5.7) K/uL Lymph # (Auto) 4.3 H (0.6-2.4) K/uL Amite # (Auto) 0.5 (0.0-0.8) K/uL Eos # (Auto) 0.2 (0.0-0.7) K/uL Baso # (Auto) 0.0 (0.0-0.1) K/uL Nucleated RBC % 0.0 /100WBC Nucleated RBCs # 0 K/uL Sodium (136-145) mmol/L Potassium (3.5-5.1) mmol/L Chloride (98-107) mmol/L Carbon Dioxide (21.0-32.0) mmol/L BUN (7.0-18.0) mg/dL Creatinine (0.6-1.0) mg/dL Est Cr Clr Drug Dosing mL/min Estimated GFR (MDRD) ml/min Glucose (74-106) mg/dL POC Glucose 92 70 (60-110) mg/dL Calcium (8.5-10.1) mg/dL Phosphorus (2.6-4.7) mg/dL Magnesium (1.8-2.4) mg/dL Total Bilirubin (0.2-1.0) mg/dL AST (15-37) IU/L ALT (14-63) IU/L Alkaline Phosphatase (46-116) U/L Total Protein (6.4-8.2) g/dL Albumin (3.4-5.0) g/dL Globulin (2.6-4.0) g/dL Albumin/Globulin Ratio (0.9-1.6) 07/04/20 07/04/20 Range/Units 05:14 05:49 WBC (4.0-11.0) K/uL RBC (4.30-5.90) M/uL Hgb (12.0-16.0) g/dL Hct (36.0-46.0) % MCV (80.0-98.0) fL MCH (27.0-32.0) pg MCHC (31.0-37.0) g/dL RDW Std Deviation (28.0-62.0) fl RDW Coeff of Haley (11.0-15.0) % Plt Count (150-400) K/uL MPV (7.40-12.00) fL Neut % (Auto) (48.0-80.0) % Lymph % (Auto) (16.0-40.0) % Amite % (Auto) (0.0-15.0) % Eos % (Auto) (0.0-7.0) % Baso % (Auto) (0.0-1.5) % Neut # (Auto) (1.4-5.7) K/uL Lymph # (Auto) (0.6-2.4) K/uL Amite # (Auto) (0.0-0.8) K/uL Eos # (Auto) (0.0-0.7) K/uL Baso # (Auto) (0.0-0.1) K/uL Nucleated RBC % /100WBC Nucleated RBCs # K/uL Sodium 140 (136-145) mmol/L Potassium 3.6 (3.5-5.1) mmol/L Chloride 106 (98-107) mmol/L Carbon Dioxide 28.5 (21.0-32.0) mmol/L BUN 8 (7.0-18.0) mg/dL Creatinine 0.7 (0.6-1.0) mg/dL Est Cr Clr Drug Dosing 77.73 mL/min Estimated GFR (MDRD) > 60.0 ml/min Glucose 64 L (74-106) mg/dL POC Glucose 65 (60-110) mg/dL Calcium 8.1 L (8.5-10.1) mg/dL Phosphorus 4.4 (2.6-4.7) mg/dL Magnesium 1.8 (1.8-2.4) mg/dL Total Bilirubin 0.2 (0.2-1.0) mg/dL AST 13 L (15-37) IU/L ALT 12 L (14-63) IU/L Alkaline Phosphatase 39 L (46-116) U/L Total Protein 5.0 L (6.4-8.2) g/dL Albumin 2.1 L (3.4-5.0) g/dL Globulin 2.9 (2.6-4.0) g/dL Albumin/Globulin Ratio 0.7 L (0.9-1.6) Med Orders - Current: Current Medications Acetaminophen (Tylenol) 650 mg PO Q4H PRN PRN Reason: Pain (Mild 1-3)/fever Hydrocodone Bitart/Acetaminophen (Lynndyl 325-5 Mg) 2 tab PO Q4H PRN PRN Reason: Pain (moderate 4-6) Last Admin: 07/04/20 08:04 Dose: 2 tab Documented by: Alprazolam (Xanax) 0.5 mg PO BID [facility] Last Admin: 07/03/20 20:06 Dose: 0.5 mg Documented by: Dextrose/Water (Dextrose 50% In Water) 50 ml IV ASDIRECTED PRN PRN Reason: Hypoglycemia Glucagon (Glucagen) 1 mg IM ASDIRECTED PRN PRN Reason: Hypoglycemia Hydromorphone HCl (Dilaudid) 0.5 mg IVPUSH Q2H PRN PRN Reason: Pain (severe 7-10) Last Admin: 07/04/20 00:20 Dose: 0.5 mg Documented by: Piperacillin Sod/Tazobactam (Sod 3.375 gm/ Sodium Chloride) 50 mls @ 100 mls/hr IV Q6H [facility] Last Admin: 07/04/20 07:07 Dose: 100 mls/hr Documented by: Lactated Ringer's (Ringers, Lactated) 1,000 mls @ 125 mls/hr IV ASDIRECTED [facility] Ibuprofen (Motrin) 400 mg PO Q6H [facility] Last Admin: 07/04/20 07:08 Dose: 400 mg Documented by: Insulin Aspart (Novolog) 0 unit SUBCUT Q6H [facility]; Protocol Last Admin: 07/04/20 04:51 Dose: Not Given Documented by: Insulin Glargine (Lantus Solostar) 28 units SUBCUT BEDTIME [facility] Last Admin: 07/03/20 20:15 Dose: 28 units Documented by: Nicotine (Habitrol) 14 mg TRDERM DAILY [facility] Last Admin: 07/03/20 08:51 Dose: 14 mg Documented by: Ondansetron HCl (Zofran) 4 mg IVPUSH Q4H PRN PRN Reason: Nausea Last Admin: 07/04/20 08:05 Dose: 4 mg Documented by: Oxybutynin Chloride (Oxybutynin) 5 mg PO Q12H [facility] Last Admin: 07/04/20 00:20 Dose: 5 mg Documented by: Rosuvastatin Calcium (Crestor) 40 mg PO DAILY [facility] Last Admin: 07/03/20 08:49 Dose: 40 mg Documented by: Sodium Chloride (Saline Flush) 10 ml FLUSH ASDIRECTED PRN PRN Reason: Keep Vein Open Last Admin: 06/29/20 21:50 Dose: 10 ml Documented by: Sodium Chloride (Saline Flush) 2.5 ml FLUSH ASDIRECTED PRN PRN Reason: Keep Vein Open Last Admin: 06/29/20 21:50 Dose: 2.5 ml Documented by: Trazodone HCl (Trazodone) 100 mg PO BEDTIME PRN PRN Reason: Insomnia Last Admin: 07/03/20 21:19 Dose: 100 mg Documented by: Discontinued Medications Dextrose/Water (Dextrose 50% In Water) 50 ml IVPUSH ONETIME ONE Stop: 07/04/20 07:27 Last Admin: 07/04/20 08:10 Dose: Not Given Documented by: Diphenhydramine HCl (Benadryl) 25 mg PO ONETIME ONE Stop: 07/01/20 19:50 Last Admin: 07/01/20 20:16 Dose: 25 mg Documented by: Diphenhydramine HCl (Benadryl) 25 mg PO ONETIME ONE Stop: 07/02/20 14:47 Last Admin: 07/02/20 14:57 Dose: 25 mg Documented by: Fluconazole (Diflucan) 150 mg PO ONETIME ONE Stop: 07/02/20 11:41 Last Admin: 07/02/20 13:38 Dose: Not Given Documented by: Fluconazole (Diflucan) 150 mg PO ONETIME ONE Stop: 07/02/20 13:31 Last Admin: 07/02/20 13:38 Dose: 150 mg Documented by: Sodium Chloride (Normal Saline) 1,000 mls @ 999 mls/hr IV ASDIRECTED [facility] Last Admin: 06/29/20 21:46 Dose: 999 mls/hr Documented by: Piperacillin Sod/Tazobactam (Sod 4.5 gm/ Sodium Chloride) 100 mls @ 100 mls/hr IV ONETIME ONE Stop: 06/30/20 00:19 Last Admin: 06/29/20 23:28 Dose: 100 mls/hr Documented by: Lactated Ringer's (Ringers, Lactated) 1,000 mls @ 60 mls/hr IV ASDIRECTED [facility] Last Infusion: 07/03/20 17:13 Dose: 125 mls/hr Documented by: Lactated Ringer's (Ringers, Lactated) 1,000 mls @ 999 mls/hr IV .BOLUS ONE Stop: 07/03/20 12:32 Last Admin: 07/03/20 11:52 Dose: 999 mls/hr Documented by: Insulin Aspart (Novolog) 0 unit SUBCUT [facility]; Protocol Last Admin: 07/03/20 13:41 Dose: Not Given Documented by: Insulin Aspart (Novolog) 5 unit SUBCUT [facility] Last Admin: 07/02/20 08:55 Dose: Not Given Documented by: Insulin Aspart (Novolog) 6 unit SUBCUT [facility] Last Admin: 07/03/20 13:47 Dose: 6 units Documented by: Insulin Aspart (Novolog) 0 unit SUBCUT Q6H [facility]; Protocol Last Admin: 07/03/20 15:42 Dose: Not Given Documented by: Insulin Aspart (Novolog) 0 unit SUBCUT Q6H [facility]; Protocol Last Admin: 07/03/20 18:42 Dose: Not Given Documented by: Insulin Glargine (Lantus Solostar) 10 units SUBCUT ONETIME ONE Stop: 06/30/20 10:00 Last Admin: 06/30/20 10:44 Dose: 10 units Documented by: Insulin Glargine (Lantus Solostar) 10 units SUBCUT BEDTIME [facility] Last Admin: 06/30/20 20:17 Dose: 10 units Documented by: Insulin Glargine (Lantus Solostar) 35 units SUBCUT BEDTIME [facility] Last Admin: 07/01/20 22:19 Dose: 35 units Documented by: Insulin Glargine (Lantus Solostar) 38 units SUBCUT BEDTIME [facility] Last Admin: 07/02/20 21:39 Dose: 38 units Documented by: Iopamidol (Isovue-370 (76%)) 75 ml IVPUSH ONETIME STA Stop: 06/29/20 22:30 Last Admin: 06/29/20 22:30 Dose: 75 ml Documented by: Iopamidol (Isovue Multipack-370 (76%)) 100 ml IVPUSH ONETIME STA Stop: 07/03/20 11:41 Last Admin: 07/03/20 11:45 Dose: 100 ml Documented by: Lisinopril (Prinivil) 10 mg PO DAILY [facility] Last Admin: 07/03/20 09:11 Dose: Not Given Documented by: Morphine Sulfate (Morphine) 4 mg IVPUSH ONETIME ONE Stop: 06/29/20 21:29 Last Admin: 06/29/20 21:48 Dose: 4 mg Documented by: Morphine Sulfate (Morphine) 4 mg IVPUSH ONETIME ONE Stop: 06/29/20 23:16 Last Admin: 06/29/20 23:20 Dose: 4 mg Documented by: Ondansetron HCl (Zofran) 4 mg IVPUSH ONETIME ONE Stop: 06/29/20 21:29 Last Admin: 06/29/20 21:47 Dose: 4 mg Documented by: Senna/Docusate Sodium (Senna Plus) 1 tab PO BID [facility] Last Admin: 07/03/20 15:42 Dose: Not Given Documented by: - Exam Wound/Incisions: Healing Well, Dressing Dry and Intact General: Alert, Oriented, Cooperative HEENT: Pupils Equal, Pupils Reactive Lungs: Normal Respiratory Effort Cardiovascular: Regular Rate GI/Abdominal Exam: Soft, Non-Tender, No Distention, No Mass Skin: Warm, Dry, Intact Psy/Mental Status: Anxious Sepsis Event Note - Evaluation Sepsis Screening Result: No Definite Risk - Focused Exam Vital Signs: Vital Signs Temp Pulse Resp BP Pulse Ox 07/04/20 07:05 36.2 C 66 16 90/55 L 95 07/04/20 04:11 36.3 C 59 L 16 96/55 L 95 07/04/20 00:05 36.9 C 56 L 16 93/52 L 94 L - Problem List & Annotations (1) Abdominal pain SNOMED Code(s): 68583508 Code(s): R10.9 - UNSPECIFIED ABDOMINAL PAIN Status: Acute Current Visit: Yes (2) Abscess after procedure SNOMED Code(s): 76844502663016955 Code(s): T81.49XA - INFECTION FOLLOWING A PROCEDURE, OTHER SURGICAL SITE, INIT Status: Acute Current Visit: Yes (3) Post-operative complication SNOMED Code(s): 664199588 Code(s): T81.9XXA - UNSPECIFIED COMPLICATION OF PROCEDURE, INITIAL ENCOUNTER Status: Acute Current Visit: Yes (4) Uncontrolled diabetes mellitus SNOMED Code(s): 36297872, 565776260 Code(s): E11.65 - TYPE 2 DIABETES MELLITUS WITH HYPERGLYCEMIA Status: Acute Current Visit: Yes Qualifiers: Diabetes mellitus type: type 2 Glycemic state: with hyperglycemia Qualified Code(s): E11.65 - Type 2 diabetes mellitus with hyperglycemia - Problem List Review Problem List Initiated/Reviewed/Updated: Yes - My Orders Last 24 Hours: Active Orders 24 hr Category Date Time Status Accu Check [Blood Glucose Check, Bedside] [RC] Q6H Care 07/03/20 13:50 Active Clear Liquid Diet [DIET] Diet 07/04/20 Breakfast Active Ibuprofen [Motrin] Med 07/03/20 12:45 Active 400 mg PO Q6H Insulin Aspart [NovoLOG] Med 07/03/20 22:23 Active See Protocol SUBCUT Q6H Insulin Glarg,Human.Rec.Analog [LantUS Solostar] Med 07/03/20 21:00 Active 28 units SUBCUT BEDTIME Lactated Ringers [Ringers, Lactated] 1,000 ml Med 07/03/20 14:00 Active IV ASDIRECTED Medication Orders Acetaminophen (Tylenol) 650 mg PO Q4H PRN PRN Reason: Pain (Mild 1-3)/fever Hydrocodone Bitart/Acetaminophen (Lynndyl 325-5 Mg) 2 tab PO Q4H PRN PRN Reason: Pain (moderate 4-6) Last Admin: 07/04/20 08:04 Dose: 2 tab Documented by: Admin: 07/04/20 03:34 Dose: 2 tab Documented by: Admin: 07/03/20 23:02 Dose: 2 tab Documented by: Admin: 07/03/20 18:52 Dose: 2 tab Documented by: Admin: 07/03/20 13:06 Dose: 2 tab Documented by: Admin: 07/03/20 07:52 Dose: 2 tab Documented by: Admin: 07/03/20 02:40 Dose: 2 tab Documented by: Admin: 07/02/20 20:17 Dose: 2 tab Documented by: Admin: 07/02/20 16:17 Dose: 2 tab Documented by: Admin: 07/02/20 11:53 Dose: 2 tab Documented by: EDIE Cosigned by: JAILYN Admin: 07/02/20 06:59 Dose: 2 tab Documented by: Admin: 07/02/20 02:15 Dose: 2 tab Documented by: Admin: 07/01/20 22:15 Dose: 2 tab Documented by: Admin: 07/01/20 18:15 Dose: 2 tab Documented by: Admin: 07/01/20 13:10 Dose: 2 tab Documented by: Admin: 07/01/20 09:02 Dose: 2 tab Documented by: Admin: 07/01/20 04:36 Dose: 2 tab Documented by: Admin: 07/01/20 00:47 Dose: 2 tab Documented by: Admin: 06/30/20 20:15 Dose: 2 tab Documented by: Admin: 06/30/20 15:45 Dose: 2 tab Documented by: Admin: 06/30/20 12:07 Dose: 2 tab Documented by: Admin: 06/30/20 07:03 Dose: 2 tab Documented by: Admin: 06/30/20 02:03 Dose: 2 tab Documented by: TARUN Alprazolam (Xanax) 0.5 mg PO BID [facility] Last Admin: 07/03/20 20:06 Dose: 0.5 mg Documented by: Admin: 07/03/20 08:49 Dose: 0.5 mg Documented by: Admin: 07/02/20 21:38 Dose: 0.5 mg Documented by: Admin: 07/02/20 08:37 Dose: 0.5 mg Documented by: [email or web address] Cosigned by: JAILYN Admin: 07/01/20 22:14 Dose: 0.5 mg Documented by: Admin: 07/01/20 09:40 Dose: 0.5 mg Documented by: AYAAN Dextrose/Water (Dextrose 50% In Water) 50 ml IV ASDIRECTED PRN PRN Reason: Hypoglycemia Glucagon (Glucagen) 1 mg IM ASDIRECTED PRN PRN Reason: Hypoglycemia Hydromorphone HCl (Dilaudid) 0.5 mg IVPUSH Q2H PRN PRN Reason: Pain (severe 7-10) Last Admin: 07/04/20 00:20 Dose: 0.5 mg Documented by: Admin: 07/03/20 21:18 Dose: 0.5 mg Documented by: Admin: 07/03/20 17:27 Dose: 0.5 mg Documented by: Admin: 07/03/20 12:07 Dose: 0.5 mg Documented by: GRAVTIF Piperacillin Sod/Tazobactam (Sod 3.375 gm/ Sodium Chloride) 50 mls @ 100 mls/hr IV Q6H [facility] Last Admin: 07/04/20 07:07 Dose: 100 mls/hr Documented by: Infusion: 07/04/20 07:07 Dose: 100 mls/hr Documented by: Admin: 07/04/20 04:50 Dose: 100 mls/hr Documented by: Infusion: 07/04/20 00:45 Dose: 100 mls/hr Documented by: Admin: 07/03/20 18:54 Dose: 100 mls/hr Documented by: Infusion: 07/03/20 13:28 Dose: 100 mls/hr Documented by: Admin: 07/03/20 12:58 Dose: 100 mls/hr Documented by: Infusion: 07/03/20 06:29 Dose: 100 mls/hr Documented by: Admin: 07/03/20 05:59 Dose: 100 mls/hr Documented by: Infusion: 07/03/20 00:41 Dose: 100 mls/hr Documented by: [email or web address] Admin: 07/03/20 00:11 Dose: 100 mls/hr Documented by: Infusion: 07/02/20 18:50 Dose: 100 mls/hr Documented by: Admin: 07/02/20 18:20 Dose: 100 mls/hr Documented by: Infusion: 07/02/20 13:39 Dose: 100 mls/hr Documented by: [email or web address] Admin: 07/02/20 13:09 Dose: 100 mls/hr Documented by: Infusion: 07/02/20 07:30 Dose: 100 mls/hr Documented by: Admin: 07/02/20 07:00 Dose: 100 mls/hr Documented by: Infusion: 07/02/20 02:24 Dose: 100 mls/hr Documented by: Admin: 07/02/20 01:54 Dose: 100 mls/hr Documented by: Infusion: 07/01/20 19:36 Dose: 100 mls/hr Documented by: Admin: 07/01/20 19:06 Dose: 100 mls/hr Documented by: Infusion: 07/01/20 13:41 Dose: 100 mls/hr Documented by: Admin: 07/01/20 13:11 Dose: 100 mls/hr Documented by: Infusion: 07/01/20 07:21 Dose: 100 mls/hr Documented by: Admin: 07/01/20 06:51 Dose: 100 mls/hr Documented by: Infusion: 07/01/20 01:19 Dose: 100 mls/hr Documented by: Admin: 07/01/20 00:49 Dose: 100 mls/hr Documented by: Infusion: 06/30/20 18:36 Dose: 100 mls/hr Documented by: Admin: 06/30/20 18:06 Dose: 100 mls/hr Documented by: Infusion: 06/30/20 18:06 Dose: 100 mls/hr Documented by: Admin: 06/30/20 12:07 Dose: 100 mls/hr Documented by: Infusion: 06/30/20 07:42 Dose: 100 mls/hr Documented by: Admin: 06/30/20 07:12 Dose: 100 mls/hr Documented by: Infusion: 06/30/20 02:42 Dose: 100 mls/hr Documented by: Admin: 06/30/20 02:12 Dose: 100 mls/hr Documented by: TARUN Lactated Ringer's (Ringers, Lactated) 1,000 mls @ 125 mls/hr IV ASDIRECTED [facility] Ibuprofen (Motrin) 400 mg PO Q6H [facility] Last Admin: 07/04/20 07:08 Dose: 400 mg Documented by: Admin: 07/04/20 00:24 Dose: 400 mg Documented by: Admin: 07/03/20 18:52 Dose: 400 mg Documented by: Admin: 07/03/20 14:35 Dose: 400 mg Documented by: DOMINGO Insulin Aspart (Novolog) 0 unit SUBCUT Q6H [facility]; Protocol Last Admin: 07/04/20 04:51 Dose: Not Given Documented by: Admin: 07/03/20 23:30 Dose: Not Given Documented by: PROFLUC Insulin Glargine (Lantus Solostar) 28 units SUBCUT BEDTIME [facility] Last Admin: 07/03/20 20:15 Dose: 28 units Documented by: PROFLUC Nicotine (Habitrol) 14 mg TRDERM DAILY [facility] Last Admin: 07/03/20 08:51 Dose: 14 mg Documented by: Admin: 07/02/20 08:40 Dose: 14 mg Documented by: EDIE Cosigned by: JAILYN Admin: 07/01/20 09:40 Dose: 14 mg Documented by: AYAAN Ondansetron HCl (Zofran) 4 mg IVPUSH Q4H PRN PRN Reason: Nausea Last Admin: 07/04/20 08:05 Dose: 4 mg Documented by: Admin: 07/03/20 21:29 Dose: 4 mg Documented by: Admin: 07/03/20 17:26 Dose: 4 mg Documented by: Admin: 07/03/20 08:52 Dose: 4 mg Documented by: Admin: 07/02/20 11:53 Dose: 4 mg Documented by: EDIE Cosigned by: JAILYN Admin: 07/01/20 22:25 Dose: 4 mg Documented by: Admin: 07/01/20 09:02 Dose: 4 mg Documented by: AYAAN Oxybutynin Chloride (Oxybutynin) 5 mg PO Q12H [facility] Admin: 07/04/20 00:20 Dose: 5 mg Documented by: Admin: 07/03/20 14:36 Dose: 5 mg Documented by: Admin: 07/03/20 00:07 Dose: 5 mg Documented by: Admin: 07/02/20 13:12 Dose: 5 mg Documented by: Admin: 07/02/20 01:53 Dose: 5 mg Documented by: Admin: 07/01/20 13:11 Dose: 5 mg Documented by: Admin: 07/01/20 00:47 Dose: 5 mg Documented by: Admin: 06/30/20 13:46 Dose: 5 mg Documented by: Admin: 06/30/20 02:06 Dose: 5 mg Documented by: TARUN Rosuvastatin Calcium (Crestor) 40 mg PO DAILY [facility] Admin: 07/03/20 08:49 Dose: 40 mg Documented by: Admin: 07/02/20 08:38 Dose: 40 mg Documented by: EDIE Cosigned by: JAILYN Admin: 07/01/20 09:03 Dose: 40 mg Documented by: Admin: 06/30/20 08:39 Dose: 40 mg Documented by: SPRING Sodium Chloride (Saline Flush) 10 ml FLUSH ASDIRECTED PRN PRN Reason: Keep Vein Open Last Admin: 06/29/20 21:50 Dose: 10 ml Documented by: JESSICA Sodium Chloride (Saline Flush) 2.5 ml FLUSH ASDIRECTED PRN PRN Reason: Keep Vein Open Last Admin: 06/29/20 21:50 Dose: 2.5 ml Documented by: JESSICA Trazodone HCl (Trazodone) 100 mg PO BEDTIME PRN PRN Reason: Insomnia Last Admin: 07/03/20 21:19 Dose: 100 mg Documented by: Admin: 07/02/20 21:38 Dose: 100 mg Documented by: XAVI Rodriguez Plan (Free Text/Narrative):: Patients abdomen feels much softer this morning. SHe had a very large BM this morning and is hungry. Will slowly advance diet. WBC coming down as well. Continue IV antibiotics for now.
[2020-07-04] MEDS: ALPRAZolam 0.5 MG Tab PO SCH ×2 (08:54→20:12)
[2020-07-04] MEDS: Rosuvastatin 10 MG Tab PO SCH (08:54)
[2020-07-04] MEDS: Nicotine 14 MG/24 Hr Patch TRDERM SCH (08:54)
--- NOTE | 2020-07-04 08:56 | PCM.CONSN ---
<Shai Miller M - Last Filed: 07/04/20 10:59> - General Info Date of Service: 07/04/20 Subjective Update: Reports having large bowel movement this morning and improved abdominal pain. Denies fevers or chills overnight. Per general surgery, patient will be advance to clear liquid diet today. - Patient Data Vitals - Most Recent: Last Vital Signs Temp 36.2 C 07/04/20 07:05 Pulse 66 07/04/20 07:05 Resp 16 07/04/20 07:05 BP 90/55 L 07/04/20 07:05 Pulse Ox 95 07/04/20 07:05 Weight - Most Recent: 62.4 kg I&O - Last 24 Hours: Intake & Output 07/03/20 07/04/20 07/04/20 22:59 06:59 14:59 Intake Total 1226 10 Output Total 1200 1250 Balance 26 -1240 Lab Results Last 24 Hours: Laboratory Results - last 24 hr 07/03/20 07/03/20 07/03/20 Range/Units 12:00 18:34 23:44 WBC (4.0-11.0) K/uL RBC (4.30-5.90) M/uL Hgb (12.0-16.0) g/dL Hct (36.0-46.0) % MCV (80.0-98.0) fL MCH (27.0-32.0) pg MCHC (31.0-37.0) g/dL RDW Std Deviation (28.0-62.0) fl RDW Coeff of Haley (11.0-15.0) % Plt Count (150-400) K/uL MPV (7.40-12.00) fL Neut % (Auto) (48.0-80.0) % Lymph % (Auto) (16.0-40.0) % Rogers % (Auto) (0.0-15.0) % Eos % (Auto) (0.0-7.0) % Baso % (Auto) (0.0-1.5) % Neut # (Auto) (1.4-5.7) K/uL Lymph # (Auto) (0.6-2.4) K/uL Rogers # (Auto) (0.0-0.8) K/uL Eos # (Auto) (0.0-0.7) K/uL Baso # (Auto) (0.0-0.1) K/uL Nucleated RBC % /100WBC Nucleated RBCs # K/uL Sodium (136-145) mmol/L Potassium (3.5-5.1) mmol/L Chloride (98-107) mmol/L Carbon Dioxide (21.0-32.0) mmol/L BUN (7.0-18.0) mg/dL Creatinine (0.6-1.0) mg/dL Est Cr Clr Drug Dosing mL/min Estimated GFR (MDRD) ml/min Glucose (74-106) mg/dL POC Glucose 131 H 91 67 (60-110) mg/dL Calcium (8.5-10.1) mg/dL Phosphorus (2.6-4.7) mg/dL Magnesium (1.8-2.4) mg/dL Total Bilirubin (0.2-1.0) mg/dL AST (15-37) IU/L ALT (14-63) IU/L Alkaline Phosphatase (46-116) U/L Total Protein (6.4-8.2) g/dL Albumin (3.4-5.0) g/dL Globulin (2.6-4.0) g/dL Albumin/Globulin Ratio (0.9-1.6) 07/04/20 07/04/20 07/04/20 Range/Units 00:18 04:49 05:14 WBC 12.11 H (4.0-11.0) K/uL RBC 3.60 L (4.30-5.90) M/uL Hgb 10.9 L (12.0-16.0) g/dL Hct 34.3 L (36.0-46.0) % MCV 95.3 (80.0-98.0) fL MCH 30.3 (27.0-32.0) pg MCHC 31.8 (31.0-37.0) g/dL RDW Std Deviation 45.0 (28.0-62.0) fl RDW Coeff of Haley 13 (11.0-15.0) % Plt Count 408 H (150-400) K/uL MPV 9.20 (7.40-12.00) fL Neut % (Auto) 58.7 (48.0-80.0) % Lymph % (Auto) 35.7 (16.0-40.0) % Rogers % (Auto) 4.1 (0.0-15.0) % Eos % (Auto) 1.3 (0.0-7.0) % Baso % (Auto) 0.2 (0.0-1.5) % Neut # (Auto) 7.1 H (1.4-5.7) K/uL Lymph # (Auto) 4.3 H (0.6-2.4) K/uL Rogers # (Auto) 0.5 (0.0-0.8) K/uL Eos # (Auto) 0.2 (0.0-0.7) K/uL Baso # (Auto) 0.0 (0.0-0.1) K/uL Nucleated RBC % 0.0 /100WBC Nucleated RBCs # 0 K/uL Sodium (136-145) mmol/L Potassium (3.5-5.1) mmol/L Chloride (98-107) mmol/L Carbon Dioxide (21.0-32.0) mmol/L BUN (7.0-18.0) mg/dL Creatinine (0.6-1.0) mg/dL Est Cr Clr Drug Dosing mL/min Estimated GFR (MDRD) ml/min Glucose (74-106) mg/dL POC Glucose 92 70 (60-110) mg/dL Calcium (8.5-10.1) mg/dL Phosphorus (2.6-4.7) mg/dL Magnesium (1.8-2.4) mg/dL Total Bilirubin (0.2-1.0) mg/dL AST (15-37) IU/L ALT (14-63) IU/L Alkaline Phosphatase (46-116) U/L Total Protein (6.4-8.2) g/dL Albumin (3.4-5.0) g/dL Globulin (2.6-4.0) g/dL Albumin/Globulin Ratio (0.9-1.6) 07/04/20 07/04/20 Range/Units 05:14 05:49 WBC (4.0-11.0) K/uL RBC (4.30-5.90) M/uL Hgb (12.0-16.0) g/dL Hct (36.0-46.0) % MCV (80.0-98.0) fL MCH (27.0-32.0) pg MCHC (31.0-37.0) g/dL RDW Std Deviation (28.0-62.0) fl RDW Coeff of Haley (11.0-15.0) % Plt Count (150-400) K/uL MPV (7.40-12.00) fL Neut % (Auto) (48.0-80.0) % Lymph % (Auto) (16.0-40.0) % Rogers % (Auto) (0.0-15.0) % Eos % (Auto) (0.0-7.0) % Baso % (Auto) (0.0-1.5) % Neut # (Auto) (1.4-5.7) K/uL Lymph # (Auto) (0.6-2.4) K/uL Rogers # (Auto) (0.0-0.8) K/uL Eos # (Auto) (0.0-0.7) K/uL Baso # (Auto) (0.0-0.1) K/uL Nucleated RBC % /100WBC Nucleated RBCs # K/uL Sodium 140 (136-145) mmol/L Potassium 3.6 (3.5-5.1) mmol/L Chloride 106 (98-107) mmol/L Carbon Dioxide 28.5 (21.0-32.0) mmol/L BUN 8 (7.0-18.0) mg/dL Creatinine 0.7 (0.6-1.0) mg/dL Est Cr Clr Drug Dosing 77.73 mL/min Estimated GFR (MDRD) > 60.0 ml/min Glucose 64 L (74-106) mg/dL POC Glucose 65 (60-110) mg/dL Calcium 8.1 L (8.5-10.1) mg/dL Phosphorus 4.4 (2.6-4.7) mg/dL Magnesium 1.8 (1.8-2.4) mg/dL Total Bilirubin 0.2 (0.2-1.0) mg/dL AST 13 L (15-37) IU/L ALT 12 L (14-63) IU/L Alkaline Phosphatase 39 L (46-116) U/L Total Protein 5.0 L (6.4-8.2) g/dL Albumin 2.1 L (3.4-5.0) g/dL Globulin 2.9 (2.6-4.0) g/dL Albumin/Globulin Ratio 0.7 L (0.9-1.6) Med Orders - Current: Current Medications Acetaminophen (Tylenol) 650 mg PO Q4H PRN PRN Reason: Pain (Mild 1-3)/fever Hydrocodone Bitart/Acetaminophen ([place] 325-5 Mg) 2 tab PO Q4H PRN PRN Reason: Pain (moderate 4-6) Last Admin: 07/04/20 08:04 Dose: 2 tab Documented by: Alprazolam (Xanax) 0.5 mg PO BID ON LICENSE OF [facility] Last Admin: 07/03/20 20:06 Dose: 0.5 mg Documented by: Dextrose/Water (Dextrose 50% In Water) 50 ml IV ASDIRECTED PRN PRN Reason: Hypoglycemia Glucagon (Glucagen) 1 mg IM ASDIRECTED PRN PRN Reason: Hypoglycemia Hydromorphone HCl (Dilaudid) 0.5 mg IVPUSH Q2H PRN PRN Reason: Pain (severe 7-10) Last Admin: 07/04/20 00:20 Dose: 0.5 mg Documented by: Piperacillin Sod/Tazobactam (Sod 3.375 gm/ Sodium Chloride) 50 mls @ 100 mls/hr IV Q6H ON LICENSE OF [facility] Last Admin: 07/04/20 07:07 Dose: 100 mls/hr Documented by: Lactated Ringer's (Ringers, Lactated) 1,000 mls @ 125 mls/hr IV ASDIRECTED CARRIE Ibuprofen (Motrin) 400 mg PO Q6H ON LICENSE OF [facility] Last Admin: 07/04/20 07:08 Dose: 400 mg Documented by: Insulin Aspart (Novolog) 0 unit SUBCUT Q6H ON LICENSE OF [facility]; Protocol Last Admin: 07/04/20 04:51 Dose: Not Given Documented by: Insulin Glargine (Lantus Solostar) 28 units SUBCUT BEDTIME ON LICENSE OF [facility] Last Admin: 07/03/20 20:15 Dose: 28 units Documented by: Nicotine (Habitrol) 14 mg TRDERM DAILY ON LICENSE OF [facility] Last Admin: 07/03/20 08:51 Dose: 14 mg Documented by: Ondansetron HCl (Zofran) 4 mg IVPUSH Q4H PRN PRN Reason: Nausea Last Admin: 07/04/20 08:05 Dose: 4 mg Documented by: Oxybutynin Chloride (Oxybutynin) 5 mg PO Q12H ON LICENSE OF [facility] Last Admin: 07/04/20 00:20 Dose: 5 mg Documented by: Rosuvastatin Calcium (Crestor) 40 mg PO DAILY ON LICENSE OF [facility] Last Admin: 07/03/20 08:49 Dose: 40 mg Documented by: Sodium Chloride (Saline Flush) 10 ml FLUSH ASDIRECTED PRN PRN Reason: Keep Vein Open Last Admin: 06/29/20 21:50 Dose: 10 ml Documented by: Sodium Chloride (Saline Flush) 2.5 ml FLUSH ASDIRECTED PRN PRN Reason: Keep Vein Open Last Admin: 06/29/20 21:50 Dose: 2.5 ml Documented by: Trazodone HCl (Trazodone) 100 mg PO BEDTIME PRN PRN Reason: Insomnia Last Admin: 07/03/20 21:19 Dose: 100 mg Documented by: Discontinued Medications Dextrose/Water (Dextrose 50% In Water) 50 ml IVPUSH ONETIME ONE Stop: 07/04/20 07:27 Last Admin: 07/04/20 08:10 Dose: Not Given Documented by: Diphenhydramine HCl (Benadryl) 25 mg PO ONETIME ONE Stop: 07/01/20 19:50 Last Admin: 07/01/20 20:16 Dose: 25 mg Documented by: Diphenhydramine HCl (Benadryl) 25 mg PO ONETIME ONE Stop: 07/02/20 14:47 Last Admin: 07/02/20 14:57 Dose: 25 mg Documented by: Fluconazole (Diflucan) 150 mg PO ONETIME ONE Stop: 07/02/20 11:41 Last Admin: 07/02/20 13:38 Dose: Not Given Documented by: Fluconazole (Diflucan) 150 mg PO ONETIME ONE Stop: 07/02/20 13:31 Last Admin: 07/02/20 13:38 Dose: 150 mg Documented by: Sodium Chloride (Normal Saline) 1,000 mls @ 999 mls/hr IV ASDIRECTED ON LICENSE OF [facility] Last Admin: 06/29/20 21:46 Dose: 999 mls/hr Documented by: Piperacillin Sod/Tazobactam (Sod 4.5 gm/ Sodium Chloride) 100 mls @ 100 mls/hr IV ONETIME ONE Stop: 06/30/20 00:19 Last Admin: 06/29/20 23:28 Dose: 100 mls/hr Documented by: Lactated Ringer's (Ringers, Lactated) 1,000 mls @ 60 mls/hr IV ASDIRECTED ON LICENSE OF [facility] Last Infusion: 07/03/20 17:13 Dose: 125 mls/hr Documented by: Lactated Ringer's (Ringers, Lactated) 1,000 mls @ 999 mls/hr IV .BOLUS ONE Stop: 07/03/20 12:32 Last Admin: 07/03/20 11:52 Dose: 999 mls/hr Documented by: Insulin Aspart (Novolog) 0 unit SUBCUT TIDAC ON LICENSE OF [facility]; Protocol Last Admin: 07/03/20 13:41 Dose: Not Given Documented by: Insulin Aspart (Novolog) 5 unit SUBCUT TIDAC ON LICENSE OF [facility] Last Admin: 07/02/20 08:55 Dose: Not Given Documented by: Insulin Aspart (Novolog) 6 unit SUBCUT TIDAC ON LICENSE OF [facility] Last Admin: 07/03/20 13:47 Dose: 6 units Documented by: Insulin Aspart (Novolog) 0 unit SUBCUT Q6H ON LICENSE OF [facility]; Protocol Last Admin: 07/03/20 15:42 Dose: Not Given Documented by: Insulin Aspart (Novolog) 0 unit SUBCUT Q6H ON LICENSE OF [facility]; Protocol Last Admin: 07/03/20 18:42 Dose: Not Given Documented by: Insulin Glargine (Lantus Solostar) 10 units SUBCUT ONETIME ONE Stop: 06/30/20 10:00 Last Admin: 06/30/20 10:44 Dose: 10 units Documented by: Insulin Glargine (Lantus Solostar) 10 units SUBCUT BEDTIME ON LICENSE OF [facility] Last Admin: 06/30/20 20:17 Dose: 10 units Documented by: Insulin Glargine (Lantus Solostar) 35 units SUBCUT BEDTIME ON LICENSE OF [facility] Last Admin: 07/01/20 22:19 Dose: 35 units Documented by: Insulin Glargine (Lantus Solostar) 38 units SUBCUT BEDTIME ON LICENSE OF [facility] Last Admin: 07/02/20 21:39 Dose: 38 units Documented by: Iopamidol (Isovue-370 (76%)) 75 ml IVPUSH ONETIME STA Stop: 06/29/20 22:30 Last Admin: 06/29/20 22:30 Dose: 75 ml Documented by: Iopamidol (Isovue Multipack-370 (76%)) 100 ml IVPUSH ONETIME STA Stop: 07/03/20 11:41 Last Admin: 07/03/20 11:45 Dose: 100 ml Documented by: Lisinopril (Prinivil) 10 mg PO DAILY ON LICENSE OF [facility] Last Admin: 07/03/20 09:11 Dose: Not Given Documented by: Morphine Sulfate (Morphine) 4 mg IVPUSH ONETIME ONE Stop: 06/29/20 21:29 Last Admin: 06/29/20 21:48 Dose: 4 mg Documented by: Morphine Sulfate (Morphine) 4 mg IVPUSH ONETIME ONE Stop: 06/29/20 23:16 Last Admin: 06/29/20 23:20 Dose: 4 mg Documented by: Ondansetron HCl (Zofran) 4 mg IVPUSH ONETIME ONE Stop: 06/29/20 21:29 Last Admin: 06/29/20 21:47 Dose: 4 mg Documented by: Senna/Docusate Sodium (Senna Plus) 1 tab PO BID ON LICENSE OF [facility] Last Admin: 07/03/20 15:42 Dose: Not Given Documented by: - Exam General: Alert, Oriented, Cooperative, No Acute Distress Lungs: Clear to Auscultation, Normal Respiratory Effort Cardiovascular: Regular Rate, Regular Rhythm GI/Abdominal Exam: Normal Bowel Sounds, Soft, No Distention, Other (mild ttp in lower abdomen) Extremities: Normal Inspection, No Pedal Edema Sepsis Event Note - Evaluation Sepsis Screening Result: No Definite Risk - Focused Exam Vital Signs: Vital Signs Temp Pulse Resp BP Pulse Ox 07/04/20 07:05 36.2 C 66 16 90/55 L 95 07/04/20 04:11 36.3 C 59 L 16 96/55 L 95 07/04/20 00:05 36.9 C 56 L 16 93/52 L 94 L Consult PN Assessment/Plan Procedures: Procedures ASSAY OF AMYLASE (02/07/15) ASSAY OF LACTIC ACID (06/23/20) ASSAY OF LIPASE (10/27/18) ASSAY OF MAGNESIUM (06/23/20) ASSAY OF TROPONIN QUANT (10/27/18) ASSAY THYROID STIM HORMONE (10/04/19) BLOOD CULTURE FOR BACTERIA (06/23/20) BLOOD GASES ANY COMBINATION (02/08/15) BLOOD TYPING SEROLOGIC ABO (06/23/20) BLOOD TYPING SEROLOGIC RH(D) (06/23/20) EDWIN DNA DIR PROBE (05/17/19) CHEST X-RAY 1 VIEW FRONTAL (06/26/17) CHEST X-RAY 2VW FRONTAL&LATL (07/08/17) CHORIONIC GONADOTROPIN ASSAY (01/07/15) COMPLETE CBC AUTOMATED (04/05/17) COMPLETE CBC W/AUTO DIFF WBC (06/23/20) COMPREHEN METABOLIC PANEL (06/23/20) CT ABD & PELV W/CONTRAST (06/23/20) CT HEAD/BRAIN W/O DYE (07/10/18) CULTURE OTHR SPECIMN AEROBIC (10/20/17) DRUG TEST PRSMV DIR OPT OBS (04/23/20) ECHO EXAM OF ABDOMEN (10/27/18) ELECTROCARDIOGRAM TRACING (10/27/18) EMERGENCY DEPT VISIT (06/23/20) EMERGENCY DEPT VISIT (07/10/18) EMERGENCY DEPT VISIT (11/13/17) EMERGENCY DEPT VISIT (08/19/17) EMERGENCY DEPT VISIT (06/26/17) EMERGENCY DEPT VISIT (06/22/17) EMERGENCY DEPT VISIT (06/04/17) EMERGENCY DEPT VISIT (02/27/17) EMERGENCY DEPT VISIT (01/03/17) EMERGENCY DEPT VISIT (07/02/16) EMERGENCY DEPT VISIT (08/28/15) EMERGENCY DEPT VISIT (01/07/15) EMERGENCY DEPT VISIT (06/12/14) PINEDA VAG DNA DIR PROBE (05/17/19) GASTRIC EMPTYING IMAG STUDY (02/11/15) GLUCOSE BLOOD TEST (06/23/20) GLYCOSYLATED HEMOGLOBIN TEST (06/23/20) HELICOBACTER PYLORI ANTIBODY (11/18/16) HOT OR COLD PACKS THERAPY (12/27/14) HYDRATE IV INFUSION ADD-ON (11/13/17) HYDRATION IV INFUSION INIT (07/10/18) INCISION OF TENDON & MUSCLE (10/21/16) INFLUENZA ASSAY W/OPTIC (10/20/17) LIPID PANEL (04/23/20) MANUAL THERAPY 1/> REGIONS (01/25/15) MASSAGE THERAPY (01/25/15) METABOLIC PANEL TOTAL CA (06/23/20) MRI JOINT UPR EXTREM W/O DYE (06/17/20) MRI LUMBAR SPINE W/O DYE (01/12/17) NJX INTERLAMINAR LMBR/SAC (02/02/17) OFFICE/OUTPATIENT VISIT EST (05/27/20) PROTHROMBIN TIME (06/23/20) PT EVAL LOW COMPLEX 20 MIN (06/30/17) PT EVALUATION (12/27/14) RBC ANTIBODY SCREEN (06/23/20) ROUTINE VENIPUNCTURE (06/23/20) SARS-COV2 COVID-19 AMP PRB (06/23/20) SHOULDER ARTHROSCOPY/SURGERY (10/21/16) SMEAR WET [place] SALINE/INK (08/10/16) TEST FOR ACETONE/KETONES (07/10/18) THER/PROPH/DIAG INJ IV PUSH (02/27/17) THER/PROPH/DIAG INJ SC/IM (07/10/18) THER/PROPH/DIAG IV INF INIT (06/23/20) THERAPEUTIC ACTIVITIES (12/27/14) THERAPEUTIC EXERCISES (03/26/17) TISSUE EXAM BY PATHOLOGIST (06/23/20) TRICHOMONAS VAGIN DIR PROBE (05/17/19) TX/PRO/DX INJ NEW DRUG ADDON (06/23/20) TX/PRO/DX INJ SAME DRUG RESIDENTIAL SALES REP (06/26/17) ULTRASOUND THERAPY (03/26/17) UR ALBUMIN SEMIQUANTITATIVE (04/23/20) URINALYSIS AUTO W/O SCOPE (06/23/20) URINALYSIS AUTO W/SCOPE (01/20/19) URINE CULTURE/COLONY COUNT (01/20/19) URINE TEST (02/27/17) VIT D 1 25-DIHYDROXY (04/05/17) WITHDRAWAL OF ARTERIAL BLOOD (02/08/15) X-RAY EXAM ABDOMEN 1 VIEW (10/04/19) X-RAY EXAM CHEST 1 VIEW (10/27/18) X-RAY EXAM L-S SPINE 2/3 VWS (12/07/17) X-RAY EXAM NECK SPINE 2-3 VW (08/01/19) X-RAY EXAM OF ANKLE (07/18/16) X-RAY EXAM OF ELBOW (01/09/20) X-RAY EXAM OF SHOULDER (05/27/20) Problem List Initiated/Reviewed/Updated: Yes My Orders Last 24 Hours: My Active Orders 07/03/20 13:50 Accu Check [Blood Glucose Check, Bedside] [RC] Q6H 07/03/20 14:00 Lactated Ringers [Ringers, Lactated] 1,000 ml IV ASDIRECTED 07/03/20 21:00 Insulin Glarg,Human.Rec.Analog [LantUS Solostar] 28 units SUBCUT BEDTIME 07/03/20 22:23 Insulin Aspart [NovoLOG] See Protocol SUBCUT Q6H Plan: Assessment and Plan: 1. Abdominal abscess s/p laparoscopic appendectomy: - Management per general surgery. Patient on IV zosyn. 2. Post-operative ileus: - Management per general surgery. Patient advanced to CLD today. 3. Diabetes mellitus type II: - As patient will be resuming CLD today, will continue lantus 28 units at bedtime and order Novolog SSI TIDAC with accuchecks TIDAC. Will continue to monitor and make dose adjustments as needed. 4. Past medical history of HTN, hyperlipidemia, anxiety and history of migraines: - Continue home medications. <Benji Lambert - Last Filed: 07/05/20 23:06> - Patient Data Vitals - Most Recent: Last Vital Signs Temp 36.5 C 07/05/20 16:00 Pulse 64 07/05/20 16:00 Resp 20 07/05/20 16:00 BP 144/85 H 07/05/20 16:00 Pulse Ox 95 07/05/20 16:00 I&O - Last 24 Hours: Intake & Output 07/05/20 07/05/20 07/06/20 14:59 22:59 06:59 Intake Total 1750 Output Total 1350 Balance 400 Lab Results Last 24 Hours: Laboratory Results - last 24 hr 07/05/20 07/05/20 07/05/20 Range/Units 06:23 08:17 12:25 WBC 10.74 (4.0-11.0) K/uL RBC 4.00 L (4.30-5.90) M/uL Hgb 12.3 (12.0-16.0) g/dL Hct 38.5 (36.0-46.0) % MCV 96.3 (80.0-98.0) fL MCH 30.8 (27.0-32.0) pg MCHC 31.9 (31.0-37.0) g/dL RDW Std Deviation 45.4 (28.0-62.0) fl RDW Coeff of Haley 13 (11.0-15.0) % Plt Count 426 H (150-400) K/uL MPV 9.70 (7.40-12.00) fL Neut % (Auto) 56.5 (48.0-80.0) % Lymph % (Auto) 34.9 (16.0-40.0) % Rogers % (Auto) 6.4 (0.0-15.0) % Eos % (Auto) 2.0 (0.0-7.0) % Baso % (Auto) 0.2 (0.0-1.5) % Neut # (Auto) 6.1 H (1.4-5.7) K/uL Lymph # (Auto) 3.8 H (0.6-2.4) K/uL Rogers # (Auto) 0.7 (0.0-0.8) K/uL Eos # (Auto) 0.2 (0.0-0.7) K/uL Baso # (Auto) 0.0 (0.0-0.1) K/uL Nucleated RBC % 0.0 /100WBC Nucleated RBCs # 0 K/uL POC Glucose 124 H 186 H (60-110) mg/dL //20 Range/Units 17:18 WBC (4.0-11.0) K/uL RBC (4.30-5.90) M/uL Hgb (12.0-16.0) g/dL Hct (36.0-46.0) % MCV (80.0-98.0) fL MCH (27.0-32.0) pg MCHC (31.0-37.0) g/dL RDW Std Deviation (28.0-62.0) fl RDW Coeff of Haley (11.0-15.0) % Plt Count (150-400) K/uL MPV (7.40-12.00) fL Neut % (Auto) (48.0-80.0) % Lymph % (Auto) (16.0-40.0) % Rogers % (Auto) (0.0-15.0) % Eos % (Auto) (0.0-7.0) % Baso % (Auto) (0.0-1.5) % Neut # (Auto) (1.4-5.7) K/uL Lymph # (Auto) (0.6-2.4) K/uL Rogers # (Auto) (0.0-0.8) K/uL Eos # (Auto) (0.0-0.7) K/uL Baso # (Auto) (0.0-0.1) K/uL Nucleated RBC % /100WBC Nucleated RBCs # K/uL POC Glucose 217 H (60-110) mg/dL Med Orders - Current: Current Medications Acetaminophen (Tylenol) 650 mg PO Q4H PRN PRN Reason: Pain (Mild 1-3)/fever Hydrocodone Bitart/Acetaminophen ([place] 325-5 Mg) 2 tab PO Q4H PRN PRN Reason: Pain (moderate 4-6) Last Admin: 07/05/20 21:15 Dose: 2 tab Documented by: Alprazolam (Xanax) 0.5 mg PO BID ON LICENSE OF [facility] Last Admin: 07/05/20 21:14 Dose: 0.5 mg Documented by: Ciprofloxacin (Ciprofloxacin Hcl) 500 mg PO BID ON LICENSE OF [facility] Last Admin: 07/05/20 21:14 Dose: 500 mg Documented by: Dextrose/Water (Dextrose 50% In Water) 50 ml IV ASDIRECTED PRN PRN Reason: Hypoglycemia Glucagon (Glucagen) 1 mg IM ASDIRECTED PRN PRN Reason: Hypoglycemia Hydromorphone HCl (Dilaudid) 0.5 mg IVPUSH Q2H PRN PRN Reason: Pain (severe 7-10) Last Admin: 07/04/20 20:14 Dose: 0.5 mg Documented by: Lactated Ringer's (Ringers, Lactated) 1,000 mls @ 125 mls/hr IV ASDIRECTED ON LICENSE OF [facility] Last Admin: 07/05/20 04:02 Dose: 125 mls/hr Documented by: Ibuprofen (Motrin) 400 mg PO Q6H ON LICENSE OF [facility] Last Admin: 07/05/20 20:04 Dose: 400 mg Documented by: Insulin Aspart (Novolog) 0 unit SUBCUT TIDAC ON LICENSE OF [facility]; Protocol Last Admin: 07/05/20 18:06 Dose: 2 units Documented by: Insulin Glargine (Lantus Solostar) 28 units SUBCUT BEDTIME ON LICENSE OF [facility] Last Admin: 07/05/20 21:16 Dose: 28 units Documented by: Metronidazole (Metronidazole) 250 mg PO Q6H ON LICENSE OF [facility] Last Admin: 07/05/20 21:14 Dose: 250 mg Documented by: Miconazole (Miconazole 2% Vaginal) 1 gm TOP BID PRN PRN Reason: Itching Last Admin: 07/04/20 11:44 Dose: 1 applic Documented by: Nicotine (Habitrol) 14 mg TRDERM DAILY ON LICENSE OF [facility] Last Admin: 07/05/20 08:34 Dose: 14 mg Documented by: Ondansetron HCl (Zofran) 4 mg IVPUSH Q4H PRN PRN Reason: Nausea Last Admin: 07/05/20 22:04 Dose: 4 mg Documented by: Oxybutynin Chloride (Oxybutynin) 5 mg PO Q12H ON LICENSE OF [facility] Last Admin: 07/05/20 13:12 Dose: 5 mg Documented by: Rosuvastatin Calcium (Crestor) 40 mg PO DAILY ON LICENSE OF [facility] Last Admin: 07/05/20 08:32 Dose: 40 mg Documented by: Sodium Chloride (Saline Flush) 10 ml FLUSH ASDIRECTED PRN PRN Reason: Keep Vein Open Last Admin: 06/29/20 21:50 Dose: 10 ml Documented by: Sodium Chloride (Saline Flush) 2.5 ml FLUSH ASDIRECTED PRN PRN Reason: Keep Vein Open Last Admin: 06/29/20 21:50 Dose: 2.5 ml Documented by: Trazodone HCl (Trazodone) 100 mg PO BEDTIME PRN PRN Reason: Insomnia Last Admin: 07/05/20 21:16 Dose: 100 mg Documented by: Discontinued Medications Dextrose/Water (Dextrose 50% In Water) 50 ml IVPUSH ONETIME ONE Stop: 07/04/20 07:27 Last Admin: 07/04/20 08:10 Dose: Not Given Documented by: Diphenhydramine HCl (Benadryl) 25 mg PO ONETIME ONE Stop: 07/01/20 19:50 Last Admin: 07/01/20 20:16 Dose: 25 mg Documented by: Diphenhydramine HCl (Benadryl) 25 mg PO ONETIME ONE Stop: 07/02/20 14:47 Last Admin: 07/02/20 14:57 Dose: 25 mg Documented by: Fluconazole (Diflucan) 150 mg PO ONETIME ONE Stop: 07/02/20 11:41 Last Admin: 07/02/20 13:38 Dose: Not Given Documented by: Fluconazole (Diflucan) 150 mg PO ONETIME ONE Stop: 07/02/20 13:31 Last Admin: 07/02/20 13:38 Dose: 150 mg Documented by: Sodium Chloride (Normal Saline) 1,000 mls @ 999 mls/hr IV ASDIRECTED ON LICENSE OF [facility] Last Admin: 06/29/20 21:46 Dose: 999 mls/hr Documented by: Piperacillin Sod/Tazobactam (Sod 4.5 gm/ Sodium Chloride) 100 mls @ 100 mls/hr IV ONETIME ONE Stop: 06/30/20 00:19 Last Admin: 06/29/20 23:28 Dose: 100 mls/hr Documented by: Lactated Ringer's (Ringers, Lactated) 1,000 mls @ 60 mls/hr IV ASDIRECTED ON LICENSE OF [facility] Last Infusion: 07/03/20 17:13 Dose: 125 mls/hr Documented by: Piperacillin Sod/Tazobactam (Sod 3.375 gm/ Sodium Chloride) 50 mls @ 100 mls/hr IV Q6H ON LICENSE OF [facility] Last Admin: 07/05/20 06:31 Dose: 100 mls/hr Documented by: Lactated Ringer's (Ringers, Lactated) 1,000 mls @ 999 mls/hr IV .BOLUS ONE Stop: 07/03/20 12:32 Last Admin: 07/03/20 11:52 Dose: 999 mls/hr Documented by: Insulin Aspart (Novolog) 0 unit SUBCUT TIDAC ON LICENSE OF [facility]; Protocol Last Admin: 07/03/20 13:41 Dose: Not Given Documented by: Insulin Aspart (Novolog) 5 unit SUBCUT TIDAC ON LICENSE OF [facility] Last Admin: 07/02/20 08:55 Dose: Not Given Documented by: Insulin Aspart (Novolog) 6 unit SUBCUT TIDAC ON LICENSE OF [facility] Last Admin: 07/03/20 13:47 Dose: 6 units Documented by: Insulin Aspart (Novolog) 0 unit SUBCUT Q6H ON LICENSE OF [facility]; Protocol Last Admin: 07/03/20 15:42 Dose: Not Given Documented by: Insulin Aspart (Novolog) 0 unit SUBCUT Q6H [facility]; Protocol Last Admin: 07/03/20 18:42 Dose: Not Given Documented by: Insulin Aspart (Novolog) 0 unit SUBCUT Q6H [facility]; Protocol Last Admin: 07/04/20 04:51 Dose: Not Given Documented by: Insulin Glargine (Lantus Solostar) 10 units SUBCUT ONETIME ONE Stop: 06/30/20 10:00 Last Admin: 06/30/20 10:44 Dose: 10 units Documented by: Insulin Glargine (Lantus Solostar) 10 units SUBCUT BEDTIME [facility] Last Admin: 06/30/20 20:17 Dose: 10 units Documented by: Insulin Glargine (Lantus Solostar) 35 units SUBCUT BEDTIME [facility] Last Admin: 07/01/20 22:19 Dose: 35 units Documented by: Insulin Glargine (Lantus Solostar) 38 units SUBCUT BEDTIME ON LICENSE OF [facility] Last Admin: 07/02/20 21:39 Dose: 38 units Documented by: Iopamidol (Isovue-370 (76%)) 75 ml IVPUSH ONETIME STA Stop: 06/29/20 22:30 Last Admin: 06/29/20 22:30 Dose: 75 ml Documented by: Iopamidol (Isovue Multipack-370 (76%)) 100 ml IVPUSH ONETIME STA Stop: 07/03/20 11:41 Last Admin: 07/03/20 11:45 Dose: 100 ml Documented by: Lisinopril (Prinivil) 10 mg PO DAILY ON LICENSE OF [facility] Last Admin: 07/03/20 09:11 Dose: Not Given Documented by: Morphine Sulfate (Morphine) 4 mg IVPUSH ONETIME ONE Stop: 06/29/20 21:29 Last Admin: 06/29/20 21:48 Dose: 4 mg Documented by: Morphine Sulfate (Morphine) 4 mg IVPUSH ONETIME ONE Stop: 06/29/20 23:16 Last Admin: 06/29/20 23:20 Dose: 4 mg Documented by: Ondansetron HCl (Zofran) 4 mg IVPUSH ONETIME ONE Stop: 06/29/20 21:29 Last Admin: 06/29/20 21:47 Dose: 4 mg Documented by: Senna/Docusate Sodium (Senna Plus) 1 tab PO BID [facility] Last Admin: 07/03/20 15:42 Dose: Not Given Documented by: Sepsis Event Note - Focused Exam Vital Signs: Vital Signs Temp Pulse Resp BP Pulse Ox 07/05/20 16:00 36.5 C 64 20 144/85 H 95 07/05/20 12:00 36.4 C 63 22 H 140/63 93 L Consult PN Assessment/Plan Procedures: Procedures ASSAY OF AMYLASE (02/07/15) ASSAY OF LACTIC ACID (06/23/20) ASSAY OF LIPASE (10/27/18) ASSAY OF MAGNESIUM (06/23/20) ASSAY OF TROPONIN QUANT (10/27/18) ASSAY THYROID STIM HORMONE (10/04/19) BLOOD CULTURE FOR BACTERIA (06/23/20) BLOOD GASES ANY COMBINATION (02/08/15) BLOOD TYPING SEROLOGIC ABO (06/23/20) BLOOD TYPING SEROLOGIC RH(D) (06/23/20) EDWIN DNA DIR PROBE (05/17/19) CHEST X-RAY 1 VIEW FRONTAL (06/26/17) CHEST X-RAY 2VW FRONTAL&LATL (07/08/17) CHORIONIC GONADOTROPIN ASSAY (01/07/15) COMPLETE CBC AUTOMATED (04/05/17) COMPLETE CBC W/AUTO DIFF WBC (06/23/20) COMPREHEN METABOLIC PANEL (06/23/20) CT ABD & PELV W/CONTRAST (06/23/20) CT HEAD/BRAIN W/O DYE (07/10/18) CULTURE OTHR SPECIMN AEROBIC (10/20/17) DRUG TEST PRSMV DIR OPT OBS (04/23/20) ECHO EXAM OF ABDOMEN (10/27/18) ELECTROCARDIOGRAM TRACING (10/27/18) EMERGENCY DEPT VISIT (06/23/20) EMERGENCY DEPT VISIT (07/10/18) EMERGENCY DEPT VISIT (11/13/17) EMERGENCY DEPT VISIT (08/19/17) EMERGENCY DEPT VISIT (06/26/17) EMERGENCY DEPT VISIT (06/22/17) EMERGENCY DEPT VISIT (06/04/17) EMERGENCY DEPT VISIT (02/27/17) EMERGENCY DEPT VISIT (01/03/17) EMERGENCY DEPT VISIT (07/02/16) EMERGENCY DEPT VISIT (08/28/15) EMERGENCY DEPT VISIT (01/07/15) EMERGENCY DEPT VISIT (06/12/14) PINEDA VAG DNA DIR PROBE (05/17/19) GASTRIC EMPTYING IMAG STUDY (02/11/15) GLUCOSE BLOOD TEST (06/23/20) GLYCOSYLATED HEMOGLOBIN TEST (06/23/20) HELICOBACTER PYLORI ANTIBODY (11/18/16) HOT OR COLD PACKS THERAPY (12/27/14) HYDRATE IV INFUSION ADD-ON (11/13/17) HYDRATION IV INFUSION INIT (07/10/18) INCISION OF TENDON & MUSCLE (10/21/16) INFLUENZA ASSAY W/OPTIC (10/20/17) LIPID PANEL (04/23/20) MANUAL THERAPY 1/> REGIONS (01/25/15) MASSAGE THERAPY (01/25/15) METABOLIC PANEL TOTAL CA (06/23/20) MRI JOINT UPR EXTREM W/O DYE (06/17/20) MRI LUMBAR SPINE W/O DYE (01/12/17) NJX INTERLAMINAR LMBR/SAC (02/02/17) OFFICE/OUTPATIENT VISIT EST (05/27/20) PROTHROMBIN TIME (06/23/20) PT EVAL LOW COMPLEX 20 MIN (06/30/17) PT EVALUATION (12/27/14) RBC ANTIBODY SCREEN (06/23/20) ROUTINE VENIPUNCTURE (06/23/20) SARS-COV2 COVID-19 AMP PRB (06/23/20) SHOULDER ARTHROSCOPY/SURGERY (10/21/16) SMEAR WET [place]/INK (08/10/16) TEST FOR ACETONE/KETONES (07/10/18) THER/PROPH/DIAG INJ IV PUSH (02/27/17) THER/PROPH/DIAG INJ SC/IM (07/10/18) THER/PROPH/DIAG IV INF INIT (06/23/20) THERAPEUTIC ACTIVITIES (12/27/14) THERAPEUTIC EXERCISES (03/26/17) TISSUE EXAM BY PATHOLOGIST (06/23/20) TRICHOMONAS VAGIN DIR PROBE (05/17/19) TX/PRO/DX INJ NEW DRUG ADDON (06/23/20) TX/PRO/DX INJ SAME DRUG RESIDENTIAL SALES REP (06/26/17) ULTRASOUND THERAPY (03/26/17) UR ALBUMIN SEMIQUANTITATIVE (04/23/20) URINALYSIS AUTO W/O SCOPE (06/23/20) URINALYSIS AUTO W/SCOPE (01/20/19) URINE CULTURE/COLONY COUNT (01/20/19) URINE TEST (02/27/17) VIT D 1 25-DIHYDROXY (04/05/17) WITHDRAWAL OF ARTERIAL BLOOD (02/08/15) X-RAY EXAM ABDOMEN 1 VIEW (10/04/19) X-RAY EXAM CHEST 1 VIEW (10/27/18) X-RAY EXAM L-S SPINE 2/3 VWS (12/07/17) X-RAY EXAM NECK SPINE 2-3 VW (08/01/19) X-RAY EXAM OF ANKLE (07/18/16) X-RAY EXAM OF ELBOW (01/09/20) X-RAY EXAM OF SHOULDER (05/27/20) Plan: I have seen and evaluated the patient and agree with the residents note unless specified in my note
[2020-07-04] MEDS: Lactated Ringers 1,000 ML IV SCH ×2 (09:35→20:18)
[2020-07-04] MEDS ORDERED: Miconazole 2% Vaginal Crm 45 GM Tube TOP PRN (09:53)
[2020-07-04] MEDS: Insulin Glargine,Human Rec. Analog 100 Units/ML 3 ML Pen SUBCUT SCH (20:11)
[2020-07-04] MEDS: traZODone 50 MG Tab PO PRN (21:38)
[2020-07-05] MEDS: Ibuprofen 400 MG Tab PO SCH ×4 (00:40→20:04)
[2020-07-05] MEDS: Oxybutynin 5 MG Tab PO SCH ×2 (00:40→13:12)
[2020-07-05] MEDS: Piperacillin/Tazobactam 3.375 GM in Sodium Chloride 0.9% 50 ML IV SCH ×2 (00:41→06:31)
[2020-07-05] MEDS: Acetaminophen/HYDROcodone 325-5 MG Tab PO PRN ×5 (03:59→21:15)
[2020-07-05] MEDS: Lactated Ringers 1,000 ML IV SCH (04:02)
[2020-07-05] MEDS: Insulin Aspart 100 Units/ML 3 ML Pen SUBCUT SCH ×3 (06:33→18:06)
[2020-07-05] MEDS: Rosuvastatin 10 MG Tab PO SCH (08:32)
[2020-07-05] MEDS: ALPRAZolam 0.5 MG Tab PO SCH ×2 (08:33→21:14)
[2020-07-05] MEDS: Nicotine 14 MG/24 Hr Patch TRDERM SCH (08:34)
--- NOTE | 2020-07-05 09:15 | PCM.CONSN ---
<Shai Miller - Last Filed: 07/05/20 11:51> - General Info Date of Service: 07/05/20 Subjective Update: Reports abdominal pain but is improving. Tolerating oral diet. Denies any vomiting. Reports bowel movement this morning. - Patient Data Vitals - Most Recent: Last Vital Signs Temp 36.7 C 07/05/20 08:35 Pulse 73 07/05/20 08:35 Resp 16 07/05/20 08:35 BP 105/62 07/05/20 08:35 Pulse Ox 93 L 07/05/20 08:35 Weight - Most Recent: 62.4 kg I&O - Last 24 Hours: Intake & Output 07/04/20 07/05/20 07/05/20 22:59 06:59 14:59 Intake Total 1400 2008 Output Total 900 3000 Balance 500 -992 Lab Results Last 24 Hours: Laboratory Results - last 24 hr 07/04/20 07/04/20 07/04/20 Range/Units 07:35 10:36 12:27 WBC (4.0-11.0) K/uL RBC (4.30-5.90) M/uL Hgb (12.0-16.0) g/dL Hct (36.0-46.0) % MCV (80.0-98.0) fL MCH (27.0-32.0) pg MCHC (31.0-37.0) g/dL RDW Std Deviation (28.0-62.0) fl RDW Coeff of Haley (11.0-15.0) % Plt Count (150-400) K/uL MPV (7.40-12.00) fL Neut % (Auto) (48.0-80.0) % Lymph % (Auto) (16.0-40.0) % [place] % (Auto) (0.0-15.0) % Eos % (Auto) (0.0-7.0) % Baso % (Auto) (0.0-1.5) % Neut # (Auto) (1.4-5.7) K/uL Lymph # (Auto) (0.6-2.4) K/uL [place] # (Auto) (0.0-0.8) K/uL Eos # (Auto) (0.0-0.7) K/uL Baso # (Auto) (0.0-0.1) K/uL Nucleated RBC % /100WBC Nucleated RBCs # K/uL POC Glucose 75 94 69 (60-110) mg/dL 07/04/20 07/04/20 07/04/20 Range/Units 14:12 16:55 20:10 WBC (4.0-11.0) K/uL RBC (4.30-5.90) M/uL Hgb (12.0-16.0) g/dL Hct (36.0-46.0) % MCV (80.0-98.0) fL MCH (27.0-32.0) pg MCHC (31.0-37.0) g/dL RDW Std Deviation (28.0-62.0) fl RDW Coeff of Haley (11.0-15.0) % Plt Count (150-400) K/uL MPV (7.40-12.00) fL Neut % (Auto) (48.0-80.0) % Lymph % (Auto) (16.0-40.0) % [place] % (Auto) (0.0-15.0) % Eos % (Auto) (0.0-7.0) % Baso % (Auto) (0.0-1.5) % Neut # (Auto) (1.4-5.7) K/uL Lymph # (Auto) (0.6-2.4) K/uL [place] # (Auto) (0.0-0.8) K/uL Eos # (Auto) (0.0-0.7) K/uL Baso # (Auto) (0.0-0.1) K/uL Nucleated RBC % /100WBC Nucleated RBCs # K/uL POC Glucose 116 H 199 H 143 H (60-110) mg/dL 07/05/20 07/05/20 Range/Units 06:23 08:17 WBC 10.74 (4.0-11.0) K/uL RBC 4.00 L (4.30-5.90) M/uL Hgb 12.3 (12.0-16.0) g/dL Hct 38.5 (36.0-46.0) % MCV 96.3 (80.0-98.0) fL MCH 30.8 (27.0-32.0) pg MCHC 31.9 (31.0-37.0) g/dL RDW Std Deviation 45.4 (28.0-62.0) fl RDW Coeff of Haley 13 (11.0-15.0) % Plt Count 426 H (150-400) K/uL MPV 9.70 (7.40-12.00) fL Neut % (Auto) 56.5 (48.0-80.0) % Lymph % (Auto) 34.9 (16.0-40.0) % [place] % (Auto) 6.4 (0.0-15.0) % Eos % (Auto) 2.0 (0.0-7.0) % Baso % (Auto) 0.2 (0.0-1.5) % Neut # (Auto) 6.1 H (1.4-5.7) K/uL Lymph # (Auto) 3.8 H (0.6-2.4) K/uL [place] # (Auto) 0.7 (0.0-0.8) K/uL Eos # (Auto) 0.2 (0.0-0.7) K/uL Baso # (Auto) 0.0 (0.0-0.1) K/uL Nucleated RBC % 0.0 /100WBC Nucleated RBCs # 0 K/uL POC Glucose 124 H (60-110) mg/dL Med Orders - Current: Current Medications Acetaminophen (Tylenol) 650 mg PO Q4H PRN PRN Reason: Pain (Mild 1-3)/fever Hydrocodone Bitart/Acetaminophen ([place] 325-5 Mg) 2 tab PO Q4H PRN PRN Reason: Pain (moderate 4-6) Last Admin: 07/05/20 08:40 Dose: 2 tab Documented by: Alprazolam (Xanax) 0.5 mg PO BID CARRIE Last Admin: 07/05/20 08:33 Dose: 0.5 mg Documented by: Dextrose/Water (Dextrose 50% In Water) 50 ml IV ASDIRECTED PRN PRN Reason: Hypoglycemia Glucagon (Glucagen) 1 mg IM ASDIRECTED PRN PRN Reason: Hypoglycemia Hydromorphone HCl (Dilaudid) 0.5 mg IVPUSH Q2H PRN PRN Reason: Pain (severe 7-10) Last Admin: 07/04/20 20:14 Dose: 0.5 mg Documented by: Piperacillin Sod/Tazobactam (Sod 3.375 gm/ Sodium Chloride) 50 mls @ 100 mls/hr IV Q6H PENDING SALE TO [facility] Last Admin: 07/05/20 06:31 Dose: 100 mls/hr Documented by: Lactated Ringer's (Ringers, Lactated) 1,000 mls @ 125 mls/hr IV ASDIRECTED PENDING SALE TO [facility] Last Admin: 07/05/20 04:02 Dose: 125 mls/hr Documented by: Ibuprofen (Motrin) 400 mg PO Q6H PENDING SALE TO [facility] Last Admin: 07/05/20 06:31 Dose: 400 mg Documented by: Insulin Aspart (Novolog) 0 unit SUBCUT TIDAC PENDING SALE TO [facility]; Protocol Last Admin: 07/05/20 06:33 Dose: Not Given Documented by: Insulin Glargine (Lantus Solostar) 28 units SUBCUT BEDTIME PENDING SALE TO [facility] Last Admin: 07/04/20 20:11 Dose: 28 units Documented by: Miconazole (Miconazole 2% Vaginal) 1 gm TOP BID PRN PRN Reason: Itching Last Admin: 07/04/20 11:44 Dose: 1 applic Documented by: Nicotine (Habitrol) 14 mg TRDERM DAILY PENDING SALE TO [facility] Last Admin: 07/05/20 08:34 Dose: 14 mg Documented by: Ondansetron HCl (Zofran) 4 mg IVPUSH Q4H PRN PRN Reason: Nausea Last Admin: 07/04/20 21:44 Dose: 4 mg Documented by: Oxybutynin Chloride (Oxybutynin) 5 mg PO Q12H PENDING SALE TO [facility] Last Admin: 07/05/20 00:40 Dose: 5 mg Documented by: Rosuvastatin Calcium (Crestor) 40 mg PO DAILY PENDING SALE TO [facility] Last Admin: 07/05/20 08:32 Dose: 40 mg Documented by: Sodium Chloride (Saline Flush) 10 ml FLUSH ASDIRECTED PRN PRN Reason: Keep Vein Open Last Admin: 06/29/20 21:50 Dose: 10 ml Documented by: Sodium Chloride (Saline Flush) 2.5 ml FLUSH ASDIRECTED PRN PRN Reason: Keep Vein Open Last Admin: 06/29/20 21:50 Dose: 2.5 ml Documented by: Trazodone HCl (Trazodone) 100 mg PO BEDTIME PRN PRN Reason: Insomnia Last Admin: 07/04/20 21:38 Dose: 100 mg Documented by: Discontinued Medications Dextrose/Water (Dextrose 50% In Water) 50 ml IVPUSH ONETIME ONE Stop: 07/04/20 07:27 Last Admin: 07/04/20 08:10 Dose: Not Given Documented by: Diphenhydramine HCl (Benadryl) 25 mg PO ONETIME ONE Stop: 07/01/20 19:50 Last Admin: 07/01/20 20:16 Dose: 25 mg Documented by: Diphenhydramine HCl (Benadryl) 25 mg PO ONETIME ONE Stop: 07/02/20 14:47 Last Admin: 07/02/20 14:57 Dose: 25 mg Documented by: Fluconazole (Diflucan) 150 mg PO ONETIME ONE Stop: 07/02/20 11:41 Last Admin: 07/02/20 13:38 Dose: Not Given Documented by: Fluconazole (Diflucan) 150 mg PO ONETIME ONE Stop: 07/02/20 13:31 Last Admin: 07/02/20 13:38 Dose: 150 mg Documented by: Sodium Chloride (Normal Saline) 1,000 mls @ 999 mls/hr IV ASDIRECTED PENDING SALE TO [facility] Last Admin: 06/29/20 21:46 Dose: 999 mls/hr Documented by: Piperacillin Sod/Tazobactam (Sod 4.5 gm/ Sodium Chloride) 100 mls @ 100 mls/hr IV ONETIME ONE Stop: 06/30/20 00:19 Last Admin: 06/29/20 23:28 Dose: 100 mls/hr Documented by: Lactated Ringer's (Ringers, Lactated) 1,000 mls @ 60 mls/hr IV ASDIRECTED PENDING SALE TO [facility] Last Infusion: 07/03/20 17:13 Dose: 125 mls/hr Documented by: Lactated Ringer's (Ringers, Lactated) 1,000 mls @ 999 mls/hr IV .BOLUS ONE Stop: 07/03/20 12:32 Last Admin: 07/03/20 11:52 Dose: 999 mls/hr Documented by: Insulin Aspart (Novolog) 0 unit SUBCUT TIDAC PENDING SALE TO [facility]; Protocol Last Admin: 07/03/20 13:41 Dose: Not Given Documented by: Insulin Aspart (Novolog) 5 unit SUBCUT TIDAC PENDING SALE TO [facility] Last Admin: 07/02/20 08:55 Dose: Not Given Documented by: Insulin Aspart (Novolog) 6 unit SUBCUT TIDAC PENDING SALE TO [facility] Last Admin: 07/03/20 13:47 Dose: 6 units Documented by: Insulin Aspart (Novolog) 0 unit SUBCUT Q6H PENDING SALE TO [facility]; Protocol Last Admin: 07/03/20 15:42 Dose: Not Given Documented by: Insulin Aspart (Novolog) 0 unit SUBCUT Q6H PENDING SALE TO [facility]; Protocol Last Admin: 07/03/20 18:42 Dose: Not Given Documented by: Insulin Aspart (Novolog) 0 unit SUBCUT Q6H PENDING SALE TO [facility]; Protocol Last Admin: 07/04/20 04:51 Dose: Not Given Documented by: Insulin Glargine (Lantus Solostar) 10 units SUBCUT ONETIME ONE Stop: 06/30/20 10:00 Last Admin: 06/30/20 10:44 Dose: 10 units Documented by: Insulin Glargine (Lantus Solostar) 10 units SUBCUT BEDTIME PENDING SALE TO [facility] Last Admin: 06/30/20 20:17 Dose: 10 units Documented by: Insulin Glargine (Lantus Solostar) 35 units SUBCUT BEDTIME PENDING SALE TO [facility] Last Admin: 07/01/20 22:19 Dose: 35 units Documented by: Insulin Glargine (Lantus Solostar) 38 units SUBCUT BEDTIME PENDING SALE TO [facility] Last Admin: 07/02/20 21:39 Dose: 38 units Documented by: Iopamidol (Isovue-370 (76%)) 75 ml IVPUSH ONETIME STA Stop: 06/29/20 22:30 Last Admin: 06/29/20 22:30 Dose: 75 ml Documented by: Iopamidol (Isovue Multipack-370 (76%)) 100 ml IVPUSH ONETIME STA Stop: 07/03/20 11:41 Last Admin: 07/03/20 11:45 Dose: 100 ml Documented by: Lisinopril (Prinivil) 10 mg PO DAILY PENDING SALE TO [facility] Last Admin: 07/03/20 09:11 Dose: Not Given Documented by: Morphine Sulfate (Morphine) 4 mg IVPUSH ONETIME ONE Stop: 06/29/20 21:29 Last Admin: 06/29/20 21:48 Dose: 4 mg Documented by: Morphine Sulfate (Morphine) 4 mg IVPUSH ONETIME ONE Stop: 06/29/20 23:16 Last Admin: 06/29/20 23:20 Dose: 4 mg Documented by: Ondansetron HCl (Zofran) 4 mg IVPUSH ONETIME ONE Stop: 06/29/20 21:29 Last Admin: 06/29/20 21:47 Dose: 4 mg Documented by: Senna/Docusate Sodium (Senna Plus) 1 tab PO BID CARRIE Last Admin: 07/03/20 15:42 Dose: Not Given Documented by: - Exam General: Alert, Oriented, Cooperative, No Acute Distress Lungs: Clear to Auscultation, Normal Respiratory Effort Cardiovascular: Regular Rate, Regular Rhythm GI/Abdominal Exam: Normal Bowel Sounds, Soft, No Distention, Other (mild lower abdominal pain ttp) Sepsis Event Note - Evaluation Sepsis Screening Result: No Definite Risk - Focused Exam Vital Signs: Vital Signs Temp Pulse Resp BP Pulse Ox 07/05/20 08:35 36.7 C 73 16 105/62 93 L 07/05/20 04:00 36.4 C 79 16 121/72 96 07/05/20 00:00 36.1 C 69 17 127/64 95 Consult PN Assessment/Plan Procedures: Procedures ASSAY OF AMYLASE (02/07/15) ASSAY OF LACTIC ACID (06/23/20) ASSAY OF LIPASE (10/27/18) ASSAY OF MAGNESIUM (06/23/20) ASSAY OF TROPONIN QUANT (10/27/18) ASSAY THYROID STIM HORMONE (10/04/19) BLOOD CULTURE FOR BACTERIA (06/23/20) BLOOD GASES ANY COMBINATION (02/08/15) BLOOD TYPING SEROLOGIC ABO (06/23/20) BLOOD TYPING SEROLOGIC RH(D) (06/23/20) EDWIN DNA DIR PROBE (05/17/19) CHEST X-RAY 1 VIEW FRONTAL (06/26/17) CHEST X-RAY 2VW FRONTAL&LATL (07/08/17) CHORIONIC GONADOTROPIN ASSAY (01/07/15) COMPLETE CBC AUTOMATED (04/05/17) COMPLETE CBC W/AUTO DIFF WBC (06/23/20) COMPREHEN METABOLIC PANEL (06/23/20) CT ABD & PELV W/CONTRAST (06/23/20) CT HEAD/BRAIN W/O DYE (07/10/18) CULTURE OTHR SPECIMN AEROBIC (10/20/17) DRUG TEST PRSMV DIR OPT OBS (04/23/20) ECHO EXAM OF ABDOMEN (10/27/18) ELECTROCARDIOGRAM TRACING (10/27/18) EMERGENCY DEPT VISIT (06/23/20) EMERGENCY DEPT VISIT (07/10/18) EMERGENCY DEPT VISIT (11/13/17) EMERGENCY DEPT VISIT (08/19/17) EMERGENCY DEPT VISIT (06/26/17) EMERGENCY DEPT VISIT (06/22/17) EMERGENCY DEPT VISIT (06/04/17) EMERGENCY DEPT VISIT (02/27/17) EMERGENCY DEPT VISIT (01/03/17) EMERGENCY DEPT VISIT (07/02/16) EMERGENCY DEPT VISIT (08/28/15) EMERGENCY DEPT VISIT (01/07/15) EMERGENCY DEPT VISIT (06/12/14) PINEDA VAG DNA DIR PROBE (05/17/19) GASTRIC EMPTYING IMAG STUDY (02/11/15) GLUCOSE BLOOD TEST (06/23/20) GLYCOSYLATED HEMOGLOBIN TEST (06/23/20) HELICOBACTER PYLORI ANTIBODY (11/18/16) HOT OR COLD PACKS THERAPY (12/27/14) HYDRATE IV INFUSION ADD-ON (11/13/17) HYDRATION IV INFUSION INIT (07/10/18) INCISION OF TENDON & MUSCLE (10/21/16) INFLUENZA ASSAY W/OPTIC (10/20/17) LIPID PANEL (04/23/20) MANUAL THERAPY 1/> REGIONS (01/25/15) MASSAGE THERAPY (01/25/15) METABOLIC PANEL TOTAL CA (06/23/20) MRI JOINT UPR EXTREM W/O DYE (06/17/20) MRI LUMBAR SPINE W/O DYE (01/12/17) NJX INTERLAMINAR LMBR/SAC (02/02/17) OFFICE/OUTPATIENT VISIT EST (05/27/20) PROTHROMBIN TIME (06/23/20) PT EVAL LOW COMPLEX 20 MIN (06/30/17) PT EVALUATION (12/27/14) RBC ANTIBODY SCREEN (06/23/20) ROUTINE VENIPUNCTURE (06/23/20) SARS-COV2 COVID-19 AMP PRB (06/23/20) SHOULDER ARTHROSCOPY/SURGERY (10/21/16) SMEAR WET [place] SALINE/INK (08/10/16) TEST FOR ACETONE/KETONES (07/10/18) THER/PROPH/DIAG INJ IV PUSH (02/27/17) THER/PROPH/DIAG INJ SC/IM (07/10/18) THER/PROPH/DIAG IV INF INIT (06/23/20) THERAPEUTIC ACTIVITIES (12/27/14) THERAPEUTIC EXERCISES (03/26/17) TISSUE EXAM BY PATHOLOGIST (06/23/20) TRICHOMONAS VAGIN DIR PROBE (05/17/19) TX/PRO/DX INJ NEW DRUG ADDON (06/23/20) TX/PRO/DX INJ SAME DRUG VETERINARY MILK SPECIALIST (06/26/17) ULTRASOUND THERAPY (03/26/17) UR ALBUMIN SEMIQUANTITATIVE (04/23/20) URINALYSIS AUTO W/O SCOPE (06/23/20) URINALYSIS AUTO W/SCOPE (01/20/19) URINE CULTURE/COLONY COUNT (01/20/19) URINE TEST (02/27/17) VIT D 1 25-DIHYDROXY (04/05/17) WITHDRAWAL OF ARTERIAL BLOOD (02/08/15) X-RAY EXAM ABDOMEN 1 VIEW (10/04/19) X-RAY EXAM CHEST 1 VIEW (10/27/18) X-RAY EXAM L-S SPINE 2/3 VWS (12/07/17) X-RAY EXAM NECK SPINE 2-3 VW (08/01/19) X-RAY EXAM OF ANKLE (07/18/16) X-RAY EXAM OF ELBOW (01/09/20) X-RAY EXAM OF SHOULDER (05/27/20) Problem List Initiated/Reviewed/Updated: Yes Plan: Assessment and Plan: 1. Abdominal abscess s/p laparoscopic appendectomy: - Management per general surgery. Patient on IV zosyn. 2. Post-operative ileus: - Management per general surgery. Patient advanced to CLD today. 3. Diabetes mellitus type II: - Will start lantus 30 units at bedtime with scheduled Novolog 5 TIDAC in addition to SSI TIDAC. Accuchecks TIDAC. Will continue to monitor and make dose adjustments as needed. 4. Past medical history of HTN, hyperlipidemia, anxiety and history of migraines: - Continue home medications. <Benij Lambert - Last Filed: 07/11/20 23:21> - Patient Data Vitals - Most Recent: Last Vital Signs Temp 36.8 C 07/06/20 08:00 Pulse 66 07/06/20 08:00 Resp 18 07/06/20 08:00 BP 124/68 07/06/20 08:00 Pulse Ox 98 07/06/20 08:00 Med Orders - Current: Current Medications Discontinued Medications Acetaminophen (Tylenol) 650 mg PO Q4H PRN PRN Reason: Pain (Mild 1-3)/fever Hydrocodone Bitart/Acetaminophen ([place] 325-5 Mg) 2 tab PO Q4H PRN PRN Reason: Pain (moderate 4-6) Last Admin: 07/06/20 09:33 Dose: 2 tab Documented by: Alprazolam (Xanax) 0.5 mg PO BID PENDING SALE TO [facility] Last Admin: 07/06/20 08:27 Dose: 0.5 mg Documented by: Ciprofloxacin (Ciprofloxacin Hcl) 500 mg PO BID PENDING SALE TO [facility] Last Admin: 07/06/20 08:27 Dose: 500 mg Documented by: Dextrose/Water (Dextrose 50% In Water) 50 ml IV ASDIRECTED PRN PRN Reason: Hypoglycemia Dextrose/Water (Dextrose 50% In Water) 50 ml IVPUSH ONETIME ONE Stop: 07/04/20 07:27 Last Admin: 07/04/20 08:10 Dose: Not Given Documented by: Diphenhydramine HCl (Benadryl) 25 mg PO ONETIME ONE Stop: 07/01/20 19:50 Last Admin: 07/01/20 20:16 Dose: 25 mg Documented by: Diphenhydramine HCl (Benadryl) 25 mg PO ONETIME ONE Stop: 07/02/20 14:47 Last Admin: 07/02/20 14:57 Dose: 25 mg Documented by: Fluconazole (Diflucan) 150 mg PO ONETIME ONE Stop: 07/02/20 11:41 Last Admin: 07/02/20 13:38 Dose: Not Given Documented by: Fluconazole (Diflucan) 150 mg PO ONETIME ONE Stop: 07/02/20 13:31 Last Admin: 07/02/20 13:38 Dose: 150 mg Documented by: Glucagon (Glucagen) 1 mg IM ASDIRECTED PRN PRN Reason: Hypoglycemia Hydromorphone HCl (Dilaudid) 0.5 mg IVPUSH Q2H PRN PRN Reason: Pain (severe 7-10) Last Admin: 07/04/20 20:14 Dose: 0.5 mg Documented by: Sodium Chloride (Normal Saline) 1,000 mls @ 999 mls/hr IV ASDIRECTED PENDING SALE TO [facility] Last Admin: 06/29/20 21:46 Dose: 999 mls/hr Documented by: Piperacillin Sod/Tazobactam (Sod 4.5 gm/ Sodium Chloride) 100 mls @ 100 mls/hr IV ONETIME ONE Stop: 06/30/20 00:19 Last Admin: 06/29/20 23:28 Dose: 100 mls/hr Documented by: Lactated Ringer's (Ringers, Lactated) 1,000 mls @ 60 mls/hr IV ASDIRECTED PENDING SALE TO [facility] Last Infusion: 07/03/20 17:13 Dose: 125 mls/hr Documented by: Piperacillin Sod/Tazobactam (Sod 3.375 gm/ Sodium Chloride) 50 mls @ 100 mls/hr IV Q6H PENDING SALE TO [facility] Last Admin: 07/05/20 06:31 Dose: 100 mls/hr Documented by: Lactated Ringer's (Ringers, Lactated) 1,000 mls @ 999 mls/hr IV .BOLUS ONE Stop: 07/03/20 12:32 Last Admin: 07/03/20 11:52 Dose: 999 mls/hr Documented by: Lactated Ringer's (Ringers, Lactated) 1,000 mls @ 125 mls/hr IV ASDIRECTED PENDING SALE TO [facility] Last Admin: 07/05/20 04:02 Dose: 125 mls/hr Documented by: Ibuprofen (Motrin) 400 mg PO Q6H PENDING SALE TO [facility] Last Admin: 07/06/20 06:57 Dose: 400 mg Documented by: Insulin Aspart (Novolog) 0 unit SUBCUT TIDAC PENDING SALE TO [facility]; Protocol Last Admin: 07/03/20 13:41 Dose: Not Given Documented by: Insulin Aspart (Novolog) 5 unit SUBCUT TIDAC PENDING SALE TO [facility] Last Admin: 07/02/20 08:55 Dose: Not Given Documented by: Insulin Aspart (Novolog) 6 unit SUBCUT TIDAC PENDING SALE TO [facility] Last Admin: 07/03/20 13:47 Dose: 6 units Documented by: Insulin Aspart (Novolog) 0 unit SUBCUT Q6H PENDING SALE TO [facility]; Protocol Last Admin: 07/03/20 15:42 Dose: Not Given Documented by: Insulin Aspart (Novolog) 0 unit SUBCUT Q6H PENDING SALE TO [facility]; Protocol Last Admin: 07/03/20 18:42 Dose: Not Given Documented by: Insulin Aspart (Novolog) 0 unit SUBCUT Q6H PENDING SALE TO [facility]; Protocol Last Admin: 07/04/20 04:51 Dose: Not Given Documented by: Insulin Aspart (Novolog) 0 unit SUBCUT TIDAC PENDING SALE TO [facility]; Protocol Last Admin: 07/06/20 08:26 Dose: Not Given Documented by: Insulin Glargine (Lantus Solostar) 10 units SUBCUT ONETIME ONE Stop: 06/30/20 10:00 Last Admin: 06/30/20 10:44 Dose: 10 units Documented by: Insulin Glargine (Lantus Solostar) 10 units SUBCUT BEDTIME PENDING SALE TO [facility] Last Admin: 06/30/20 20:17 Dose: 10 units Documented by: Insulin Glargine (Lantus Solostar) 35 units SUBCUT BEDTIME PENDING SALE TO [facility] Last Admin: 07/01/20 22:19 Dose: 35 units Documented by: Insulin Glargine (Lantus Solostar) 38 units SUBCUT BEDTIME CARRIE Last Admin: 07/02/20 21:39 Dose: 38 units Documented by: Insulin Glargine (Lantus Solostar) 28 units SUBCUT BEDTIME PENDING SALE TO [facility] Last Admin: 07/05/20 21:16 Dose: 28 units Documented by: Iopamidol (Isovue-370 (76%)) 75 ml IVPUSH ONETIME STA Stop: 06/29/20 22:30 Last Admin: 06/29/20 22:30 Dose: 75 ml Documented by: Iopamidol (Isovue Multipack-370 (76%)) 100 ml IVPUSH ONETIME STA Stop: 07/03/20 11:41 Last Admin: 07/03/20 11:45 Dose: 100 ml Documented by: Lisinopril (Prinivil) 10 mg PO DAILY PENDING SALE TO [facility] Last Admin: 07/03/20 09:11 Dose: Not Given Documented by: Metronidazole (Metronidazole) 250 mg PO Q6H PENDING SALE TO [facility] Last Admin: 07/06/20 09:33 Dose: 250 mg Documented by: Miconazole (Miconazole 2% Vaginal) 1 gm TOP BID PRN PRN Reason: Itching Last Admin: 07/04/20 11:44 Dose: 1 applic Documented by: Morphine Sulfate (Morphine) 4 mg IVPUSH ONETIME ONE Stop: 06/29/20 21:29 Last Admin: 06/29/20 21:48 Dose: 4 mg Documented by: Morphine Sulfate (Morphine) 4 mg IVPUSH ONETIME ONE Stop: 06/29/20 23:16 Last Admin: 06/29/20 23:20 Dose: 4 mg Documented by: Nicotine (Habitrol) 14 mg TRDERM DAILY PENDING SALE TO [facility] Last Admin: 07/06/20 08:28 Dose: 14 mg Documented by: Ondansetron HCl (Zofran) 4 mg IVPUSH ONETIME ONE Stop: 06/29/20 21:29 Last Admin: 06/29/20 21:47 Dose: 4 mg Documented by: Ondansetron HCl (Zofran) 4 mg IVPUSH Q4H PRN PRN Reason: Nausea Last Admin: 07/05/20 22:04 Dose: 4 mg Documented by: Oxybutynin Chloride (Oxybutynin) 5 mg PO Q12H PENDING SALE TO [facility] Last Admin: 07/06/20 01:11 Dose: 5 mg Documented by: Rosuvastatin Calcium (Crestor) 40 mg PO DAILY PENDING SALE TO [facility] Last Admin: 07/06/20 08:27 Dose: 40 mg Documented by: Senna/Docusate Sodium (Senna Plus) 1 tab PO BID PENDING SALE TO [facility] Last Admin: 07/03/20 15:42 Dose: Not Given Documented by: Sodium Chloride (Saline Flush) 10 ml FLUSH ASDIRECTED PRN PRN Reason: Keep Vein Open Last Admin: 06/29/20 21:50 Dose: 10 ml Documented by: Sodium Chloride (Saline Flush) 2.5 ml FLUSH ASDIRECTED PRN PRN Reason: Keep Vein Open Last Admin: 06/29/20 21:50 Dose: 2.5 ml Documented by: Trazodone HCl (Trazodone) 100 mg PO BEDTIME PRN PRN Reason: Insomnia Last Admin: 07/05/20 21:16 Dose: 100 mg Documented by: Consult PN Assessment/Plan Procedures: Procedures ASSAY OF AMYLASE (02/07/15) ASSAY OF LACTIC ACID (07/01/20) ASSAY OF LIPASE (07/01/20) ASSAY OF MAGNESIUM (07/01/20) ASSAY OF PHOSPHORUS (07/01/20) ASSAY OF TROPONIN QUANT (07/01/20) ASSAY THYROID STIM HORMONE (10/04/19) BLOOD CULTURE FOR BACTERIA (06/23/20) BLOOD GASES ANY COMBINATION (02/08/15) BLOOD TYPING SEROLOGIC ABO (06/23/20) BLOOD TYPING SEROLOGIC RH(D) (06/23/20) EDWIN DNA DIR PROBE (05/17/19) CHEST X-RAY 1 VIEW FRONTAL (06/26/17) CHEST X-RAY 2VW FRONTAL&LATL (07/08/17) CHORIONIC GONADOTROPIN ASSAY (01/07/15) COMPLETE CBC AUTOMATED (04/05/17) COMPLETE CBC W/AUTO DIFF WBC (07/01/20) COMPREHEN METABOLIC PANEL (07/01/20) CT ABD & PELV W/CONTRAST (07/01/20) CT HEAD/BRAIN W/O DYE (07/10/18) CULTURE OTHR SPECIMN AEROBIC (10/20/17) DRUG TEST PRSMV DIR OPT OBS (04/23/20) ECHO EXAM OF ABDOMEN (10/27/18) ELECTROCARDIOGRAM TRACING (07/01/20) EMERGENCY DEPT VISIT (07/01/20) EMERGENCY DEPT VISIT (07/10/18) EMERGENCY DEPT VISIT (11/13/17) EMERGENCY DEPT VISIT (08/19/17) EMERGENCY DEPT VISIT (06/26/17) EMERGENCY DEPT VISIT (06/22/17) EMERGENCY DEPT VISIT (06/04/17) EMERGENCY DEPT VISIT (02/27/17) EMERGENCY DEPT VISIT (01/03/17) EMERGENCY DEPT VISIT (07/02/16) EMERGENCY DEPT VISIT (08/28/15) EMERGENCY DEPT VISIT (01/07/15) EMERGENCY DEPT VISIT (06/12/14) PINEDA VAG DNA DIR PROBE (05/17/19) GASTRIC EMPTYING IMAG STUDY (02/11/15) GLUCOSE BLOOD TEST (07/01/20) GLYCOSYLATED HEMOGLOBIN TEST (06/23/20) HELICOBACTER PYLORI ANTIBODY (11/18/16) HOT OR COLD PACKS THERAPY (12/27/14) HYDRATE IV INFUSION ADD-ON (11/13/17) HYDRATION IV INFUSION INIT (07/10/18) INCISION OF TENDON & MUSCLE (10/21/16) INFLUENZA ASSAY W/OPTIC (10/20/17) LIPID PANEL (04/23/20) MANUAL THERAPY 1/> REGIONS (01/25/15) MASSAGE THERAPY (01/25/15) METABOLIC PANEL TOTAL CA (07/01/20) MRI JOINT UPR EXTREM W/O DYE (06/17/20) MRI LUMBAR SPINE W/O DYE (01/12/17) NJX INTERLAMINAR LMBR/SAC (02/02/17) OFFICE/OUTPATIENT VISIT EST (05/27/20) PROTHROMBIN TIME (06/23/20) PT EVAL LOW COMPLEX 20 MIN (06/30/17) PT EVALUATION (12/27/14) RBC ANTIBODY SCREEN (06/23/20) ROUTINE VENIPUNCTURE (07/01/20) SARS-COV2 COVID-19 AMP PRB (07/01/20) SHOULDER ARTHROSCOPY/SURGERY (10/21/16) SMEAR WET [place]/INK (08/10/16) TEST FOR ACETONE/KETONES (07/10/18) THER/PROPH/DIAG INJ IV PUSH (02/27/17) THER/PROPH/DIAG INJ SC/IM (07/10/18) THER/PROPH/DIAG IV INF INIT (07/01/20) THERAPEUTIC ACTIVITIES (12/27/14) THERAPEUTIC EXERCISES (03/26/17) TISSUE EXAM BY PATHOLOGIST (06/23/20) TRICHOMONAS VAGIN DIR PROBE (05/17/19) TX/PRO/DX INJ NEW DRUG ADDON (07/01/20) TX/PRO/DX INJ SAME DRUG VETERINARY MILK SPECIALIST (07/01/20) ULTRASOUND THERAPY (03/26/17) UR ALBUMIN SEMIQUANTITATIVE (04/23/20) URINALYSIS AUTO W/O SCOPE (07/01/20) URINALYSIS AUTO W/SCOPE (01/20/19) URINE CULTURE/COLONY COUNT (01/20/19) URINE TEST (02/27/17) VIT D 1 25-DIHYDROXY (04/05/17) WITHDRAWAL OF ARTERIAL BLOOD (02/08/15) X-RAY EXAM ABDOMEN 1 VIEW (10/04/19) X-RAY EXAM CHEST 1 VIEW (10/27/18) X-RAY EXAM L-S SPINE 2/3 VWS (12/07/17) X-RAY EXAM NECK SPINE 2-3 VW (08/01/19) X-RAY EXAM OF ANKLE (07/18/16) X-RAY EXAM OF ELBOW (01/09/20) X-RAY EXAM OF SHOULDER (05/27/20) Plan: I have seen and examined the patient independently and discussed management plan with the resident, I agree with the residents note unless otherwise specified in my note.
[2020-07-05] MEDS: metroNIDAZOLE 250 MG Tab PO SCH ×3 (11:43→21:14)
--- NOTE | 2020-07-05 12:59 | PCM.SURGPN ---
- General Info Date of Service: 07/05/20 POD#: 10 Functional Status: Reports: Pain Controlled, Tolerating Diet, Ambulating, Urinating. Denies: New Symptoms - Review of Systems General: Reports: No Symptoms HEENT: Reports: No Symptoms Pulmonary: Reports: No Symptoms Cardiovascular: Reports: No Symptoms Gastrointestinal: Reports: No Symptoms Genitourinary: Reports: No Symptoms Musculoskeletal: Reports: No Symptoms - Patient Data Vitals - Most Recent: Last Vital Signs Temp 36.4 C 07/05/20 12:00 Pulse 63 07/05/20 12:00 Resp 22 H 07/05/20 12:00 BP 140/63 07/05/20 12:00 Pulse Ox 93 L 07/05/20 12:00 Weight - Most Recent: 62.4 kg I&O - Last 24 Hours: Intake & Output 07/04/20 07/05/20 07/05/20 22:59 06:59 14:59 Intake Total 1400 2008 Output Total 900 3000 Balance 500 -992 Lab Results Last 24 Hrs: Laboratory Results - last 24 hr 07/04/20 07/04/20 07/04/20 Range/Units 14:12 16:55 20:10 WBC (4.0-11.0) K/uL RBC (4.30-5.90) M/uL Hgb (12.0-16.0) g/dL Hct (36.0-46.0) % MCV (80.0-98.0) fL MCH (27.0-32.0) pg MCHC (31.0-37.0) g/dL RDW Std Deviation (28.0-62.0) fl RDW Coeff of Haley (11.0-15.0) % Plt Count (150-400) K/uL MPV (7.40-12.00) fL Neut % (Auto) (48.0-80.0) % Lymph % (Auto) (16.0-40.0) % [place] % (Auto) (0.0-15.0) % Eos % (Auto) (0.0-7.0) % Baso % (Auto) (0.0-1.5) % Neut # (Auto) (1.4-5.7) K/uL Lymph # (Auto) (0.6-2.4) K/uL [place] # (Auto) (0.0-0.8) K/uL Eos # (Auto) (0.0-0.7) K/uL Baso # (Auto) (0.0-0.1) K/uL Nucleated RBC % /100WBC Nucleated RBCs # K/uL POC Glucose 116 H 199 H 143 H (60-110) mg/dL 07/05/20 07/05/20 Range/Units 06:23 08:17 WBC 10.74 (4.0-11.0) K/uL RBC 4.00 L (4.30-5.90) M/uL Hgb 12.3 (12.0-16.0) g/dL Hct 38.5 (36.0-46.0) % MCV 96.3 (80.0-98.0) fL MCH 30.8 (27.0-32.0) pg MCHC 31.9 (31.0-37.0) g/dL RDW Std Deviation 45.4 (28.0-62.0) fl RDW Coeff of Haley 13 (11.0-15.0) % Plt Count 426 H (150-400) K/uL MPV 9.70 (7.40-12.00) fL Neut % (Auto) 56.5 (48.0-80.0) % Lymph % (Auto) 34.9 (16.0-40.0) % [place] % (Auto) 6.4 (0.0-15.0) % Eos % (Auto) 2.0 (0.0-7.0) % Baso % (Auto) 0.2 (0.0-1.5) % Neut # (Auto) 6.1 H (1.4-5.7) K/uL Lymph # (Auto) 3.8 H (0.6-2.4) K/uL [place] # (Auto) 0.7 (0.0-0.8) K/uL Eos # (Auto) 0.2 (0.0-0.7) K/uL Baso # (Auto) 0.0 (0.0-0.1) K/uL Nucleated RBC % 0.0 /100WBC Nucleated RBCs # 0 K/uL POC Glucose 124 H (60-110) mg/dL Med Orders - Current: Current Medications Acetaminophen (Tylenol) 650 mg PO Q4H PRN PRN Reason: Pain (Mild 1-3)/fever Hydrocodone Bitart/Acetaminophen (Lovejoy 325-5 Mg) 2 tab PO Q4H PRN PRN Reason: Pain (moderate 4-6) Last Admin: 07/05/20 08:40 Dose: 2 tab Documented by: Alprazolam (Xanax) 0.5 mg PO BID [facility] Last Admin: 07/05/20 08:33 Dose: 0.5 mg Documented by: Ciprofloxacin (Ciprofloxacin Hcl) 500 mg PO BID [facility] Dextrose/Water (Dextrose 50% In Water) 50 ml IV ASDIRECTED PRN PRN Reason: Hypoglycemia Glucagon (Glucagen) 1 mg IM ASDIRECTED PRN PRN Reason: Hypoglycemia Hydromorphone HCl (Dilaudid) 0.5 mg IVPUSH Q2H PRN PRN Reason: Pain (severe 7-10) Last Admin: 07/04/20 20:14 Dose: 0.5 mg Documented by: Lactated Ringer's (Ringers, Lactated) 1,000 mls @ 125 mls/hr IV ASDIRECTED [facility] Last Admin: 07/05/20 04:02 Dose: 125 mls/hr Documented by: Ibuprofen (Motrin) 400 mg PO Q6H [facility] Last Admin: 07/05/20 06:31 Dose: 400 mg Documented by: Insulin Aspart (Novolog) 0 unit SUBCUT TIDAC [facility]; Protocol Last Admin: 07/05/20 06:33 Dose: Not Given Documented by: Insulin Glargine (Lantus Solostar) 28 units SUBCUT BEDTIME [facility] Last Admin: 07/04/20 20:11 Dose: 28 units Documented by: Metronidazole (Metronidazole) 250 mg PO Q6H [facility] Last Admin: 07/05/20 11:43 Dose: 250 mg Documented by: Miconazole (Miconazole 2% Vaginal) 1 gm TOP BID PRN PRN Reason: Itching Last Admin: 07/04/20 11:44 Dose: 1 applic Documented by: Nicotine (Habitrol) 14 mg TRDERM DAILY [facility] Last Admin: 07/05/20 08:34 Dose: 14 mg Documented by: Ondansetron HCl (Zofran) 4 mg IVPUSH Q4H PRN PRN Reason: Nausea Last Admin: 07/04/20 21:44 Dose: 4 mg Documented by: Oxybutynin Chloride (Oxybutynin) 5 mg PO Q12H [facility] Last Admin: 07/05/20 00:40 Dose: 5 mg Documented by: Rosuvastatin Calcium (Crestor) 40 mg PO DAILY [facility] Last Admin: 07/05/20 08:32 Dose: 40 mg Documented by: Sodium Chloride (Saline Flush) 10 ml FLUSH ASDIRECTED PRN PRN Reason: Keep Vein Open Last Admin: 06/29/20 21:50 Dose: 10 ml Documented by: Sodium Chloride (Saline Flush) 2.5 ml FLUSH ASDIRECTED PRN PRN Reason: Keep Vein Open Last Admin: 06/29/20 21:50 Dose: 2.5 ml Documented by: Trazodone HCl (Trazodone) 100 mg PO BEDTIME PRN PRN Reason: Insomnia Last Admin: 07/04/20 21:38 Dose: 100 mg Documented by: Discontinued Medications Dextrose/Water (Dextrose 50% In Water) 50 ml IVPUSH ONETIME ONE Stop: 07/04/20 07:27 Last Admin: 07/04/20 08:10 Dose: Not Given Documented by: Diphenhydramine HCl (Benadryl) 25 mg PO ONETIME ONE Stop: 07/01/20 19:50 Last Admin: 07/01/20 20:16 Dose: 25 mg Documented by: Diphenhydramine HCl (Benadryl) 25 mg PO ONETIME ONE Stop: 07/02/20 14:47 Last Admin: 07/02/20 14:57 Dose: 25 mg Documented by: Fluconazole (Diflucan) 150 mg PO ONETIME ONE Stop: 07/02/20 11:41 Last Admin: 07/02/20 13:38 Dose: Not Given Documented by: Fluconazole (Diflucan) 150 mg PO ONETIME ONE Stop: 07/02/20 13:31 Last Admin: 07/02/20 13:38 Dose: 150 mg Documented by: Sodium Chloride (Normal Saline) 1,000 mls @ 999 mls/hr IV ASDIRECTED [facility] Last Admin: 06/29/20 21:46 Dose: 999 mls/hr Documented by: Piperacillin Sod/Tazobactam (Sod 4.5 gm/ Sodium Chloride) 100 mls @ 100 mls/hr IV ONETIME ONE Stop: 06/30/20 00:19 Last Admin: 06/29/20 23:28 Dose: 100 mls/hr Documented by: Lactated Ringer's (Ringers, Lactated) 1,000 mls @ 60 mls/hr IV ASDIRECTED [facility] Last Infusion: 07/03/20 17:13 Dose: 125 mls/hr Documented by: Piperacillin Sod/Tazobactam (Sod 3.375 gm/ Sodium Chloride) 50 mls @ 100 mls/hr IV Q6H [facility] Last Admin: 07/05/20 06:31 Dose: 100 mls/hr Documented by: Lactated Ringer's (Ringers, Lactated) 1,000 mls @ 999 mls/hr IV .BOLUS ONE Stop: 07/03/20 12:32 Last Admin: 07/03/20 11:52 Dose: 999 mls/hr Documented by: Insulin Aspart (Novolog) 0 unit SUBCUT TIDAC [facility]; Protocol Last Admin: 07/03/20 13:41 Dose: Not Given Documented by: Insulin Aspart (Novolog) 5 unit SUBCUT TIDAC [facility] Last Admin: 07/02/20 08:55 Dose: Not Given Documented by: Insulin Aspart (Novolog) 6 unit SUBCUT TIDAC [facility] Last Admin: 07/03/20 13:47 Dose: 6 units Documented by: Insulin Aspart (Novolog) 0 unit SUBCUT Q6H [facility]; Protocol Last Admin: 07/03/20 15:42 Dose: Not Given Documented by: Insulin Aspart (Novolog) 0 unit SUBCUT Q6H [facility]; Protocol Last Admin: 07/03/20 18:42 Dose: Not Given Documented by: Insulin Aspart (Novolog) 0 unit SUBCUT Q6H [facility]; Protocol Last Admin: 07/04/20 04:51 Dose: Not Given Documented by: Insulin Glargine (Lantus Solostar) 10 units SUBCUT ONETIME ONE Stop: 06/30/20 10:00 Last Admin: 06/30/20 10:44 Dose: 10 units Documented by: Insulin Glargine (Lantus Solostar) 10 units SUBCUT BEDTIME [facility] Last Admin: 06/30/20 20:17 Dose: 10 units Documented by: Insulin Glargine (Lantus Solostar) 35 units SUBCUT BEDTIME [facility] Last Admin: 07/01/20 22:19 Dose: 35 units Documented by: Insulin Glargine (Lantus Solostar) 38 units SUBCUT BEDTIME [facility] Last Admin: 07/02/20 21:39 Dose: 38 units Documented by: Iopamidol (Isovue-370 (76%)) 75 ml IVPUSH ONETIME STA Stop: 06/29/20 22:30 Last Admin: 06/29/20 22:30 Dose: 75 ml Documented by: Iopamidol (Isovue Multipack-370 (76%)) 100 ml IVPUSH ONETIME STA Stop: 07/03/20 11:41 Last Admin: 07/03/20 11:45 Dose: 100 ml Documented by: Lisinopril (Prinivil) 10 mg PO DAILY [facility] Last Admin: 07/03/20 09:11 Dose: Not Given Documented by: Morphine Sulfate (Morphine) 4 mg IVPUSH ONETIME ONE Stop: 06/29/20 21:29 Last Admin: 06/29/20 21:48 Dose: 4 mg Documented by: Morphine Sulfate (Morphine) 4 mg IVPUSH ONETIME ONE Stop: 06/29/20 23:16 Last Admin: 06/29/20 23:20 Dose: 4 mg Documented by: Ondansetron HCl (Zofran) 4 mg IVPUSH ONETIME ONE Stop: 06/29/20 21:29 Last Admin: 06/29/20 21:47 Dose: 4 mg Documented by: Senna/Docusate Sodium (Senna Plus) 1 tab PO BID [facility] Last Admin: 07/03/20 15:42 Dose: Not Given Documented by: - Exam Wound/Incisions: Healing Well General: Alert, Oriented HEENT: Pupils Equal, Pupils Reactive Lungs: Normal Respiratory Effort Cardiovascular: Regular Rate GI/Abdominal Exam: Soft, Non-Tender, No Distention, No Mass Skin: Warm, Dry, Intact Neurological: No New Focal Deficit Psy/Mental Status: Alert, Normal Affect, Normal Mood Sepsis Event Note - Evaluation Sepsis Screening Result: No Definite Risk - Focused Exam Vital Signs: Vital Signs Temp Pulse Resp BP Pulse Ox 07/05/20 12:00 36.4 C 63 22 H 140/63 93 L 07/05/20 08:35 36.7 C 73 16 105/62 93 L 07/05/20 04:00 36.4 C 79 16 121/72 96 - Problem List & Annotations (1) Abdominal pain SNOMED Code(s): 41295756 Code(s): R10.9 - UNSPECIFIED ABDOMINAL PAIN Status: Acute Current Visit: Yes (2) Abscess after procedure SNOMED Code(s): 17259432135365409 Code(s): T81.49XA - INFECTION FOLLOWING A PROCEDURE, OTHER SURGICAL SITE, INIT Status: Acute Current Visit: Yes (3) Post-operative complication SNOMED Code(s): 796770371 Code(s): T81.9XXA - UNSPECIFIED COMPLICATION OF PROCEDURE, INITIAL ENCOUNTER Status: Acute Current Visit: Yes (4) Uncontrolled diabetes mellitus SNOMED Code(s): 30785597, 643487965 Code(s): E11.65 - TYPE 2 DIABETES MELLITUS WITH HYPERGLYCEMIA Status: Acute Current Visit: Yes Qualifiers: Diabetes mellitus type: type 2 Glycemic state: with hyperglycemia Qualified Code(s): E11.65 - Type 2 diabetes mellitus with hyperglycemia - Problem List Review Problem List Initiated/Reviewed/Updated: Yes - My Orders Last 24 Hours: Active Orders 24 hr Category Date Time Status [employer] Diet [DIET] Diet 07/05/20 Lunch Active Ciprofloxacin [Ciprofloxacin HCl] Med 07/05/20 21:00 Active 500 mg PO BID [facility] Med 07/05/20 09:45 Active 250 mg PO Q6H Medication Orders Acetaminophen (Tylenol) 650 mg PO Q4H PRN PRN Reason: Pain (Mild 1-3)/fever Hydrocodone Bitart/Acetaminophen (Lovejoy 325-5 Mg) 2 tab PO Q4H PRN PRN Reason: Pain (moderate 4-6) Last Admin: 07/05/20 08:40 Dose: 2 tab Documented by: Admin: 07/05/20 03:59 Dose: 2 tab Documented by: Admin: 07/04/20 21:37 Dose: 2 tab Documented by: Admin: 07/04/20 16:32 Dose: 2 tab Documented by: Admin: 07/04/20 12:27 Dose: 2 tab Documented by: Admin: 07/04/20 08:04 Dose: 2 tab Documented by: Admin: 07/04/20 03:34 Dose: 2 tab Documented by: Admin: 07/03/20 23:02 Dose: 2 tab Documented by: Admin: 07/03/20 18:52 Dose: 2 tab Documented by: Admin: 07/03/20 13:06 Dose: 2 tab Documented by: Admin: 07/03/20 07:52 Dose: 2 tab Documented by: Admin: 07/03/20 02:40 Dose: 2 tab Documented by: Admin: 07/02/20 20:17 Dose: 2 tab Documented by: Admin: 07/02/20 16:17 Dose: 2 tab Documented by: Admin: 07/02/20 11:53 Dose: 2 tab Documented by: EDIE Cosigned by: JAILYN Admin: 07/02/20 06:59 Dose: 2 tab Documented by: Admin: 07/02/20 02:15 Dose: 2 tab Documented by: Admin: 07/01/20 22:15 Dose: 2 tab Documented by: Admin: 07/01/20 18:15 Dose: 2 tab Documented by: Admin: 07/01/20 13:10 Dose: 2 tab Documented by: Admin: 07/01/20 09:02 Dose: 2 tab Documented by: Admin: 07/01/20 04:36 Dose: 2 tab Documented by: Admin: 07/01/20 00:47 Dose: 2 tab Documented by: Admin: 06/30/20 20:15 Dose: 2 tab Documented by: Admin: 06/30/20 15:45 Dose: 2 tab Documented by: Admin: 06/30/20 12:07 Dose: 2 tab Documented by: Admin: 06/30/20 07:03 Dose: 2 tab Documented by: Admin: 06/30/20 02:03 Dose: 2 tab Documented by: TARUN Alprazolam (Xanax) 0.5 mg PO BID [facility] Last Admin: 07/05/20 08:33 Dose: 0.5 mg Documented by: Admin: 07/04/20 20:12 Dose: 0.5 mg Documented by: Admin: 07/04/20 08:54 Dose: 0.5 mg Documented by: Admin: 07/03/20 20:06 Dose: 0.5 mg Documented by: Admin: 07/03/20 08:49 Dose: 0.5 mg Documented by: Admin: 07/02/20 21:38 Dose: 0.5 mg Documented by: Admin: 07/02/20 08:37 Dose: 0.5 mg Documented by: EDIE Cosigned by: JAILYN Admin: 07/01/20 22:14 Dose: 0.5 mg Documented by: Admin: 07/01/20 09:40 Dose: 0.5 mg Documented by: AYAAN Ciprofloxacin (Ciprofloxacin Hcl) 500 mg PO BID [facility] Dextrose/Water (Dextrose 50% In Water) 50 ml IV ASDIRECTED PRN PRN Reason: Hypoglycemia Glucagon (Glucagen) 1 mg IM ASDIRECTED PRN PRN Reason: Hypoglycemia Hydromorphone HCl (Dilaudid) 0.5 mg IVPUSH Q2H PRN PRN Reason: Pain (severe 7-10) Last Admin: 07/04/20 20:14 Dose: 0.5 mg Documented by: Admin: 07/04/20 18:10 Dose: 0.5 mg Documented by: Admin: 07/04/20 14:05 Dose: 0.5 mg Documented by: Admin: 07/04/20 10:54 Dose: 0.5 mg Documented by: Admin: 07/04/20 00:20 Dose: 0.5 mg Documented by: Admin: 07/03/20 21:18 Dose: 0.5 mg Documented by: Admin: 07/03/20 17:27 Dose: 0.5 mg Documented by: Admin: 07/03/20 12:07 Dose: 0.5 mg Documented by: GRAVTIF Lactated Ringer's (Ringers, Lactated) 1,000 mls @ 125 mls/hr IV ASDIRECTED [facility] Last Admin: 07/05/20 04:02 Dose: 125 mls/hr Documented by: Infusion: 07/05/20 04:02 Dose: 125 mls/hr Documented by: Admin: 07/04/20 20:18 Dose: 125 mls/hr Documented by: Infusion: 07/04/20 17:35 Dose: 125 mls/hr Documented by: Admin: 07/04/20 09:35 Dose: 125 mls/hr Documented by: DAMEON Ibuprofen (Motrin) 400 mg PO Q6H [facility] Last Admin: 07/05/20 06:31 Dose: 400 mg Documented by: Admin: 07/05/20 00:40 Dose: 400 mg Documented by: Admin: 07/04/20 18:10 Dose: 400 mg Documented by: Admin: 07/04/20 12:26 Dose: 400 mg Documented by: Admin: 07/04/20 07:08 Dose: 400 mg Documented by: Admin: 07/04/20 00:24 Dose: 400 mg Documented by: Admin: 07/03/20 18:52 Dose: 400 mg Documented by: Admin: 07/03/20 14:35 Dose: 400 mg Documented by: DOMINGO Insulin Aspart (Novolog) 0 unit SUBCUT TIDAC [facility]; Protocol Last Admin: 07/05/20 06:33 Dose: Not Given Documented by: Admin: 07/04/20 18:13 Dose: 1 units Documented by: Admin: 07/04/20 14:00 Dose: Not Given Documented by: DAMEON Insulin Glargine (Lantus Solostar) 28 units SUBCUT BEDTIME [facility] Last Admin: 07/04/20 20:11 Dose: 28 units Documented by: Admin: 07/03/20 20:15 Dose: 28 units Documented by: SPRING Metronidazole (Metronidazole) 250 mg PO Q6H [facility] Last Admin: 07/05/20 11:43 Dose: 250 mg Documented by: AYAAN Miconazole (Miconazole 2% Vaginal) 1 gm TOP BID PRN PRN Reason: Itching Last Admin: 07/04/20 11:44 Dose: 1 applic Documented by: DAMEON Nicotine (Habitrol) 14 mg TRDERM DAILY [facility] Last Admin: 07/05/20 08:34 Dose: 14 mg Documented by: Admin: 07/04/20 08:54 Dose: 14 mg Documented by: Admin: 07/03/20 08:51 Dose: 14 mg Documented by: Admin: 07/02/20 08:40 Dose: 14 mg Documented by: EDIE Bridgesigned by: JAILYN Admin: 07/01/20 09:40 Dose: 14 mg Documented by: AYAAN Ondansetron HCl (Zofran) 4 mg IVPUSH Q4H PRN PRN Reason: Nausea Last Admin: 07/04/20 21:44 Dose: 4 mg Documented by: Admin: 07/04/20 08:05 Dose: 4 mg Documented by: Admin: 07/03/20 21:29 Dose: 4 mg Documented by: Admin: 07/03/20 17:26 Dose: 4 mg Documented by: Admin: 07/03/20 08:52 Dose: 4 mg Documented by: Admin: 07/02/20 11:53 Dose: 4 mg Documented by: EDIE Cosigned by: JAILYN Admin: 07/01/20 22:25 Dose: 4 mg Documented by: Admin: 07/01/20 09:02 Dose: 4 mg Documented by: AYAAN Oxybutynin Chloride (Oxybutynin) 5 mg PO Q12H [facility] Admin: 07/05/20 00:40 Dose: 5 mg Documented by: Admin: 07/04/20 14:05 Dose: 5 mg Documented by: Admin: 07/04/20 00:20 Dose: 5 mg Documented by: Admin: 07/03/20 14:36 Dose: 5 mg Documented by: Admin: 07/03/20 00:07 Dose: 5 mg Documented by: Admin: 07/02/20 13:12 Dose: 5 mg Documented by: Admin: 07/02/20 01:53 Dose: 5 mg Documented by: Admin: 07/01/20 13:11 Dose: 5 mg Documented by: Admin: 07/01/20 00:47 Dose: 5 mg Documented by: Admin: 06/30/20 13:46 Dose: 5 mg Documented by: Admin: 06/30/20 02:06 Dose: 5 mg Documented by: TARUN Rosuvastatin Calcium (Crestor) 40 mg PO DAILY [facility] Admin: 07/05/20 08:32 Dose: 40 mg Documented by: Admin: 07/04/20 08:54 Dose: 40 mg Documented by: Admin: 07/03/20 08:49 Dose: 40 mg Documented by: Admin: 07/02/20 08:38 Dose: 40 mg Documented by: EDIE Cosigned by: JAILYN Admin: 07/01/20 09:03 Dose: 40 mg Documented by: Admin: 06/30/20 08:39 Dose: 40 mg Documented by: SPRING Sodium Chloride (Saline Flush) 10 ml FLUSH ASDIRECTED PRN PRN Reason: Keep Vein Open Last Admin: 06/29/20 21:50 Dose: 10 ml Documented by: JESSICA Sodium Chloride (Saline Flush) 2.5 ml FLUSH ASDIRECTED PRN PRN Reason: Keep Vein Open Last Admin: 06/29/20 21:50 Dose: 2.5 ml Documented by: JESSICA Trazodone HCl (Trazodone) 100 mg PO BEDTIME PRN PRN Reason: Insomnia Last Admin: 07/04/20 21:38 Dose: 100 mg Documented by: Admin: 07/03/20 21:19 Dose: 100 mg Documented by: Admin: 07/02/20 21:38 Dose: 100 mg Documented by: XAVI - Plan Plan (Free Text/Narrative):: Patient's white blood cell count this morning is within normal limits. She is having more regular bowel movements and no longer feels distended. She has no abdominal pain. Patient is tolerating a soft diet and will advance to regular today. Will switch patient to oral antibiotics. Will do Cipro 500 mg twice a day and Flagyl 250 mg every 6 hours. We'll monitor over the next day. If no acute changes will go home in the morning.
--- NOTE | 2020-07-05 12:59 | PCM.DCSUM1 ---
Discharge Summary - Hospital Course Free Text/Narrative:: Patient is a 50 yr female who presented to the ER with abdominal pain. She had a laparoscopic appendectomy the week before for ruptured appendicitis. Her past medical history is significant for poorly controlled diabetes and smoking. Her CT scan showed an abscess at the staple line. She was treated with IV Zosyn. On hospital day [address] scan was performed for abdominal pain and distension. She was found to have an ileus, but the abscess was resolving. She was made npo and the next morning she had a large BM. She felt much better after this. Her pain improved as well as her distension. Her diet was slowly advanced. Her WBC improved to normal limits and she was transitioned to oral antibiotics. She continued to improve. Incidentally she is noted to have a right ovarian cyst. Her vitals are stable and regular diet is tolerated she is cleared for discharge. - Discharge Data Discharge Date: 07/06/20 Discharge Disposition: Home, Self-Care 01 Condition: Fair - Referral to Home Health Primary Care Physician: PCP None - Discharge Diagnosis/Problem(s) (1) Abdominal pain SNOMED Code(s): 54955818 ICD Code: R10.9 - UNSPECIFIED ABDOMINAL PAIN Status: Acute Current Visit: Yes (2) Abscess after procedure SNOMED Code(s): 81847531471047301 ICD Code: T81.49XA - INFECTION FOLLOWING A PROCEDURE, OTHER SURGICAL SITE, INIT Status: Acute Current Visit: Yes (3) Post-operative complication SNOMED Code(s): 548823497 ICD Code: T81.9XXA - UNSPECIFIED COMPLICATION OF PROCEDURE, INITIAL ENCOUNTER Status: Acute Current Visit: Yes (4) Uncontrolled diabetes mellitus SNOMED Code(s): 19708072, 853602002 ICD Code: E11.65 - TYPE 2 DIABETES MELLITUS WITH HYPERGLYCEMIA Status: Acute Current Visit: Yes Qualifiers: Diabetes mellitus type: type 2 Glycemic state: with hyperglycemia Qualified Code(s): E11.65 - Type 2 diabetes mellitus with hyperglycemia - Patient Summary/Data Consults: Consultations 06/30/20 00:51 Consult to Physician [CONS] Routine - Patient Instructions Diet: Drink 8-10+ Glasses/Day, Diabetic Diet Activity: No Lifting Over 20 Pounds (one month after surgery ) Driving: Do Not Drive Showering/Bathing: May Shower Notify Provider of: Fever, Increased Pain, Swelling and Redness, Drainage, Nausea and/or Vomiting - Discharge Plan *PRESCRIPTION DRUG MONITORING PROGRAM REVIEWED*: Not Applicable *COPY OF PRESCRIPTION DRUG MONITORING REPORT IN PATIENT HEIDI: Not Applicable Prescriptions/Med Rec: Ciprofloxacin [Ciprofloxacin HCl] 500 mg PO BID #10 tablet metroNIDAZOLE 250 mg PO Q6H #20 tablet Sennosides/Docusate Sodium [Senna-Plus Tablet] 1 each PO DAILY PRN #30 tablet PRN Reason: Constipation Home Medications: Home Meds lisinopriL [Lisinopril] 10 mg PO DAILY 06/23/20 [History] ALPRAZolam [Alprazolam] 0.5 mg PO BID PRN 06/24/20 [History] Oxybutynin 5 mg PO Q12H 06/24/20 [History] Rizatriptan Benzoate [Rizatriptan] 10 mg PO Q2H PRN 06/24/20 [History] Rosuvastatin [Crestor] 40 mg PO DAILY 06/24/20 [History] polyethylene glycoL 3350 [MiraLAX] 17 gm PO DAILY 7 Days #1 packet 06/26/20 [Rx] Insulin Aspart [NovoLOG] 5 unit SUBCUT TIDAC pen 06/27/20 [Rx] Insulin Glarg,Human.Rec.Analog [Lantus Solostar] 40 units SUBCUT BEDTIME pen 06/27/20 [Rx] Ondansetron [Zofran ODT] 4 mg PO Q6H PRN #30 tab.dis 06/27/20 [Rx] traMADol [Ultram] 50 mg PO Q6H PRN 07/02/20 [History] traZODone HCl [Trazodone HCl] 100 mg PO BEDTIME 07/02/20 [History] Ciprofloxacin [Ciprofloxacin HCl] 500 mg PO BID #10 tablet 07/05/20 [Rx] metroNIDAZOLE 250 mg PO Q6H #20 tablet 07/05/20 [Rx] Sennosides/Docusate Sodium [Senna-Plus Tablet] 1 each PO DAILY PRN #30 tablet 07/06/20 [Rx] Patient Handouts: Ciprofloxacin tablets, Metronidazole tablets or capsules Referrals: Tabatha Meredith MD [Physician] - 07/19/20 8:00 am Shai Miller MD [Physician] - 07/04/20 2:00 pm - Discharge Summary/Plan Comment DC Time >30 min.: No - General Info Date of Service: 07/06/20 Functional Status: Reports: Pain Controlled, Tolerating Diet, Ambulating - Review of Systems General: Reports: No Symptoms HEENT: Reports: No Symptoms Pulmonary: Reports: No Symptoms Cardiovascular: Reports: No Symptoms Gastrointestinal: Reports: No Symptoms Genitourinary: Reports: No Symptoms Musculoskeletal: Reports: No Symptoms - Patient Data Vitals - Most Recent: Last Vital Signs Temp 36.4 C 07/05/20 12:00 Pulse 63 07/05/20 12:00 Resp 22 H 07/05/20 12:00 BP 140/63 07/05/20 12:00 Pulse Ox 93 L 07/05/20 12:00 Weight - Most Recent: 62.4 kg I&O - Last 24 hours: Intake & Output 07/04/20 07/05/20 07/05/20 22:59 06:59 14:59 Intake Total 1400 2008 Output Total 900 3000 Balance 500 -992 Lab Results - Last 24 hrs: Laboratory Results - last 24 hr 07/04/20 07/04/20 07/04/20 Range/Units 14:12 16:55 20:10 WBC (4.0-11.0) K/uL RBC (4.30-5.90) M/uL Hgb (12.0-16.0) g/dL Hct (36.0-46.0) % MCV (80.0-98.0) fL MCH (27.0-32.0) pg MCHC (31.0-37.0) g/dL RDW Std Deviation (28.0-62.0) fl RDW Coeff of Haley (11.0-15.0) % Plt Count (150-400) K/uL MPV (7.40-12.00) fL Neut % (Auto) (48.0-80.0) % Lymph % (Auto) (16.0-40.0) % [place] % (Auto) (0.0-15.0) % Eos % (Auto) (0.0-7.0) % Baso % (Auto) (0.0-1.5) % Neut # (Auto) (1.4-5.7) K/uL Lymph # (Auto) (0.6-2.4) K/uL [place] # (Auto) (0.0-0.8) K/uL Eos # (Auto) (0.0-0.7) K/uL Baso # (Auto) (0.0-0.1) K/uL Nucleated RBC % /100WBC Nucleated RBCs # K/uL POC Glucose 116 H 199 H 143 H (60-110) mg/dL 07/05/20 07/05/20 Range/Units 06:23 08:17 WBC 10.74 (4.0-11.0) K/uL RBC 4.00 L (4.30-5.90) M/uL Hgb 12.3 (12.0-16.0) g/dL Hct 38.5 (36.0-46.0) % MCV 96.3 (80.0-98.0) fL MCH 30.8 (27.0-32.0) pg MCHC 31.9 (31.0-37.0) g/dL RDW Std Deviation 45.4 (28.0-62.0) fl RDW Coeff of Haley 13 (11.0-15.0) % Plt Count 426 H (150-400) K/uL MPV 9.70 (7.40-12.00) fL Neut % (Auto) 56.5 (48.0-80.0) % Lymph % (Auto) 34.9 (16.0-40.0) % [place] % (Auto) 6.4 (0.0-15.0) % Eos % (Auto) 2.0 (0.0-7.0) % Baso % (Auto) 0.2 (0.0-1.5) % Neut # (Auto) 6.1 H (1.4-5.7) K/uL Lymph # (Auto) 3.8 H (0.6-2.4) K/uL [place] # (Auto) 0.7 (0.0-0.8) K/uL Eos # (Auto) 0.2 (0.0-0.7) K/uL Baso # (Auto) 0.0 (0.0-0.1) K/uL Nucleated RBC % 0.0 /100WBC Nucleated RBCs # 0 K/uL POC Glucose 124 H (60-110) mg/dL Med Orders - Current: Current Medications Acetaminophen (Tylenol) 650 mg PO Q4H PRN PRN Reason: Pain (Mild 1-3)/fever Hydrocodone Bitart/Acetaminophen (Russell 325-5 Mg) 2 tab PO Q4H PRN PRN Reason: Pain (moderate 4-6) Last Admin: 07/05/20 08:40 Dose: 2 tab Documented by: Alprazolam (Xanax) 0.5 mg PO BID [facility] Last Admin: 07/05/20 08:33 Dose: 0.5 mg Documented by: Ciprofloxacin (Ciprofloxacin Hcl) 500 mg PO BID [facility] Dextrose/Water (Dextrose 50% In Water) 50 ml IV ASDIRECTED PRN PRN Reason: Hypoglycemia Glucagon (Glucagen) 1 mg IM ASDIRECTED PRN PRN Reason: Hypoglycemia Hydromorphone HCl (Dilaudid) 0.5 mg IVPUSH Q2H PRN PRN Reason: Pain (severe 7-10) Last Admin: 07/04/20 20:14 Dose: 0.5 mg Documented by: Lactated Ringer's (Ringers, Lactated) 1,000 mls @ 125 mls/hr IV ASDIRECTED [facility] Last Admin: 07/05/20 04:02 Dose: 125 mls/hr Documented by: Ibuprofen (Motrin) 400 mg PO Q6H [facility] Last Admin: 07/05/20 06:31 Dose: 400 mg Documented by: Insulin Aspart (Novolog) 0 unit SUBCUT TIDAC [facility]; Protocol Last Admin: 07/05/20 06:33 Dose: Not Given Documented by: Insulin Glargine (Lantus Solostar) 28 units SUBCUT BEDTIME [facility] Last Admin: 07/04/20 20:11 Dose: 28 units Documented by: Metronidazole (Metronidazole) 250 mg PO Q6H [facility] Last Admin: 07/05/20 11:43 Dose: 250 mg Documented by: Miconazole (Miconazole 2% Vaginal) 1 gm TOP BID PRN PRN Reason: Itching Last Admin: 07/04/20 11:44 Dose: 1 applic Documented by: Nicotine (Habitrol) 14 mg TRDERM DAILY [facility] Last Admin: 07/05/20 08:34 Dose: 14 mg Documented by: Ondansetron HCl (Zofran) 4 mg IVPUSH Q4H PRN PRN Reason: Nausea Last Admin: 07/04/20 21:44 Dose: 4 mg Documented by: Oxybutynin Chloride (Oxybutynin) 5 mg PO Q12H [facility] Last Admin: 07/05/20 00:40 Dose: 5 mg Documented by: Rosuvastatin Calcium (Crestor) 40 mg PO DAILY [facility] Last Admin: 07/05/20 08:32 Dose: 40 mg Documented by: Sodium Chloride (Saline Flush) 10 ml FLUSH ASDIRECTED PRN PRN Reason: Keep Vein Open Last Admin: 06/29/20 21:50 Dose: 10 ml Documented by: Sodium Chloride (Saline Flush) 2.5 ml FLUSH ASDIRECTED PRN PRN Reason: Keep Vein Open Last Admin: 06/29/20 21:50 Dose: 2.5 ml Documented by: Trazodone HCl (Trazodone) 100 mg PO BEDTIME PRN PRN Reason: Insomnia Last Admin: 07/04/20 21:38 Dose: 100 mg Documented by: Discontinued Medications Dextrose/Water (Dextrose 50% In Water) 50 ml IVPUSH ONETIME ONE Stop: 07/04/20 07:27 Last Admin: 07/04/20 08:10 Dose: Not Given Documented by: Diphenhydramine HCl (Benadryl) 25 mg PO ONETIME ONE Stop: 07/01/20 19:50 Last Admin: 07/01/20 20:16 Dose: 25 mg Documented by: Diphenhydramine HCl (Benadryl) 25 mg PO ONETIME ONE Stop: 07/02/20 14:47 Last Admin: 07/02/20 14:57 Dose: 25 mg Documented by: Fluconazole (Diflucan) 150 mg PO ONETIME ONE Stop: 07/02/20 11:41 Last Admin: 07/02/20 13:38 Dose: Not Given Documented by: Fluconazole (Diflucan) 150 mg PO ONETIME ONE Stop: 07/02/20 13:31 Last Admin: 07/02/20 13:38 Dose: 150 mg Documented by: Sodium Chloride (Normal Saline) 1,000 mls @ 999 mls/hr IV ASDIRECTED [facility] Last Admin: 06/29/20 21:46 Dose: 999 mls/hr Documented by: Piperacillin Sod/Tazobactam (Sod 4.5 gm/ Sodium Chloride) 100 mls @ 100 mls/hr IV ONETIME ONE Stop: 06/30/20 00:19 Last Admin: 06/29/20 23:28 Dose: 100 mls/hr Documented by: Lactated Ringer's (Ringers, Lactated) 1,000 mls @ 60 mls/hr IV ASDIRECTED [facility] Last Infusion: 07/03/20 17:13 Dose: 125 mls/hr Documented by: Piperacillin Sod/Tazobactam (Sod 3.375 gm/ Sodium Chloride) 50 mls @ 100 mls/hr IV Q6H [facility] Last Admin: 07/05/20 06:31 Dose: 100 mls/hr Documented by: Lactated Ringer's (Ringers, Lactated) 1,000 mls @ 999 mls/hr IV .BOLUS ONE Stop: 07/03/20 12:32 Last Admin: 07/03/20 11:52 Dose: 999 mls/hr Documented by: Insulin Aspart (Novolog) 0 unit SUBCUT TIDAC [facility]; Protocol Last Admin: 07/03/20 13:41 Dose: Not Given Documented by: Insulin Aspart (Novolog) 5 unit SUBCUT TIDAC [facility] Last Admin: 07/02/20 08:55 Dose: Not Given Documented by: [facility] Last Admin: 07/03/20 13:47 Dose: 6 units Documented by: Insulin Aspart (Novolog) 0 unit SUBCUT Q6H [facility]; Protocol Last Admin: 07/03/20 15:42 Dose: Not Given Documented by: Insulin Aspart (Novolog) 0 unit SUBCUT Q6H [facility]; Protocol Last Admin: 07/03/20 18:42 Dose: Not Given Documented by: Insulin Aspart (Novolog) 0 unit SUBCUT Q6H [facility]; Protocol Last Admin: 07/04/20 04:51 Dose: Not Given Documented by: Insulin Glargine (Lantus Solostar) 10 units SUBCUT ONETIME ONE Stop: 06/30/20 10:00 Last Admin: 06/30/20 10:44 Dose: 10 units Documented by: Insulin Glargine (Lantus Solostar) 10 units SUBCUT BEDTIME [facility] Last Admin: 06/30/20 20:17 Dose: 10 units Documented by: Insulin Glargine (Lantus Solostar) 35 units SUBCUT BEDTIME [facility] Last Admin: 07/01/20 22:19 Dose: 35 units Documented by: Insulin Glargine (Lantus Solostar) 38 units SUBCUT BEDTIME [facility] Last Admin: 07/02/20 21:39 Dose: 38 units Documented by: Iopamidol (Isovue-370 (76%)) 75 ml IVPUSH ONETIME STA Stop: 06/29/20 22:30 Last Admin: 06/29/20 22:30 Dose: 75 ml Documented by: Iopamidol (Isovue Multipack-370 (76%)) 100 ml IVPUSH ONETIME STA Stop: 07/03/20 11:41 Last Admin: 07/03/20 11:45 Dose: 100 ml Documented by: Lisinopril (Prinivil) 10 mg PO DAILY [facility] Last Admin: 07/03/20 09:11 Dose: Not Given Documented by: Morphine Sulfate (Morphine) 4 mg IVPUSH ONETIME ONE Stop: 06/29/20 21:29 Last Admin: 06/29/20 21:48 Dose: 4 mg Documented by: Morphine Sulfate (Morphine) 4 mg IVPUSH ONETIME ONE Stop: 06/29/20 23:16 Last Admin: 06/29/20 23:20 Dose: 4 mg Documented by: Ondansetron HCl (Zofran) 4 mg IVPUSH ONETIME ONE Stop: 06/29/20 21:29 Last Admin: 06/29/20 21:47 Dose: 4 mg Documented by: Senna/Docusate Sodium (Senna Plus) 1 tab PO BID [facility] Last Admin: 07/03/20 15:42 Dose: Not Given Documented by: - Exam General: Reports: Alert, Oriented, Cooperative HEENT: Reports: Pupils Equal, Pupils Reactive Lungs: Reports: Normal Respiratory Effort Cardiovascular: Reports: Regular Rate GI/Abdominal Exam: Soft, Non-Tender, No Distention, No Mass
[2020-07-05] MEDS: Ciprofloxacin 500 MG Tab PO SCH (21:14)
[2020-07-05] MEDS: traZODone 50 MG Tab PO PRN (21:16)
[2020-07-05] MEDS: Insulin Glargine,Human Rec. Analog 100 Units/ML 3 ML Pen SUBCUT SCH (21:16)
[2020-07-05] MEDS: Ondansetron 4 MG/2 ML SDV IVPUSH PRN (22:04)
[2020-07-06] MEDS: Oxybutynin 5 MG Tab PO SCH (01:11)
[2020-07-06] MEDS: Ibuprofen 400 MG Tab PO SCH ×2 (01:11→06:57)
[2020-07-06] MEDS: Acetaminophen/HYDROcodone 325-5 MG Tab PO PRN ×3 (01:12→09:33)
[2020-07-06] MEDS: metroNIDAZOLE 250 MG Tab PO SCH ×2 (03:21→09:33)
[2020-07-06] MEDS: Insulin Aspart 100 Units/ML 3 ML Pen SUBCUT SCH (08:26)
[2020-07-06] MEDS: ALPRAZolam 0.5 MG Tab PO SCH (08:27)
[2020-07-06] MEDS: Ciprofloxacin 500 MG Tab PO SCH (08:27)
[2020-07-06] MEDS: Rosuvastatin 10 MG Tab PO SCH (08:27)
[2020-07-06] MEDS: Nicotine 14 MG/24 Hr Patch TRDERM SCH (08:28)
[2020-07-06 09:38] VITALS: BP 124/68; PULSE 66
== END 2020-07-06 10:09 | disposition home or self-care (01) | DRG 863 ==
LOC: MW.ED 20:26 → MW.MS 23:24 → OBSVTOIN 07-01 19:39
PROVIDERS: ADMIT Internal Medicine; ATTEND Surgery
DX: T81.41XA Infection following a procedure, superficial incisional surgical site, initial encounter (principal); K56.7 Ileus, unspecified; Y83.8 Other surgical procedures as the cause of abnormal reaction of the patient, or of later complication, without mention of misadventure at the time of the procedure; T81.49XA Infection following a procedure, other surgical site, initial encounter; Z98.890 Other specified postprocedural states; E11.65 Type 2 diabetes mellitus with hyperglycemia; E78.00 Pure hypercholesterolemia, unspecified; I10 Essential (primary) hypertension; F41.9 Anxiety disorder, unspecified; Z79.899 Other long term (current) drug therapy; G43.909 Migraine, unspecified, not intractable, without status migrainosus; Z88.6 Allergy status to analgesic agent; Z91.018 Allergy to other foods; Z90.710 Acquired absence of both cervix and uterus; Z90.49 Acquired absence of other specified parts of digestive tract; Z79.4 Long term (current) use of insulin; F17.210 Nicotine dependence, cigarettes, uncomplicated; Z20.828 Contact with and (suspected) exposure to other viral communicable diseases
CPT/HCPCS: 36415 ×3; 74177; 80048 ×2; 80053; 81003; 82962 ×8; 83605; 83690; 83735; 84484; 85025 ×3; 87635; 93005; 96365; 96375; 96376; 99285; A9270 ×18; J1815 ×2; J2270 ×2; J2405 ×2; J2543 ×9; J7030; J7050 ×9; J7120 ×2; Q9967; 84100; 93010; 96374; 99024; 99221; 99231; 99283; G0378; J1170; U0002

== ENCOUNTER 2021-08-24 00:12 | Emergency (ER) | payer OTHER ==
--- NOTE | 2021-08-24 00:34 | EDM.PDOC ---
ED HPI GENERAL MEDICAL PROBLEM - General Chief Complaint: Upper Extremity Injury/Pain Stated Complaint: BROKEN LEFT THUMB Time Seen by Provider: 08/24/21 00:28 - History of Present Illness INITIAL COMMENTS - FREE TEXT/NARRATIVE: History of present illness: [] Patient fell on the ice twice tonight. First time she fell on the right side was not injured. The second time she injured her left thumb and says it is deformed and hurts to move it. She has severe pain even at rest. Pains in the MPJ and the lower part of the thumb across to the proximal metacarpals of his second through fourth digit. Patient denies any other injury. Review of systems: As per history of present illness and below otherwise all systems reviewed and negative. Past medical history: As per history of present illness and as reviewed below otherwise noncontributory. Surgical history: As per history of present illness and as reviewed below otherwise noncontributory. Social history: No reported history of drug or alcohol abuse. Family history: As per history of present illness and as reviewed below otherwise noncontributory. Physical exam: Constitutional - well developed, well-nourished and in no acute distress HEENT - normocephalic, no evidence of trauma - external nose and mouth normal - no mass in neck and no JVD - mucosae moist EYES - full EOM, PERRL, no icterus - no evidence of inflammation, injection, or drainage Respiratory - no respiratory distress, equal bilateral expansion, lungs clear to auscultation and no abnormal lung sounds Cardiovascular - Regular Rhythm with S1 and S2 appreciated and no murmur, gallop or rub. GI - abdomen soft without distension or organomegaly - no guard or rebound Musculoskeletal tender swelling at the MPJ number one of the left hand. C-spine cleared by Nexus criteria. No gross deformity of long bones or joints - no tenderness, swelling or edema Neurologic - Alert and oriented times four - CN II-XII grossly intact - motor sensory and coordination symmetrically normal Psychiatric - appropriate mood and affect with normal thought content Hematologic - No petechiae or purpura - mucosa appropriate color and sclera not pale - normal nail bed color and refill Integument - no rash or evidence of trauma - normal turgor Diagnostics: [] Therapeutics: [] Impression: [] Plan: [] Definitive disposition and diagnosis as appropriate pending reevaluation and review of above. Left Finger-Thumb Pain Score (Numeric/FACES): 10 - Related Data Allergies Allergy/AdvReac Type Severity Reaction Status Date / Time coconut Allergy Difficulty Verified 08/24/21 00:21 Breathing hydroxyzine HCl Allergy Hives Verified 08/24/21 00:21 [From Vistaril] hydroxyzine pamoate Allergy Hives Verified 08/24/21 00:21 [From Vistaril] ketorolac tromethamine Allergy Hives Verified 08/24/21 00:21 [From Toradol] Home Meds: Home Meds lisinopriL [Lisinopril] 10 mg PO DAILY 06/23/20 [History] ALPRAZolam [Alprazolam] 0.5 mg PO BID PRN 06/24/20 [History] Oxybutynin 5 mg PO Q12H 06/24/20 [History] Rizatriptan Benzoate [Rizatriptan] 10 mg PO Q2H PRN 06/24/20 [History] Rosuvastatin [Crestor] 40 mg PO DAILY 06/24/20 [History] polyethylene glycoL 3350 [MiraLAX] 17 gm PO DAILY 7 Days #1 packet 06/26/20 [Rx] Insulin Aspart [NovoLOG] 5 unit SUBCUT TIDAC pen 06/27/20 [Rx] Ondansetron [Zofran ODT] 4 mg PO Q6H PRN #30 tab.dis 06/27/20 [Rx] traMADol [Ultram] 50 mg PO Q6H PRN 07/02/20 [History] traZODone HCl [Trazodone HCl] 100 mg PO BEDTIME 07/02/20 [History] Ciprofloxacin [Ciprofloxacin HCl] 500 mg PO BID #10 tablet 07/05/20 [Rx] metroNIDAZOLE 250 mg PO Q6H #20 tablet 07/05/20 [Rx] Insulin Glarg,Human.Rec.Analog [Lantus Solostar] 30 units SUBCUT BEDTIME #0 pen 07/06/20 [Rx] Sennosides/Docusate Sodium [Senna-Plus Tablet] 1 each PO DAILY PRN #30 tablet 07/06/20 [Rx] Acetaminophen/oxyCODONE [Percocet 325-10 MG] 1 tab PO Q4H PRN #10 tab 08/24/21 [Rx] Past Medical History - Past Health History Medical/Surgical History: Denies Medical/Surgical History HEENT History: Reports: None Other HEENT History: wears glasses Cardiovascular History: Reports: High Cholesterol, Hypertension Respiratory History: Reports: TB Other Respiratory History: reports treatment for positive tuberculin test in 2002 - no lung lesions Gastrointestinal History: Reports: Other (See Below) Genitourinary History: Reports: None 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 ASSOCIATE 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: x2 Musculoskeletal History: Reports: Other (See Below) Other Musculoskeletal History: chronic shoulder pain Neurological History: Reports: Migraines Psychiatric History: Reports: Anxiety, Panic Attack Endocrine/Metabolic History: Reports: Diabetes, Type II Hematologic History: Reports: None Immunologic History: Reports: None Oncologic (Cancer) History: Reports: None Dermatologic History: Reports: None - Infectious Disease History Infectious Disease History: Reports: TB Other Infectious Disease History: 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 - Past Surgical History Head Surgeries/Procedures: Reports: None HEENT Surgical History: Reports: None Cardiovascular Surgical History: Reports: None Respiratory Surgical History: Reports: None GI Surgical History: Reports: None Female Surgical History: Reports: Hysterectomy, Tubal Ligation Neurological Surgical History: Reports: None Musculoskeletal Surgical History: Reports: Arthroscopic Knee, Shoulder Surgery, Other (See Below) Other Musculoskeletal Surgeries/Procedures:: L4 - L5 fusion 4 years ago Oncologic Surgical History: Reports: None Social & Family History - Family History Family Medical History: No Pertinent Family History Neurological: Reports: Migraines Psychiatric: Reports: Anxiety Endocrine/Metabolic: Reports: Diabetes, type II - Caffeine Use Caffeine Use: Reports: None Caffeine Use Comment: Client was lethargic upon arrival, unable to accurately obtain information. - Recreational Drug Use Recreational Drug Use: No Review of Systems - Review of Systems Review Of Systems: Comprehensive ROS is negative, except as noted in HPI. ED EXAM, GENERAL - Physical Exam Exam: See Below Free Text/Narrative:: My physical exam is in the HPI Course - Vital Signs Last Recorded V/S: Last Vital Signs Temp 36.4 C 08/24/21 00:22 Pulse 100 08/24/21 00:22 Resp 17 08/24/21 00:22 BP 137/88 08/24/21 00:22 Pulse Ox 98 08/24/21 00:22 - Orders/Labs/Meds Orders: Active Orders 24 hr Category Date Time Status Hand Comp Min 3V Lt [CR] Stat Exams 08/24/21 00:32 Taken DME for Discharge [COMM] Stat Oth 08/24/21 01:03 Ordered - Re-Assessments/Exams Free Text/Narrative Re-Assessment/Exam: 08/24/21 01:06 There is pain with strain of the ulnar collateral ligament of the left thumb. The left thumb at the MPJ is more lax in stress to the side stressing the ulnar collateral ligament than the right. There is more range of motion. Impression is gamekeeper's thumb. Free Text/Narrative Re-Assessment/Exam: 08/24/21 01:10 Neurovascular status verified after application of splint. Departure - Departure Time of Disposition: 01:25 Disposition: Home, Self-Care 01 Condition: Good Clinical Impression: Gamekeeper's thumb of left hand - Discharge Information Instructions: Cast or Splint Care, Adult, [id number], Skier's Thumb Repair Referrals: PCP,None [Primary Care Provider] - Constantine Booth [Ordering Only Provider] - Navi Meléndez MD [Ordering Only Provider] - Forms: ED Department Discharge Additional Instructions: Contact the hand surgeons in [place] tomorrow and make arrangements to be seen for reevaluation and possible surgical repair of the ulnar collateral ligament. [facility] prescriptions [facility] and it is open noon to 5 on Wednesday. [facility] [address] [place] [address] [place] [address] The following information is given to patients seen in the emergency department who are being discharged to home. This information is to outline your options for follow-up care. We provide all patients seen in our emergency department with a follow-up referral. The need for follow-up, as well as the timing and circumstances, are variable depending upon the specifics of your emergency department visit. If you don't have a primary care physician on staff, we will provide you with a referral. We always advise you to contact your personal physician following an emergency department visit to inform them of the circumstance of the visit and for follow-up with them and/or the need for any referrals to a consulting specialist. The emergency department will also refer you to a specialist when appropriate. This referral assures that you have the opportunity for follow-up care with a specialist. All of these measure are taken in an effort to provide you with optimal care, which includes your follow-up. Under all circumstances we always encourage you to contact your private physician who remains a resource for coordinating your care. When calling for follow-up care, please make the office aware that this follow-up is from your recent emergency room visit. If for any reason you are refused follow-up, please contact the [facility] Emergency Department at and asked to speak to the emergency department charge nurse. Sepsis Event Note (ED) - Evaluation Sepsis Screening Result: No Definite Risk - Focused Exam Vital Signs: Vital Signs Temp Pulse Resp BP Pulse Ox 08/24/21 00:22 36.4 C 100 17 137/88 98 - My Orders Last 24 Hours: My Active Orders 08/24/21 00:32 Hand Comp Min 3V Lt [CR] Stat 08/24/21 01:03 DME for Discharge [COMM] Stat - Assessment/Plan Last 24 Hours: My Active Orders 08/24/21 00:32 Hand Comp Min 3V Lt [CR] Stat 08/24/21 01:03 DME for Discharge [COMM] Stat
[2021-08-24] MEDS ORDERED: Acetaminophen/oxyCODONE 325-10 MG Tab PO ONE (01:06)
--- NOTE | 2021-08-24 01:12 | CR ---
HISTORY: Pain after fall. COMPARISON: None available. FINDINGS: The left hand is examined with PA, lateral, and oblique views. There is no sign of fracture or dislocation. The soft tissues are normal in appearance without sign of radio-opaque foreign body. No degenerative disease is seen. IMPRESSION: Normal left hand. Dictated by Erich Dominguez MD @ 08/24/2021 1:10:19 AM (Electronically Signed)
[2021-08-24 01:31] VITALS: BP 142/57; PULSE 89
== END 2021-08-24 01:28 | disposition home or self-care (01) ==
LOC: MW.ED 00:12
DX: S63.418A Traumatic rupture of collateral ligament of other finger at metacarpophalangeal and interphalangeal joint, initial encounter (principal); S66.212A Strain of extensor muscle, fascia and tendon of left thumb at wrist and hand level, initial encounter; E78.00 Pure hypercholesterolemia, unspecified; I10 Essential (primary) hypertension; E11.9 Type 2 diabetes mellitus without complications; Z88.8 Allergy status to other drugs, medicaments and biological substances; Z91.018 Allergy to other foods; Z88.6 Allergy status to analgesic agent; Z79.4 Long term (current) use of insulin; Z79.899 Other long term (current) drug therapy; W00.9XXA Unspecified fall due to ice and snow, initial encounter
CPT/HCPCS: 73130; 99283; A9270

== ENCOUNTER 2022-03-04 11:51 | Emergency (ER) | payer OTHER ==
[2022-03-04 12:01] VITALS: BP 126/83; PULSE 90
[2022-03-04] MEDS ORDERED: Orphenadrine 60 MG/2 ML Inj IM ONE (12:09)
== END 2022-03-04 12:53 | disposition home or self-care (01) ==
LOC: MW.ED 11:51
DX: M62.838 Other muscle spasm (principal); I10 Essential (primary) hypertension; E78.00 Pure hypercholesterolemia, unspecified; E11.9 Type 2 diabetes mellitus without complications; Z79.899 Other long term (current) drug therapy; Z79.4 Long term (current) use of insulin; Z88.8 Allergy status to other drugs, medicaments and biological substances
CPT/HCPCS: 96372; 99283; J2360

== ENCOUNTER 2024-07-26 21:07 | Emergency (ER) | payer OTHER ==
[2024-07-26 22:06] LABS: BASOPHILS ABSOLUTE AUTO 0.04 K/uL (0.00-0.20); BASOPHILS PERCENT AUTO 0.5 % (0.0-1.0); EOSINOPHILS PERCENT AUTO 1.2 % (0.0-6.0); HEMATOCRIT 41.6 % (37.0-47.0); IMMATURE GRAN ABSOLUTE AUTO 0.08 K/uL (0.00-0.05); IMMATURE GRAN PERCENT AUTO 0.9 % (0.0-0.4); LYMPHOCYTES ABSOLUTE AUTO 3.38 K/uL (1.00-4.80); LYMPHOCYTES PERCENT AUTO 39.2 % (24.0-44.0); MEAN CORPUSCULAR HEMOGLOBIN 31.2 pg (28.0-32.0); MEAN CORPUSCULAR HGB CONC 33.7 g/dL (32.0-36.0); MEAN CORPUSCULAR VOLUME 92.7 fL (83.0-99.0); MEAN PLATELET VOLUME 9.5 fL (9.4-12.3); MONOCYTES ABSOLUTE AUTO 0.66 K/uL (0.00-0.80); MONOCYTES PERCENT AUTO 7.6 % (0.0-8.0); NEUTROPHILS ABSOLUTE AUTO 4.37 K/uL (1.80-7.70); NEUTROPHILS PERCENT AUTO 50.6 % (41.0-71.0); PLATELET COUNT,PLT 306 K/uL (150-400); RED BLOOD CELL COUNT 4.49 M/uL (4.10-5.30); WHITE BLOOD CELL COUNT,WBC 8.63 K/uL (3.9-11.3)
[2024-07-26] MEDS: Sodium Chloride 0.9% 1,000 ML IV ONE (22:07)
[2024-07-26] MEDS: Metoclopramide 10 MG/2 ML SDV IVPUSH ONE (22:08)
[2024-07-26 22:34] LABS: A/G RATIO 1.1 (0.9-1.6); ALANINE AMINOTRANSFERASE,ALT 19 IU/L (14-63); ALBUMIN 3.6 g/dL (3.4-5.0); ALKALINE PHOSPHATASE 45 U/L (46-116); ASPARTATE AMNIOTRANSFERASE,AST 11 IU/L (15-37); BILIRUBIN TOTAL 0.2 mg/dL (0.2-1.0); BLOOD UREA NITROGEN,BUN 17 mg/dL (7.0-18.0); CALCIUM 8.8 mg/dL (8.5-10.1); CARBON DIOXIDE,CO2 30.3 mmol/L (21.0-32.0); CHLORIDE,CL 100 mmol/L (98-107); GLUCOSE RANDOM 274 mg/dL (74-106); POTASSIUM,K 4.3 mmol/L (3.5-5.1); PROTEIN TOTAL,TP 6.9 g/dL (6.4-8.2); SODIUM,NA 135 mmol/L (136-145)
[2024-07-26 22:36] LABS: ESTIMATED GFR 68 mL/min (>60)
[2024-07-27 01:36] VITALS: BP 110/63; PULSE 84
== END 2024-07-27 01:34 | disposition home or self-care (01) ==
LOC: MW.ED 21:07
DX: E11.65 Type 2 diabetes mellitus with hyperglycemia (principal); R19.7 Diarrhea, unspecified; F17.210 Nicotine dependence, cigarettes, uncomplicated; I10 Essential (primary) hypertension; E78.00 Pure hypercholesterolemia, unspecified; Z90.710 Acquired absence of both cervix and uterus; Z79.899 Other long term (current) drug therapy; Z91.018 Allergy to other foods; Z88.5 Allergy status to narcotic agent; Z88.8 Allergy status to other drugs, medicaments and biological substances
CPT/HCPCS: 36415; 80053; 82947; 85025; 96361; 96374; 99284; 99284-25; J2765; J7030

== ENCOUNTER 2024-11-15 10:48 | Emergency (ER) | payer OTHER ==
[2024-11-15 11:34] LABS: BASOPHILS ABSOLUTE AUTO 0.03 K/uL (0.00-0.20); BASOPHILS PERCENT AUTO 0.3 % (0.0-1.0); EOSINOPHILS ABSOLUTE AUTO 0.07 K/uL (0.00-0.45); EOSINOPHILS PERCENT AUTO 0.7 % (0.0-6.0); HEMATOCRIT 47.9 % (37.0-47.0); HEMOGLOBIN 15.7 g/dL (12.0-16.0); IMMATURE GRAN ABSOLUTE AUTO 0.06 K/uL (0.00-0.05); IMMATURE GRAN PERCENT AUTO 0.6 % (0.0-0.4); LYMPHOCYTES ABSOLUTE AUTO 2.62 K/uL (1.00-4.80); LYMPHOCYTES PERCENT AUTO 25.7 % (24.0-44.0); MEAN CORPUSCULAR HEMOGLOBIN 30.1 pg (28.0-32.0); MEAN CORPUSCULAR HGB CONC 32.8 g/dL (32.0-36.0); MEAN CORPUSCULAR VOLUME 91.9 fL (83.0-99.0); MEAN PLATELET VOLUME 9.4 fL (9.4-12.3); MONOCYTES ABSOLUTE AUTO 0.69 K/uL (0.00-0.80); MONOCYTES PERCENT AUTO 6.8 % (0.0-8.0); NEUTROPHILS ABSOLUTE AUTO 6.74 K/uL (1.80-7.70); NEUTROPHILS PERCENT AUTO 65.9 % (41.0-71.0); PLATELET COUNT,PLT 321 K/uL (150-400); RED BLOOD CELL COUNT 5.21 M/uL (4.10-5.30); WHITE BLOOD CELL COUNT,WBC 10.21 K/uL (3.9-11.3)
[2024-11-15] MEDS: Albuterol/Ipratropium 3.0-0.5 MG/3 ML Neb Soln NEB ONE (11:44)
[2024-11-15 12:27] LABS: BLOOD UREA NITROGEN,BUN 17 mg/dL (7.0-18.0); CALCIUM 9.4 mg/dL (8.5-10.1); CARBON DIOXIDE,CO2 20.9 mmol/L (21.0-32.0); CHLORIDE,CL 101 mmol/L (98-107); CREATININE 1.1 mg/dL (0.6-1.0); EST CRCL DRUG DOSING (CG) 47.32 mL/min; GLUCOSE RANDOM 189 mg/dL (74-106); POTASSIUM,K 4.3 mmol/L (3.5-5.1); PRO B-TYPE NATRIUR PEPT,BNPPRO 35 pg/mL (0-125); SODIUM,NA 137 mmol/L (136-145)
[2024-11-15 12:28] LABS: ESTIMATED GFR 60 mL/min (>60)
[2024-11-15 12:55] VITALS: PULSE 94
[2024-11-15 13:50] VITALS: BP 120/80
== END 2024-11-15 13:54 | disposition home or self-care (01) ==
LOC: MW.ED 10:48
DX: J40 Bronchitis, not specified as acute or chronic (principal); I10 Essential (primary) hypertension; E78.00 Pure hypercholesterolemia, unspecified; E11.9 Type 2 diabetes mellitus without complications; Z91.048 Other nonmedicinal substance allergy status; Z91.018 Allergy to other foods; Z88.5 Allergy status to narcotic agent; Z88.8 Allergy status to other drugs, medicaments and biological substances; Z79.899 Other long term (current) drug therapy; Z79.4 Long term (current) use of insulin
CPT/HCPCS: 36415; 71045; 80048; 83880; 84484; 85025; 87428; 93005; 94640; 99285; J7620; A9270-GY

== ENCOUNTER 2024-12-21 11:27 | Emergency (ER) | payer OTHER ==
[2024-12-21] MEDS ORDERED: Sodium Chloride 0.9% 2.5 ML Syringe FLUSH PRN (12:28)
[2024-12-21] MEDS ORDERED: Sodium Chloride 0.9% 10 ML Syringe FLUSH PRN (12:28)
[2024-12-21] MEDS: Lactated Ringers 1,000 ML IV ONE (12:44)
[2024-12-21 12:55] LABS: BASOPHILS ABSOLUTE AUTO 0.04 K/uL (0.00-0.20); BASOPHILS PERCENT AUTO 0.4 % (0.0-1.0); EOSINOPHILS ABSOLUTE AUTO 0.05 K/uL (0.00-0.45); EOSINOPHILS PERCENT AUTO 0.4 % (0.0-6.0); HEMATOCRIT 51.6 % (37.0-47.0); HEMOGLOBIN 17.4 g/dL (12.0-16.0); IMMATURE GRAN ABSOLUTE AUTO 0.07 K/uL (0.00-0.05); IMMATURE GRAN PERCENT AUTO 0.6 % (0.0-0.4); LYMPHOCYTES ABSOLUTE AUTO 3.34 K/uL (1.00-4.80); MEAN CORPUSCULAR HEMOGLOBIN 30.7 pg (28.0-32.0); MEAN CORPUSCULAR HGB CONC 33.7 g/dL (32.0-36.0); MEAN CORPUSCULAR VOLUME 91.2 fL (83.0-99.0); MEAN PLATELET VOLUME 9.5 fL (9.4-12.3); MONOCYTES ABSOLUTE AUTO 0.76 K/uL (0.00-0.80); MONOCYTES PERCENT AUTO 6.8 % (0.0-8.0); NEUTROPHILS ABSOLUTE AUTO 6.87 K/uL (1.80-7.70); NEUTROPHILS PERCENT AUTO 61.8 % (41.0-71.0); PLATELET COUNT,PLT 378 K/uL (150-400); RED BLOOD CELL COUNT 5.66 M/uL (4.10-5.30); WHITE BLOOD CELL COUNT,WBC 11.13 K/uL (3.9-11.3)
[2024-12-21 13:02] LABS: PH,VENOUS 7.37 (7.32-7.43)
[2024-12-21] MEDS: Metoclopramide 10 MG/2 ML SDV IVPUSH ONE (13:02)
[2024-12-21 13:03] LABS: BASE EXCESS VENOUS -0.7 (-2.0-3.0)
[2024-12-21] MEDS: Pantoprazole 40 MG in Sodium Chloride 0.9% 10 ML IVPUSH ONE (13:24)
[2024-12-21] MEDS: ALPRAZolam 0.5 MG Tab PO ONE (13:24)
[2024-12-21 13:33] LABS: A/G RATIO 1.1 (0.9-1.6); ALBUMIN 4.3 g/dL (3.4-5.0); BILIRUBIN TOTAL 0.7 mg/dL (0.2-1.0); CALCIUM 9.5 mg/dL (8.5-10.1); CARBON DIOXIDE,CO2 25.3 mmol/L (21.0-32.0); EST CRCL DRUG DOSING (CG) 52.05 mL/min; POTASSIUM,K 4.6 mmol/L (3.5-5.1); PROTEIN TOTAL,TP 8.2 g/dL (6.4-8.2)
[2024-12-21] MEDS: Iopamidol 755 MG/ML 500 ML Multipack Bottle IVPUSH ONE (13:41)
[2024-12-21 14:11] VITALS: BP 123/74
[2024-12-21 14:36] VITALS: PULSE 88
== END 2024-12-21 14:38 | disposition home or self-care (01) ==
LOC: MW.ED 11:27
DX: R11.2 Nausea with vomiting, unspecified (principal); I10 Essential (primary) hypertension; E78.00 Pure hypercholesterolemia, unspecified; E11.9 Type 2 diabetes mellitus without complications; Z90.710 Acquired absence of both cervix and uterus; Z88.5 Allergy status to narcotic agent; Z88.8 Allergy status to other drugs, medicaments and biological substances; Z91.018 Allergy to other foods; Z79.4 Long term (current) use of insulin; Z79.899 Other long term (current) drug therapy; Z75.3 Unavailability and inaccessibility of health-care facilities
CPT/HCPCS: 36415; 71045; 74177; 80053; 82803; 83690; 84484; 85025; 87428; 96361; 96374; 96375; 99284; A9270; J2470; J2765; J7120; Q9967; 99283

== ENCOUNTER 2025-07-03 20:20 | Emergency (ER) | payer OTHER ==
[2025-07-03 20:36] VITALS: BP 127/74; PULSE 95
== END 2025-07-03 22:30 | disposition home or self-care (01) ==
LOC: MW.ED 20:20
DX: S80.01XA Contusion of right knee, initial encounter (principal); I10 Essential (primary) hypertension; E78.00 Pure hypercholesterolemia, unspecified; E11.9 Type 2 diabetes mellitus without complications; Z91.018 Allergy to other foods; Z88.8 Allergy status to other drugs, medicaments and biological substances; Z88.5 Allergy status to narcotic agent; Z79.4 Long term (current) use of insulin; W18.39XA Other fall on same level, initial encounter; Y93.89 Activity, other specified
CPT/HCPCS: 73562; 99283; A9270